=== PATIENT | female | born 1975 | race Caucasian/White ===

== ENCOUNTER 2021-10-05 07:00 | Outpatient (CLI) | payer OTHER, SELFPAY ==
--- NOTE | 2021-10-05 07:15 | MR_ITS ---
[address] [address] Phone:?[phone] Fax:?[phone] Referring Physician Information: Sesar Palumbo M.D. [address] [place] [address] Phone:?[phone] Fax:?[phone] Patient:?Leandra Black D.O.B:?1975 Sex:?Female Phone:?[phone] [facility] MRN:?[id number] Exam Date:?10/05/2021 ? EXAM: MRI of the RIGHT KNEE, without contrast CLINICAL: Bilateral knee pain. Evaluate for lateral meniscal tear. COMPARISONS: None available. TECHNICAL: MR sequences of the right knee: sagittals: PD, PDFS coronals: PD, T2FS axials: PD, PDFS SEDATION: None. CONTRAST: None. FINDINGS: Ligaments: ACL: Intact ACL anteromedial and posterolateral bundles, without sprain or tear. PCL: Intact PCL, without acute or chronic injury. MCL: Intact MCL superficial and deep layers, without injury. LCL: Intact LCL, without injury. Posterolateral corner: Popliteus, biceps femoris, iliotibial band, and the popliteofibular ligament appear intact. Posteromedial corner: Semimembranosus, pes anserine tendons and posterior oblique ligament appear intact. Extensor mechanism: Patellar tendon: Intact, without tendinopathy. Quadriceps tendon: Intact, without tendinopathy. Retinacula: Medial and lateral retinacula are intact. Fat pads: Unremarkable infrapatellar Hoffa's, quadriceps and prefemoral fat pads. Patellofemoral joint: Patella: Mild heterogeneity of the patellar cartilage. No chondral defects identified. Trochlea: No significant chondromalacia. Medial compartment: Medial meniscus: No evidence of discrete meniscal tear or meniscal displacement. Medial cartilage: No significant chondromalacia. Lateral compartment: Lateral meniscus: Horizontal dominant tearing involves the body segment extending into the anterior horn as seen on coronal series 8 images 16-19 and sagittal series 6 images 8-12. Mild degenerative signal changes involving the posterior horn. Complex parameniscal cyst formation noted along the periphery of the body segment measuring approximately 28 mm in AP dimension and 13 mm in cranial caudal dimension as seen on coronal series 8 images 15-20 and axial series 4 images 19-23. Lateral cartilage: No significant chondromalacia. Knee joint: Effusion: Very small right knee effusion. Intra-articular bodies:?No convincing bodies identified. Popliteal cyst: None. Bones: No suspicious bone marrow signal alteration or fracture line. IMPRESSION: 1. Tearing of the lateral meniscus as above, with adjacent parameniscal cyst formation along the periphery of the body segment. 2. No evidence of ligamentous injury or fracture. No chondral defects. JCZ Electronically signed on 10/05/2021 12:59:00 PM by Carlos Landis D.O.
--- NOTE | 2021-10-05 08:15 | MR_ITS ---
[address] [address] Phone:?[phone] Fax:?[phone] Referring Physician Information: Sesar Palumbo M.D. [address] [place] [address] Phone:?[phone] Fax:?[phone] Patient:?Leandra Black D.O.B:?1975 Sex:?Female Phone:?[phone] [facility] MRN:?[id number] Exam Date:?10/05/2021 ? EXAM: MRI of the LEFT KNEE, without contrast CLINICAL: Bilateral knee pain. Evaluate for lateral meniscal tear. COMPARISONS: None available. TECHNICAL: MR sequences of the left knee: sagittals: PD, PDFS coronals: PD, T2FS axials: PD, PDFS SEDATION: None. CONTRAST: None. FINDINGS: Ligaments: ACL: Intact ACL anteromedial and posterolateral bundles, without sprain or tear. PCL: Intact PCL, without acute or chronic injury. MCL: Intact MCL superficial and deep layers, without injury. LCL: Intact LCL, without injury. Posterolateral corner: Popliteus, biceps femoris, iliotibial band, and the popliteofibular ligament appear intact. Posteromedial corner: Semimembranosus, pes anserine tendons and posterior oblique ligament appear intact. Extensor mechanism: Patellar tendon: Intact, without tendinopathy. Quadriceps tendon: Intact, without tendinopathy. Retinacula: Medial and lateral retinacula are intact. Fat pads: Unremarkable infrapatellar Hoffa's, quadriceps and prefemoral fat pads. Patellofemoral joint: Patella: No significant chondromalacia. Trochlea: No significant chondromalacia. Medial compartment: Medial meniscus: No evidence of discrete meniscal tear or meniscal displacement. Medial cartilage: No significant chondromalacia. Lateral compartment: Lateral meniscus: Horizontal dominant tearing involves the body segment extending into the anterior horn, anterior root fibers and into the undersurface of the posterior horn as seen on sagittal series 6 image 19-26 and coronal series 8 images 15-20. Small parameniscal cyst formation along the periphery of the anterior root fibers on sagittal series 6 image 20-21. Lateral cartilage: No significant chondromalacia. Knee joint: Effusion: Small left knee effusion. Intra-articular bodies:?No convincing bodies identified. Popliteal cyst: Very small, with leakage of fluid extending inferiorly along the periphery of the medial gastrocnemius muscle. Bones: No suspicious bone marrow signal alteration or fracture line. IMPRESSION: 1. Tearing of the lateral meniscus as above. 2. Very small popliteal cyst with leakage of fluid extending inferiorly along the periphery of the medial gastrocnemius muscle belly. 3. Small joint effusion. 4. No evidence of ligamentous injury or fracture. No chondral defects identified. JCZ Electronically signed on 10/05/2021 12:54:00 PM by Carlos Landis D.O.
--- OUTSIDE RECORDS SUMMARY | 2021-10-12 00:40 | XMS_ITS | Encounter Summary ---
:1975 Author Organization [facility] Address [address] [place] [address] Care Team Providers Name Role Phone Steven Escobar M.D. Primary Care Provider [phone] Encounter Details Date Type Department Care Team Description 06/03/2021 Orders Only Pharmacy Prior Auth Ady Vega [phone] Social History Tobacco Use Types Packs/Day Years Used Date Smoking Tobacco: Every Day Cigarettes 0.8 16 Smokeless Tobacco: Never Alcohol Use Standard Drinks/Week Comments Yes 5 (1 standard drink = 0.6 oz pure alcoho l) Occasional Alcohol Habits Answer Date Recorded How often do you have a drink containing alcohol? Monthly or less 08/17/2020 How many drinks containing alcohol do you have on a 3 or 4 08/17/2020 typical day when you are drinking? How often do you have six or more drinks on one Less than mo nthly 08/17/2020 occasion? Comment: Occasional 06/14/2017 Social Isolation Answer Date Recorded In a typical week, how many times do you More than three kitty es a week 08/17/2020 talk on the phone with family, friends, or neighbors? How often do you get together with friends Once a week 08/17/2020 or relatives? How often do you attend faith or More than 4 times per year 08/17/2020 congregation services? Do you belong to any clubs or Yes 08/17/2020 organizations such as faith groups, unions, fraternal or athletic groups, or school groups? How often do you attend meetings of the 1 to 4 times per yea r 08/17/2020 clubs or organizations you belong to? Are you now , , , Living with partner 08/17/2020 , never or living with a partner? Physical Activity Answer Date Recorded On average, how many days per week do you engage in moderate to 2 days 08/17/2020 strenuous exercise (like walking fast, running, jogging, dancing, swimming, biking, or other activities that cause a light or heavy sweat)? On average, how many minutes do you engage in exercise at th is 20 min 08/17/2020 level? Stress Answer Date Recorded Do you feel stress - tense, restless, nervous, or Only a lit tle 08/17/2020 anxious, or unable to sleep at night because your mind is troubled all the time - these days? Financial Resource Strain Answer Date Recorded How hard is it for you to pay for the very basics like Not v mulugeta hard 08/17/2020 food, housing, medical care, and heating? Food Insecurity Answer Date Recorded Within the past 12 months, you worried that your food would Never true 08/17/2020 run out before you got money to buy more. Within the past 12 months, the food you bought just didn't N ever true 08/17/2020 last and you didn't have money to get more. Transportation Needs Answer Date Recorded In the past 12 months, has lack of transportation kept you f rom No 08/17/2020 medical appointments or from getting medications? In the past 12 months, has lack of transportation kept you f rom No 08/17/2020 meetings, work, or getting things needed for daily living? Housing Stability Answer Date Recorded In the last 12 months, was there a time when you were not ab le No 08/17/2020 to pay the mortgage or rent on time? In the last 12 months, how many places have you lived? 1 08/17/2020 In the last 12 months, was there a time when you did not hav e a No 08/17/[address] or slept in a halfway (including now)? Education Answer Date Recorded What is the highest level of school Associate degree: nicole mendoza, 01/29/2019 you have completed or the highest technical, or vocational p giancarlo degree you have received? Sex Assigned at Date Recorded Female 06/10/2017 5:21 PM CDT documented as of this encounter Plan of Treatment Not on filedocumented as of this encounter Visit Diagnoses Not on filedocumented in this encounter Care Teams Die Cutter Operator Relationship Specialty Start Date End Date Steven Escobar M.D. PCP - General 08/17/16 [address], [place] [address] documented as of this encounter
--- OUTSIDE RECORDS SUMMARY | 2021-10-12 00:40 | XMS_ITS | Clinical Summary ---
:1975 Author Organization [facility] Address [address] [place] [address] Care Team Providers Name Role Phone Steven Escobar M.D. Primary Care Provider [phone] Source Comments Patient records contain information from all sites at [facility]. For routine questions regarding patient records, call [phone] during business hours, M-F 8:00 AM - 5:00 PM Central Time. Record requests for emergency care only can be directed to [phone] at any time.[facility] Allergies No known active allergies Medications Medication Sig Dispensed Refills Start Date End Date Status ibuprofen Take 200 mg by 0 Activ e (ADVIL,MOTRIN) 200 mg mouth every 6 tablet (six) hours as needed. nicotine (NICODERM CQ) Place 1 patch on 30 patch 0 07/29/2020 Active 21 mg/24 hr the skin daily. patchIndications: Abuse Tobacco Smoking Additional Information Patient not taking. Reported on 01/21/2021 estradioL (VIVELLE-DOT) 0.1 Place 1 patch on the 24 patch 3 0 10/21/2020 Active mg/24 hr patch skin 2 (two) times a week. Additional Information Patient not taking. Reported on 01/21/2021 progesterone (PROMETRIUM) Take 1 capsule (100 mg 60 capsule 3 06/02/2021 Active 100 mg capsule total) by mouth at bedtime. Active Problems Problem Noted Date Pain Knee Bilateral 12/07/2020 Overview: SARINA, CRP, rheumatoid factor are pending. Discussed her needing to stretch her IT band. Also recommended that she attempt to walk backwards during her routine walks. Preventive Gynecological Exam 07/29/2020 Overview: Pap smear 06/2018, will plan to repeat ne xt year. She will schedule a mammogram at her convenience. Colon cancer screening starts at age 50. Routine labs are ordered. She will continue with regular exercise. Perimenopause 07/29/2020 Overview: Her symptoms have significantly improved since starting Prometrium and Vivelle- Dot so she will continue with these. 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 She smokes first thing in the morning and she does not smoke in the car often. Nicotine patches previously prescribed. Rhytid 08/07/2013 Resolved Problems Problem Noted Date Resolved Date Pain Knee Right 03/22/2020 12/07/2020 Need Vaccine Immunization 01/07/2020 12/07/2020 Immunizations Name Administration Dates Next Due Influenza, Unspecified 02/17/2011 Tdap 06/04/2016, 06/07/2007 influenza vaccine quad (FLUZONE/FLUARIX) (6 months 0 and older)(PF) Family History Medical History Relation Name Comments Healthy adult Father Breast cancer Maternal Grandmother Marion cantu Healthy adult Mother Skin cancer Paternal Grandmother Angelia todd AVM Sister Ruptured in 20's ; underwent surgery Relation Name Status Comments Father Maternal Grandmother Marion cantu Mother Paternal Grandmother Angelia todd Sister Social History Tobacco Use Types Packs/Day Years Used Date Smoking Tobacco: Every Day Cigarettes 0.8 16 Smokeless Tobacco: Never Tobacco Cessation: Ready to Quit: Yes; C ounseling Given: Yes Alcohol Use Standard Drinks/Week Comments Yes 5 [...] or relatives? How often do you attend rastafari or More than 4 times per year 08/17/2020 mandaeism services? Do you belong to any clubs or Yes 08/17/2020 organizations such as rastafari groups, unions, fraternal or athletic groups, or [...] place to sleep or slept in a jail (including now)? Education Answer Date Recorded What is the highest level of school Associate degree: nicole mendoza, 01/29/2019 you have completed or the highest technical, or vocational p giancarlo degree you have received? Sex Assigned at Date Recorded Female 06/10/2017 5:21 PM CDT Last Filed Vital Signs Vital Sign Reading Time Taken Comments Blood Pressure 104/66 01/21/2021 2:43 PM PRIVATE BRANCH EXCHANGE OPERATOR Pulse 76 01/21/2021 2:43 PM PRIVATE BRANCH EXCHANGE OPERATOR Temperature 36.1 ??C (97 ??F) 01/21/2021 2:43 PM PRIVATE BRANCH EXCHANGE OPERATOR Respiratory Rate 16 07/02/2018 1:55 PM CDT Oxygen Saturation 99% 08/17/2020 10:00 AM CDT Inhaled Oxygen Concentration - - Weight 66 kg (145 lb 8.1 oz) 01/21/2021 2:43 PM PRIVATE BRANCH EXCHANGE OPERATOR Height 164 cm (5' 4.57) 07/29/2020 1:52 PM CDT Body Mass Index 24.54 07/29/2020 1:52 PM CDT Plan of Treatment Health Maintenance Due Date Last Done Comments CT Colonography 1975 Cologuard 1975 Colonoscopy 1975 Colorectal Cancer Screening 1975 FIT 1975 Hepatitis B Vaccines (1 of 3 - 1975 3-dose series) Hepatitis C Screening 1975 Pneumococcal vaccine (0-64 years) 1980 (1 - PCV) Depression Screening (Annual 03/05/2021 PHQ-2) Mammogram 08/09/2021 08/09/2020, 08/03/2020, 07/18/2019, Additional history exists Influenza Vaccine (#1) 2022 01/25/2021, 01/07/2020, 2017, Additional history exists Cervical Cancer Screening 07/03/2023 07/02/2018, 07/02/2018 , 12/13/2015, Additional history exists Fasting Glucose for Diabetes 07/30/2023 07/29/2020, 020, Screening 06/22/2017, Additional history exists Fasting Lipid Panel 07/29/2025 07/29/2020, 12/13/2015, 12/25/2013 DTaP,Tdap,and Td Vaccines (3 - Td 06/04/2026 06/04/2016, or Tdap) HIV Screening Completed 02/02/2011 COVID-19 Vaccine Completed 01/25/2021, 07/16/2020, 06/25/2020 Medical Devices Implanted Type Area Instructor Nurse Device Shelf Model / Identifier Expiration Serial / Date Lot Breast Implant Breast Implant Breast Intrauterine Intrauterine Pelvis Device Device Description: ESSURE-Contraceptive device MR Conditional to 3T, maximum spatial gr adient magnetic field 720 Gauss/cm or less [email or web address] 03/22/20-FORMERLY [facility] Insurance Payer Benefit Plan / Subscriber ID Effective Phone Address T ype Group Dates [place] [employer] [id number] 2018-Pres [id number] Medicaid HMO HEALTH MD CARE ent [address] [place] [address] [id number] [phone] Karen (Work) GENEVIEVE Pavon [phone] Care Teams Power Washer Relationship Specialty Start Date End Date Steven Escobar M.D. PCP - General 08/17/16 [address] [facility] [place] [address]
--- OUTSIDE RECORDS SUMMARY | 2021-10-12 00:40 | XMS_ITS | Encounter Summary ---
:1975 Author Organization [facility] Address [address] [place] [address] Care Team Providers Name Role Phone Steven Escobar M.D. Primary Care Provider [phone] Encounter Details Date Type Department Care Team Description 06/06/2021 Clinical Communication Department of Adonay Kohli Obstetrics and Romi Cosby Gynecology in [address] [place], [place] [address] [address] [place], [place] [phone] [address] (Work) [phone] Social History Tobacco Use Types Packs/Day Years [...] or relatives? How often do you attend sabianism or More than 4 times per year 08/17/2020 moravian services? Do you belong to any clubs or Yes 08/17/2020 organizations such as sabianism groups, unions, fraternal or athletic groups, or [...] place to sleep or slept in a m[facility]p (including now)? Education Answer Date Recorded What is the highest level of school Associate degree: niravkirstie mendoza, 01/29/2019 you have completed or the highest technical, or vocational dominique mondragon degree you have received? Sex Assigned at Date Recorded Female 06/10/2017 5:21 PM CDT documented as of this encounter Plan of Treatment Not on filedocumented as of this encounter Visit Diagnoses Not on filedocumented in this encounter Care Teams Sales Representative Public Utilities Relationship Specialty Start Date End Date Steven Escobar M.D. PCP - General 08/17/16 [address] [place] [address] documented as of this encounter
--- OUTSIDE RECORDS SUMMARY | 2021-10-12 00:40 | XMS_ITS | Encounter Summary ---
:1975 Author Organization [facility] Address [address] [place] [address] Care Team Providers Name Role Phone Steven Escobar M.D. Primary Care Provider Encounter Details Date Type Department Care Team Description 06/03/2021 Orders Only Pharmacy Prior Auth RO Johnathon Carbajal Bijan [phone] Social History Tobacco Use Types Packs/Day Years [...] or relatives? How often do you attend mormonism or More than 4 times per year 08/17/2020 mosque services? Do you belong to any clubs or Yes 08/17/2020 organizations such as mormonism groups, unions, fraternal or athletic groups, or [...] place to sleep or slept in a ch[facility] (including now)? Education Answer Date Recorded What [...] on filedocumented in this encounter Care Teams Ice Cream Dipper Relationship Specialty Start Date End Date Steven Escobar M.D. PCP - General 08/17/16 [address] [phone] documented as of this encounter
--- OUTSIDE RECORDS SUMMARY | 2021-10-12 00:40 | XMS_ITS | Encounter Summary ---
:1975 Author Organization [facility] Address [address] [place] [address] Care Team Providers Name Role Phone Steven Escobar M.D. Primary Care Provider [phone] Reason for Referral Medication Prior Authorization - Closed Specialty Diagnoses / Procedures Referred By Contact Refer red To Contact Adonay Kohli Jr., M.D. [address] [address] Referral ID Status Reason Start Date Expiration Date Visits Requ ested Visits Authorized [id number] Closed 1 1 Reason for Visit Reason Comments Med Refill Encounter Details Date Type Department Care Team Description 06/02/2021 Refill Department of Obstetrics and Jordy Kohli Jr., Med Refill Gynecology in [place] [address] [address] [place] [address] [phone] Social History Tobacco Use Types Packs/Day Years [...] or relatives? How often do you attend mormon or More than 4 times per year 08/17/2020 jainism services? Do you belong to any clubs or Yes 08/17/2020 organizations such as mormon groups, unions, fraternal or athletic groups, or [...] place to sleep or slept in a care home (including now)? Education Answer Date Recorded What is the highest level of school Associate degree: nicole mendoza, 01/29/2019 you have completed or the highest technical, or vocational p francescaram degree you have received? Sex Assigned at Date Recorded Female 06/10/2017 5:21 PM CDT documented as of this encounter Miscellaneous Notes Telephone Encounter - Francine Herrera - 06/02/2021 11:19 AM CDT Nurse review: Unable to forward request to provider; Discrepancy; Verification Required. med list states patient not taking Primary Provider: Steven Escobar M.D. Requested Prescriptions Pending Prescriptions Disp Refills ??? progesterone (PROMETRIUM) 100 mg capsule 60 capsule 3 Sig: Take 1 capsule (100 mg total) by mouth at bedtime. Telephone Encounter - Alma Garcia - 06/02/2021 11:11 AM CDT Provider: Steven Escobar M.D. Patient called for Refills. Additional info only if applies: Patient is out of medication and is leaving out of stated. Requested Prescriptions Pending Prescriptions Disp Refills ??? progesterone (PROMETRIUM) 100 mg capsule 60 capsule 3 Sig: Take 1 capsule (100 mg total) by mouth at bedtime. Pharmacy: [id number] - [address] AT [facility] [address] [address] documented in this encounter Plan of Treatment Not on filedocumented as of this encounter Visit Diagnoses Not on filedocumented in this encounter Care Teams Flake Drier Relationship Specialty Start Date End Date Steven Escobar M.D. PCP - General 08/17/16 [address] [place] [address] documented as of this encounter
--- OUTSIDE RECORDS SUMMARY | 2021-10-12 00:41 | XMS_ITS | Encounter Summary ---
:1975 Author Organization [facility] Address [address] [place] [address] Care Team Providers Name Role Phone Steven Escobar M.D. Primary Care Provider [phone] Reason for Visit Reason Comments COVID Inquiry Encounter Details Date Type Department Care Team Description 03/17/2021 Clinical Communication Department of [facility] COLLEEN SalazarID [facility], [place] Steven Moreno M.D. [facility], [place] [address] [place], [place] [address] [address] [place], [place] [phone] [address] (Work) [phone] Social History Tobacco Use Types Packs/Day Years [...] or relatives? How often do you attend moravian or More than 4 times per year 08/17/2020 mormon services? Do you belong to any clubs or Yes 08/17/2020 organizations such as moravian groups, unions, fraternal or athletic groups, or [...] place to sleep or slept in a custodial (including now)? Education Answer Date Recorded What is the highest level of school Associate degree: niravkirstie mendoza, 01/29/2019 you have completed or the highest technical, or vocational p giancarlo degree you have received? Sex Assigned at Date Recorded Female 06/10/2017 5:21 PM CDT documented as of this encounter Miscellaneous Notes Telephone Encounter - Anayeli Herr - 03/17/2021 12:50 PM CST What is the purpose of the call?: Requesting Testing Only Request Testing In the past 14 days are any of the following symptoms new to you and not related to an existing health condition?: Fever*,New sore throat Because of symptoms, transfer patient to: : [place] COVID Nurse Line (End Screening) Plan: Endpoint recommendation: Transferred to Nursing/COVID Line/Care Team *Reminder if sending patient for testing in [facility] or [facility], route encounter to the correct testing pool. DRUMMER documented in this encounter Plan of Treatment Not on filedocumented as of this encounter Visit Diagnoses Not on filedocumented in this encounter Care Teams Commissary Helper Relationship Specialty Start Date End Date Steven Escobar M.D. PCP - General 08/17/[address] [place] [address] documented as of this encounter
--- OUTSIDE RECORDS SUMMARY | 2021-10-12 00:41 | XMS_ITS | Encounter Summary ---
:1975 Author Organization [facility] Address [address] [place] [address] Care Team Providers Name Role Phone Steven Escobar M.D. Primary Care Provider Reason for Referral Outpatient (Routine) - Authorized Specialty Diagnoses / Procedures Referred By Contact Refer red To Contact Video Medicine Diagnoses Pain Knee Bilateral Evangelista Rodriguez M.D. [place] [phone] Referral ID Status Reason Start Date Expiration Date Visits V isits Requested Authorized [id number] Authorized 01/21/2021 01/21/2022 1 1 Scheduling Instructions Please schedule 6-8 weeks after first PT appointment. TE SENSING ADVISOR Physical Therapy (Routine) - Authorized Specialty Diagnoses / Procedures Referred By Contact Refer red To Contact Diagnoses Pain Knee Bilateral Evangelista Rodriguez M.D. [facility] Procedures PT Evaluate and treat [address] [place] [phone] Referral ID Status Reason Start Date Expiration Date Visits V isits Requested Authorized [id number] Authorized 01/21/2021 01/21/2022 1 1 TE SENSING ADVISOR Reason for Visit Reason Comments Knee Pain Outpatient (Routine) - Closed Specialty Diagnoses / Referred By Contact Referred To Contact Procedures Physical Medicine and Diagnoses Pain Knee Bilateral Adonay Kohli [facility] Gardenia Cosby M.D. [address] [place] [address] Referral ID Status Reason Start Date Expiration Date Visits Requ ested Visits Authorized [id number] Closed 12/09/2020 12/09/2021 1 1 Encounter Details Date Type Department Care Team Description 01/21/2021 Comprehensive Visit Department of Physical Jennifer, Pain Knee Medicine and Evangelista Carpenter [facility]ilateral Rehabilitation in [place], [place] [address] [facility] [address] [place] [phone] Social History Tobacco Use Types Packs/Day Years [...] or relatives? How often do you attend pentecostal or More than 4 times per year 08/17/2020 zoroastrianism services? Do you belong to any clubs or Yes 08/17/2020 organizations such as pentecostal groups, unions, fraternal or athletic groups, or [...] PM CDT documented as of this encounter Last Filed Vital Signs Vital Sign Reading Time Taken Comments Blood Pressure 104/66 01/21/2021 2:43 PM REMOTE SENSING ADVISOR Pulse 76 01/21/2021 2:43 PM REMOTE SENSING ADVISOR Temperature 36.1 ??C (97 ??F) 01/21/2021 2:43 PM REMOTE SENSING ADVISOR Respiratory Rate - - Oxygen Saturation - - Inhaled Oxygen Concentration - - Weight 66 kg (145 lb 8.1 oz) 01/21/2021 2:43 PM REMOTE SENSING ADVISOR Height - - Body Mass Index 24.54 07/29/2020 1:52 PM CDT documented in this encounter Consult Notes Evangelista Rodriguez M.D. - 01/21/2021 3:00 PM CST SUBJECTIVE REFERRAL SOURCE Shawn Velasquez Jr..* CHIEF COMPLAINT/REASON FOR VISIT bilateral knee pain HISTORY OF PRESENT ILLNESS Ms. Black is a very pleasant 45 y.o. female who is here for evaluation of bilateral knee pain. She reports her pain began over a year ago, without any inciting event. The pain is located at the anterior knee bilaterally, with occasional radiation into the leg bilaterally. She describes the pain as deep. It is constant. She rates the pain as a 10/10 at its worst and a 4/10 at its best. Things that tend to worsen the pain include walking or standing for long period of time, sitting with her kneesflexed for prolonged periods of time, and going up and down stairs. Things that make the pain betterinclude ibuprofen. She has tried physical therapy in the past, but states she was not very compliant with her exercises. She denies any numbness, tingling or weakness in the bilateral lower extremity. She denies any low back pain but does endorse bilateral lateral hip pain, which has started more recently. She denies any fever or chills, recent unintentional weight loss, or pain at night. She denies any swelling, catching, or locking at either knee. CURRENT MEDICATIONS Current Outpatient Medications: ??? ibuprofen (ADVIL,MOTRIN) 200 mg tablet, Take 200 mg by mouth every 6 (six) hours as needed. , Disp: , Rfl: ??? estradioL (VIVELLE-DOT) 0.1 mg/24 hr patch, Place 1 patch on the skin 2 (two) times a week. (Patient not taking: Reported on 01/21/2021 ), Disp: 24 patch, Rfl: 3 ??? nicotine (NICODERM CQ) 21 mg/24 hr patch, Place 1 patch on the skin daily. (Patient not taking: Reported on 01/21/2021 ), Disp: 30 patch, Rfl: 0 ??? progesterone (PROMETRIUM) 100 mg capsule, Take 1 capsule (100 mg total) by mouth at bedtime. (Patient not taking: Reported on 01/21/2021 ), Disp: 60 capsule, Rfl: 3 ALLERGIES/CONTRAINDICATIONS No Known Allergies MEDICAL HISTORY Past Medical History: Diagnosis Date ??? Spontaneous (HCC) x3 ??? Anxiety Generalized Disorder Random ??? Gestational Diabetes Mellitus Personal History Not ??? Headache Unspecified ??? Menorrhagia Resolved with ablation SURGICAL HISTORY Past Surgical History: Procedure Laterality Date ??? AUGMENTATION MAMMAPLASTY Bilateral ??? AUGMENTATION MAMMOPLASTY Bilateral 12/13/2012 Saline implants ??? DILATION AND CURETTAGE OF UTERUS 02/03/2014 For management of menorrhagia ??? ENDOMETRIAL ABLATION W/ NOVASURE 03/10/2014 ??? EPISIOTOMY 09/12/2011 ??? ESSURE TUBAL LIGATION 11/14/2011 With confirmatory HSG on 01/22/2014 ??? MANUALLY ASSISTED SPONTANEOUS DELIVERY x3, most recently 10/24/2011 ??? SURGICAL TREATMENT OF MISCARRIAGE OF ANY TRIMESTER D&C ??? SURGICAL TREATMENT OF MISSED MISCARRIAGE OF FIRST TRIMESTER 2009 D&C SOCIAL HISTORY Social History Socioeconomic History ??? Marital status: Single Spouse name: Not on file ??? Number of children: Not on file ??? Years of education: Not on file ??? Highest education level: Associate degree: occupational, technical, or vocational program Occupational History ??? Not on file Tobacco Use ??? Smoking status: Current Every Day Smoker Packs/day: 0.75 Years: 16.00 Pack years: 12.00 Types: Cigarettes ??? Smokeless tobacco: Never Used Substance and Sexual Activity ??? Alcohol use: Yes Alcohol/week: 5.0 standard drinks Types: 1 Glasses of wine, 4 Cans of beer per week Comment: Occasional ??? Drug use: No Comment: Prior cocaine use ??? Sexual activity: Yes Partners: Male control/protection: Other Comment: Essure Other Topics Concern ??? Not on file Social History Narrative She is exercising at least 4 days a week. Social Determinants of Health Financial Resource Strain: Low Risk ??? Difficulty of Paying Living Expenses: Not very hard Food Insecurity: No Food Insecurity ??? Worried About Running Out of Food in the Last Year: Never true ??? Ran Out of Food in the Last Year: Never true Transportation Needs: No Transportation Needs ??? Lack of Transportation (Medical): No ??? Lack of Transportation (Non-Medical): No Physical Activity: Insufficiently Active ??? Days of Exercise per Week: 2 days ??? Minutes of Exercise per Session: 20 min Stress: No Stress Concern Present ??? Feeling of Stress : Only a little Social Connections: Socially Integrated ??? Frequency of Communication with Friends and Family: More than three times a week ??? Frequency of Social Gatherings with Friends and Family: Once a week ??? Attends Lutheran Services: More than 4 times per year ??? Active Member of Clubs or Organizations: Yes ??? Attends Club or Organization Meetings: 1 to 4 times per year ??? Marital Status: Living with partner Intimate Partner Violence: Not on file Housing Stability: Low Risk ??? Unable to Pay for Housing in the Last Year: No ??? Number of Places Lived in the Last Year: 1 ??? Unstable Housing in the Last Year: No FAMILY HISTORY Family History Problem Relation Age of Onset ??? Healthy adult Mother ??? Healthy adult Father ??? Breast cancer Maternal Grandmother ??? AVM Sister Ruptured in 20's; underwent surgery ??? Skin cancer Paternal Grandmother REVIEW OF SYSTEMS Except for those mentioned in the history of present illness, and below, a complete review of systems is negative. OBJECTIVE VITAL SIGNS Vitals: 01/21/21 1443 BP: 104/66 Pulse: 76 Temp: 36.1 ??C PHYSICAL EXAMINATION General: In no apparent distress, is pleasant, and cooperative Psych: Mood is euthymic, affect is congruent Ear, Nose, Throat: Normocephalic, atraumatic, moist membranes, anicteric sclerae Lung: Nonlabored breathing Heart: No clubbing or cyanosis Skin: No increased erythema, warmth, rashes, or concerning skin lesions Neuro: Awake, alert, and oriented. Strength was 5/5 throughout bilateral lower extremities. Sensation was intact throughout bilateral lower extremities. Reflexes were symmetric in bilateral lower extremities. Slump test were negative. Gait: Gait pattern was normal. No difficulty with heel or toe walking. Foot conformation was normal.Double leg squat was painful at the anterior knee bilaterally. Single leg squat was abnormal bilaterally with a dynamic valgus moment at both knees. Musculoskeletal: Examination of the bilateral knee: There was no effusion, warmth, erythema, or ecchymoses. There was no tenderness to palpation. Knee range of motion was full, symmetric, and pain-free. Patellar grind test was positive for crepitus and mild pain bilaterally. Varus and valgus stress tests were negative. Rafael's test was negative. Hyperflexion test was negative. Bounce test was negative. Abel's test was negative. Patricia compression test was negative. Examination of the bilateral hip: Mild tenderness noted over both greater trochanters and IT band (right worse than left). Weakness noted with side-lying hip abduction bilaterally. Chris's test was negative bilaterally. IMAGING STUDIES: X-Ray of the bilateral knee (two views), dated 03/26/2020, revealed negative radiographs of both knees. I personally reviewed these images and agree with the radiology report and shared the findings with the patient. Rheumatoid factor positive at 67 (12/07/2020) and 75 (12/10/2020) with cyclic citrullinated peptide antibodies negative (12/09/2020), CRP normal (12/07/2020), and antinuclear antibody negative (12/07/2020). ASSESSMENT / PLAN IMPRESSION: 1. Bilateral knee pain, chronic PLAN: The following was discussed with the patient: Ms. Black is a very pleasant 45 y.o. female who presents with a chief complaint of chronic, atraumatic bilateral anterior knee pain. Her history and physical exam seem most consistent with bilateralpatellofemoral pain syndrome. She does have bilateral hip abduction weakness which is likely contributing to poor anterior knee and patella mechanics. Neurological exam is reassuring. Rheumatoid factoris positive, but along with a normal anti-CCP and CRP, and no other joint involvement at this time, inflammatory arthritis is less likely. Will obtain updated bilateral knee x-rays. Patient will get back into physical therapy for both her knees, focusing on core and hip abductor/external rotator strengthening exercises. Recommended ice, alternating Tylenol with ibuprofen to help decrease her total ibuprofen use, and [id number] diclofenac gel to be applied to the areas of her knee pain 4 times a day. Cautioned against same time useof oral NSAIDs with the diclofenac gel. Patient will follow-up with a video visit in 6-8 weeks after initiating physical therapy to evaluateprogress. I will follow-up with patient electronically with her x-ray results. If the above recommendations do not provide benefit, we will consider more advanced imaging and/or steroid injection for diagnostic, but also hopefully therapeutic benefit at this time. The patient was counseled to remain active, but avoid activities that worsen symptoms. The patient was in agreement with this plan. All questions were answered to the best of my ability. Total patient care time of 60 minutes spent today. Sandor Rodriguez M.D. TE SENSING ADVISOR documented in this encounter Plan of Treatment Scheduled Referrals Name Type Priority Associated Diagnoses Order S chedule Video anyplace Outpatient Referral Routine Pain Knee Bilateral Expected: visit 03/18/2021 (Approximate), Expires: 01/22/2024 documented as of this encounter Results DX Knee Bilateral 4+ Views (01/24/2021 9:13 AM REMOTE SENSING ADVISOR) Anatomical Region Laterality Modality Lower Extremity, Knee, Musculoskeletal RST LOS, Bilateral Digital Radiography Musculoskeletal ARZ LOS, Muskuloskeletal FLA LOS Specimen (Source) Anatomical Collection Method Collection Time Re ceived Time Location / / Volume Laterality 01/24/2021 9:55 AM REMOTE SENSING ADVISOR Impressions 01/24/2021 10:00 AM REMOTE SENSING ADVISOR No significant radiographic abnormality is identified in either knee and there has been no significant change since 03/26/2020. Narrative 01/24/2021 10:00 AM REMOTE SENSING ADVISOR EXAM: DX KNEE BILATERAL 4+ VIEWS COMPARISON: 03/26/2020 FINDINGS: Both knees are within normal l imits. No significant change since 03/26/2020. No fractures are seen. There is normal mineralization and alignment. No acute soft tissue abnormalities are i dentified. Joint spaces are preserved. Procedure Note Hardeep Freeman M.D. - 01/24/2021Format ting of this note might be different from the original. EXAM: DX KNEE BILATERAL 4+ VIEWS COMPARISON: 03/26/2020 FINDINGS: Both knees are within normal l imits. No significant change since 03/26/2020. No fractures are seen. There is normal mineralization and alignment. No acute soft tissue abnormalities are i dentified. Joint spaces are preserved. IMPRESSION: No significant radiographic abnormality is identified in either knee and there has been no significant change since 03/26/2020. Evangelista [facility] DAISY WOMACK documented in this encounter Visit Diagnoses Diagnosis Pain Knee Bilateral Pain Knee Bilateral documented in this encounter Care Teams Manager Tax Relationship Specialty Start Date End Date Steven Escobar M.D. PCP - General 08/17/[address] [address] documented as of this encounter
--- OUTSIDE RECORDS SUMMARY | 2021-10-12 00:41 | XMS_ITS | Encounter Summary ---
:1975 Author Organization [facility] Address [address] [place] [address] Care Team Providers Name Role Phone Steven Escobar M.D. Primary Care Provider [phone] Reason for Visit Reason Onset Date Comments Testing For Upper Respiratory Virus Symptoms 03/17/2021 Encounter Details Date Type Department Care Team Description 03/17/2021 External Outreach Department of Family Prema Saez, Contact With And (Suspected) Exposure To COVID-19; Medicine, Mcarthur TAHMINA, C.N.P., Infection Upper Respiratory Clinic, in [facility] [address] [place] [address] [place] [phone] Social History Tobacco Use Types Packs/Day Years [...] or relatives? How often do you attend uatsdin or More than 4 times per year 08/17/2020 gnosticism services? Do you belong to any clubs or Yes 08/17/2020 organizations such as uatsdin groups, unions, fraternal or athletic groups, or [...] place to sleep or slept in a fci (including now)? Education Answer Date Recorded What is the highest level of school Associate degree: nicole mendoza, 01/29/2019 you have completed or the highest technical, or vocational p giancarlo degree you have received? Sex Assigned at Date Recorded Female 06/10/2017 5:21 PM CDT documented as of this encounter Progress Notes Cristian Naidu C.M.A. - 03/17/2021 1:24 PM CST Encounter created for symptomatic infectious disease screening with possible COVID, Influenza, RSV, and/or Group A Strep testing. ND EQUIPMENT REPAIRER documented in this encounter Miscellaneous Notes Result Encounter Note - Lexus Souza R.N. - 03/18/2021 11:03 AM DEMAND EQUIPMENT REPAIRER Your patient has tested positive for SARS-CoV-2, the virus that causes COVID-19. IMPORTANT: Please update the patient's problem list and medication list to ensure an accurate and timely evaluation for COVID-19 treatments, including various medications and Remote Patient Monitoring (RPM). If eligible for COVID-19 treatments or RPM, your patient will be contacted by a designated team of nurses to coordinate the care. The [facility] Team ([facility]) sends general guidance about COVID-19 to all patients by letter or portal, except when a patient is hospitalized or resides in a custodial. The [facility] will also call all adult patients at highest risk for severe complications of COVID-19 andall who require an paraprofessional interpreter. Any patient with a MASS score 1 or greater or a COVID-19 score 1 or greater may be at higher risk ofsevere disease. These patients will follow up directly with primary care. The primary care team willdecide if the patient needs a phone call or a follow up portal message to assess symptom severity, provide individualized guidance on symptom monitoring or symptom management, or to reinforce when to se ek care. [facility] encourages patients to follow up with their PCP with questions, worsening symptoms, or for symptom management. For questions, contact the [facility] Team ([facility]): Pager: [phone] In basket: P RST/[facility] COVID-19 POSITIVE Covid Care e-consult Components of the Monoclonal Antibody Selection Score (MASS) Compromised Immune System/Transplant = 4 points Chronic Kidney Disease on Dialysis = 4 points Age greater than or equal to 55 and chronic pulmonary disease = 3 points Age greater than or equal to 65 = 2 points Age greater than or equal to = 2 points Diabetes = 2 points Age greater than or equal to 55 AND cardiovascular disease = 2 points Age greater than or equal to 55 and hypertension = 1 point NOTE: At the time of testing, patients are instructed to obtain the result by calling the [employer] result line or by checking their online services account. ND EQUIPMENT REPAIRER documented in this encounter Plan of Treatment Not on filedocumented as of this encounter Procedures Procedure Name Priority Date/Time Associated Diagnosis Comme nts INFLUENZA A/B AND Routine 03/17/2021 2:03 PM Infection Upper R esults for this RSV, PCR, VARIES DEMAND EQUIPMENT REPAIRER Respiratory procedure a re in the results section. SARS CORONAVIRUS-2 Routine 03/17/2021 2:03 PM Contact With And Results for this RNA, V DEMAND EQUIPMENT REPAIRER (Suspected) Exposure procedu re are in To COVID-19 the results section. documented in this encounter Results Influenza A/B and RSV, PCR, Varies (03/17/2021 2:03 PM DEMAND EQUIPMENT REPAIRER) [facility] Method Time Signature Influenza A/B Swab, 03/27/2021 DTL and RSV, Nasopharynx 12:29 AM Source DEMAND EQUIPMENT REPAIRER Influenza A, Undetected Undetected 03/27/2021 DTL PCR 12:29 AM DEMAND EQUIPMENT REPAIRER Comment: Influenza A RNA absent. Influenza B, PCR Undetected Undetected 03/27/2021 12:[address] DTL Comment: Influenza B RNA absent. Respiratory Syncytial Virus, Undetected Undetected 12:29 AM DEMAND EQUIPMENT REPAIRER DTL PCR Comment: RSV RNA absent. ----ADDITIONAL INFORMATION---- This test has been modified from the man sariacturer's instructions. Its performance characteristics were determi ember by [facility] in a manner consistent with CLIA requirements. This test has not been cleared or approved by the U.S. Food and Drug Administration . Specimen Anatomical Collection Method Collection Time Receive d Time (Source) Location / / Volume Laterality Varies 03/17/2021 2:03 PM 2 (Nasopharynx) DEMAND EQUIPMENT REPAIRER 10:41 PM DEMAND EQUIPMENT REPAIRER Waldo Nash APRNNElias., R.N. LAB MICROBIOLOGY - GEN ERAL ORDERABLES Performing Organization Address [facility] Phon e Number [facility] - [address] [place], [place] [address] [facility] [place] [address] Laboratories-[facility] [address] [facility] (ABNORMAL) SARS Coronavirus-2 RNA, V Symptomatic (03/17/2021 2:03 PM DEMAND EQUIPMENT REPAIRER) [facility] Method Time Signature SARS-CoV-2 Swab, 03/18/2021 MKTO Specimen Nasopharynx 10:22 AM Source DEMAND EQUIPMENT REPAIRER SARS CoV-2 Detected (A) Undetected 03/18/2021 MKTO RNA, TMA 10:22 AM DEMAND EQUIPMENT REPAIRER Comment: SARS-CoV-2 RNA present. ----ADDITIONAL INFORMATION---- This molecular amplification test was pe rformed using the Aptima SARS-CoV-2 assay ([employer] on the Victor[employer] tem under emergency use authorization (EUA) by the U.S. Food and Drug Administ srinivasan. Fact sheets for this EUA assay can be fo und at the following links: For Healthcare Providers: https://www.fd a.gov/media/305779/download For Patients: https://www.fda.gov/media/ 486759/download Specimen Anatomical Collection Method Collection Time Receive d Time (Source) Location / / Volume Laterality Varies 03/17/2021 2:03 PM 2 5:47 (Nasopharynx) DEMAND EQUIPMENT REPAIRER AM DEMAND EQUIPMENT REPAIRER Kenyetta Nash APRN.N.P., R.N. LAB MICROBIOLOGY - GEN ERAL ORDERABLES Performing Organization Address [facility] Phon e Number [facility] [place] [address] [place] [address] System in [address] documented in this encounter Visit Diagnoses Diagnosis Contact With And (Suspected) Exposure To COVID-19 Infection Upper Respiratory documented in this encounter Additional Health Concerns Infection Onset Date Last Indicated Resolved Time COVID19 Pending 03/17/2021 03/17/2021 03/18/2021 10:23 AM DEMAND EQUIPMENT REPAIRER documented as of this encounter Care Teams Customer Field Representative Relationship Specialty Start Date End Date Steven Escobar M.D. PCP - General 08/17/[address] [phone] documented as of this encounter
--- OUTSIDE RECORDS SUMMARY | 2021-10-12 00:41 | XMS_ITS | Encounter Summary ---
:1975 Author Organization [facility] Address [address] [place] [address] Care Team Providers Name Role Phone Steven Escobar M.D. Primary Care Provider [phone] Encounter Details Date Type Department Care Team Description 05/31/2021 Orders Only Pharmacy Prior Auth Ady Vega [phone] Social History Tobacco Use Types Packs/Day Years [...] or relatives? How often do you attend denominational or More than 4 times per year 08/17/2020 orthodox services? Do you belong to any clubs or Yes 08/17/2020 organizations such as denominational groups, unions, fraternal or athletic groups, or [...] on filedocumented in this encounter Care Teams Vacuum Metalizing Supervisor Relationship Specialty Start Date End Date Steven Escobar M.D. PCP - General 08/17/16 [address], [place] [address] documented as of this encounter
--- OUTSIDE RECORDS SUMMARY | 2021-10-12 00:41 | XMS_ITS | Encounter Summary ---
:1975 Author Organization [facility] Address [address] [place] [address] Care Team Providers Name Role Phone Steven Escobar M.D. Primary Care Provider [phone] Encounter Details Date Type Department Care Team Description 08/11/2020 Orders Only [facility] - Steven Hanna [address] [place] [address] [address] [phone] [place] [address] (Wo rk) Social History Tobacco Use Types Packs/Day Years [...] or relatives? How often do you attend restoration or More than 4 times per year 08/17/2020 shinto services? Do you belong to any clubs or Yes 08/17/2020 organizations such as restoration groups, unions, fraternal or athletic groups, or [...] place to sleep or slept in a group home (including now)? Education Answer Date Recorded What is the highest level of school Associate degree: nicole josegriffin, 01/29/2019 you have completed or the highest technical, or vocational p giancarlo degree you have received? Sex Assigned at Date Recorded Female 06/10/2017 5:21 PM CDT documented as of this encounter Plan of Treatment Not on filedocumented as of this encounter Visit Diagnoses Not on filedocumented in this encounter Care Teams Shipping Point Inspector Relationship Specialty Start Date End Date Steven Escobar M.D. PCP - General 08/17/16 [address] [place] [phone] documented as of this encounter
--- OUTSIDE RECORDS SUMMARY | 2021-10-12 00:41 | XMS_ITS | Encounter Summary ---
:1975 Author Organization [facility] Address [address] [place] [address] Care Team Providers Name Role Phone Steven Escobar M.D. Primary Care Provider [phone] Reason for Visit Reason Comments Abnormal Breast Imaging Left consult and US biopsy Outpatient (Routine) - Closed Specialty Diagnoses / Procedures Referred By Contact Refer red To Contact General Surgery Diagnoses Abnormal Ultrasound Breast [facility] [address] [place] [address] Referral ID Status Reason Start Date Expiration Date Visits V isits Requested Authorized [id number] Closed Specialty 08/10/2020 08/10/2021 1 1 Services Required Encounter Details Date Type Department Care Team Description 08/17/2020 Comprehensive Visit Department of Torito Munoz Ultrasound General Surgery in Negrito Irwin M.D. Breast [address] [phone] [facility] (Work) [phone] Social History Tobacco Use Types Packs/Day Years [...] or relatives? How often do you attend rastafarian or More than 4 times per year 08/17/2020 hoahaoism services? Do you belong to any clubs or Yes 08/17/2020 organizations such as rastafarian groups, unions, fraternal or athletic groups, or [...] place to sleep or slept in a assisted (including now)? Education Answer Date Recorded What is the highest level of school Associate degree: nicole mendoza, 01/29/2019 you have completed or the highest technical, or vocational p giancarlo degree you have received? Sex Assigned at Date Recorded Female 06/10/2017 5:21 PM CDT documented as of this encounter Last Filed Vital Signs Vital Sign Reading Time Taken Comments Blood Pressure - - Pulse 81 08/17/2020 10:00 AM CDT Temperature 36.5 ??C (97.7 ??F) 08/17/2020 10:00 AM CDT Respiratory Rate - - Oxygen Saturation 99% 08/17/2020 10:00 AM CDT Inhaled Oxygen Concentration - - Weight - - Height - - Body Mass Index - - documented in this encounter Procedure Notes Negrito Munoz M.D. - 08/17/2020 10:00 AM CDTProcedure(s): BI US BREAST BIOPSY LEFT Pre-Procedure Diagnose(s): Lump In The Left Breast Upper Outer Quadrant Post-Procedure Diagnose(s): Lump In The Left Breast Upper Outer Quadrant DATE: 08/17/20 PROCEDURE: Ultrasound guided left breast biopsy PRE-PROCECURE DIAGNOSIS: Left breast lesion POST-PROCEDURE DIAGNOSIS: Left breast lesion ANESTHESIA: Local EBL:: 2 mL IV FLUIDS: None SPECIMEN: Left breast lesion CONDITION: Stable COMPLICATIONS: None HISTORY OF PRESENTING ILLNESS: Leandra Black is a 44 y.o. female who has a past medical history of Spontaneous (HCC), Anxiety Generalized Disorder (Random), Gestational Diabetes Mellitus Personal History Not , Headache Unspecified, and Menorrhagia. The patient is referred to the office with a finding of a left breast lesion found on mammogram. TECHNIQUE: The patient was placed in the supine position. A preoperative timeout was performed to properly identify the patient, the procedure to be performed, and the location for the procedure to be performed on. The left breast was prepped and draped in a regular sterile fashion. Local anesthesia was applied.Under ultrasound guidance, the needle was inserted to the lesion, and the vacuum suction was used tosample the lesion in its entirety. After ultrasound confirmed the lesion was removed, a clip was placed and also confirmed by ultrasound. The needle was removed. Hemostasis was maintained. A bandage was applied. DISPOSITION: The patient tolerated the procedure well. There were no technical procedural complications noted. The patient remained hemodynamically stable. All sponges, needles, and instruments were accounted for and disposed of appropriately. I was physically present throughout the procedure. documented in this encounter Consult Notes Negrito Munoz M.D. - 08/17/2020 10:00 AM CDT DATE: 08/17/20 CHIEF COMPLAINT: Left breast lesion REASON FOR EVALUATION: Left breast lesion HISTORY OF PRESENTING ILLNESS: Leandra Black is a 44 y.o. female who has a past medical history of Spontaneous ([facility]), Anxiety Generalized Disorder (Random), Gestational Diabetes Mellitus Personal History Not , Headache Unspecified, and Menorrhagia. The patient presents with a left breast lesion seen on routine mammogram. The patient was noted to have a [id number] lesion at the 2-o'clock position about 5cm from the nipple. No palpable mass. No redness. No bruising. No trauma. No nipple changes. The patient has prior implants in place. Age of first menses is 11. Age at of first child was 17-18. Currently undergoing menopause. Has been on progesterone and estradiol patches. She has never had prior biopsies. No history of breast nor ovarian cancer. No Ashkonazi Pentecostal descent. Maternal grandmother had breast cancer in her 40s-50s. REVIEW OF SYSTEMS: Neuro: No numbness. No tingling. Head: No headache. No deformity. Eyes: No vision changes. No jaundice. Ears: No hearing changes. No drainage. Nose: No drainage. No bleeding. Mouth: No sores. No lesions. Neck: No sore throat. No neck pain. Cardiac: No chest pain. No palpitations. Respiratory: No shortness of breath. No cough. GI: No abdominal pain. No nausea. No vomiting. No diarrhea. No constipation. : No bleeding. No dysuria. Musculoskeletal: No bone pain. No joint pain. Endo: No heat intolerance. No cold intolerance. Vascular: No coldness. No pallor. Heme: No easy bleeding. No easy bruising. ID: No fevers. No chills. Integumentary: No rashes. Left breast lesion PAST MEDICAL HISTORY: Past Medical History: Diagnosis Date ??? Spontaneous (HCC) x3 ??? Anxiety Generalized Disorder Random ??? Gestational Diabetes Mellitus Personal History Not ??? Headache Unspecified ??? Menorrhagia Resolved with ablation PAST SURGICAL HISTORY: Past Surgical History: Procedure Laterality Date ??? AUGMENTATION BREAST 4 1/2 years ago last dec ??? AUGMENTATION MAMMAPLASTY Bilateral ??? AUGMENTATION MAMMOPLASTY [...] MISSED MISCARRIAGE OF FIRST TRIMESTER 2009 D&C ALLERGIES: No Known Allergies MEDICATIONS: Current Outpatient Medications on File Prior to Visit Medication Sig Dispense Refill ??? ibuprofen (ADVIL,MOTRIN) 200 mg tablet Take 200 mg by mouth every 6 (six) hours as needed. ??? nicotine (NICODERM CQ) 21 mg/[address] 1 patch on the skin daily. 30 patch 0 ??? estradioL (VIVELLE-DOT) 0.1 mg/[address] 1 patch on the skin 2 (two) times a week. (Patient not taking: Reported on 08/17/2020 ) 8 patch 2 ??? progesterone (PROMETRIUM) 100 mg capsule Take 1 capsule (100 mg total) by mouth at bedtime. (Patient not taking: Reported on 08/17/2020 ) 60 capsule 3 No current facility-administered medications on file prior to visit. SOCIAL HISTORY: Social History Tobacco Use ??? Smoking status: Current Every Day Smoker Packs/day: 0.75 Years: 16.00 Pack years: 12.00 Types: Cigarettes ??? Smokeless tobacco: Never Used Substance Use Topics ??? Alcohol use: Yes Alcohol/week: 5.0 standard drinks Types: 1 Glasses of wine, 4 Cans of beer per week Comment: Occasional ??? Drug use: No Comment: Prior cocaine use FAMILY HISTORY: Family History Problem Relation Age of Onset ??? Healthy adult Mother ??? Healthy adult Father ??? Breast cancer Maternal Grandmother ??? AVM Sister Ruptured in 20's; underwent surgery ??? Skin cancer Paternal Grandmother PHYSICAL EXAMINATION: Vitals: 08/17/20 1000 Pulse: 81 Temp: 36.5 ??C SpO2: 99% General: Awake. Alert. Oriented to time/place/person/situation. No acute distress. Head: Normocephalic. Atraumatic. Eyes: Extraocular muscles are intact. Pupils equal/round/reactive to light. Ears: No external deformity. No bleeding. No drainage. Nose: No drainage. No bleeding. No deformity. Mouth: No sores. No lesions. Neck: Trachea is midline. No jugular venous distention. Cardiac: Heart sounds are present in a regular rate, regular rhythm. No murmurs. No rubs. No gallops. Respiratory: Lung sounds are clear to bilateral auscultation. There is bilateral equal chest rise. No subcutaneous emphysema. No bony crepitus. Abdomen: Soft. Nondistended. Nontender. Musculoskeletal: No bony deformity. No long bone tenderness. Integumentary: No rash. No lesion. LAB STUDIES: No results found for this or any previous visit (from the past 24 hour(s)). IMAGING: No orders to display ASSESSMENT: Leandra Black is a 44 y.o. female who has a past medical history of Spontaneous (HCC), Anxiety Generalized Disorder (Random), Gestational Diabetes Mellitus Personal History Not , Headache Unspecified, and Menorrhagia. The patient is being seen for left breast lesion PLAN: 1. The patient has been informed of the risks and benefits of left breast biopsy. The patient has been afforded the opportunity to ask any questions regarding the diagnosis, proposed procedure, and expectations postoperatively. All questions were answered and concerns were addressed. The patient provided their informed consent to proceed with the procedure. 2. Regular diet 3. Activity as tolerated 4. OK to shower, OK to bathe 5. Will follow up on results. documented in this encounter Plan of Treatment Not on filedocumented as of this encounter Procedures Procedure Name Priority Date/Time Associated Diagnosis Comme nts SURGICAL PATHOLOGY Routine 08/17/2020 11:09 AM Abnormal Ultras ound Results for this CDT Breast procedure are i n the results section. documented in this encounter Results Surgical Pathology (08/17/2020 11:09 AM CDT) Component Value Ref Test Analysis Performed Pathologis t Range Method Time At Signature 08/18/2020 MKTO 8:45 AM CDT Report Amaya Denyo 08/18/2020 CHANCE electronically DAYANNA Serrano. 8:45 AM CDT signed by Huy Specimen Received A. Breast biopsy 08/18/2020 MKTO left 8:45 AM CDT Clinical History Abnormal breast ultrasound 2020 MKTO 8:45 AM CDT Is total time in formalin 6-72 hours? ??Yes Was specimen placed in formalin within 1 hour? ??Yes Gross Description Submitted as left breast biopsy consists of cores of 08/18/2020 CHANCE fibroadipose tissue aggregating to approximately 2 cm. 8:45 AM CDT ESB, one block. ?? ADZ;pp Interpretation FINAL DIAGNOSIS 08/18/2020 MKDUKE A. Breast biopsy, left: 8:45 AM CDT - ??Apocrine cyst clusters/ Fibrocystic changes with apocrine metaplasia Specimen Anatomical Collection Method Collection Time Receive d Time (Source) Location / / Volume Laterality Varies 08/17/2020 11:09 08/17/2020 2:39 AM CDT PM CDT Narrative This result has an attachment that is no t available. Negrito Munoz M.D. LAB SURG PATH ORDERABLES Performing Organization Address City/State/ZIP Code Phon e Number [facility]- [address] [place] [address] [place] [address] System in [place] [address] [facility] documented in this encounter Visit Diagnoses Diagnosis Abnormal Ultrasound Breast documented in this encounter Care Teams Spare Fixer Relationship Specialty Start Date End Date Steven Escobar M.D. PCP - General 08/17/[address] [address] documented as of this encounter
--- OUTSIDE RECORDS SUMMARY | 2021-10-12 00:41 | XMS_ITS | Encounter Summary ---
:1975 Author Organization [facility] Address [address] [place] [address] Care Team Providers Name Role Phone Steven Escobar M.D. Primary Care Provider [phone] Encounter Details Date Type Department Care Team Description 12/13/2020 Orders Only Department of Adonay Kohli Pain Knee Bilateral Obstetrics and Romi Cosby (Primary Dx) Gynecology in [address] [place], [place] [address] [facility] [address] [place], [place] [phone] [address] (Work) [phone] Social History Tobacco Use Types Packs/Day Years [...] or relatives? How often do you attend spiritism or More than 4 times per year 08/17/2020 episcopal services? Do you belong to any clubs or Yes 08/17/2020 organizations such as spiritism groups, unions, fraternal or athletic groups, or [...] place to sleep or slept in a correction (including now)? Education Answer Date Recorded What is the highest level of school Associate degree: nicole josegriffin, 01/29/2019 you have completed or the highest technical, or vocational dominique mondragon degree you have received? Sex Assigned at Date Recorded Female 06/10/2017 5:21 PM CDT documented as of this encounter Plan of Treatment Not on filedocumented as of this encounter Visit Diagnoses Diagnosis Pain Knee Bilateral - Primary documented in this encounter Care Teams Manufacturing Baker Relationship Specialty Start Date End Date Steven Escobar M.D. PCP - General 08/17/16 [address], [place] [address] documented as of this encounter
--- OUTSIDE RECORDS SUMMARY | 2021-10-12 00:41 | XMS_ITS | Encounter Summary ---
:1975 Author Organization [facility] Address [address] [place] [address] Care Team Providers Name Role Phone Steven Escobar M.D. Primary Care Provider [phone] Reason for Referral Outpatient (Routine) - Closed Specialty Diagnoses / Procedures Referred By Contact Refer red To Contact Diagnoses Abnormal Ultrasound Breast Negrito Munoz M.D. [facility] [place] [facility] Procedures BI Breast Biopsy Left with Ultrasound Guidance OR BX BRST W DEV 1ST LESN US GUID [address] [place] [address] Referral ID Status Reason Start Date Expiration Date Visits Requ ested Visits Authorized [id number] Closed 08/10/2020 08/10/2021 1 1 Reason for Visit Outpatient (Routine) - Closed Specialty Diagnoses / Procedures Referred By Contact Refer red To Contact Diagnoses Abnormal Ultrasound Breast Negrito Munoz M.D. [facility] [place] [facility] Procedures BI Breast Biopsy Left with Ultrasound Guidance OR BX BRST W DEV 1ST LESN US GUID [address] [place] [address] Referral ID Status Reason Start Date Expiration Date Visits Requ ested Visits Authorized [id number] Closed 08/10/2020 08/10/2021 1 1 Encounter Details Date Type Department Care Team Description 08/17/2020 Hospital Encounter Department of Alexander Abnormal Ultrasound Radiology in Corey Kelly [place], [place] [address] [place] [address] [place] [phone] [address] (Work) [phone] Social History Tobacco Use Types Packs/Day Years [...] or relatives? How often do you attend anglican or More than 4 times per year 08/17/2020 latter day services? Do you belong to any clubs or Yes 08/17/2020 organizations such as anglican groups, unions, fraternal or athletic groups, or [...] PM CDT documented as of this encounter Medications at Time of Discharge Medication Sig Dispensed Refills Start Date End Date ibuprofen (ADVIL,MOTRIN) Take 200 mg by 0 200 mg tablet mouth every 6 (six) hours as needed. nicotine (NICODERM CQ) 21 Place 1 patch on 30 patch 0 07/04 mg/24 hr the skin daily. patchIndications: Abuse Tobacco Smoking estradioL (VIVELLE-DOT) Place 1 patch on 8 patch 2 202010/19/2020 0.1 mg/24 hr patch the skin 2 (two) times a week. progesterone (PROMETRIUM) Take 1 capsule (100 60 capsule 3 0 08/03/2020 06/02/2021 100 mg capsule mg total) by mouth at bedtime. documented as of this encounter Plan of Treatment Not on filedocumented as of this encounter Procedures Procedure Name Priority Date/Time Associated Comments Diagnosis BI BREAST BIOPSY RAD - Routine 08/17/2020 10:49 Abnormal Result s for this LEFT WITH (most inpatients AM CDT Ultrasound Breast proced ure are in ULTRASOUND and all the results GUIDANCE outpatients) section. documented in this encounter Results (ABNORMAL) BI Breast Biopsy Left with Ultrasound Guidance (08/17/2020 10:49 AM CDT) Anatomical Region Laterality Modality Breast, Breast Imaging RST LOS, Breast Imaging ARZ LOS, Ruth st Left Ultrasound Imaging FLA LOS Specimen (Source) Anatomical Collection Method Collection Time Re ceived Time Location / / Volume Laterality 09/09/2020 1:43 PM CDT Impressions 09/09/2020 1:46 PM CDT Successful image-guided needle biopsy. When final pathology results are available a revised report will be i ssued which will include radiologic/pathologic concordance and re commendations. ??Please be aware that in discordant cases, surgical consultation may be recommended even with a benign pathology result. RECOMMENDATION: ??Waiting for Pathology ASSESSMENT: ??BI-RADS: 4A: Suspicious. Narrative 09/09/2020 1:46 PM CDT EXAM: ??BI BREAST BIOPSY LEFT WITH ULTRASOUND GUIDANCE INDICATION: ??Left breast lesion LESION/LOCATION: ??Left breast, 2-o'cloc k position, 5cm from the nipple The patient underwent single site biopsy . ?? LESION SIZE (mm): ??4x5x7 MEASUREMENT MODALITY: ??Ultrasound IMAGING PRESENTATION: ??Mass Without Jared cifications MODE OF DETECTION: ??Ultrasound TECHNIQUE: ??Ultrasound guided needle bi opsy. Local anesthesia, 1% lidocaine. BIOPSY DEVICE: ??12g vacuum-assisted nee dle. NUMBER OF PASSES: ??1 SPECIMEN RADIOGRAPH: ??None MARKING CLIP: ??Placed POST-PROCEDURE DIGITAL IMAGING: ??Please see associated mammogram report. CALCIFICATIONS REMOVED: ??N/A COMPLICATIONS: ??None. CONSENT: ??Patient seen, evaluated, and history reviewed. Discussed risks, benefits, alternatives for procedure, an d obtained informed consent. ??Patient understands information and questions an swered. Immediately prior to starting the procedure, in the presence of the as sisting personnel, procedural pause was conducted to verify correct patient iden tity and verification of procedure to be performed, and as applicable, correct si de and site, correct patient position, availability of implants, special equipm ent, or special requirements, and all image and specimen identification data. The roles and responsibilities of care team members, residents, and fellows wer e discussed. The medication list was reviewed and there are no changes to cur rent medications. PATIENT EDUCATION: ??Provided by a care team physician. Ready to learn, no apparent learning barriers were identified. Post- procedure care explained; patient expressed understanding of the content. Negrito MOLINA BI PROCEDURES documented in this encounter Visit Diagnoses Diagnosis Abnormal Ultrasound Breast documented in this encounter Care Teams Dynamite Packing Machine Operator Relationship Specialty Start Date End Date Steven Escobar M.D. PCP - General 08/17/[address] [phone] documented as of this encounter
--- OUTSIDE RECORDS SUMMARY | 2021-10-12 00:41 | XMS_ITS | Encounter Summary ---
:1975 Author Organization [facility] Address [address] [place] [address] Care Team Providers Name Role Phone Steven Escobar M.D. Primary Care Provider [phone] Reason for Visit Reason Comments COVID Nurse Line Encounter Details Date Type Department Care Team Description 03/17/2021 Clinical Communication Division of Aliyah Bucio Nurse Line [facility], R.N. [facility] [phone] [facility], id (Work) [place], [place] [address] [place] [address] Social History Tobacco Use Types Packs/Day Years [...] or relatives? How often do you attend presybeterian or More than 4 times per year 08/17/2020 anabaptist services? Do you belong to any clubs or Yes 08/17/2020 organizations such as presybeterian groups, unions, fraternal or athletic groups, or [...] highest level of school Associate degree: niravkirstie garciagriffin, 01/29/2019 you have completed or the highest technical, or vocational p giancarlo degree you have received? Sex Assigned at Date Recorded Female 06/10/2017 5:21 PM CDT documented as of this encounter Miscellaneous Notes Telephone Encounter - Fortunato Aliyah Mcdonnell R.N. - 03/17/2021 1:06 PM GUARDIAN FAMILY MEMBER COVID-19 Nurse Line Screening ASSESSMENT Initial Screening Pathway Select appropriate pathway: : Adult In the last 48 hours, have you had a fever* OR symptoms that are unrelated to a preexisting illness?: Fever,New cough,New headache,New shortness of breath Date of symptom onset: 03/15/21 COVID Symptomatic Screening Do you have any of the following urgent symptoms?: No urgent symptoms noted (Continue Screening) Have you received a COVID-19 vaccine in the last 72 hours? : No vaccine received (Continue Screening) Have you had close contact* with a person who has a LABORATORY CONFIRMED case of COVID-19 in the past 14 days?: Yes- quarantine required, provide instructions (Continue Screening) (03/12/21) Have you tested positive for COVID-19 in the last 45 days?: No. COVID-19 testing is indicated (Continue Screening for Additional Testing) Additional Screening for Influenza, RSV and Strep Select appropriate region: : [place] Do you have any of the following respiratory syntonical virus (RSV) complications? : No complications noted (Continue Screening) Do you have any of the following high risk influenza criteria?: Neurologic disorder*,1 or more high risk flu complications are noted. 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 (Oseltamivir). Are you interested in pursuing a prescription for Tamiflu?? (Oseltamivir)?: Yes and patient is an established [facility] patient*. When screening complete, run the Influenza Management protocol. (Continue Screening) Are all of the following Strep criteria met? : No, all criteria are not met. Influenza tesing is indicated. (End Screening) Are all of the following Strep criteria met? : No, all criteria are not met. Influenza testing is indicated. (End Screening) Symptom Onset Date of symptom onset: 03/15/21 Testing Recommendation Endpoint Is testing recommended? : Recommended to test Further Triage Needs Any further triage needs? : No further concerns noted. PLAN Endpoint recommendation: Symptomatic testing indicated, advised to be swabbed for COVID-19 and Influenza, sent to [facility] located at [address] [place] [address]. An appointment is required for testing, please call [phone] Sunday-Sunday 7am to 6pm and Sunday & Sunday 9am to 4pm to schedule an appointment. Testing hours are 8am - 4:30pm daily. You can also schedule via your Patient Online Services account., Please avoid using public transportation per CDC recommendation. If you do not have personal transportation please self- quarantine until a personal transportation option is available. Standard Care Points -Get a COVID -19 vaccine as soon as you can if not fully vaccinated. -Wash hands frequently with soap and water, use hand elevated motorman if soap and water aren't available. -Wear a mask over your nose and mouth to help protect yourself and others if not fully vaccinated and having no symptoms -Stay 6 feet between yourself and others who don't live with you. -Avoid crowds and poorly ventilated indoor spaces. -Seek emergent care if any of the following occur Trouble breathing Bluish lips or face Persistent pain or pressure in the chest New confusion or inability to rouse. -Notify your regular care provider of any new or worsening symptoms. Symptomatic Carepoints: Stay home and separate yourself from others and stay in a specific sick room if able. Avoid sharing personal or household items. Rest. Hydrate. Take Acetaminophen/Ibuprofen asneeded to control fever and muscles aches. Use over the counter medications as needed for other symptoms. Gargle with 8 ounces of warm salt water several times a day for throat discomfort (1/4 tsp regular salt to 8 ounces or 1 cup warm water). Do not swallow the salt water. Throat lozenges will help keep the throat lubricated. Hard candy, lollipops, and throat lozenges are equally effective. Use a humidifier. If you have received a negative COVID-19 test result and continue to have new or worsening symptoms after 72 hours please call the COVID Nurse Line to assess if you need repeat testing or reach out to your Primary Care Provider for guidance. If you received a prescription for Oseltamivir (Tamiflu) and your influenza test result comes back negative, stop taking Tamiflu. If you received a prescription for Oseltamivir (Tamiflu) and your influenza test result comes back positive, continue taking Tamiflu as prescribed. People with influenza, particularly children, may be at increased risk of self-injury and confusion after taking Oseltamivir (Tamiflu) and should be closely monitored for signs of unusual behavior. If taking Warfarin, contact anticoagulation clinic to assist with management dueto increased risk for bleeding. Exposure Carepoints: If you are not fully vaccinated, quarantine for14 days from your last known exposure to someone with a laboratory confirmed case of COVID-19 regardless of a negative test result unless otherwise directed. If you are fully vaccinated (last dose was greater than 14 days) quarantine is not needed if you remain without symptoms. If you remain asymptomatic it is recommended to be tested 3-5 days after the exposure as this will produce a more accurate result, unless otherwise directed. Testing is recommended if you become symptomatic at any point. Education: Patient/caregiver able to teach back Patient agreeable to plan of care: Yes The following references were used: [facility] novel coronavirus (COVID- 19) resources Nursing judgement DIAN FAMILY MEMBER documented in this encounter Plan of Treatment Not on filedocumented as of this encounter Visit Diagnoses Not on filedocumented in this encounter Care Teams Bushing Press Operator Relationship Specialty Start Date End Date Steven Escobar M.D. PCP - General 08/17/[address] [address] documented as of this encounter
--- OUTSIDE RECORDS SUMMARY | 2021-10-12 00:41 | XMS_ITS | Encounter Summary ---
:1975 Author Organization [facility] Address [address] [place] [address] Care Team Providers Name Role Phone Steven Escobar M.D. Primary Care Provider [phone] Encounter Details Date Type Department Care Team Description 03/17/2021 Admin Visit Department of Family Medicine, [address] [place] [address] in [place], [place] [address] [place] [address] Social History Tobacco Use Types Packs/Day Years [...] More than 4 times per year 08/17/2020 taoist services? Do you belong to any clubs [...] place to sleep or slept in a retirement (including now)? 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 PCP - General 08/17/[address] [address] documented as of this encounter
--- OUTSIDE RECORDS SUMMARY | 2021-10-12 00:41 | XMS_ITS | Encounter Summary ---
:1975 Author Organization [facility] Address [address] [place] [address] Care Team Providers Name Role Phone Steven Escobar M.D. Primary Care Provider [phone] Encounter Details Date Type Department Care Team Description 03/17/2021 Hospital Encounter Department of Laboratory Juan Daniel Saez, Medicine in [place], TAHMINA, C.N.P. , R.N. [place] [address] [place] [address] [place] [id number] [phone] Social History Tobacco Use Types Packs/Day Years [...] or relatives? How often do you attend voodoo or More than 4 times per year 08/17/2020 sikhism services? Do you belong to any clubs or Yes 08/17/2020 organizations such as voodoo groups, unions, fraternal or athletic groups, or [...] place to sleep or slept in a detention (including now)? Education Answer Date Recorded What is the highest level of school Associate degree: nicole mendoza, 01/29/2019 you have completed or the highest technical, or vocational dominique mondragon degree you have received? Sex Assigned at Date Recorded Female 06/10/2017 5:21 PM CDT documented as of this encounter Medications at Time of Discharge Medication Sig Dispensed Refills Start Date End Date estradioL (VIVELLE-DOT) Place 1 patch on the 24 patch 3 0.1 mg/24 hr patch skin 2 (two) times a week. ibuprofen Take 200 mg by mouth 0 (ADVIL,MOTRIN) 200 mg every 6 (six) hours tablet as needed. nicotine (NICODERM CQ) Place 1 patch on the 30 patch 0 21 mg/24 hr skin daily. patchIndications: Abuse Tobacco Smoking oseltamivir (TAMIFLU) Take 1 capsule (75 mg 10 capsule 0 03/22/2021 75 mg capsule total) by mouth 2 (two) times a day for 5 days. Take the first dose immediately to increase effectiveness. progesterone Take 1 capsule (100 60 capsule 3 08/03/2020 (PROMETRIUM) 100 mg mg total) by mouth at capsule bedtime. 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 PCP - General 08/17/16 [address] [address] documented as of this encounter
--- OUTSIDE RECORDS SUMMARY | 2021-10-12 00:41 | XMS_ITS | Encounter Summary ---
:1975 Author Organization [facility] Address [address] [place] [address] Care Team Providers Name Role Phone Steven Escobar M.D. Primary Care Provider [phone] Reason for Visit Reason Comments Med Refill Encounter Details Date Type Department Care Team Description 10/19/2020 Refill Department of Obstetrics and Jordy Kohli Jr., Med Refill Gynecology in Romi [place] [address] [place] [address] [place] [address] [facility] [phone] Social History Tobacco Use Types Packs/Day Years [...] or relatives? How often do you attend alevism or More than 4 times per year 08/17/2020 mosque services? Do you belong to any clubs or Yes 08/17/2020 organizations such as alevism groups, unions, fraternal or athletic groups, or [...] place to sleep or slept in a fdc (including now)? Education Answer Date Recorded What is the highest level of school Associate degree: nicole mendoza, 01/29/2019 you have completed or the highest technical, or vocational p giancarlo degree you have received? Sex Assigned at Date Recorded Female 06/10/2017 5:21 PM CDT documented as of this encounter Miscellaneous Notes Telephone Encounter - Yesenia Crews - 10/19/2020 9:12 AM CDT Provider: Steven Escobar M.D. Patient called for Refills. Additional info only if applies: Requested Prescriptions Pending Prescriptions Disp Refills ??? estradioL (VIVELLE-DOT) 0.1 mg/24 hr patch 8 patch 2 Sig: Place 1 patch on the skin 2 (two) times a week. Pharmacy: [id number] AT [facility] [address] [address] another patch this , 10/21, and is currently out. documented in this encounter Plan of Treatment Not on filedocumented as of this encounter Visit Diagnoses Not on filedocumented in this encounter Care Teams Label Maker Relationship Specialty Start Date End Date Steven Escobar M.D. PCP - General 08/17/16 [address], [place] [address] documented as of this encounter
--- OUTSIDE RECORDS SUMMARY | 2021-10-12 00:41 | XMS_ITS | Encounter Summary ---
:1975 Author Organization [facility] Address [address] [place] [address] Care Team Providers Name Role Phone Steven Escobar M.D. Primary Care Provider [phone] Reason for Referral Outpatient (Routine) - Closed Specialty Diagnoses / Procedures Referred By Contact Refer red To Contact Diagnoses Abnormal Ultrasound Breast Negrito Munoz M.D. [facility] Procedures BI Breast Diagnostic Left Post Procedure [address] [place] [address] Referral ID Status Reason Start Date Expiration Date Visits Requ ested Visits Authorized [id number] Closed 08/10/2020 08/10/2021 1 1 Reason for Visit Outpatient (Routine) - Closed Specialty Diagnoses / Procedures Referred By Contact Refer red To Contact Diagnoses Abnormal Ultrasound Breast [facility]gr[facility] Munoz M.D. [facility] Procedures BI Breast Diagnostic Left Post Procedure [address] [place] [address] Referral ID Status Reason Start Date Expiration Date Visits Requ ested Visits Authorized [id number] Closed 08/10/2020 08/10/2021 1 1 Encounter Details Date Type Department Care Team Description 08/17/2020 Hospital Encounter Department of Alexander Abnormal Ultrasound Radiology in Corey Kelly Breast [place], [place] [address] [facility] [place] [address] [place], [place] [phone] [address] (Work) [phone] Social History Tobacco Use Types Packs/Day Years [...] or relatives? How often do you attend quaker or More than 4 times per year 08/17/2020 lutheran services? Do you belong to any clubs or Yes 08/17/2020 organizations such as quaker groups, unions, fraternal or athletic groups, or [...] Priority Date/Time Associated Comments Diagnosis BI BREAST RAD - Routine 08/17/2020 11:00 Abnormal Results fo r this DIAGNOSTIC LEFT (most inpatients AM CDT Ultrasound Breast pro cedure are in POST PROCEDURE and all the results outpatients) section. documented in this encounter Results BI Breast Diagnostic Left Post Procedure (08/17/2020 11:00 AM CDT) Anatomical Region Laterality Modality Breast, Breast Imaging RST LOS, Breast Imaging ARZ LOS, Ruth st Left Mammography Imaging FLA LOS Specimen (Source) Anatomical Collection Method Collection Time Re ceived Time Location / / Volume Laterality 08/17/2020 11:03 AM CDT Impressions 08/17/2020 11:30 AM CDT No biopsy marking clip status post ultrasound-guided placement. Postbiopsy changes left upper outer quad rant. RECOMMENDATION: ??Waiting for Pathology No biopsy marking clip is present follow ing ultrasound-guided biopsy of left breast cystic and solid mass. Recommend clip replacement if possible, with mammographic confirmation prior to surgi gnuyen intervention, pending pathology results. ASSESSMENT: ??12: Post Procedure Mammogr ams for Marker Placement Narrative 08/17/2020 11:30 AM CDT EXAM: ??BI BREAST DIAGNOSTIC LEFT POST PROCEDURE INDICATION: ??Post procedure mammogram COMPARISON: ??Prior exam(s) were availab le and reviewed for comparison. DENSITY: ??b. There are scattered areas of fibroglandular density. FINDINGS: ??No biopsy marking clip. Post biopsy changes in the upper outer quadrant of the left breast in the regio n of the lesion of interest at the 2:00 position anterior depth. Procedure Note Markel Godoy M.D. - 08/17/2020Formattin g of this note might be different from the original. EXAM: BI BREAST DIAGNOSTIC LEFT POST PRO CEDURE INDICATION: Post procedure mammogram COMPARISON: Prior exam(s) were available and reviewed for comparison. DENSITY: b. There are scattered areas of fibroglandular density. FINDINGS: No biopsy marking clip. Postbi opsy changes in the upper outer quadrant of the left breast in the regio n of the lesion of interest at the 2:00 position anterior depth. IMPRESSION: No biopsy marking clip status post ultra sound-guided placement. Postbiopsy changes left upper outer quad rant. RECOMMENDATION: Waiting for Pathology No biopsy marking clip is present follow ing ultrasound-guided biopsy of left breast cystic and solid mass. Recommend clip replacement if possible, with mammographic confirmation prior to surgi nguyen intervention, pending pathology results. ASSESSMENT: 12: Post Procedure Mammogram s for Marker Placement Negrito MOLINA BI PROCEDURES documented in this encounter Visit Diagnoses Diagnosis Abnormal Ultrasound Breast documented in this encounter Care Teams Transporter Radiology Relationship Specialty Start Date End Date Steven Escobar M.D. PCP - General 08/17/[address] [address] documented as of this encounter
--- OUTSIDE RECORDS SUMMARY | 2021-10-12 00:41 | XMS_ITS | Encounter Summary ---
:1975 Author Organization [facility] Address [address] [place] [address] Care Team Providers Name Role Phone Steven Escobar M.D. Primary Care Provider [phone] Encounter Details Date Type Department Care Team Description 08/19/2020 Clinical Communication Department of Mariel Munoz General Surgery in [place], [place], [place] [address] [facility] [address] [place] [address] [place], [place] [phone] (Wo rk) [address] [phone] Social History Tobacco Use Types Packs/Day Years [...] or relatives? How often do you attend oriental orthodox or More than 4 times per year 08/17/2020 sabianism services? Do you belong to any clubs or Yes 08/17/2020 organizations such as oriental orthodox groups, unions, fraternal or athletic groups, or [...] this encounter Miscellaneous Notes Telephone Encounter - Charo Gupta L.P.N. - 08/19/2020 2:51 PM CDT Patient was sent portal message from Dr Kohli with results. Nurse sent message as well to patient with results and recommendations from DR Munoz as well. Nurse tried to contact patient by phone but unable to leave a voice message as it stated her voice mail was full. Telephone Encounter - Alma Garcia - 08/19/2020 8:55 AM CDT Reason for Communication: Patient is calling in and stated that she would like to know if her results are in yet. Please advise. Current Can Nursing/Provider leave a detailed message?: no Did the patient refuse triage through Nurse line? (for symptom based concerns): na Action Needed: Please call patient back Name of Medication (if relevant): na documented in this encounter Plan of Treatment Not on filedocumented as of this encounter Visit Diagnoses Not on filedocumented in this encounter Care Teams Wound Care Technician Relationship Specialty Start Date End Date Steven Escobar M.D. PCP - General 08/17/16 [address] [place] [address] documented as of this encounter
--- OUTSIDE RECORDS SUMMARY | 2021-10-12 00:41 | XMS_ITS | Encounter Summary ---
:1975 Author Organization [facility] Address [address] [place] [address] Care Team Providers Name Role Phone Steven Escobar M.D. Primary Care Provider [phone] Reason for Visit Reason Comments Med Refill Encounter Details Date Type Department Care Team Description 11/14/2020 Refill Department of Obstetrics and Jordy Kohli Jr., Med Refill Gynecology in [place] [address] [facility] [address] [place] [address] [place] [address] [phone] Social History Tobacco Use Types Packs/Day Years [...] or relatives? How often do you attend jewish or More than 4 times per year 08/17/2020 uatsdin services? Do you belong to any clubs or Yes 08/17/2020 organizations such as jewish groups, unions, fraternal or athletic groups, or [...] place to sleep or slept in a half-way (including now)? Education Answer Date Recorded What is the highest level of school Associate degree: niravkirstie mendoza, 01/29/2019 you have completed or the highest technical, or vocational p giancarlo degree you have received? Sex Assigned at Date Recorded Female 06/10/2017 5:21 PM CDT documented as of this encounter Miscellaneous Notes Telephone Encounter - Phuc Agosto - 11/15/2020 2:41 PM CDT [facility] [place] [facility] Please transfer. documented in this encounter Plan of Treatment Not on filedocumented as of this encounter Visit Diagnoses Not on filedocumented in this encounter Care Teams Simonizer Relationship Specialty Start Date End Date Steven Escobar M.D. PCP - General 08/17/[address] [place] [address] documented as of this encounter
--- OUTSIDE RECORDS SUMMARY | 2021-10-12 00:41 | XMS_ITS | Encounter Summary ---
:1975 Author Organization [facility] Address [address] [place] [address] Care Team Providers Name Role Phone Steven Escobar M.D. Primary Care Provider [phone] Encounter Details Date Type Department Care Team Description 01/26/2021 Orders Only [facility] Escobar M[facility] [address] [place], [place] [address] (Wo rk) Social History Tobacco Use Types [...] or relatives? How often do you attend druze or More than 4 times per year 08/17/2020 mosque services? Do you belong to any clubs or Yes 08/17/2020 organizations such as druze groups, unions, fraternal or athletic groups, or [...] place to sleep or slept in a alf (including now)? Education Answer Date Recorded What [...] on filedocumented in this encounter Care Teams Customer Sales Specialist Relationship Specialty Start Date End Date Steven Escobar M.D. PCP - General 08/17/[address] [address] documented as of this encounter
--- OUTSIDE RECORDS SUMMARY | 2021-10-12 00:41 | XMS_ITS | Encounter Summary ---
:1975 Author Organization [facility] Address [address] [place] [address] Care Team Providers Name Role Phone Steven Escobar M.D. Primary Care Provider [phone] Encounter Details Date Type Department Care Team Description 12/09/2020 Clinical Communication Department of Adonay Kohli Obstetrics and Romi Cosby Gynecology in [address] [place], [place] [address] [facility] [address] [place], [place] [phone] [address] (Work) [phone] Social History Tobacco Use Types Packs/Day Years [...] More than 4 times per year 08/17/2020 jehovah's witness services? Do you belong to any clubs [...] place to sleep or slept in a senior living (including now)? Education Answer Date Recorded What is the highest level of school Associate degree: nicole mendoza, 01/29/2019 you have completed or the highest technical, or vocational dominique mondragon degree you have received? Sex Assigned at Date Recorded Female 06/10/2017 5:21 PM CDT documented as of this encounter Miscellaneous Notes Telephone Encounter - Bailey Dorantes R.N. - 12/09/2020 1:33 PM CDT Appears that Dr Kohli has sent patient a results message at 10:34 this morning and has been read bypatient. Telephone Encounter - Carmella Grewal R.N. - 12/09/2020 10:35 AM CDT Noted. Portal message sent to Dr. Kohli to advise on 12/08. Will await his acknowledgement. Telephone Encounter - Lucita Concepcion - 12/09/2020 9:18 AM CDT Patient saw her lab results and one of them is very high. She would like to discuss this with the provider or the nurse. Please call her back at [phone]. documented in this encounter Plan of Treatment Not on filedocumented as of this encounter Visit Diagnoses Not on filedocumented in this encounter Care Teams Automatic Coil Machine Operator Relationship Specialty Start Date End Date Steven Escobar M.D. PCP - General 08/17/16 [address] [place] [address] documented as of this encounter
--- OUTSIDE RECORDS SUMMARY | 2021-10-12 00:41 | XMS_ITS | Encounter Summary ---
:1975 Author Organization [facility] Address [address] [place] [address] Care Team Providers Name Role Phone Steven Escobar M.D. Primary Care Provider [phone] Encounter Details Date Type Department Care Team Description 08/09/2020 Orders Only [facility] - Steven Hanna [address] [place] [address] [address] [phone] [place] [address] (Wo rk) Social History Tobacco [...] or relatives? How often do you attend scientologist or More than 4 times per year 08/17/2020 voodoo services? Do you belong to any clubs or Yes 08/17/2020 organizations such as scientologist groups, unions, fraternal or athletic groups, or [...] on filedocumented in this encounter Care Teams Reel Operator Relationship Specialty Start Date End Date Steven Escobar M.D. PCP - General 08/17/16 [address] [place] [address] documented as of this encounter
--- OUTSIDE RECORDS SUMMARY | 2021-10-12 00:41 | XMS_ITS | Encounter Summary ---
:1975 Author Organization [facility] Address [address] [place] [address] Care Team Providers Name Role Phone Steven Escobar M.D. Primary Care Provider [phone] Encounter Details Date Type Department Care Team Description 01/24/2021 Hospital Encounter Department of Evangelista Rodriguez Pain Knee Bilateral Radiology in [place], [place] [address] [facility] [address] [place] [phone] [phone] Social History Tobacco Use Types Packs/Day Years [...] or relatives? How often do you attend zoroastrian or More than 4 times per year 08/17/2020 rastafarian services? Do you belong to any clubs or Yes 08/17/2020 organizations such as zoroastrian groups, unions, fraternal or athletic groups, or [...] Date estradioL (VIVELLE-DOT) Place 1 patch on 24 patch 3 2020 0.1 mg/24 hr patch the skin 2 (two) times a week. ibuprofen (ADVIL,MOTRIN) Take 200 mg by 0 200 mg tablet mouth every 6 (six) hours as needed. nicotine (NICODERM CQ) 21 Place 1 patch on 30 patch 0 07/04 mg/24 hr the skin daily. patchIndications: Abuse Tobacco Smoking progesterone (PROMETRIUM) Take 1 capsule (100 60 capsule 3 0 08/03/2020 06/02/2021 100 mg capsule mg total) by mouth at bedtime. documented as of this encounter Plan of Treatment Not on filedocumented as of this encounter Procedures Procedure Name Priority Date/Time Associated Comments Diagnosis DX KNEE BILATERAL RAD - Routine 01/24/2021 9:13 Pain Knee Result s for this 4+ VIEWS (most inpatients AM NIGHT WAREHOUSE SELECTOR Bilateral procedure a re in and all the results outpatients) section. documented in this encounter Results DX Knee Bilateral 4+ Views (01/24/2021 9:13 AM NIGHT WAREHOUSE SELECTOR) Anatomical Region Laterality Modality Lower Extremity, Knee, Musculoskeletal RST LOS, Bilateral Digital Radiography Musculoskeletal ARZ LOS, Muskuloskeletal FLA LOS Specimen (Source) Anatomical Collection Method Collection Time Re ceived Time Location / / Volume Laterality 01/24/2021 9:55 AM NIGHT WAREHOUSE SELECTOR Impressions 01/24/2021 10:00 AM NIGHT WAREHOUSE SELECTOR No significant radiographic abnormality is identified in either knee and there has been no significant change since 03/26/2020. Narrative 01/24/2021 10:00 AM NIGHT WAREHOUSE SELECTOR EXAM: DX KNEE BILATERAL 4+ VIEWS COMPARISON: [...] been no significant change since 03/26/2020. Evangelista Rodriguez M.D. IMG DIAGNOSTIC IMAGING DAISY WOMACK documented in this encounter Visit Diagnoses Diagnosis Pain Knee Bilateral documented in this encounter Care Teams Bait Maker Relationship Specialty Start Date End Date Steven Escobar M.D. PCP - General 08/17/162[address] [phone] documented as of this encounter
--- OUTSIDE RECORDS SUMMARY | 2021-10-12 00:41 | XMS_ITS | Encounter Summary ---
:1975 Author Organization [facility] Address [address] [place] [address] Care Team Providers Name Role Phone Steven Escobar M.D. Primary Care Provider [phone] Reason for Referral Outpatient (Routine) - Closed Specialty Diagnoses / Procedures Referred By Contact Refer red To Contact General Surgery Diagnoses Abnormal Ultrasound Breast Negrito Munoz [facility] [place] [facility] M.DIris [address] [place] [address] Referral ID Status Reason Start Date Expiration Date Visits V isits Requested Authorized [id number] Closed Specialty 08/10/2020 08/10/2021 1 1 Services Required Outpatient (Routine) - Closed Specialty Diagnoses / Procedures Referred By Contact Refer red To Contact Diagnoses Abnormal Ultrasound Breast Negrito Munoz M.D. [facility] [place] [facility] Procedures BI Breast Biopsy Left with Ultrasound Guidance OH BX BRST [address] LESN US GUID [address] [email or web address] [address] Referral ID Status Reason Start Date Expiration Date Visits Requ ested Visits Authorized [id number] Closed 08/10/2020 08/10/2021 1 1 Outpatient (Routine) - Closed Specialty Diagnoses / Procedures Referred By Contact Refer red To Contact Diagnoses Abnormal Ultrasound Breast Negrito Munoz M.D. [facility] [place] [facility] Procedures BI Breast Diagnostic Left Post Procedure [address] [place] [address] Referral ID Status Reason Start Date Expiration Date Visits Requ ested Visits Authorized [id number] Closed 08/10/2020 08/10/2021 1 1 Encounter Details Date Type Department Care Team Description 08/09/2020 Clinical Communication Department of Melvi Sanz [place]R) [address] [place] (Work) [phone] Social History Tobacco Use Types [...] More than 4 times per year 08/17/2020 confucianism services? Do you belong to any clubs [...] Telephone Encounter - Charo Gupta L.P.N. - 08/10/2020 10:04 AM CDT Patient has been contacted and given details of the appt recommended by Radiology from her imaging done yesterday. Patient has been scheduled for Left breast consult and US biopsy with Dr Munoz on 08/17/20 with anarrival time of 940 am. Patient verbalized understandings to all things stated to her. Patient will call with any questions or concerns. Post clip has been scheduled for right after biopsy same day. documented in this encounter Plan of Treatment Scheduled Referrals Name Type Priority Associated Diagnoses Order S [facility] General Surgery - Outpatient Referral Routine Abnormal Ultraso und Expected: General consult Breast 08/17/2020 (clinic) (Approximate), Expires: 08/11/2023 documented as of this encounter Results BI Breast Diagnostic Left [...] surgi nguyen intervention, pending pathology results. ASSESSMENT: ??12: Post [...] for Marker Placement Negrito MOLINA BI PROCEDURES (ABNORMAL) BI Breast Biopsy Left with Ultrasound [...] MEASUREMENT MODALITY: ??Ultrasound IMAGING PRESENTATION: ??Mass Without Nguyen cifications MODE OF DETECTION: ??Ultrasound TECHNIQUE: ??Ultrasound [...] of care team members, residents, and fellows kj e discussed. The medication list was reviewed and there are no changes to cur rent medications. PATIENT EDUCATION: ??Provided by a care submarine advisory team watch officer. Ready to learn, no apparent learning barriers were identified. Post- procedure care explained; patient expressed understanding of the content. Negrito Munoz M.D. IMG BI PROCEDURES documented in this encounter Visit Diagnoses Diagnosis Abnormal Ultrasound Breast - Primary Abnormal Ultrasound Breast Abnormal Ultrasound Breast documented in this encounter Care Teams Manager Speech Relationship Specialty Start Date End Date Steven Escobar M.D. PCP - General 08/17/[address] [phone] documented as of this encounter
--- OUTSIDE RECORDS SUMMARY | 2021-10-12 00:41 | XMS_ITS | Encounter Summary ---
:1975 Author Organization [facility] Address [address] [place] [address] Care Team Providers Name Role Phone Steven Escobar M.D. Primary Care Provider [phone] Encounter Details Date Type Department Care Team Description 12/10/2020 Hospital Encounter Department of Adonay Kohli Laboratory Medicine Sona Cosby M.D. in [facility] [address] [place] [address] [place], [place] [address] [address] [place], [place] [phone] [address] (Work) [phone] Social History Tobacco Use Types Packs/Day Years [...] or relatives? How often do you attend taoist or More than 4 times per year 08/17/2020 druze services? Do you belong to any clubs or Yes 08/17/2020 organizations such as taoist groups, unions, fraternal or athletic groups, or [...] at bedtime. documented as of this encounter Miscellaneous Notes Result Encounter Note - Adonay Kohli Jr., M.D. - 12/13/2020 9:57 AM CDT Lazara, your rheumatoid factor is still elevated, the CCP test is normal. Did you get appointment with Dr. Rodriguez in [place]? documented in this encounter Plan of Treatment Not on filedocumented as of this encounter Procedures Procedure Name Priority Date/Time Associated Comments Diagnosis CYCLIC CITRULLINATED Routine 12/10/2020 10:51 Pain Knee Bilate ral Results for this PEPTIDE ABS, IGG, S AM CDT procedur e are in the results section. RHEUMATOID FACTOR, S/P Routine 12/10/2020 10:51 Pain Knee Bila teral Results for this AM CDT procedure are i n the results section. documented in this encounter Results (ABNORMAL) Rheumatoid Factor (12/10/2020 10:51 AM CDT) P athologist Signature Rheumatoid 75 (H) <15 IU/mL 12/10/2020 AUST Factor, S 4:05 PM CDT Specimen Anatomical Collection Method Collection Time Receive d Time (Source) Location / / Volume Laterality Blood (Blood, 12/10/2020 10:51 12/10/2020 3:38 Venous) AM CDT PM CDT Adonay Kohli Jr., M.D. LAB BLOOD ADD-ON Performing Organization Address City/[facility]/ZIP Code Phon e Number [facility]- [address] [place] [address] [facility] [place] [address] [facility] [address] Cyclic Citrullinated Peptide Antibodies, IgG (12/10/2020 10:51 AM CDT) Analysis Performed At Patho logist Time Signature Cyclic <15.6 <20.0 12/11/2020 [facility] Citrullinated (Negative) 1:36 PM CDT Peptide Ab, S U Specimen Anatomical Collection Method Collection Time Receive d Time (Source) Location / / Volume Laterality Blood (Blood, 12/10/2020 10:51 12/11/2020 7:17 Venous) AM CDT AM CDT Adonay Kohli Jr., M.D. LAB BLOOD ADD-ON Performing Organization Address City/[facility]/ZIP Code Phon e Number [facility] [address] [place], [place] [address] [place] [address] Laboratory Medicine and Pathology [address] [place] documented in this encounter Visit Diagnoses Diagnosis Pain Knee Bilateral documented in this encounter Care Teams Outdoor Adventure Instructor Relationship Specialty Start Date End Date Steven Escobar M.D. PCP - General 08/17/162199 [address] [place] [address] documented as of this encounter
--- OUTSIDE RECORDS SUMMARY | 2021-10-12 00:41 | XMS_ITS | Encounter Summary ---
:1975 Author Organization [facility] Address [address] [place] [address] Care Team Providers Name Role Phone Steven Escobar M.D. Primary Care Provider [phone] Reason for Referral Outpatient (Routine) - Closed Specialty Diagnoses / Procedures Referred By Contact Refer red To Contact Diagnoses Asymmetry Breast Adonay Kohli Jr., M.D. [facility] [place] [facility] Procedures BI Ultrasound Breast Focused Left [address] [place] [address] Referral ID Status Reason Start Date Expiration Date Visits Requ ested Visits Authorized [id number] Closed 08/05/2020 08/05/2021 1 1 Reason for Visit Outpatient (Routine) - Closed Specialty Diagnoses / Procedures Referred By Contact Refer red To Contact Diagnoses Asymmetry Breast Adonay Kohli Jr., M.D. [facility] Region Procedures BI Ultrasound Breast Focused Left [address] [place] [address] Referral ID Status Reason Start Date Expiration Date Visits Requ ested Visits Authorized [id number] Closed 08/05/2020 08/05/2021 1 1 Encounter Details Date Type Department Care Team Description 08/09/2020 Hospital Encounter Department of Adonay Kohli Breast Radiology in Romi Cosby [place], [place] [address] [place] [phone] Social History Tobacco Use Types Packs/Day Years [...] or relatives? How often do you attend episcopalian or More than 4 times per year 08/17/2020 islam services? Do you belong to any clubs or Yes 08/17/2020 organizations such as episcopalian groups, unions, fraternal or athletic groups, or [...] place to sleep or slept in a penitentiary (including now)? Education Answer Date Recorded What [...] Name Priority Date/Time Associated Comments Diagnosis BI ULTRASOUND RAD - Routine 08/09/2020 3:25 Asymmetry Breast Result s for this BREAST FOCUSED (most inpatients PM CDT procedure are in LEFT and all the results outpatients) section. documented in this encounter Results (ABNORMAL) BI Ultrasound Breast Focused Left (08/09/2020 3:25 PM CDT) Anatomical Region Laterality Modality Breast, Breast Imaging RST LOS, Breast Imaging ARZ LOS, Ruth st Left Ultrasound Imaging FLA LOS Specimen (Source) Anatomical Collection Method Collection Time Re ceived Time Location / / Volume Laterality 08/09/2020 3:26 PM CDT Impressions 08/09/2020 3:38 PM CDT Low suspicion cysts/cystic mass left breast 2:00 position 5 cm from the nipple. RECOMMENDATION: ??Biopsy Ultrasound-guided biopsy recommended lef t breast 2:00 position 5 cm from the nipple. If aspiration is attempted befor e biopsy, immediate biopsy recommended if both elements of the mass do not comp letely aspirate. I discussed my findings and recommendati on with the patient. Specifically, we discussed the concordance of mammographi c/sonographic findings and the low suspicion nature of these/this cysts/cys t with solid component. I briefly outlined the nature of and logistics inv olved with ultrasound-guided biopsy. We also discussed the possibility of attemp theresa aspiration prior to biopsy. We discussed the relevance of imaging zane nce in the setting of breast implant. The patient elects to proceed with biops y. Surgery department will be notified to coordinate biopsy. All questions answ ered. ASSESSMENT: ??BI-RADS: 4A: Suspicious. Narrative 08/09/2020 3:38 PM CDT EXAM: ??BI BREAST DIAGNOSTIC LEFT WITH TOMOSYNTHESIS, BI ULTRASOUND BREAST FOCUSED LEFT INDICATION: ??Focal asymmetry lateral mi d depth breast. COMPARISON: ??Exams dating back to 2016. DENSITY: ??b. There are scattered areas of fibroglandular density. FINDINGS: ?? MAMMOGRAPHY: Focal asymmetry persists as a lobulated isodense mass in the left outer slightly upper breast middle to an terior depth. ULTRASOUND: Targeted ultrasound of the l eft breast shows at the 2:00 position 5 cm from the nipple a circumscribed lobul ated mixed echogenicity structure with anechoic and hypoechoic components. This is appreciated on both radial and antiradial images. There is no internal blood flow within the hypoechoic component. In conglomerate, this measure s 4 x 5 x 7 mm. This mass corresponds in size and location and morphology with ma mmographic finding. This could represent cysts including a debris-filled cyst. Cy st with solid component not strictly excluded. I confirmed these findings mys elf with live ultrasound. Procedure Note Hosea Venegas M.D. - 08/09/2020Formatt ing of this note might be different from the original. EXAM: BI BREAST DIAGNOSTIC LEFT WITH JODIE OSYNTHESIS, BI ULTRASOUND BREAST FOCUSED LEFT INDICATION: Focal asymmetry lateral mid depth breast. COMPARISON: Exams dating back to 2016. DENSITY: b. There are scattered areas of fibroglandular density. FINDINGS: MAMMOGRAPHY: Focal asymmetry persists as a lobulated isodense mass in the left outer slightly upper breast middle to an terior depth. ULTRASOUND: Targeted ultrasound of the l eft breast shows at the 2:00 position 5 cm from the nipple a circumscribed lobul ated mixed echogenicity structure with anechoic and hypoechoic components. This is appreciated on both radial and antiradial images. There is no internal blood flow within the hypoechoic component. In conglomerate, this measure s 4 x 5 x 7 mm. This mass corresponds in size and location and morphology with ma mmographic finding. This could represent cysts including a debris-filled cyst. Cy st with solid component not strictly excluded. I confirmed these findings mys elf with live ultrasound. IMPRESSION: Low suspicion cysts/cystic mass left katharina ast 2:00 position 5 cm from the nipple. RECOMMENDATION: Biopsy Ultrasound-guided biopsy recommended lef t breast 2:00 position 5 cm from the nipple. If aspiration is attempted befor e biopsy, immediate biopsy recommended if both elements of the mass do not comp letely aspirate. I discussed my findings and recommendati on with the patient. Specifically, we discussed the concordance of mammographi c/sonographic findings and the low suspicion nature of these/this cysts/cys t with solid component. I briefly outlined the nature of and logistics inv olved with ultrasound-guided biopsy. We also discussed the possibility of attemp theresa aspiration prior to biopsy. We discussed the relevance of imaging zane weinberg in the setting of breast implant. The patient elects to proceed with biops y. Surgery department will be notified to coordinate biopsy. All questions answ ered. ASSESSMENT: BI-RADS: 4A: Suspicious. Adonay Kohli Jr., M.D. IMG BI PROCEDURES documented in this encounter Visit Diagnoses Diagnosis Asymmetry Breast documented in this encounter Care Teams Stable Helper Relationship Specialty Start Date End Date Steven Escobar M.D. PCP - General 08/17/[address] [phone] documented as of this encounter
--- OUTSIDE RECORDS SUMMARY | 2021-10-12 00:41 | XMS_ITS | Encounter Summary ---
:1975 Author Organization [facility] Address [address] [place] [address] Care Team Providers Name Role Phone Steven Escobar M.D. Primary Care Provider [phone] Reason for Referral Outpatient (Routine) - Authorized Specialty Diagnoses / Procedures Referred By Contact Refer red To Contact Obstetrics and Adonay Kohli [facility] on Gynecology Romi Cosby [address] [place] [address] Referral ID Status Reason Start Date Expiration Date Visits V isits Requested Authorized [id number] Authorized 12/07/2020 12/07/2021 1 1 Reason for Visit Reason Comments Menopause Encounter Details Date Type Department Care Team Description 12/07/2020 Office Visit Department of Adonay Kohli Pain Knee Bilateral (Primary Dx); Obstetrics and Romi Cosby Perimenopause; Gynecology in [address] Abuse Tobacco Smoking [place], [place] 200 [facility] [address] [place], [place] [phone] [address] (Work) [phone] Social History Tobacco Use Types Packs/Day Years [...] or relatives? How often do you attend christianity or More than 4 times per year 08/17/2020 lutheran services? Do you belong to any clubs or Yes 08/17/2020 organizations such as christianity groups, unions, fraternal or athletic groups, or [...] the highest level of school Associate degree: nciole mendoza, 01/29/2019 you have completed or the highest technical, or vocational p giancarlo degree you have received? Sex Assigned at Date Recorded Female 06/10/2017 5:21 PM CDT documented as of this encounter Last Filed Vital Signs Vital Sign Reading Time Taken Comments Blood Pressure 120/72 12/07/2020 10:53 AM CDT Pulse - - Temperature - - Respiratory Rate - - Oxygen Saturation - - Inhaled Oxygen Concentration - - Weight 65.9 kg (145 lb 6.3 oz) 12/07/2020 10:53 AM CDT Height - - Body Mass Index 24.52 07/29/2020 1:52 PM CDT documented in this encounter Progress Notes Adonay Kohli Jr., M.D. - 12/07/2020 11:00 AM CDT SUBJECTIVE CHIEF COMPLAINT/REASON FOR VISIT Follow up menopause symptoms HISTORY OF PRESENT ILLNESS Leandra Black is a 44 y.o. female who presents to the clinic for follow up menopause symptoms. She is currently on Prometrium and Vivelle- Dot. She reports that her hot flashes have resolved and she is sleeping all night now. Se now has excessive fatigue and bilateral knee pain. She will also experience some shortness of breath and she does not know if this is related to anxiety from feeling unwell. She has been watching her diet and walking more regularly. There are no further concerns at this time. CURRENT MEDICATIONS Current Outpatient Medications Medication Sig Dispense Refill ??? estradioL (VIVELLE-DOT) 0.1 mg/[address] 1 patch on the skin 2 (two) times a week. 24 patch 3 ??? ibuprofen (ADVIL,MOTRIN) 200 mg tablet Take 200 mg by mouth every 6 (six) hours as needed. ??? progesterone (PROMETRIUM) 100 mg capsule Take 1 capsule (100 mg total) by mouth at bedtime. 60 capsule 3 ??? nicotine (NICODERM CQ) 21 mg/[address] 1 patch on the skin daily. 30 patch 0 No current facility-administered medications for this visit. 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 Alcohol/week: 5.0 standard drinks ??? Types: 1 Glasses of wine, 4 Cans of beer per week Comment: Occasional FAMILY HISTORY Family History Problem Relation Age of Onset ??? Healthy adult Mother ??? Healthy adult Father ??? Breast cancer Maternal Grandmother ??? AVM Sister Ruptured in 20's; underwent surgery ??? Skin cancer Paternal Grandmother OBJECTIVE VITAL SIGNS BP 120/72 Wt 65.9 kg BMI 24.52 kg/m?? PHYSICAL EXAMINATION General: Patient appears well groomed and well nourished. No acute distress. Oriented times three. Skin: Normal without any evidence of rash or lesions. Head: Normocephalic. ENT: Trachea midline. Lymph Nodes: Neck is supple. No significant adenopathy. Heart: Regular rate and rhythm without murmurs, rubs or gallops. No evidence of any peripheral vascular disease. Lungs: Get a little bit coarse on her lower lobes bilaterally, but clears with coughing. Clear to auscultation with good inspiratory effort. No wheezing. Abdomen: Soft and nontender. No masses, hepatosplenomegaly or hernias noted. No enlarged groin nodespalpable. Extremities: Strength is 5/5 of the upper and lower extremities. No swelling noted of the joints. DIAGNOSTICS SARINA, CRP, and rheumatoid factor are pending. ASSESSMENT / PLAN #1 Pain Knee Bilateral Overview: SARINA, CRP, rheumatoid factor are pending. Discussed her needing to stretch her IT band. Also recommended that she attempt to walk backwards during her routine walks. #2 Perimenopause Overview: Her symptoms have significantly improved since starting Prometrium and Vivelle- Dot so she will continue with these. #3 Abuse Tobacco Smoking Overview: Cessation is strongly encouraged, currently smoking a pack a day. She smokes first thing in the morning and she does not smoke in the car often. Nicotine patches previously prescribed. Other orders - Antinuclear Antibody Screen; Future; Expected date: 12/07/2020 - Rheumatoid Factor; Future; Expected date: 12/07/2020 - CRP (C-Reactive Protein); Future; Expected date: 12/07/2020 - Obstetrics and Gynecology office visit (clinic); Future; Expected date: 01/07/2021 #4 Followup PLAN: She will follow up in 1-2 months for a recheck. Patient will contact the clinic with questionsor concerns prior to this time. This document serves as a record of services personally performed by Adonay Kohli MD. It was created on their behalf by Tiffanie Mejia, a trained medical laboratory manager. The creation of this record is based onthe scribe's personal observations and the provider's statements to them. This document has been [facility] and approved by the attending provider. documented in this encounter Plan of Treatment Scheduled Referrals Name Type Priority Associated Order Schedule Diagnoses Obstetrics and Outpatient Referral Routine Expect ed: Gynecology office 01/07/2021 visit (clinic) (Approximate) , Expires: 12/08/2023 documented as of this encounter Results CRP (C-Reactive Protein) (12/07/2020 11:40 AM CDT) athologist Signature C-Reactive 4.2 <=8.0 mg/L 12/07/2020 [facility] Protein (CRP), 4:21 PM CDT P Comment: Testing performed on serum Specimen Anatomical Collection Method Collection Time Receive d Time (Source) Location / / Volume Laterality Blood (Blood, 12/07/2020 11:40 12/07/2020 3:48 Venous) AM CDT PM CDT Adonay Kohli Jr., M.D. LAB BLOOD ADD-ON Performing Organization Address City/State/ZIP Code Phon e Number [facility]- [address] [place] [address] [place] [address] System in [place] [address] (ABNORMAL) Rheumatoid Factor (12/07/2020 11:40 AM CDT) athologist Signature Rheumatoid 67 (H) <15 IU/mL 12/07/2020 [facility] Factor, S 10:35 PM CDT Specimen Anatomical Collection Method Collection Time Receive d Time (Source) Location / / Volume Laterality Blood (Blood, 12/07/2020 11:40 12/07/2020 Venous) AM CDT 10:35 PM CDT Adonay Kohli Jr., M.D. LAB BLOOD ADD-ON Performing Organization Address City/State/ZIP Code Phon e Number [facility]- [address] [place] [address] [facility] [place] [address] [facility] [address] Antinuclear Antibody Screen (12/07/2020 11:40 AM CDT) [facility] Method Time Signature Antinuclear Ab Negative Negative 12/08/2020 [facility] Screen by IFA, S 4:53 PM CDT Comment: ----ADDITIONAL INFORMATION---- This test is performed using a multiplex flow immunoassay method and screens for antibodies to a l imited number of nuclear antigens. It does not screen for all antibodies associated with myositis, scleroderma or autoimmune liver disease. Antinuclear antibody testing me thods using HEp-2 substrate are recommended for systemic r heumatic disease screening. Specimen Anatomical Collection Method Collection Time Receive d Time (Source) Location / / Volume Laterality Blood (Blood, 12/07/2020 11:40 12/08/2020 Venous) AM CDT 11:07 AM CDT Adonay Kohli Jr., M.D. LAB BLOOD ADD-ON Performing Organization Address City/State/ZIP Code Phon e Number [facility]- [address] [place] [address] [address] [facility] [place] [address] [address] documented in this encounter Visit Diagnoses Diagnosis Pain Knee Bilateral - Primary Perimenopause Abuse Tobacco Smoking documented in this encounter Care Teams Fire Sprinkler Installer Relationship Specialty Start Date End Date Steven Escobar M.D. PCP - General 08/17/16 [address] [place] [phone] documented as of this encounter
--- OUTSIDE RECORDS SUMMARY | 2021-10-12 00:41 | XMS_ITS | Encounter Summary ---
:1975 Author Organization [facility] Address [address] [place] [address] Care Team Providers Name Role Phone Steven Escobar M.D. Primary Care Provider [phone] Encounter Details Date Type Department Care Team Description 10/19/2020 Orders Only Department of Obstetrics Adonay Kohli Jr., and Gynecology in Romi [place], [place] [address] [address] [place] [address] [phone] Social History Tobacco Use Types Packs/Day Years [...] or relatives? How often do you attend anabaptist or More than 4 times per year 08/17/2020 zoroastrian services? Do you belong to any clubs or Yes 08/17/2020 organizations such as anabaptist groups, unions, fraternal or athletic groups, or [...] place to sleep or slept in a intermediate (including now)? Education Answer Date Recorded What [...] on filedocumented in this encounter Care Teams Pin Drafter Operator Relationship Specialty Start Date End Date Steven Escobar M.D. PCP - General 08/17/16 [address] [place] [phone] documented as of this encounter
--- OUTSIDE RECORDS SUMMARY | 2021-10-12 00:41 | XMS_ITS | Encounter Summary ---
:1975 Author Organization [facility] Address [address] [place] [address] Care Team Providers Name Role Phone Steven Escobar M.D. Primary Care Provider [phone] Encounter Details Date Type Department Care Team Description 12/09/2020 Orders Only Department of Physical JenniferEvangelista [facility] Romi in [address] [phone] [phone] (Wo rk) Social History Tobacco Use Types [...] or relatives? How often do you attend islam or More than 4 times per year 08/17/2020 jainism services? Do you belong to any clubs or Yes 08/17/2020 organizations such as islam groups, unions, fraternal or athletic groups, or [...] on filedocumented in this encounter Care Teams Bank Cashier Relationship Specialty Start Date End Date Steven Escobar M.D. PCP - General 08/17/16 [address] [place] [phone] documented as of this encounter
--- OUTSIDE RECORDS SUMMARY | 2021-10-12 00:41 | XMS_ITS | Encounter Summary ---
:1975 Author Organization [facility] Address [address] [place] [address] Care Team Providers Name Role Phone Steven Escobar M.D. Primary Care Provider [phone] Reason for Referral Outpatient (Routine) - Closed Specialty Diagnoses / Referred By Contact Referred To Contact Procedures Physical Medicine and Diagnoses Pain Knee Bilateral Adonay Kohli [facility] Gardenia Cosby M.D. [address] [place] [address] Referral ID Status Reason Start Date Expiration Date Visits Requ ested Visits Authorized [id number] Closed 12/09/2020 12/09/2021 [address] Rodriguez please Encounter Details Date Type Department Care Team Description 12/09/2020 Orders Only Department of Adonay Kohli Pain Knee Bilateral Obstetrics and Romi Cosby (Primary Dx) Gynecology in [address] [place], [place] 200 [facility] [address] [place], [place] [phone] (Work) [phone] Social History Tobacco Use Types Packs/Day Years [...] More than 4 times per year 08/17/2020 anglican services? Do you belong to any clubs [...] as of this encounter Plan of Treatment Scheduled Referrals Name Type Priority Associated Order Schedule Diagnoses Physical Medicine and Outpatient Referral Routine Pain Knee Expected: Rehabilitation - Bilateral 12/09/2020 General consult (Approximate ), (clinic) Expires: 12/10/2023 documented as of this encounter Results (ABNORMAL) Rheumatoid Factor (12/10/2020 [...] Organization Address City/State/ZIP Code Phon e Number [facility]- [address] [place] [address] [facility] [place] [address] [facility] [address] Cyclic Citrullinated Peptide Antibodies, IgG (12/10/2020 10:51 AM CDT) Analysis Performed At Patho logist Time Signature Cyclic <15.6 <20.0 12/11/2020 [facility] Citrullinated (Negative) 1:36 PM CDT Peptide Ab, S U Specimen Anatomical Collection Method Collection Time Receive d Time (Source) Location / / Volume Laterality Blood (Blood, 12/10/2020 10:51 12/11/2020 7:17 Venous) AM CDT AM CDT Adonay Kohli Jr., M.D. LAB BLOOD ADD-ON Performing Organization Address City/State/ZIP Code Phon e Number [facility] [address] [place], [place] [address] [facility] [place] [address] Laboratory Medicine and Pathology [address] [place] documented in this encounter Visit Diagnoses Diagnosis Pain Knee Bilateral - Primary documented in this encounter Care Teams Assistant Education Director Relationship Specialty Start Date End Date Steven Escobar M.D. PCP - General 08/17/16 [address], [place] [address] documented as of this encounter
--- OUTSIDE RECORDS SUMMARY | 2021-10-12 00:41 | XMS_ITS | Encounter Summary ---
:1975 Author Organization [facility] Address [address] [place] [address] Care Team Providers Name Role Phone Steven Escobar M.D. Primary Care Provider [phone] Encounter Details Date Type Department Care Team Description 12/07/2020 Hospital Encounter Department of Adonay Kohli Bilateral; Laboratory Medicine Sona Cosby M.D. Perimenopause in [facility] [address] [place], [place] 300 [facility] [address] [place], [place] [phone] (Work) [phone] Social History Tobacco Use Types Packs/Day Years [...] More than 4 times per year 08/17/2020 restorationist services? Do you belong to any clubs [...] Note - Adonay Kohli Jr., M.D. - 12/09/2020 10:34 AM CDT Lazara, remember I said not to get too excited right away. This is abnormal and we will need to follow up. I have reached out to a colleague for next steps. documented in this encounter Plan of Treatment Not on filedocumented as of this encounter Procedures Procedure Name Priority Date/Time Associated Comments Diagnosis ANTINUCLEAR AB Routine 12/07/2020 11:40 Pain Knee Bilat eral Results for this SCREEN, S AM CDT Perimenopause procedure are in the results section. RHEUMATOID FACTOR, Routine 12/07/2020 11:40 Pain Knee Bi lateral Results for this S/P AM CDT Perimenopause procedure are in the results section. C-REACTIVE PROTEIN Routine 12/07/2020 11:40 Pain Knee Bi lateral Results for this (CRP), S/P AM CDT Perimenopause procedure are in the results section. documented in this encounter Results CRP (C-Reactive Protein) (12/07/2020 11:40 AM CDT) P athologist Signature C-Reactive 4.2 <=8.0 mg/L 12/07/2020 [facility] Protein (CRP), 4:21 PM CDT P Comment: Testing performed on serum Specimen Anatomical Collection Method Collection Time Receive d Time (Source) Location / / Volume Laterality Blood (Blood, 12/07/2020 11:40 12/07/2020 3:48 Venous) AM CDT PM CDT Adonay Kohli Jr., M.D. LAB BLOOD ADD-ON Performing Organization Address City/[facility]/ZIP Code Phon e Number [facility]- [address] [place] [address] [place] [address] System in [place] [address] (ABNORMAL) Rheumatoid Factor (12/07/2020 11:40 AM CDT) athologist Signature Rheumatoid 67 (H) <15 IU/mL 12/07/2020 [facility] Factor, S 10:35 PM CDT Specimen Anatomical Collection Method Collection Time Receive d Time (Source) Location / / Volume Laterality Blood (Blood, 12/07/2020 11:40 12/07/2020 Venous) AM CDT 10:35 PM CDT Adonay Kohli Jr., M.D. LAB BLOOD ADD-ON Performing Organization Address City/[facility]/ZIP Code Phon e Number [facility]- [address] [place] [address] [facility] [place] [address] [facility] [place] [address] Antinuclear Antibody Screen (12/07/2020 11:40 AM CDT) [facility] gist Method Time Signature Antinuclear Ab Negative Negative [...] Organization Address City/State/ZIP Code Phon e Number [facility]- [address] [place] [phone] [facility] [place] [address] System [address] documented in this encounter Visit Diagnoses Diagnosis Pain Knee Bilateral Perimenopause documented in this encounter Care Teams Board Layer Relationship Specialty Start Date End Date Steven Escobar M.D. PCP - General 08/17/16 [address] [place] [phone] documented as of this encounter
--- OUTSIDE RECORDS SUMMARY | 2021-10-12 00:42 | XMS_ITS | Encounter Summary ---
:1975 Author Organization [facility] Address [address] [place] [address] Care Team Providers Name Role Phone Steven Escobar M.D. Primary Care Provider [phone] Encounter Details Date Type Department Care Team Description 07/13/2020 Clinical Communication Department of Adonay Kohli Obstetrics and Romi Cosby Gynecology in [address] [place], [place] [address] [address] [place], [place] [phone] (Work) [phone] Social History Tobacco Use Types Packs/Day Years [...] this encounter Miscellaneous Notes Telephone Encounter - Olimpia Best - 07/13/2020 1:17 PM CDT What is the purpose of the call?: Standard Appointment Process Standard Appointment Process Have you tested positive for COVID-19 in the last 20 days OR do you have a pending COVID-19 test because you had symptoms?: No, neither apply What region is the appointment being requested?: Less than 14 days [place] In the past 14 days are any of the following symptoms new to you and not related to an existing health condition?: No symptoms noted In the past 14 days have you had close contact* with a person who has a LABORATORY CONFIRMED case ofCOVID-19?: No exposure noted, follow appt process (End Screening) Testing Recommendation Endpoint Is testing recommended? : Not recommended to test Plan: Endpoint recommendation: Followed regional OTG *Reminder if sending patient for testing in [facility] or [facility], route encounter to the correct testing pool. documented in this encounter Plan of Treatment Not on filedocumented as of this encounter Visit Diagnoses Not on filedocumented in this encounter Care Teams Refinery Operator Reforming Unit Relationship Specialty Start Date End Date Steven Escobar M.D. PCP - General 08/17/[address] [place] [address] [phone] documented as of this encounter
--- OUTSIDE RECORDS SUMMARY | 2021-10-12 00:42 | XMS_ITS | Encounter Summary ---
:1975 Author Organization [facility] Address [address] [place] [address] Care Team Providers Name Role Phone Steven Escobar M.D. Primary Care Provider [phone] Encounter Details Date Type Department Care Team Description 07/24/2018 Documentation Department of Neurology in [place], [place] Josue, B.Ch. [address] [facility] [address] [place] [address] [place], [place] [phone] (Wo rk) Social History Tobacco Use Types Packs/Day Years Used Date Smoking Tobacco: Every Day Cigarettes 1 24 Smokeless Tobacco: Never Alcohol Use Standard Drinks/Week Comments Yes 0 (1 standard drink = 0.6 oz pure [...] or relatives? How often do you attend hinduism or More than 4 times per year 08/17/2020 caodaism services? Do you belong to any clubs or Yes 08/17/2020 organizations such as hinduism groups, unions, fraternal or athletic groups, or [...] or slept in a custodial (including now)? Sex Assigned at Date Recorded Female 06/10/2017 5:21 PM CDT documented as of this encounter Progress Notes Dru Warner M.B., B.Ch. - 07/24/2018 9:24 AM CDT I spoke to 1 of our cerebrovascular colleagues. We were able to confirm that the aneurysm was a trueaneurysm at 1.5 mm by a radiologist taking a look at it. Anterior communicating artery aneurysms require a little more observation and thus I would recommend an MRA in 6 months time. After that, we will obtain an MRA of the head every year for 3-5 years and then if stable potentially spread out after that. If there is any growth in the aneurysm, then she will need the cerebrovascular subspecialty consultation. Her MRI of the head was normal. We recommend patient's avoid power lifting and we discussed that a little bit on the phone today about adjusting her exercise program to avoid these heavy lifti ng of squat to stand and focus more on a aerobic exercise. Otherwise there are no major precautions.She understands she needs to discontinue cigarette smoking and we reiterated that today. I sent across an appointment for 6 months time. 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 PCP - General 08/17/[address] [phone] documented as of this encounter
--- OUTSIDE RECORDS SUMMARY | 2021-10-12 00:42 | XMS_ITS | Encounter Summary ---
:1975 Author Organization [facility] Address [address] [place] [address] Care Team Providers Name Role Phone Steven Escobar M.D. Primary Care Provider [phone] Encounter Details Date Type Department Care Team Description 03/26/2020 Hospital Encounter Department of Warner, Dru Pain K nee Right; Radiology, Josue Gastelum, B.C h. Pain Knee Left Building, in [address] [place] [address] [place] [phone] [place], [place] [phone] (Work) [phone] Social History Tobacco Use Types Packs/Day Years [...] or relatives? How often do you attend worship or More than 4 times per year 08/17/2020 mormon services? Do you belong to any clubs or Yes 08/17/2020 organizations such as worship groups, unions, fraternal or athletic groups, or [...] Date ibuprofen (ADVIL,MOTRIN) Take 200 mg by mouth 0 200 mg tablet every 6 (six) hours as needed. documented as of this encounter Plan of Treatment Not on filedocumented as of this encounter Procedures Procedure Name Priority Date/Time Associated Comments Diagnosis DX KNEE BILATERAL RAD - Routine 03/26/2020 1:20 Pain Knee Righ t Results for this STANDING 2 VIEWS (most inpatients PM CLINICAL INFORMATICS SPEC Pain Knee Left proce dure are in and all the results outpatients) section. documented in this encounter Results DX Knee Bilateral Standing 2 Views (03/26/2020 1:20 PM CLINICAL INFORMATICS SPEC) Anatomical Region Laterality Modality Lower Extremity, Knee, Musculoskeletal RST LOS, Bilateral Computed Radiography Musculoskeletal ARZ LOS, Muskuloskeletal FLA LOS Specimen (Source) Anatomical Collection Method Collection Time Re ceived Time Location / / Volume Laterality 03/26/2020 1:43 PM CLINICAL INFORMATICS SPEC Impressions 03/26/2020 1:44 PM CLINICAL INFORMATICS SPEC Negative radiographs of both knees. Narrative 03/26/2020 1:44 PM CLINICAL INFORMATICS SPEC EXAM: ??DX KNEE BILATERAL STANDING 2 VIEWS Procedure Note Bebeto Lawrence M.D. - 03/26/2020Format ting of this note might be different from the original. EXAM: DX KNEE BILATERAL STANDING 2 VIEWS IMPRESSION: Negative radiographs of both knees. Dru Salas, B.Ch. IMG DIAGNOSTIC IMAGING PRO CEDURES documented in this encounter Visit Diagnoses Diagnosis Pain Knee Right Pain Knee Left documented in this encounter Care Teams Instrument Engineer Relationship Specialty Start Date End Date Steven Escobar M.D. PCP - General 08/17/16 [address] [place] [address] documented as of this encounter
--- OUTSIDE RECORDS SUMMARY | 2021-10-12 00:42 | XMS_ITS | Encounter Summary ---
:1975 Author Organization [facility] Address [address] [place] [address] Care Team Providers Name Role Phone Steven Escobar M.D. Primary Care Provider [phone] Encounter Details Date Type Department Care Team Description 05/05/2020 Orders Only [facility] PCP [facility] MNT Luz, Scr eening Examination Steven Moreno M.D. Diabetes Mellitus [address] [place] [address] Social History Tobacco Use Types Packs/Day [...] or relatives? How often do you attend baptist or More than 4 times per year 08/17/2020 anglican services? Do you belong to any clubs or Yes 08/17/2020 organizations such as baptist groups, unions, fraternal or athletic groups, or [...] place to sleep or slept in a long term (including now)? Education Answer Date Recorded What is the highest level of school Associate degree: niravkirstie mendoza, 01/29/2019 you have completed or the highest technical, or vocational dominique mondragon degree you have received? Sex Assigned at Date Recorded Female 06/10/2017 5:21 PM CDT documented as of this encounter Plan of Treatment Scheduled Orders Name Type Priority Associated Diagnoses Order S chedule Glucose, Fasting Lab Routine Screening Examination Ex pected: 05/19/2020, Diabetes Mellitus Expires: 0 05/06/2023 documented as of this encounter Visit Diagnoses Diagnosis Screening Examination Diabetes Mellitus documented in this encounter Care Teams Supercalender Operator Relationship Specialty Start Date End Date Steven Escobar M.D. PCP - General 08/17/[address] [address] documented as of this encounter
--- OUTSIDE RECORDS SUMMARY | 2021-10-12 00:42 | XMS_ITS | Encounter Summary ---
:1975 Author Organization [facility] Address [address] [place] [address] Care Team Providers Name Role Phone tSeven Escobar M.D. Primary Care Provider [phone] Encounter Details Date Type Department Care Team Description 01/07/2020 Clinical Support Department of Leandra Wong [facility] Family Medicine, M, L.P.N. Immunization ([facility], in [address]) [place], [place] [address] [address] [place] [phone] Social History Tobacco Use Types Packs/Day Years [...] or relatives? How often do you attend latter-day or More than 4 times per year 08/17/2020 rastafari services? Do you belong to any clubs or Yes 08/17/2020 organizations such as latter-day groups, unions, fraternal or athletic groups, or [...] as of this encounter Visit Diagnoses Diagnosis Need Vaccine Immunization - Primary documented in this encounter Additional Health Concerns Infection Onset Date Last Indicated Resolved Time COVID19 Pending 01/06/2020 01/06/2020 01/08/2020 12:18 AM POLLUTION CONTROL ENGINEER documented as of this encounter Care Teams Rn Physician Office Relationship Specialty Start Date End Date Steven Escobar M.D. PCP - General 08/17/16 [address] [place] [phone] documented as of this encounter
--- OUTSIDE RECORDS SUMMARY | 2021-10-12 00:42 | XMS_ITS | Encounter Summary ---
:1975 Author Organization [facility] Address [address] [place] [address] Care Team Providers Name Role Phone Steven Escobar M.D. Primary Care Provider [phone] Reason for Visit Reason Comments PT Progress Note Encounter Details Date Type Department Care Team Description 05/14/2020 Documentation Department of Sergio Petersen PT Progr ess Note Rehabilitation Services in [place] [place] [place], [place] [address] [place] [address] [place], [place] [phone] Social History Tobacco Use Types Packs/Day Years [...] More than 4 times per year 08/17/2020 catholic services? Do you belong to any clubs [...] documented as of this encounter Progress Notes Sergio Petersen P.T. - 05/14/2020 11:59 PM CST PHYSICAL THERAPY DISCHARGE NOTE Medical Diagnosis: Patellofemoral pain Date of Onset: 2018 Start of care date: March 31, 2020 Number of visits from start of care: 2. Date of final visit: April 16, 2019 DISCHARGE STATUS STATUS OF GOALS: Current status unknown as pt has not been seen in physical therapy since their lastvisit. Goals partially met. Please reference the last clinical note for the most recent pain report,functional status, and goal status. REASON FOR DISCHARGE: Pt did not return for therapy. At her last attended visit she was reporting improvement in her pain compliance with her exercise program which anticipate she is continue with independently. DISCHARGE PLAN/RECOMMENDATIONS: It is recommended that Ms. Black continue with therapeutic recommendations provided in the course of her care. If additionalskilled care is indicated in the future, a new physical therapy order and evaluation would be required. Sergio Petersen P.T. Department of Rehabilitation Services in [place], [place] [address] [place] [address] Dept: [phone] documented in this encounter Plan of Treatment Not on filedocumented as of this encounter Visit Diagnoses Not on filedocumented in this encounter Care Teams Organ Grinder Relationship Specialty Start Date End Date Steven Escobar M.D. PCP - General 08/17/[address] [place] [address] documented as of this encounter
--- OUTSIDE RECORDS SUMMARY | 2021-10-12 00:42 | XMS_ITS | Encounter Summary ---
:1975 Author Organization [facility] Address [address] [place] [address] Care Team Providers Name Role Phone Steven Escobar M.D. Primary Care Provider [phone] Reason for Referral Outpatient (Routine) - Closed Specialty Diagnoses / Procedures Referred By Contact Refer red To Contact Diagnoses Asymmetry Breast Adonay Kohli Jr., [facility] [place] [facility] Procedures BI Breast Diagnostic Left with Tomosynthesis M.D. [address] [place] [address] Referral ID Status Reason Start Date Expiration Date Visits Requ ested Visits Authorized [id number] Closed 08/05/2020 08/05/2021 1 1 Reason for Visit Outpatient (Routine) - Closed Specialty Diagnoses / Procedures Referred By Contact Refer red To Contact Diagnoses Asymmetry Breast Adonay Kohli Jr. [facility] [place] Region Procedures BI Breast Diagnostic Left with Tomosynthesis M.D. [address] [place] [phone] Referral ID Status Reason Start Date Expiration Date Visits Requ ested Visits Authorized [id number] Closed 08/05/2020 08/05/2021 1 1 Encounter Details Date Type Department Care Team Description 08/09/2020 Hospital Encounter Department of Adonay Kohli Breast Radiology in Romi Cosby [place], [place] [address] [place] [address] Social History Tobacco Use Types Packs/Day [...] More than 4 times per year 08/17/2020 christian services? Do you belong to any clubs [...] Priority Date/Time Associated Comments Diagnosis BI BREAST DIAGNOSTIC RAD - Routine 08/09/2020 2:38 Asymmetry Breast Results for LEFT WITH (most inpatients PM CDT this proced ure TOMOSYNTHESIS and all are in the outpatients) results section. documented in this encounter Results (ABNORMAL) BI Breast Diagnostic Left with Tomosynthesis (08/09/2020 2:38 PM CDT) Anatomical Region Laterality Modality Breast, Breast Imaging RST LOS, Breast Imaging ARZ LOS, [place] st Left Mammography Imaging FLA LOS Specimen [...] Breast documented in this encounter Care Teams Director Family Relationship Specialty Start Date End Date Steven Escobar M.D. PCP - General 08/17/[address] [phone] documented as of this encounter
--- OUTSIDE RECORDS SUMMARY | 2021-10-12 00:42 | XMS_ITS | Encounter Summary ---
:1975 Author Organization [facility] Address [address] [place] [address] Care Team Providers Name Role Phone Steven Escobar M.D. Primary Care Provider [phone] Reason for Visit Reason Onset Date Comments Outpatient COVID-19 Testing 01/06/2020 Encounter Details Date Type Department Care Team Description 01/06/2020 External Outreach Department of Family Deborah Lopez I nfshmuel [facility] Medicine, [place] C, TAX AUDITOR, Respiratory (Primary Clinic, in [place], C.N.P., D.N.P . Dx) [place] [address] [place] [address] [place], [place] [phone] Social History Tobacco Use Types Packs/Day Years [...] documented as of this encounter Progress Notes Ling Charles R.N. - 01/06/2020 11:35 AM CST Encounter created for the drive-through COVID-19 testing. RION ESSBASE DEVELOPER documented in this encounter Plan of Treatment Not on filedocumented as of this encounter Procedures Procedure Name Priority Date/Time Associated Diagnosis Comme nts SARS CORONAVIRUS-2 Routine 01/06/2020 12:35 PM Infection Upper Results for this RNA, V HYPERION ESSBASE DEVELOPER Respiratory procedure are i n the results section. documented in this encounter Results SARS Coronavirus-2 RNA, V Symptomatic (01/06/2020 12:35 PM HYPERION ESSBASE DEVELOPER) [facility] gist Method Time Signature SARS-CoV-2 Swab, 01/08/2020 MKTO Specimen Nasopharynx 12:18 AM Source HYPERION ESSBASE DEVELOPER SARS CoV-2 Undetected Undetected 01/08/2020 MKTO RNA, TMA 12:18 AM HYPERION ESSBASE DEVELOPER Comment: SARS-CoV-2 RNA absent. This result does not rule out COVID-19 in the patient, as the sensitivity of the test depends o n the timing of the specimen collection and the quality of the specim en. Result should be correlated with patient's history and clinical presentat ion. ----ADDITIONAL INFORMATION---- This test is performed using the Aptima SARS-CoV-2 assay ([employer] which has received Emergency Use Authori zation (EUA) by the U.S. Food and Drug Administration. Fact sheets for this Emergency Use Autho rization (EUA) assay can be found at the following links: For Healthcare Providers: https://www.fd a.gov/media/757129/download For Patients: https://www.fda.gov/media/ 012882/download Specimen Anatomical Collection Method Collection Time Receive d Time (Source) Location / / Volume Laterality Varies 01/06/2020 12:35 01/06/2020 7:46 (Nasopharynx) PM HYPERION ESSBASE DEVELOPER PM HYPERION ESSBASE DEVELOPER Deborah Kumari John MARTEL C.N.P., D.N.P. LAB MICROBIOLOGY - GENERAL ORDERABLES Performing Organization Address City/State/ZIP Code Phon e Number [facility]- [address] [place] [address] [place] [address] System in [place] [address] [place] [address] documented in this encounter Visit Diagnoses Diagnosis Infection Upper Respiratory - Primary documented in this encounter Additional Health Concerns Infection Onset Date Last Indicated Resolved Time COVID19 Pending 01/06/2020 01/06/2020 01/08/2020 12:18 AM HYPERION ESSBASE DEVELOPER documented as of this encounter Care Teams Pipe Fitter Street Service Relationship Specialty Start Date End Date Steven Escobar M.D. PCP - General 08/17/[address] [place] [phone] documented as of this encounter
--- OUTSIDE RECORDS SUMMARY | 2021-10-12 00:42 | XMS_ITS | Encounter Summary ---
:1975 Author Organization [facility] Address [address] [place] [address] Care Team Providers Name Role Phone Steven Escobar M.D. Primary Care Provider [phone] Encounter Details Date Type Department Care Team Description 06/24/2019 E-Visit Express [facility] Online Alicia Garcia, RE: B ladder infections Services in [facility] a TAHMINA, C.N.P., (females only, ages 12 [address] [facility] D.N.P. through 75 years) [place] [phone] Social History Tobacco Use Types Packs/Day Years [...] or relatives? How often do you attend judaism or More than 4 times per year 08/17/2020 cheondoism services? Do you belong to any clubs or Yes 08/17/2020 organizations such as judaism groups, unions, fraternal or athletic groups, or [...] as of this encounter Visit Diagnoses Diagnosis Infection Urinary Tract - Primary documented in this encounter Care Teams Records Management Associate Relationship Specialty Start Date End Date Steven Escobar M.D. PCP - General 08/17/[address] [phone] documented as of this encounter
--- OUTSIDE RECORDS SUMMARY | 2021-10-12 00:42 | XMS_ITS | Encounter Summary ---
:1975 Author Organization [facility] Address [address] [place] [address] Care Team Providers Name Role Phone Steven Escobar M.D. Primary Care Provider [phone] Reason for Referral Outpatient (Routine) - Closed Specialty Diagnoses / Procedures Referred By Contact Refer red To Contact Diagnoses Preventive Gynecological Exam Adonay Kohli Jr., [facility] Region Procedures BI Breast Screening Bilateral with Tomosynthesis M.D. [address] [place] [address] Referral ID Status Reason Start Date Expiration Date Visits Requ ested Visits Authorized [id number] Closed 07/29/2020 07/29/2021 1 1 Reason for Visit Outpatient (Routine) - Closed Specialty Diagnoses / Procedures Referred By Contact Refer red To Contact Diagnoses Preventive Gynecological Exam Adonay Kohli Jr., [facility] Region Procedures BI Breast Screening Bilateral with Tomosynthesis M.D. [address] [place] [address] Referral ID Status Reason Start Date Expiration Date Visits Requ ested Visits Authorized [id number] Closed 07/29/2020 07/29/2021 1 1 Encounter Details Date Type Department Care Team Description 08/03/2020 Hospital Encounter Department of Adonay Kohli Radiology in G Jr., M.D. Gynecological Exam [place], [place] [address] [place] [phone] Social History Tobacco Use Types Packs/Day [...] or relatives? How often do you attend zoroastrianism or More than 4 times per year 08/17/2020 islam services? Do you belong to any clubs or Yes 08/17/2020 organizations such as zoroastrianism groups, unions, fraternal or athletic groups, or [...] pay for the very basics like Not delon dalal hard 08/17/2020 food, housing, medical care, and [...] Priority Date/Time Associated Comments Diagnosis BI BREAST SCREENING RAD - Routine 08/03/2020 3:01 Preventive Resu lts for BILATERAL WITH (most inpatients PM CDT Gynecological Exam thi s procedure TOMOSYNTHESIS and all are in the outpatients) results section. documented in this encounter Results (ABNORMAL) BI Breast Screening Bilateral with Tomosynthesis (08/03/2020 3:01 PM CDT) Anatomical Region Laterality Modality Breast, Breast Imaging RST LOS, Breast Imaging ARZ LOS, [place] st Bilateral Mammography Imaging FLA LOS Specimen (Source) Anatomical Collection Method Collection Time Re ceived Time Location / / Volume Laterality 08/05/2020 9:58 AM CDT Impressions 08/05/2020 10:05 AM CDT Incomplete. ??Need additional imaging evaluation. RECOMMENDATION: ??Additional Imaging Left breast diagnostic mammogram and pot ential ultrasound. ASSESSMENT: ??BI-RADS: 0 - Incomplete: N eeds Additional Imaging Evaluation. Narrative 08/05/2020 10:05 AM CDT EXAM: ??BI BREAST SCREENING BILATERAL WITH TOMOSYNTHESIS Current study was evaluated with a Abigail Stewartu Engine Ecology Aided Detection (CAD) system. INDICATION: ??Screening mammogram. COMPARISON: ??Prior exam(s) were availab le and reviewed for comparison. DENSITY: ??b. There are scattered areas of fibroglandular density. FINDINGS: ??Bilateral breast implants. L eft breast has focal asymmetric density located laterally in the mid depth. Righ t breast has a cyst at 3:00 that was seen on ultrasound 12/17/15. Right breas t is otherwise negative. Procedure Note Davey Winn M.D. - 08/05/2020 EXAM: BI BREAST SCREENING BILATERAL WITH TOMOSYNTHESIS Current study was evaluated with a Abigail Stewartu Engine Ecology Aided Detection (CAD) system. INDICATION: Screening mammogram. COMPARISON: Prior exam(s) were available and reviewed for comparison. DENSITY: b. There are scattered areas of fibroglandular density. FINDINGS: Bilateral breast implants. Lef t breast has focal asymmetric density located laterally in the mid depth. Righ t breast has a cyst at 3:00 that was seen on ultrasound 12/17/15. Right breas t is otherwise negative. IMPRESSION: Incomplete. Need additional imaging eval uation. RECOMMENDATION: Additional Imaging Left breast diagnostic mammogram and pot ential ultrasound. ASSESSMENT: BI-RADS: 0 - Incomplete: Nee ds Additional Imaging Evaluation. Adonay Kohli Jr., M.D. IMG BI PROCEDURES documented in this encounter Visit Diagnoses Diagnosis Preventive Gynecological Exam documented in this encounter Care Teams Special Services Supervisor Relationship Specialty Start Date End Date Steven Escobar M.D. PCP - General 08/17/16 [address] [place] [phone] documented as of this encounter
--- OUTSIDE RECORDS SUMMARY | 2021-10-12 00:42 | XMS_ITS | Encounter Summary ---
:1975 Author Organization [facility] Address [address] [place] [address] Care Team Providers Name Role Phone Steven Escobar M.D. Primary Care Provider Reason for Visit Physical Therapy (Routine) - Canceled Specialty Diagnoses / Procedures Referred By Contact Refer red To Contact Diagnoses Patellofemoral Disorders Right Knee Patellofemoral Disorders Left Knee Yohana Murcia M.D. [facility] Procedures PT Ongoing treatment [address] [place] [address] Referral ID Status Reason Start Date Expiration Date Visits V isits Requested Authorized [id number] Canceled 03/31/2020 03/04/2021 99 99 Encounter Details Date Type Department Care Team Description 04/16/2020 Clinical Support Department of Yohana Murcia M.D. [address] [place] [address] Patellofemoral Disorders Right Knee; Rehabilitation Sergio Petersen P.T. [address] [place] [address] Patellofemoral Disorders Left Knee Services in [place], [place] [address] [place] [address] Social History Tobacco Use Types Packs/Day Years [...] or relatives? How often do you attend yazidism or More than 4 times per year 08/17/2020 amish services? Do you belong to any clubs or Yes 08/17/2020 organizations such as yazidism groups, unions, fraternal or athletic groups, or [...] as of this encounter Progress Notes Sergio Petersen, P.T. - 04/16/2020 2:30 PM CST Physical Therapy Outpatient Treatment Note SUBJECTIVE Patient's Name: Leandra Saeedannette Black Referring Provider: Yohana Murcia M.D. Visit Diagnosis: 1. Patellofemoral Disorders Right Knee 2. Patellofemoral Disorders Left Knee Reason for Referral: Bilateral patellofemoral disorder Payor: [facility] / Plan: [facility] / Product Type: Medicaid HMO / No data recorded Epic Visit Count: 2 Patient comments: She reports improvement intermittent right knee pain. States that patellar taping has gone well. She tried to find leuko tape on the Internet but could only find Kinesio tape so she obtain that. She was able to find pre taping tape. I did provider the package information for leuko tape so that she could find that on [employer]. She feels her exercises are going well Contact monitoring: PPE used during therapy: Therapist was wearing the following PPE throughout entire session: surgicalmask and eye protection Patient was wearing a mask during therapy session: yes OBJECTIVE TREATMENT Treatment today consisted of: Therapeutic Exercise: 1. Recheck gluteus medius clamshell in abduction she did require some cuing to get the appropriate alignment. After that she felt like she is getting much better workout from the exercise. I also told her how she can progress side by adding a small dumbbell into her hand and hold on the side of the leg for added resistance. 2. Supine hamstring stretch assessed and performing well 3. Supine iliotibial band stretch, clarified positioning she was able demonstrate correctly 4. Supine bridge with resistance band 2/5 was progressed today level 5/5. Cuing to ensure appropriate contraction gluteals. 5. Progressed home program to include quadruped alternating leg extensions. Verbal and manual cues for appropriate spine alignment and pelvis alignment 6. Progress Sidestepping with resistance band 2/5 was added to home program - demonstration and feedback provided to avoid valgus at the knees. 7. Progressed: Wall squat with resistance loop at the knees 2/5 band. Cuing to avoid valgus at the knees Home Exercise Program/Education: 1. Gluteus medius clamshell in abduction 2. Supine hamstring stretch 3. Supine iliotibial band stretch in hook lying positioning 4. Supine bridge with resistance band 2/5 5. Quadruped alternating leg extension 6. Sidestepping with resistance band 2/5 7. Wall squat band 2/5 Pt reports good compliance with her HEP. Assessment Clinical Impression: Progressing Functional Goals and Timeframes: PT Goal #1: She will be independent in a home exercise program progressive lower extremity strengthening and conditioning PT Goal #1 Date: 05/28/20 PT Goal #2: She will report reduced pain and difficulty with stair climbing. Improving her patient specific functional Scale from 05/10 to 7/10 or better PT Goal #2 Date: 05/28/20 Plan Plan for next session: Reassess newly added exercises. Consider trial of lateral step-ups or forwardstep-ups Time Spent with Patient Therapeutic Exercise (min): 24 min Time Calculation Total Timed Units (min): 24 min Total Treatment Time (min): 24 min Sergio Petersen P.T. Department of Rehabilitation Services in [place], [place] [address] [place] [address] Dept: [phone] DRIVER CARPENTER documented in this encounter Plan of Treatment Not on filedocumented as of this encounter Visit Diagnoses Diagnosis Patellofemoral Disorders Right Knee Patellofemoral Disorders Left Knee documented in this encounter Care Teams Package Liner Relationship Specialty Start Date End Date Steven Escobar M.D. PCP - General 08/17/162199 [place] [phone] documented as of this encounter
--- OUTSIDE RECORDS SUMMARY | 2021-10-12 00:42 | XMS_ITS | Encounter Summary ---
:1975 Author Organization [facility] Address [address] [place] [address] Care Team Providers Name Role Phone Steven Escobar M.D. Primary Care Provider [phone] Reason for Referral MRI/CAT/PET Scan (Routine) - Closed Specialty Diagnoses / Procedures Referred By Contact Refer red To Contact Radiology Diagnoses Aneurysm Cerebral Unruptured (HCC) Migraine Headache Dru Warner M.B., [facility] Procedures MR Brain Angiogram without IV Contrast MR Brain Angiogram without and with IV Contrast HI MRA HEAD WO [facility] [address] [place] [address] Referral ID Status Reason Start Date Expiration Date Visits Requ ested Visits Authorized [id number] Closed 01/29/2019 03/23/2020 1 1 Outpatient (Routine) - Closed Specialty Diagnoses / Procedures Referred By Contact Refer red To Contact Neurology Diagnoses Aneurysm Cerebral Unruptured (HCC) Migraine Headache Dru Warner M.B., [facility] [address] [place] [address] Referral ID Status Reason Start Date Expiration Date Visits Requ ested Visits Authorized [id number] Closed 01/29/2019 01/29/2020 1 1 Reason for Visit Outpatient (Routine) - Closed Specialty Diagnoses / Procedures Referred By Contact Refer red To Contact Neurology Dru Warner M. B., [facility] [address] [place] [address] Referral ID Status Reason Start Date Expiration Date Visits Requ ested Visits Authorized [id number] Closed 07/24/2018 07/24/2019 1 1 Encounter Details Date Type Department Care Team Description 01/29/2019 Office Visit Department of Dru Warner Migraine Fransisca heath (Primary Dx); Neurology in [place] [facility], B.[facility] Aneurysm Cerebral Unruptured (HCC) [place], [place] [address] [facility] [address] [place] [phone] Social History Tobacco Use Types Packs/Day Years [...] or relatives? How often do you attend restorationism or More than 4 times per year 08/17/2020 episcopal services? Do you belong to any clubs or Yes 08/17/2020 organizations such as restorationism groups, unions, fraternal or athletic groups, or [...] Sign Reading Time Taken Comments Blood Pressure 97/66 01/29/2019 2:33 PM PCT Pulse 69 01/29/2019 2:33 PM PCT Temperature - - Respiratory Rate - - Oxygen Saturation - - Inhaled Oxygen Concentration - - Weight 62 kg (136 lb 11 oz) 01/29/2019 2:33 PM PCT Height 166 cm (5' 5.35) 01/29/2019 2:33 PM PCT Body Mass Index 22.5 01/29/2019 2:33 PM PCT documented in this encounter Progress Notes Dru Warner M.B., [facility] - 01/29/2019 3:00 PM CST Images from the original note were not included. REFERRAL SOURCE Dru Warner M.B., B.[facility]. CHIEF COMPLAINT / REASON FOR VISIT Follow-up for cerebral aneurysm HISTORY OF PRESENT ILLNESS Leandra Black is a 43 y.o. right-handed female who presents for evaluation of theabove complaint. She has a history of migraine headaches on and off dating back to her teenage years. Please see my note dated 07/15/2018 for the complete details. I had initially seen her at that time. She was found to have a small 1-2 mm aneurysm. We recommended observation of that with a 6 month MRI and return visit. She is here for that visit today. Since she was last here, she has had some worsening of headaches. She describes headaches occurring daily. These do have migrainous component to them including photophobia, phonophobia and occasionallyosmophobia. She does have some occasional episodes of blurred vision although that is a little bit less than when she was last here. She takes ibuprofen or Aleve every day. It is only partially effective. She has never been on Triptan type medications. She does not take Tylenol as that did not work inthe past. She has had some hot flashes in recent times and has a history of a uterine ablation. She does not currently meant straight. She has stopped doing the weightlifting that she was doing previously. We had recommended that she not do that. She did temporarily gave up cigarette smoking but is return to doing that. She is working hard to try and continue that and she understands that that is important for the help of her blood vessels. The following portions of the patient's history were reviewed and updated as appropriate: allergies,current medications, family history, medical history, social history, surgical history and problem list. REVIEW OF SYSTEMS A ten system review of constitutional, cardiovascular, respiratory, musculoskeletal, endocrine, skin, SHEENT, genitourinary, psychiatric and neurologic systems was obtained and is unremarkable except as noted above. PAST MEDICAL HISTORY Past Medical History: Diagnosis Date ??? Spontaneous (HCC) x3 ??? Gestational Diabetes Mellitus Personal History Not ??? Headache ??? Menorrhagia Resolved with ablation Past Surgical History: Procedure Laterality Date ??? AUGMENTATION MAMMOPLASTY Bilateral 12/13/2012 Saline implants [...] MISSED MISCARRIAGE OF FIRST TRIMESTER 2009 D&C No Known Allergies MEDICATIONS Current Outpatient Medications: ??? biotin 1 mg tablet, Take 1,000 mcg by mouth as needed. , Disp: , Rfl: ??? ibuprofen (ADVIL,MOTRIN) 200 mg tablet, Take 200 mg by mouth every 6 (six) hours., Disp: , Rfl: ??? naproxen sodium (ALEVE ORAL), Take by mouth as needed., Disp: , Rfl: ??? PNV51/iron fum/FA/om-3/dha/epa ( MULTI-DHA ORAL), Take by mouth as needed. , Disp: , Rfl: ??? amitriptyline (ELAVIL) 10 mg tablet, 1 tab nightly for 1 week, then increase weekly by 1 tab daily as needed to max 5 tab per med sched. If no better, switch to 25 mg tab., Disp: 105 tablet, Rfl: 0 ??? amitriptyline (ELAVIL) 25 mg tablet, Take 1 tab every evening. If symptoms not improved with 10 mg tab, gradually increase per med sched to max dose of 4 tab nightly as needed., Disp: 120 tablet, Rfl: 11 FAMILY HISTORY Family History Problem Relation Age of Onset ??? Healthy adult Mother ??? Healthy adult Father ??? Breast cancer Maternal Grandmother ??? AVM Sister Ruptured in 20's; underwent surgery SOCIAL HISTORY As per the HPI PHYSICAL EXAM I performed a focused neurologic examination today. Her visual acuity was normal in both eyes with 20/20. Funduscopy was normal. Extraocular movements were full. NEUROIMAGING Her MRI shows a stable aneurysm at 1 x 2 mm at the left A1/A2 junction. 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 We will continue yearly monitoring for 3-5 years and then ifit is stable we can spread out the intervals at that time. We discussed about exercise. Sexual intercourse is okay. We did recommend that she not do heavy lifting. She can lift light weights and do aerobic exercise but should avoid Valsalva with heavy weights. #3 Chronic migraine Her migraine headache has worsened a little bit. She is now having daily headache and taking ibuprofen and naproxen every day. We discussed that could be a component of analgesic overuse/rebound type headache in association with frequent medication use. We recommended that she use just naproxen (Aleve) on 2 days a week. She can take 2 doses on that day. She does have some insomnia and has a slight tendency towards anxiety. We discussed that a preventive medication with amitriptyline (Elavil) would be a reasonable medication to try. She would start at 10 mg at nighttime and increase slowly over the course of 7 weeks to a goal dose of 100 mg at nighttime. Side effects would include some dry mouth and some sedation in the morning potentially. If she notices that, she could cut down to a lower dose. We would need to give a 8-12 weeks to see if it is truly working. Cutting down on the naproxen to 2 days a week will also help the amitriptyline be more effective. She has occasionally used Botox for cosmetic purposes but has not noticed that it has helped her headaches. She may be interested in pursuing Botox down the line if this medication and other medications do not work. We could also consider verapamil down the line which can help with migrainous aura. I told her to contact me and let me know how the medication goes. #4 Cigarette smoking She is working with her primary care physician to try and come off of cigarette smoking. She has gotten nicotine patch and is working on this. She did have a period off of cigarettes but return to smoking. She understands it is important for her blood vessels to try and discontinue this. #5 Menopausal symptoms She will follow back with her primary care physician about that. Sometimes after menopause, the migraines may go away. She will follow back with her primary care physician although I would not be too keen on estrogen containing hormone replacement therapy in the setting of her migraine with aura whichcan increase risk for stroke. RECOMMENDATIONS: -Return visit in 1 year with MRA at that time. Orders Placed This Encounter Procedures ??? MR Brain Angiogram without and with IV Contrast ??? Neurology office visit (clinic) Orders Placed This Encounter Medications ??? amitriptyline (ELAVIL) 10 mg tablet Si tab nightly for 1 week, then increase weekly by 1 tab daily as needed to max 5 tab per med sched. If no better, switch to 25 mg tab. Dispense: 105 tablet Refill: 0 ??? amitriptyline (ELAVIL) 25 mg tablet Sig: Take 1 tab every evening. If symptoms not improved with 10 mg tab, gradually increase per med sched to max dose of 4 tab nightly as needed. Dispense: 120 tablet Refill: 11 Profile Rx; dispense upon patient request after titration PATIENT EDUCATION Ready to learn, no apparent learning barriers were identified; learning preferences include listening. Explained diagnosis and treatment plan; patient expressed understanding of the content. Total time: 30 mins; I personally spent over half of total minutes face to face with the patient in counseling and discussion and/or coordination of care as described above. Amitriptyline (Elavil???) Titration Schedule Tablet size(s): 10 mg 25 mg This schedule should only be used with 10 mg and 25 mg tablets. Double-check your medication label from the pharmacy to confirm the dispensed dose. Call your healthcare provider with questions. Instructions: ??? Follow the instructions in the table below for increasing the dose of the medication until you achieve a good response. Do not increase the dose faster than prescribed. ??? If your symptoms improve at a lower dose, continue taking that dose; increase to the next dose only if necessary. ??? Possible side effects include sedation, dry mouth, increased sensitivity of your skin to sunlight, fast heart beat, increased appetite, constipation and urinary retention. ??? If side effects occur that you cannot tolerate, go back down to the last dose that you tolerated. Call your healthcare provider if you are having limiting side effects. ??? Amitriptyline comes in many other dosage sizes. Once a stable dose has been found, your healthcare provider may provide a prescription for a larger dosage size. Tablet Size Time of Dose Total Daily Dose Evening Week 1 10 mg 1 10 mg Week 2 10 mg 2 20 mg Week 3 10 mg 3 30 mg Week 4 10 mg 4 40 mg Week 5 10 mg 5 50 mg Week 6 25 mg* 3 75 mg Week 7 25 mg 4 100 mg Ongoing 25 mg 4 100 mg * Note change in dosage size documented in this encounter Plan of Treatment Scheduled Referrals Name Type Priority Associated Diagnoses Order S [facility] Neurology office Outpatient Referral Routine Aneurysm Cerebral Expected: visit (clinic) Unruptured (HCC) 01/30/2020 Migraine Headache (Approxima te), Expires: 01/29/2022 documented as of this encounter Results MR Brain Angiogram without IV Contrast (03/22/2020 11:17 AM PCT) Anatomical Region Laterality Modality Head, Brain, Neuroradiology RST LOS, Neuroradiology ARZ N/A Magnetic Resonance [facility], Neuroradiology [facility] Specimen (Source) Anatomical Collection Method Collection Time Re ceived Time Location / / Volume Laterality 03/22/2020 11:30 AM PCT Impressions 03/22/2020 11:40 AM PCT Stable probable tiny aneurysms at the left A1-A2 junction and left periophthalmic ICA. Narrative 03/22/2020 11:40 AM PCT EXAM: MR BRAIN ANGIOGRAM WITHOUT IV CONTRAST COMPARISON: MRA head 01/29/2019 and 2018. FINDINGS: Stable 2 mm probable aneurysm at the junction of the A1 and A2 segments of the left anterior cerebral a rtery (). Focal 2-3 mm vascular prominence of the left periophthalmic in ternal carotid artery could represent an additional aneurysm (). No additiona l aneurysms seen. Procedure Note Bessie Ramirez M.D. - 03/22/2020Forma tting of this note might be different from the original. EXAM: MR BRAIN ANGIOGRAM WITHOUT IV CONT RAST COMPARISON: MRA head 01/29/2019 and 2018. FINDINGS: Stable 2 mm probable aneurysm at the junction of the A1 and A2 segments of the left anterior cerebral a rtery (). Focal 2-3 mm vascular prominence of the left periophthalmic in ternal carotid artery could represent an additional aneurysm (). No additiona l aneurysms seen. IMPRESSION: Stable probable tiny aneurysms at the le ft A1-A2 junction and left periophthalmic ICA. Dru Salas, B.Ch. IMG MRI PROCEDURES documented in this encounter Visit Diagnoses Diagnosis Migraine Headache - Primary Aneurysm Cerebral Unruptured (HCC) Aneurysm Cerebral Unruptured (HCC) Migraine Headache documented in this encounter Care Teams Ruby On Rails Software Developer Relationship Specialty Start Date End Date Steven Escobar M.D. PCP - General 08/17/[address] [address] documented as of this encounter
--- OUTSIDE RECORDS SUMMARY | 2021-10-12 00:42 | XMS_ITS | Encounter Summary ---
:1975 Author Organization [facility] Address [address] [place] [address] Care Team Providers Name Role Phone Steven Escobar M.D. Primary Care Provider [phone] Encounter Details Date Type Department Care Team Description 08/03/2020 Orders Only Department of Obstetrics Adonay Kohli Jr., and Gynecology in [place], [place] [address] [address] [place] [address] [phone] Social History Tobacco Use Types Packs/Day Years [...] on filedocumented in this encounter Care Teams Oriental Rug Stretcher Relationship Specialty Start Date End Date Steven Escobar M.D. PCP - General 08/17/16 [address] [place] [phone] documented as of this encounter
--- OUTSIDE RECORDS SUMMARY | 2021-10-12 00:42 | XMS_ITS | Encounter Summary ---
:1975 Author Organization [facility] Address [address] [place] [address] Care Team Providers Name Role Phone Steven Escobar M.D. Primary Care Provider [phone] Encounter Details Date Type Department Care Team Description 01/22/2019 Orders Only [facility] PCP [facility] MNT Luz, Scr eening Mammogram Steven Moreno M.D. Breast Cancer [address] [place] [phone] Social History Tobacco Use Types Packs/Day Years [...] or relatives? How often do you attend hindu or More than 4 times per year 08/17/2020 jewish services? Do you belong to any clubs or Yes 08/17/2020 organizations such as hindu groups, unions, fraternal or athletic groups, or [...] to sleep or slept in a senior care (including now)? Sex Assigned at Date Recorded Female 06/10/2017 5:21 PM CDT documented as of this encounter Plan of Treatment Not on filedocumented as of this encounter Results BI Breast Screening Bilateral with Tomosynthesis (07/18/2019 1:11 PM CDT) Anatomical Region Laterality Modality Breast, Breast Imaging RST LOS, Breast Imaging ARZ LOS, Ruth st Bilateral Mammography Imaging FLA LOS Specimen (Source) Anatomical Collection Method Collection Time Re ceived Time Location / / Volume Laterality 07/21/2019 11:21 AM CDT Impressions 07/21/2019 11:24 AM CDT Benign. RECOMMENDATION: ??Annual Screening Mammo gram ASSESSMENT: ??BI-RADS: 2: Benign. Narrative 07/21/2019 11:24 AM CDT EXAM: ??BI BREAST SCREENING BILATERAL WITH TOMOSYNTHESIS Current study was evaluated with a [employer] ter Aided Detection (CAD) system. INDICATION: ??Screening mammogram. COMPARISON: ??Prior exam(s) were availab le and reviewed for comparison. DENSITY: ??b. There are scattered areas of fibroglandular density. FINDINGS: ??No mammographic findings of malignancy. Bilateral breast implants. Procedure Note Davey Winn M.D. - 07/21/2019 EXAM: BI BREAST SCREENING BILATERAL WITH TOMOSYNTHESIS Current study was evaluated with a [employer] Aided Detection (CAD) system. INDICATION: Screening mammogram. COMPARISON: Prior exam(s) were available and reviewed for comparison. DENSITY: b. There are scattered areas of fibroglandular density. FINDINGS: No mammographic findings of ma lignancy. Bilateral breast implants. IMPRESSION: Benign. RECOMMENDATION: Annual Screening Mammogr am ASSESSMENT: BI-RADS: 2: Benign. Steven Escobar M.D. IMG BI PROCEDURES documented in this encounter Visit Diagnoses Diagnosis Screening Mammogram Breast Cancer Screening Mammogram Breast Cancer documented in this encounter Care Teams Ingot Passer Relationship Specialty Start Date End Date Steven Escobar M.D. PCP - General 08/17/16 [address] [place] [address] documented as of this encounter"
--- OUTSIDE RECORDS SUMMARY | 2021-10-12 00:42 | XMS_ITS | Encounter Summary ---
:1975 Author Organization [facility] Address [address] [place] [address] Care Team Providers Name Role Phone Steven Escobar M.D. Primary Care Provider [phone] Reason for Referral Outpatient (Routine) - Closed Specialty Diagnoses / Procedures Referred By Contact Refer red To Contact Neurology Diagnoses Aneurysm Cerebral Unruptured (HCC) Dru Warner M.B., [facility] B.Ch. [address] [place], [place] [address] Referral ID Status Reason Start Date Expiration Date Visits Requ ested Visits Authorized [id number] Closed 03/22/2020 03/22/2021 1 1 AGE CLERK MRI/CAT/PET Scan (Routine) - Closed Specialty Diagnoses / Procedures Referred By Contact Refer red To Contact Radiology Diagnoses Aneurysm Cerebral Unruptured (HCC) Dru Warner M.B., [facility] Procedures MR Brain Angiogram without and with IV Contrast B.Ch. [address] [place], [place] [address] Referral ID Status Reason Start Date Expiration Date Visits Requ ested Visits Authorized [id number] Closed 03/22/2020 03/22/2021 1 1 AGE CLERK Outpatient (Routine) - Closed Specialty Diagnoses / Referred By Contact Referred To Contact Procedures Physical Medicine and Diagnoses Pain Knee Right Pain Knee Left Dru Warner [facility] Josue, B.Ch. [address] [place] [address] Referral ID Status Reason Start Date Expiration Date Visits Requ ested Visits Authorized [id number] Closed 03/22/2020 03/22/2021 1 1 AGE CLERK Reason for Visit Outpatient (Routine) - Closed Specialty Diagnoses / Procedures Referred By Contact Refer red To Contact Neurology Diagnoses Aneurysm Cerebral Unruptured (HCC) Migraine Headache Dru Warner M.B., [facility] B.. [address] [place] [address] Referral ID Status Reason Start Date Expiration Date Visits Requ ested Visits Authorized [id number] Closed 01/29/2019 01/29/2020 1 1 Encounter Details Date Type Department Care Team Description 03/22/2020 Office Visit Department of Dru Warner Pain Knee Ri ght (Primary Dx); Neurology in [place] Diaz, B.Ch. Aneurysm Cerebral Unruptured (HCC); [place], [place] [address] [facility] Migraine Headache; [address] [place], [place] [phone] Social History Tobacco Use Types Packs/Day Years [...] or relatives? How often do you attend lutheran or More than 4 times per year 08/17/2020 latter-day services? Do you belong to any clubs or Yes 08/17/2020 organizations such as lutheran groups, unions, fraternal or athletic groups, or [...] Taken Comments Blood Pressure - - Pulse - - Temperature - - Respiratory Rate - - Oxygen Saturation - - Inhaled Oxygen Concentration - - Weight 66.4 kg (146 lb 6.2 oz) 03/22/2020 3:30 PM MILEAGE CLERK Height 166.5 cm (5' 5.55) 03/22/2020 3:30 PM MILEAGE CLERK Body Mass Index 23.95 03/22/2020 3:30 PM MILEAGE CLERK documented in this encounter Progress Notes Dru Warner M.B., B.Ch. - 03/22/2020 3:30 PM CST SUBJECTIVE REFERRAL SOURCE Dru Warner M.B., B.Ch. CHIEF COMPLAINT / REASON FOR VISIT Follow-up for cerebral aneurysm HISTORY OF PRESENT ILLNESS Leandra Black is a 44 y.o. right-handed female who presents for evaluation of theabove complaint. She has a history of migraine headaches on and off dating back to her teenage years. She also has had some migrainous auras in her right eye. Her sister had a ruptured AV malformation of the brain. Please see my note dated 07/15/2018 for the complete details. I had initially seen her at that time. Shewas found to have a small 1-2 mm aneurysm. We recommended observation of that with a 6 month MRA that was stable. She had also developed some worsened migraines when we last visited with her in July of 2018. She returns today. She tried amitriptyline but developed side effects in that she did not like how it made her feel. Her migraines however, have settled down on their own. She gets them about once a week in uses ibuprofen which seems to work well. They are generally more mild and not severe. She has developed increased symptoms of sweating at nighttime and some difficulty with sleep where she will fall asleep for 1 hour and then wake up multiple times for the remainder of the night. She has tried melatonin and Tylenol p.m. and is planning to try CBD oil now. She feels as some of her symptoms may relate to the menopause. She does continue to smoke cigarettes. She has also had some bilateral knee pain and has a history of some knee pain and right knee in the past. She previously would exercise more frequently but that is been less in recent times in the setting of the COVID pandemic. Incidentally, she has not developed COVID. The following portions of the patient's history [...] Headache Unspecified ??? Menorrhagia Resolved with ablation Past Surgical [...] Known Allergies MEDICATIONS Current Outpatient Medications: ??? ibuprofen (ADVIL,MOTRIN) 200 mg tablet, Take 200 mg by mouth every 6 (six) hours as needed. , Disp: , Rfl: OBJECTIVE Performed a focused neurologic examination today. Her visual acuity is 20/20 in both eyes and her gait examination was normal. She had some mild tenderness around the knees without swelling. NEUROIMAGING An updated MRA of the head dated 03/22/2020 (today) showed no change in the probable tiny aneurysms at the left A1-A2 junction and left periophthalmic ICA. 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 She should continue to avoid heavy lifting. #3 Cigarette smoking She will continue to work with her primary care physician in this regard and I reiterated the importance of discontinuing cigarette smoking for the health of her arteries. #4 Night sweats #5 Insomnia This may be the case. It is of interest that her migraines have improved somewhat. #6 Migraine headaches with aura Her headaches are under better control and she can continue her current abortive treatment of ibuprofen and hold off on any preventative treatments for now. #5 Bilateral knee pain We will obtain x-rays and a PMR evaluation. Orders Placed This Encounter Procedures ??? DX Knee Bilateral Standing 2 Views ??? MR Brain Angiogram without and with IV Contrast ??? Physical Medicine and Rehabilitation - General consult (clinic) ??? Neurology office visit (clinic) PATIENT EDUCATION Ready to learn, no apparent learning barriers were identified; learning preferences include listening. Explained diagnosis and treatment plan; patient expressed understanding of the content. Total time: 15 mins; I personally spent over half of total minutes face to face with the patient in counseling and discussion and/or coordination of care as described above. AGE CLERK documented in this encounter Plan of Treatment Scheduled Orders Name Type Priority Associated Diagnoses Order S chedule MR Brain Angiogram Imaging RAD - Routine (most Aneurysm Cerebr al Expected: without and with IV inpatients and all Unruptured (HCC ) 03/22/2021 Contrast outpatients) (Approximate), Expires: 03/22/2023 Scheduled Referrals Name Type Priority Associated Order Schedule Diagnoses Physical Medicine and Outpatient Referral Routine Pain K nee Right Expected: Rehabilitation - Pain Knee Left General consult (Approximate ), (clinic) Expires: 03/22/2023 Neurology office visit Outpatient Referral Routine Aneurysm Ce rebral Expected: (clinic) Unruptured (HCC) 03/22/2021 (Approximate), Expires: 03/22/2023 documented as of this encounter Results DX Knee Bilateral Standing 2 Views (03/26/2020 1:20 PM MILEAGE CLERK) Anatomical Region Laterality Modality Lower Extremity, Knee, Musculoskeletal RST LOS, Bilateral Computed Radiography Musculoskeletal ARZ LOS, Muskuloskeletal FLA LOS Specimen (Source) Anatomical Collection Method Collection Time Re ceived Time Location / / Volume Laterality 03/26/2020 1:43 PM MILEAGE CLERK Impressions 03/26/2020 1:44 PM MILEAGE CLERK Negative radiographs of both knees. Narrative 03/26/2020 1:44 PM MILEAGE CLERK EXAM: ??DX KNEE BILATERAL STANDING 2 VIEWS Procedure Note Bebeto Lawrence M.D. - 03/26/2020Format ting of this note might be different from the original. EXAM: DX KNEE BILATERAL STANDING 2 VIEWS IMPRESSION: Negative radiographs of both knees. Dru Salas, B.Ch. IMG DIAGNOSTIC IMAGING PRO CEDURES documented in this encounter Visit Diagnoses Diagnosis Pain Knee Right - Primary Aneurysm Cerebral Unruptured (HCC) Migraine Headache Pain Knee Left Pain Knee Right Pain Knee Left documented in this encounter Care Teams Evaporator Supervisor Relationship Specialty Start Date End Date Steven Escobar M.D. PCP - General 08/17/[address] [address] documented as of this encounter
--- OUTSIDE RECORDS SUMMARY | 2021-10-12 00:42 | XMS_ITS | Encounter Summary ---
:1975 Author Organization [facility] Address [address] [place] [address] Care Team Providers Name Role Phone Steven Escobar M.D. Primary Care Provider [phone] Reason for Referral MRI/CAT/PET Scan (Routine) - Closed Specialty Diagnoses / Procedures Referred By Contact Refer red To Contact Radiology Diagnoses Estevez Aneurysm Nonruptured (HCC) Dru Warner M.B., [facility] Procedures MR Brain Angiogram without IV Contrast MR Brain Angiogram without and with IV Contrast CA MRA HEAD WO/W CNTRST HC MRA HEAD WO/W CNTRST CA MRA HEAD WO/W CNTRST B.Ch. [address] [place] [address] Referral ID Status Reason Start Date Expiration Date Visits Requ ested Visits Authorized [id number] Closed 07/24/2018 07/24/2019 1 1 ESS DEVELOPER Reason for Visit MRI/CAT/PET Scan (Routine) - Closed Specialty Diagnoses / Procedures Referred By Contact Refer red To Contact Radiology Diagnoses Estevez Aneurysm Nonruptured (HCC) Dru Warner M.B., [facility] Procedures MR Brain Angiogram without IV Contrast MR Brain Angiogram without and with IV Contrast CA MRA HEAD WO/W CNTRST HC MRA HEAD WO/W CNTRST CA MRA HEAD WO/W CNTRST B.Ch. [address] [place] [address] Referral ID Status Reason Start Date Expiration Date Visits Requ ested Visits Authorized [id number] Closed 07/24/2018 07/24/2019 1 1 Encounter Details Date Type Department Care Team Description 01/29/2019 Hospital Encounter Department of Dru Warner Aneurysm Radiology, Josue Gastelum, Kye fox. Nonruptured (HCC) [facility] in [place], [facility] [address] [place], [place] [address] [facility] [address] [place], [place] [phone] (Work) [phone] Social History Tobacco Use Types Packs/Day Years [...] More than 4 times per year 08/17/2020 samaritan services? Do you belong to any clubs [...] place to sleep or slept in a usp (including now)? Education Answer Date Recorded What [...] tablet every 6 (six) hours as needed. amitriptyline (ELAVIL) 1 tab nightly for 1 105 tablet 0 01/0403/22/2020 10 mg tablet week, then increase weekly by 1 tab daily as needed to max 5 tab per med sched. If no better, switch to 25 mg tab. amitriptyline (ELAVIL) Take 1 tab every 120 tablet 019 03/22/2020 25 mg tablet evening. If symptoms not improved with 10 mg tab, gradually increase per med sched to max dose of 4 tab nightly as needed. biotin 1 mg tablet Take 1,000 mcg by 0 03/22/2020 mouth as needed. naproxen sodium (ALEVE Take by mouth as 0 06/24/2019 ORAL) needed. PNV51/iron Take by mouth as 0 03/22/19 fum/FA/om-3/dha/epa needed. ( MULTI-DHA ORAL) documented as of this encounter Plan of Treatment Not on filedocumented as of this encounter Procedures Procedure Name Priority Date/Time Associated Comments Diagnosis MR BRAIN RAD - Routine 01/29/2019 8:30 Estevez Aneurysm Results f or this ANGIOGRAM WITHOUT (most inpatients AM PROCESS DEVELOPER Nonruptured (HCC) p rocedure are in IV CONTRAST and all the results outpatients) section. documented in this encounter Results MR Brain Angiogram without IV Contrast (01/29/2019 8:30 AM PROCESS DEVELOPER) Anatomical Region Laterality Modality Head, Brain, Neuroradiology RST LOS, Neuroradiology ARZ N/A Magnetic Resonance LOS, Neuroradiology FLA LOS Specimen (Source) Anatomical Collection Method Collection Time Re ceived Time Location / / Volume Laterality 01/29/2019 10:04 AM PROCESS DEVELOPER Impressions 01/29/2019 10:18 AM PROCESS DEVELOPER Stable probable 2 x 1 mm left anterior cerebral artery aneurysm. Narrative 01/29/2019 10:18 AM PROCESS DEVELOPER EXAM: MR BRAIN ANGIOGRAM WITHOUT IV CONTRAST COMPARISON: MRA head 07/09/2018 FINDINGS: No change in 2 x 1 mm probable aneurysm from the left A1-A2 junction, at the anterior communicating artery. No new aneurysm. No arterial stenosis or occlusion. Procedure Note Ottoniel Mathews M.D., M.S. - 2018 EXAM: MR BRAIN ANGIOGRAM WITHOUT IV CONT RAST COMPARISON: MRA head 07/09/2018 FINDINGS: No change in 2 x 1 mm probable aneurysm from the left A1-A2 junction, at the anterior communicating artery. No new aneurysm. No arterial stenosis or occlusion. IMPRESSION: Stable probable 2 x 1 mm left anterior c erebral artery aneurysm. Dru Salas B.Ch. IMG MRI PROCEDURES documented in this encounter Visit Diagnoses Diagnosis Estevez Aneurysm Nonruptured (HCC) documented in this encounter Care Teams Development Technologist Relationship Specialty Start Date End Date Steven Escobar M.D. PCP - General 08/17/[address] [address] documented as of this encounter
--- OUTSIDE RECORDS SUMMARY | 2021-10-12 00:42 | XMS_ITS | Encounter Summary ---
:1975 Author Organization [facility] Address [address] [place] [address] Care Team Providers Name Role Phone Steven Escobar M.D. Primary Care Provider [phone] Reason for Referral MRI/CAT/PET Scan (Routine) - Closed Specialty Diagnoses / Procedures Referred By Contact Refer red To Contact Radiology Diagnoses Estevez Aneurysm Nonruptured (HCC) Dru Warner M.B., [facility] Procedures MR Brain Angiogram without IV Contrast MR Brain Angiogram without and with IV Contrast DE MRA HEAD WO/W CNTRST HC MRA HEAD WO/W CNTRST DE MRA HEAD WO/W CNTRST B.Ch. [address] [place], [place] [address] Referral ID Status Reason Start Date Expiration Date Visits Requ ested Visits Authorized [id number] Closed 07/24/2018 07/24/2019 1 1 Outpatient (Routine) - Closed Specialty Diagnoses / Procedures Referred By Contact Refer red To Contact Neurology Dru Warner M. B., B.Ch. [facility] [address] [place], [place] [address] Referral ID Status Reason Start Date Expiration Date Visits Requ ested Visits Authorized [id number] Closed 07/24/2018 07/24/2019 1 1 Encounter Details Date Type Department Care Team Description 07/24/2018 Orders Only Department of Neurology Dru Warner Be rry Aneurysm in [facility] Monica Tong., B.Ch. Nonruptured (HCC) [address] (Primary Dx) [place] [address] [phone] Social History Tobacco Use Types Packs/Day Years [...] More than 4 times per year 08/17/2020 pentecostal services? Do you belong to any clubs [...] minutes do you engage in exercise at is 20 min 08/17/2020 level? Stress Answer [...] or slept in a [facility]p (including now)? Sex Assigned at Date Recorded Female 06/10/2017 5:21 PM CDT documented as of this encounter Plan of Treatment Scheduled Referrals Name Type Priority Associated Diagnoses Order [facility] Neurology office Outpatient Referral Routine Expe cted: visit (clinic) 01/24/2019 (Approximate), Expires: 07/24/2021 documented as of this encounter Results MR Brain Angiogram without IV Contrast (01/29/2019 8:30 AM KENO ATTENDANT) Anatomical Region Laterality Modality Head, Brain, Neuroradiology RST LOS, Neuroradiology SUHAIL N/A Magnetic Resonance LOS, Neuroradiology FLA [facility] Specimen (Source) Anatomical Collection Method Collection Time Re ceived Time Location / / Volume Laterality 01/29/2019 10:04 AM KENO ATTENDANT Impressions 01/29/2019 10:18 AM KENO ATTENDANT Stable probable 2 x 1 mm left anterior cerebral artery aneurysm. Narrative 01/29/2019 10:18 AM KENO ATTENDANT EXAM: MR BRAIN ANGIOGRAM WITHOUT IV CONTRAST [...] Visit Diagnoses Diagnosis Estevez Aneurysm Nonruptured (HCC) - Prima ry Estevez Aneurysm Nonruptured (HCC) documented in this encounter Care Teams Documentation Clerk Relationship Specialty Start Date End Date Steven Escobar M.D. PCP - General 08/17/16 [address] [place] [address] documented as of this encounter
--- OUTSIDE RECORDS SUMMARY | 2021-10-12 00:42 | XMS_ITS | Encounter Summary ---
:1975 Author Organization [facility] Address [address] [place] [address] Care Team Providers Name Role Phone Steven Escobar M.D. Primary Care Provider [phone] Encounter Details Date Type Department Care Team Description 01/06/2020 Admin Visit Department of Family Medicine, [address] [place] [address] in [place], [place] [address] [place] [address] Social History Tobacco Use Types Packs/Day Years [...] More than 4 times per year 08/17/2020 roman catholic services? Do you belong to any [...] place to sleep or slept in a snf (including now)? Education Answer Date Recorded What [...] COVID19 Pending 01/06/2020 01/06/2020 01/08/2020 12:18 AM TRADE MANAGER documented as of this encounter Care Teams Instructor Apparel Manufacture Relationship Specialty Start Date End Date Steven Escobar M.D. PCP - General 08/17/162199 [address], [place] [address] documented as of this encounter
--- OUTSIDE RECORDS SUMMARY | 2021-10-12 00:42 | XMS_ITS | Encounter Summary ---
:1975 Author Organization [facility] Address [address] [place] [address] Care Team Providers Name Role Phone Steven Escobar M.D. Primary Care Provider [phone] Reason for Visit Reason Comments Abdominal Pain Encounter Details Date Type Department Care Team Description 06/25/2019 - Emergency [facility] Abdominal Pain (Primary Dx); 06/26/[address] [place] [address] Social History Tobacco Use Types Packs/Day Years [...] or relatives? How often do you attend caodaism or More than 4 times per year 08/17/2020 taoism services? Do you belong to any clubs or Yes 08/17/2020 organizations such as caodaism groups, unions, fraternal or athletic groups, or [...] mouth every 6 (six) hours as needed. nitrofurantoin Take 1 capsule (100 10 capsule 0 06/24/2019 0 06/29/2019 monohydrate (MACROBID) mg total) by mouth 100 mg capsule 2 (two) times a day for 5 days. amitriptyline (ELAVIL) 10 1 tab nightly for 1 105 tablet 0 1 03/31/2018 03/22/2020 mg tablet week, then increase weekly by 1 tab daily as needed to max 5 tab per med sched. If no better, switch to 25 mg tab. amitriptyline (ELAVIL) 25 Take 1 tab every 120 tablet 11 01/0403/22/2020 mg tablet evening. If symptoms not improved with 10 mg tab, gradually increase per med sched to max dose of 4 tab nightly as needed. biotin 1 mg tablet Take 1,000 mcg by 0 03/22/2020 mouth as needed. phenazopyridine Take 1 tablet (200 6 tablet 0 06/24/2019 0 03/22/2020 (PYRIDIUM) 200 mg tablet mg total) by mouth 3 (three) times a day as needed for painful urination for up to 6 doses. PNV51/iron Take by mouth as 0 03/22/19 21 fum/FA/om-3/dha/epa needed. ( MULTI-DHA ORAL) documented as of this encounter Plan of Treatment Not on filedocumented as of this encounter Procedures Procedure Name Priority Date/Time Associated Comments Diagnosis CT ABDOMEN PELVIS RAD - Semiurgent 06/25/2019 7:35 Pain Flank Res ults for this WITHOUT IV (Fast; most ED AM CDT procedure are in CONTRAST patients; some the results inpatients) section. documented in this encounter Results CT Abdomen Pelvis without IV Contrast (06/25/2019 7:35 AM CDT) Anatomical Region Laterality Modality Abdomen, Pelvis, Abdominal RST LOS, Abdominal ARZ LOS, N/A Computed Tomography Abdominal FLA LOS Specimen (Source) Anatomical Collection Method Collection Time Re ceived Time Location / / Volume Laterality 06/25/2019 9:37 AM CDT Impressions 06/25/2019 9:41 AM CDT 3 mm obstructing stone at the left UVJ. Narrative 06/25/2019 9:41 AM CDT EXAM: CT ABDOMEN PELVIS WITHOUT IV CONTRAST COMPARISON: None FINDINGS: At the left ureterovesicular j unction, there is 3 mm obstructing stone with maximal Hounsfield units of 387. Th ere is mild left hydroureteronephrosis. There is moderate left perinephric stran ding from the obstructive uropathy. No other renal stones. Bilateral ESSURE devices. The left ESSUR E device is probably malpositioned with tip extending into the periuterine fat ( series 2 image 434). Periampullary duodenal diverticulum. Nor mal appendix. Mild aortoiliac calcifications. Labial and umbilical pie rcings. Otherwise negative. vRad: ??Findings concordant with prelimi mono vRad report. Procedure Note Davey Winn M.D. - 06/25/2019 EXAM: CT ABDOMEN PELVIS WITHOUT IV CONTR AST COMPARISON: None FINDINGS: At the left ureterovesicular j unction, there is 3 mm obstructing stone with maximal Hounsfield units of 387. Th ere is mild left hydroureteronephrosis. There is moderate left perinephric stran ding from the obstructive uropathy. No other renal stones. Bilateral ESSURE devices. The left ESSUR E device is probably malpositioned with tip extending into the periuterine fat ( series 2 image 434). Periampullary duodenal diverticulum. Nor mal appendix. Mild aortoiliac calcifications. Labial and umbilical pie rcings. Otherwise negative. vRad: Findings concordant with prelimina ry vRad report. IMPRESSION: 3 mm obstructing stone at the left UVJ. Isaiah MOLINA CT PROCEDURES documented in this encounter Visit Diagnoses Diagnosis Abdominal Pain - Primary Pain Flank documented in this encounter Care Teams Nuclear Control Room Operator Relationship Specialty Start Date End Date Steven Escobar M.D. PCP - General 08/17/16 [address] [place] [phone] documented as of this encounter
--- OUTSIDE RECORDS SUMMARY | 2021-10-12 00:42 | XMS_ITS | Encounter Summary ---
:1975 Author Organization [facility] Address [address] [place] [address] Care Team Providers Name Role Phone Steven Escobar M.D. Primary Care Provider [phone] Reason for Referral Outpatient (Routine) - Closed Specialty Diagnoses / Procedures Referred By Contact Refer red To Contact Diagnoses Preventive Gynecological Exam Adonay Kohli Jr., [facility] Procedures BI Breast Screening Bilateral with Tomosynthesis [facility] [address] [place] [address] Referral ID Status Reason Start Date Expiration Date Visits Requ ested Visits Authorized [id number] Closed 07/29/2020 07/29/2021 1 1 Reason for Visit Reason Comments Gynecologic Exam Appointment Request (Routine) - Closed Specialty Diagnoses / Procedures Referred By Contact Refer red To Contact Obstetrics and Gynecology Referral ID Status Reason Start Date Expiration Date Visits Requ ested Visits Authorized [id number] Closed 07/13/2020 07/13/2021 1 1 Encounter Details Date Type Department Care Team Description 07/29/2020 Office Visit Department of Adonay Kohli Preventive Gynecological Exam (Primary Dx); Obstetrics and Romi Cosby Abuse Tobacco Smoking; Gynecology in [address] [place], [place] [address] [address] [place], [place] [phone] [address] (Work) [phone] Social History Tobacco Use Types Packs/Day Years [...] More than 4 times per year 08/17/2020 yazidism services? Do you belong to any clubs [...] Sign Reading Time Taken Comments Blood Pressure 100/74 07/29/2020 1:52 PM CDT Pulse 80 07/29/2020 1:52 PM CDT Temperature - - Respiratory Rate - - Oxygen Saturation 99% 07/29/2020 1:52 PM CDT Inhaled Oxygen Concentration - - Weight 68.5 kg (150 lb 14.5 oz) 07/29/2020 1:52 PM CDT Height 164 cm (5' 4.57) 07/29/2020 1:52 PM CDT Body Mass Index 25.45 07/29/2020 1:52 PM CDT documented in this encounter H&P Notes Adonay Kohli Jr., M.D. - 07/29/2020 2:15 PM CDT SUBJECTIVE CHIEF COMPLAINT/REASON FOR VISIT Annual examination. HISTORY OF PRESENT ILLNESS Leandra Black is a 44 y.o. status post endometrial ablation female who presents today for her annual examination. She has not had a period since a couple months after her ablation. Shehas hot flashes and sleep disturbance. She has also noticed some weight gain. She did have some shortness of breath recently. She continues to smoke. She drinks occasionally, and minimally. She has quit in the past due to concerns with amount she was drinking. She occasionally has difficulty going up and down stairs. Bowel and bladder are normal. Itmann is normal. She has been doing [employer], which is a HIIT class. Her right knee tends to bother her and she has gone to physical therapy for it. She has notcontinued to do these exercises consistently. There are no further concerns at this time. CURRENT MEDICATIONS Current Outpatient Medications Medication Sig Dispense Refill ??? ibuprofen (ADVIL,MOTRIN) [...] MISSED MISCARRIAGE OF FIRST TRIMESTER 2009 D&C PREVENTATIVE SERVICES: Tobacco use: Positive, cessation is encouraged. Mammogram: She will schedule this. Pap smear: 07/02/2018, will repeat next year. Colon screening: starts at age 50. Lipid panel: updated today. Thyroid: updated today. Vitamin D: normal 2015. Depression: Negative. Asthma: Negative. Immunization History Administered Date(s) Administered ??? Influenza, Unspecified 02/17/2011 ??? SARS-COV-2 (COVID-19) - PFIZER 06/25/2020, 07/16/2020 ??? Tdap 06/07/2007, 06/04/2016 ??? influenza vaccine quad (FLUZONE/FLUARIX) (6 months and older)(PF) 01/07/2020 SOCIAL HISTORY Social History Socioeconomic History ??? [...] Social Determinants of Health Financial Resource Strain: ??? Difficulty of Paying Living Expenses: Food Insecurity: ??? Worried About Running Out of Food in the Last Year: ??? Ran Out of Food in the Last Year: Transportation Needs: ??? Lack of Transportation (Medical): ??? Lack of Transportation (Non-Medical): Physical Activity: Unknown ??? Days of Exercise per Week: 1 day ??? Minutes of Exercise per Session: Not on file Stress: No Stress Concern Present ??? Feeling of Stress : Only a little Social Connections: Unknown ??? Frequency of Communication with Friends and Family: Not on file ??? Frequency of Social Gatherings with Friends and Family: Patient refused ??? Attends Episcopal Services: Not on file ??? Active Member of Clubs or Organizations: No ??? Attends Club or Organization Meetings: Patient refused ??? Marital Status: Not on file Intimate Partner Violence: ??? Fear of Current or Ex-Partner: ??? Emotionally Abused: ??? Physically Abused: ??? Sexually Abused: Social History Substance and Sexual Activity Drug [...] cancer Paternal Grandmother OBJECTIVE VITAL SIGNS BP 100/74 Pulse 80 Ht 164 cm Wt 68.5 kg SpO2 99% BMI 25.45 kg/m?? PHYSICAL EXAMINATION General: Patient appears well groomed and well nourished. No acute distress. Oriented times three. Skin: Normal without any evidence of rash or lesions. Head: Normocephalic. ENT: Trachea midline. Lymph Nodes: Neck is supple. No significant adenopathy. Thyroid: Not enlarged. Regular in contour. Breasts: No masses. No lymphadenopathy. No nipple discharge. Please note that medical customer service representativeTiffanie, was present as tool/die maker for breast exam. Heart: Regular rate and rhythm without murmurs, rubs or gallops. No evidence of any peripheral vascular disease. Lungs: Clear to auscultation with good inspiratory effort. Abdomen: Soft and nontender. No masses, hepatosplenomegaly or hernias noted. No enlarged groin nodespalpable. Pelvis: Vagina and cervix appear normal without lesions, discharge or rashes. Mild cystocele with minimal prolapse. Uterus is anteverted, small, mobile and nontender. Adnexa are without masses or tenderness. Please note that medical customer service representativeTiffanie, was present as tool/die maker for pelvic exam. Rectum: Deferred. Genitalia: External genitalia: Bartholin's, urethral, and [place]'s glands within normal limits. DIAGNOSTICS Lipid panel, CMP, TSH, LH, FSH, estradiol, and CBC are ordered today. ASSESSMENT / PLAN #1 Preventive Gynecological Exam Overview: Pap smear 06/2018, will plan to repeat next year. She will schedule a mammogram at her convenience. Colon cancer screening starts at age 50. Routine labs are ordered. She will continue with regular exercise. Orders: - Comprehensive Metabolic Panel - CBC with Differential, Blood - Lipid Panel - BI Breast Screening Bilateral with Tomosynthesis; Future; Expected date: 07/29/2020 #2 Abuse Tobacco Smoking Overview: Cessation is strongly encouraged, currently smoking a pack a day. She smokes first thing in the morning and she does not smoke in the car often. Nicotine patches are prescribed today. Orders: - nicotine (NICODERM CQ) 21 mg/24 hr patch; Place 1 patch on the skin daily., Starting Carmen 07/29/2020, Normal - Obstetrics and Gynecology office visit (clinic); Future; Expected date: 09/23/2020 #3 Perimenopause Overview: She has not had a period since shortly after her ablation. She is experiencing sleep disturbance andhot flashes. FSH, LH, and estradiol is checked today. Other orders - S-TSH (Thyroid-Stimulating Hormone - Sensitive) - Follicle-Stimulating Hormone (FSH), Serum - LH (Luteinizing Hormone) - Estradiol - (for men, children, and post-menopausal women) #4 Follow up PLAN: Patient will return in one year for annual exam. She will contact the clinic with any SENSOR SPECIALIST related concerns. This document serves as a record of services personally performed by Adonay Kohli MD. It was created on their behalf by Tiffanie Mejia, a trained medical customer service representative. The creation of this record is based onthe scribe's personal observations and the provider's statements to them. This document has been [facility] ked and approved by the attending provider. documented in this encounter Miscellaneous Notes Result Encounter Note - Adonay Kohli Jr., M.D., M.S.H.C.D. - 08/03/2020 5:55 PM CDT Prescription sent for HRT with 0.1 Vivelle Dot dot and Prometrium 100mg. documented in this encounter Plan of Treatment Not on filedocumented as of this encounter Procedures Procedure Name Priority Date/Time Associated Diagnosis Comme nts LIPID PANEL, S Routine 07/29/2020 3:31 Preventive Results fo r this PM CDT Gynecological Exam procedure are in the results section. ESTRADIOL, S Routine 07/29/2020 3:31 Preventive Results for this PM CDT Gynecological Ex am procedure are in Perimenopause the results section. CBC WITH Routine 07/29/2020 3:31 Preventive Results for this DIFFERENTIAL, B PM CDT Gynecological Exam proced ure are in the results section. THYROID-STIMULATING Routine 07/29/2020 3:31 Preventive Resul ts for this HORMONE-SENSITIVE PM CDT Gynecological Exam procedure are in (S-TSH) Perimenopause the results section. LUTEINIZING HORMONE Routine 07/29/2020 3:31 Preventive Resul ts for this (LH), S PM CDT Gynecological Ex am procedure are in Perimenopause the results section. FOLLICLE-STIM HORMONE Routine 07/29/2020 3:31 Preventive Res ults for this (FSH), S PM CDT Gynecological Ex am procedure are in Perimenopause the results section. COMPREHENSIVE Routine 07/29/2020 3:31 Preventive Results for this METABOLIC PANEL, S/P PM CDT Gynecological Exam p rocedure are in the results section. documented in this encounter Results (ABNORMAL) BI Breast Screening Bilateral with Tomosynthesis (08/03/2020 3:01 PM CDT) Anatomical Region Laterality Modality Breast, Breast Imaging RST LOS, Breast Imaging ARZ LOS, Ruth st Bilateral Mammography Imaging [facility] Specimen (Source) Anatomical Collection Method Collection [...] Current study was evaluated with a Compu ter Aided Detection (CAD) system. INDICATION: ??Screening [...] TOMOSYNTHESIS Current study was evaluated with a Ordr.inu ter Aided Detection (CAD) system. INDICATION: Screening mammogram. [...] Adonay Kohli Jr., M.D. IMG BI PROCEDURES Estradiol - (for men, children, and post-menopausal women) (07/29/2020 3:31 PM CDT) P athologist Signature Estradiol, Mass <10 pg/mL 07/31/2020 [facility] Spectrometry, S 11:43 AM CDT Comment: ----REFERENCE VALUE---- Premenopausal: 15-350 (E2 levels vary wi slime through the menstrual cycle.) Postmenopausal: <10 ----ADDITIONAL INFORMATION---- This test was developed and its performa nce characteristics determined by [facility] in a manner consistent with CLIA requirements. This test has not been cleared or approved by the [place] d and Drug Administration. Specimen Anatomical Collection Method Collection Time Receive d Time (Source) Location / / Volume Laterality Blood (Blood, 07/29/2020 3:31 PM 07/31/19 8:17 Venous) CDT AM CDT Adonay Kohli Jr., M.D. LAB BLOOD NON ADD-ON Performing Organization Address [facility] Code Phon e Number [facility] [address] [place], [place] [address] [facility] [place] [address] Laboratory Medicine and Pathology [address] [place] LH (Luteinizing Hormone) (07/29/2020 3:31 PM CDT) P athologist Signature Luteinizing 84.3 IU/L 07/30/2020 [facility] Hormone (LH) 8:23 AM CDT Comment: ----REFERENCE VALUE---- Premenopausal: 1.9-14.6 IU/L (Follicular) 12.2-118.0 IU/L (Midcycle) 0.7-12.9 IU/L (Luteal) Postmenopausal: 5.3-65.4 IU/L Specimen Anatomical Collection Method Collection Time Receive d Time (Source) Location / / Volume Laterality Blood (Blood, 07/29/2020 3:31 PM 07/31/19 21 7:14 Venous) CDT AM CDT Adonay Kohli Jr., M.D. LAB BLOOD ADD-ON Performing Organization Address City/[facility] Code Phon e Number [facility] - [address] [place], [place] [address] [place] [address] Laboratories-[address] Follicle-Stimulating Hormone (FSH), Serum (07/29/2020 3:31 PM CDT) P athologist Signature Follicle-Stim 154.0 IU/L 07/30/2020 [facility] Hormone (FSH), 8:23 AM CDT S Comment: ----REFERENCE VALUE---- Premenopausal: 2.9-14.6 IU/L (Follicular) 4.7-23.2 IU/L (Midcycle) 1.4-8.9 IU/L (Luteal) Postmenopausal: 16.0-157.0 IU/L Specimen Anatomical Collection Method Collection Time Receive d Time (Source) Location / / Volume Laterality Blood (Blood, 07/29/2020 3:31 PM 07/31/19 21 7:14 Venous) CDT AM CDT Adonay G Kohli Jr., M.D. LAB BLOOD ADD-ON Performing Organization Address City/State/ZIP Code Phon e Number [facility] - [address] [place], [place] [address] [facility] [place] [address] Laboratories-[facility] [address] (ABNORMAL) Lipid Panel (07/29/2020 3:31 PM CDT) athologist Signature Cholesterol, 181 mg/dL 07/29/2020 [facility] Total 6:12 PM CDT Comment: ----REFERENCE VALUE---- Desirable: < 200 Borderline high: 200 - 239 High: > or = 240 Triglycerides 179 (H) mg/dL 07/29/2020 6:12 PM CDT OWA T Comment: ----REFERENCE VALUE---- Normal: <150 Borderline high: 150-199 High: 200-499 Very high: > or =500 Cholesterol, HDL 51 >=50 mg/dL 07/29/2020 6:12 PM CDT [facility] Calculated LDL 94 mg/dL 07/29/2020 6:12 PM CDT OW AT Comment: ----REFERENCE VALUE---- Desirable: <100 Above Desirable: 100-129 Borderline high: 130-159 High: 160-189 Very high: > or =190 Cholesterol, Non-HDL, Calculated 130 mg/dL 021 6:12 PM CDT OWAT Comment: ----REFERENCE VALUE---- Desirable: <130 Above Desirable: 130-159 Borderline high: 160-189 High: 190-219 Very high: > or =220 Specimen Anatomical Collection Method Collection Time Receive d Time (Source) Location / / Volume Laterality Blood (Blood, 07/29/2020 3:31 PM 07/30/19 5:45 Venous) CDT PM CDT Adonay Kohli Jr., M.D. LAB BLOOD ADD-ON Performing Organization Address City/State/[facility] Code Phon e Number [facility]- [address] [place] [address] [place] [address] System in [place] [address] S-TSH (Thyroid-Stimulating Hormone - Sensitive) (07/29/2020 3:31 PM CDT) athologist Signature TSH, Sensitive 1.8 0.3 - 4.2 07/29/2020 [facility] mIU/L 6:19 PM CDT Specimen Anatomical Collection Method Collection Time Receive d Time (Source) Location / / Volume Laterality Blood (Blood, 07/29/2020 3:31 PM 07/30/19 21 5:45 Venous) CDT PM CDT Adonay Kohli Jr., M.D. LAB BLOOD ADD-ON Performing Organization Address City/State/ZIP Code Phon e Number [facility]- [address] [place] [address] [place] [address] System in [place] [address] [facility] CBC with Differential, Blood (07/29/2020 3:31 PM CDT) athologist Signature Hemoglobin 13.5 11.6 - 07/29/2020 FB60 15.0 g/dL 3:43 PM CDT Hematocrit 40.3 35.5 - 07/29/2020 FB60 44.9 % 3:43 PM CDT Erythrocytes 4.38 3.92 - 07/29/2020 FB60 5.13 3:43 PM CDT x10(12)/L MCV 92.0 78.2 - 07/29/2020 FB60 97.9 fL 3:43 PM CDT RBC Distrib Width 13.9 12.2 - 07/29/2020 FB60 16.1 % 3:43 PM CDT Platelet Count 269 157 - 371 07/29/2020 FB60 x10(9)/L 3:43 PM CDT Leukocytes 8.8 3.4 - 9.6 07/29/2020 FB60 x10(9)/L 3:43 PM CDT Neutrophils 5.14 1.56 - 07/29/2020 FB60 6.45 3:43 PM CDT x10(9)/L Lymphocytes 2.75 0.95 - 07/29/2020 FB60 3.07 3:43 PM CDT x10(9)/L Monocytes 0.69 0.26 - 07/29/2020 FB60 0.81 3:43 PM CDT x10(9)/L Eosinophils 0.16 0.03 - 07/29/2020 FB60 0.48 3:43 PM CDT x10(9)/L Basophils 0.04 0.01 - 07/29/2020 FB60 0.08 3:43 PM CDT x10(9)/L Specimen Anatomical Collection Method Collection Time Receive d Time (Source) Location / / Volume Laterality Blood (Blood, 07/29/2020 3:31 PM 07/30/19 3:43 Venous) CDT PM CDT Adonay Kohli Jr., M.D. LAB BLOOD ADD-ON Performing Organization Address City/State/ZIP Code Phon e Number [facility]- [address] [place] [address] [facility] [address] [place] [address] System in [place] [address] (ABNORMAL) Comprehensive Metabolic Panel (07/29/2020 3:31 PM CDT) P athologist Signature Potassium, P 4.5 3.6 - 5.2 07/29/2020 [facility] mmol/L 6:12 PM CDT Sodium, P 143 135 - 145 07/29/2020 [facility] mmol/L 6:12 PM CDT Chloride, P 105 98 - 107 07/29/2020 [facility] mmol/L 6:12 PM CDT Bicarbonate, P 30 (H) 22 - 29 07/29/2020 [facility] mmol/L 6:12 PM CDT Anion Gap, P 8 7 - 15 07/29/2020 [facility] 6:12 PM CDT BUN (Blood Urea 17 6 - 21 07/29/2020 [facility] Nitrogen), P mg/dL 6:12 PM CDT Creatinine, P 0.88 0.59 - 07/29/2020 [facility] 1.04 mg/dL 6:12 PM CDT eGFR-Black/Afri >90 >=60 07/29/2020 [facility] can [place] mL/min/BSA 6:12 PM CDT Comment: ----ADDITIONAL INFORMATION---- Estimated GFR calculated using the 2009 CKD_EPI creatinine equation. eGFR Non-Black/ 80 >=60 mL/min/BSA 6:12 PM CDT [facility] Comment: ----ADDITIONAL INFORMATION---- Estimated GFR calculated using the 2009 CKD_EPI creatinine equation. Calcium, Total, P 9.7 8.6 - 10.0 mg/dL 07/29/2020 6:12 PM CDT [facility] Glucose, P 91 70 - 140 mg/dL 07/29/2020 6:12 PM CDT O LIZ Protein, Total, P 7.1 6.3 - 7.9 g/dL 07/29/2020 6:12 P M CDT [facility] Albumin, P 4.4 3.5 - 5.0 g/dL 07/29/2020 6:12 PM CDT O LIZ Aspartate Aminotransferase 33 8 - 43 U/L 07/29/2020 6 :12 PM CDT [facility] (AST), P Alkaline Phosphatase, P 96 35 - 104 U/L 07/29/2020 6: 12 PM CDT [facility] Alanine Aminotransferase (ALT), 27 7 - 45 U/L 021 6:12 PM CDT OWAT P Bilirubin, Total, P <0.2 <=1.2 mg/dL 07/29/2020 6:22 PM CDT [facility] Specimen Anatomical Collection Method Collection Time Receive d Time (Source) Location / / Volume Laterality Blood (Blood, 07/29/2020 3:31 PM 07/30/19 21 5:45 Venous) CDT PM CDT Adonay Kohli Jr., M.D. LAB BLOOD ADD-ON Performing Organization Address City/State/ZIP Code Phon e Number [facility]- [address] [place] [address] [place] [address] System in [place] [address] [place] [address] documented in this encounter Visit Diagnoses Diagnosis Preventive Gynecological Exam - Primary Abuse Tobacco Smoking Perimenopause Preventive Gynecological Exam documented in this encounter Care Teams Hat Lining Paster Relationship Specialty Start Date End Date Steven Escobar M.D. PCP - General 08/17/162199 [address] [address] documented as of this encounter
--- OUTSIDE RECORDS SUMMARY | 2021-10-12 00:42 | XMS_ITS | Encounter Summary ---
:1975 Author Organization [facility] Address [address] [place] [address] Care Team Providers Name Role Phone Steven Escobar M.D. Primary Care Provider [phone] Reason for Visit Physical Therapy (Routine) - Closed Specialty Diagnoses / Procedures Referred By Contact Refer red To Contact Diagnoses Patellofemoral Disorders Right Knee Patellofemoral Disorders Left Knee Yohana Murcia M.D. [facility] Procedures PT Evaluate and treat [address] [place] [address] Referral ID Status Reason Start Date Expiration Date Visits Requ ested Visits Authorized [id number] Closed 03/26/2020 03/26/2021 1 1 Encounter Details Date Type Department Care Team Description 03/31/2020 Comprehensive Visit Department of Michael Murcia M.D. [address] [place] [id number] Patellofemoral Disorders Right Knee; Rehabilitation Sergio Petersen P.TIris [address] [place] [address] Patellofemoral Disorders Left Knee Services in [place], [place] [address] [place] [address] Social History Tobacco Use Types Packs/Day Years [...] More than 4 times per year 08/17/2020 scientology services? Do you belong to any clubs [...] PM CDT documented as of this encounter Consult Notes Sergio Petersen, P.T. - 03/31/2020 4:30 PM CST Physical Therapy Outpatient Evaluation/Treatment SUBJECTIVE Patient's Name: Leandra Black Referring Provider: Yohana Murcia M.D. Visit Diagnosis: 1. Patellofemoral Disorders Right Knee 2. Patellofemoral Disorders Left Knee Reason for Referral: Bilateral patellofemoral disorder Payor: [facility] / Plan: [facility] / Product Type: Medicaid HMO / [facility] Visit Count: 1 PERTINENT MEDICAL / SURGICAL HISTORY: Patient Active Problem List Diagnosis ??? Rhytid ??? Aneurysm Of Other Specified Arteries (HCC) ??? Migraine Headache ??? Abuse Tobacco Smoking ??? Aneurysm Cerebral Unruptured (HCC) ??? Need Vaccine Immunization ??? Pain Knee Right ??? Pain Knee Left Past Surgical History: Procedure Laterality Date ??? [...] MISSED MISCARRIAGE OF FIRST TRIMESTER 2009 D&C Leandra Black is a delightful 44 y.o. female who presents to outpatient physical therapy for evaluation. Her symptoms consist of: 1. Bilateral knee pain Overall she reports her status remains the same. History of Present Illness:She reports onset of right knee symptoms intermittently over the last 2 years. Left knee started about 6 months ago but more constant and the worse of the 2 legs. She does not remember any onsetting event or significant increase in activity. In fact she had become less active than she had been in the past. She was doing regular high-intensity interval training exercises including doing high repetitions of squats and never had problems during that time frame. She states that she has pain throughout the day. She states that when she 1st lies down at night sheis especially uncomfortable when she 1st stretches out her legs in bed. Aggravating Factors: Stairs, being on her feet, squatting. Relieving Factors: Ibuprofen use to help but does not really any longer per her report Previous Treatments: Anti-inflammatories Prior Function/Occupational Profile: In the past she was very active in exercise has become much more sedentary recently Patient goals:Reduced pain, be able to exercise more Contact monitoring: PPE used during therapy: Therapist was wearing the following PPE throughout entire session: surgicalmask and eye protection Patient was wearing a mask during therapy session: yes OBJECTIVE REVIEW OF SYSTEMS History obtained from chart review and the patient PHYSICAL EXAM Pain: Pain Assessment Pain Assessment: 0-10 Numeric Pain Intensity Scale Pain Score: (Ranges 2-9/10) Pain Location: Knee Pain Orientation: Left, Right, Anterior Observation/Inspection: Squinting patella Range of Motion: 0-135 degrees of active motion bilaterally. She is tight in bilateral hamstrings. Tight in left iliotibial band and piriformis Special Tests: Positive patellar grind most notably on the left mildly on the right. Negative tenderness to palpation along the medial patellar border today. Negative MCL and LCL laxity testing. Negative Rafael's. Gait: Medial dive of the knee on stairs Strength: 4+/5 bilateral quadriceps and hamstring, gluteus medius, gluteus brady, and iliopsoas. Ortho Exam Outcome Measures: Patient Specific Functional Scale: (Where 0 = Unable. 10 = Able to perform at normal level) Patient Activity: Stairs = 5/10 Walking = 6/10 Squatting = 4/10 TREATMENT Treatment today consisted of: Neuromuscular Re-education: 1. Application and instruction in patellofemoral taping with medial glide bilateral knees. Taping supplies were provided for additional trials at home Therapeutic Exercise: Provided written and graphic take home instruction. Patient was instructed andtrained utilizing demonstration, tactile cues, and verbal cues to facilitate correct performance. 1. Gluteus medius clamshell in abduction 2. Supine hamstring stretch 3. Supine iliotibial band stretch in hook lying positioning 4. Supine bridge with resistance band 2/5 Gait Training: instruction and training in appropriate gait on stairs keeping knee aligned over footrather than allowing to dive inward Home Exercise Program/Education: 1. Gluteus medius clamshell in abduction 2. Supine hamstring stretch 3. Supine iliotibial band stretch in hook lying positioning 4. Supine bridge with resistance band 2/5 Assessment Clinical Impression: Ms. Black presents to physical therapy with signs and symptoms consistent with patellofemoral syndrome Impairments: Pain, report episodes of slight buckle Functional deficits: Gait instability, difficulty with stairs, difficulty with squatting, difficultywalking, difficulty getting comfortable in bed at night Rehab Potential: Ms. Black has Excellent potential to achieve established physical therapy goals within the time frame outlined below, provided she actively participates in her physical therapy treatment plan and home program. Comorbid Conditions: None Clinical Presentation: Stable Examination elements: 3 Clinical Decision Making: Low complexity clinical decision making Functional Goals and Timeframes: PT Outpatient Goals PT Goal #1: She will be independent in a home exercise program progressive lower extremity strengthening and conditioning PT Goal #1 Date: 05/28/20 PT Goal #2: She will report reduced pain and difficulty with stair climbing. Improving her patient specific functional Scale from 05/10 to 7/10 or better PT Goal #2 Date: 05/28/20 Plan Ms. Black was educated regarding evaluative findings, diagnosis, prognosis, potential risks and benefits of rehabilitation interventions. A collaborative effort was used to establish goals and plan of care. She was informed of her right to make decisions regarding her care, including refusal of examination or treatment or selection of services from another provider if desired. The treatment plan may be progressed or modified based upon her response to treatment. Physical Therapy Attestation Statement: Patient agrees with the plan of care and goals. Treatment Plan: Start of Plan of Care: 03/31/2020 Number of Visits:8 visits PT Duration: 60 days PT Frequency: PT Frequency: 1 time per week Treatment interventions may include: Treatment/Interventions: Therapeutic exercise, Manual therapy, Neuromuscular re- education, Gait training Plan for next session: Graded progression exercises Time Spent with Patient PT Evaluation (min): 18 min Gait Training (min): 4 min Neuromuscular Re-Education (min): 10 min Therapeutic Exercise (min): 16 min Time Calculation Total Timed Units (min): 30 min Total Treatment Time (min): 48 min Sergio Petersen P.T. Department of Rehabilitation Services in [place], [place] [address] [facility] [address] Dept: [phone] documented in this encounter Plan of Treatment Not on filedocumented as of this encounter Visit Diagnoses Diagnosis Patellofemoral Disorders Right Knee Patellofemoral Disorders Left Knee documented in this encounter Care Teams Technical Program Manager Relationship Specialty Start Date End Date Steven Escobar M.D. PCP - General 08/17/[address] [address] documented as of this encounter
--- OUTSIDE RECORDS SUMMARY | 2021-10-12 00:42 | XMS_ITS | Encounter Summary ---
:1975 Author Organization [facility] Address [address] [place] [address] Care Team Providers Name Role Phone Steven Escobar M.D. Primary Care Provider [phone] Encounter Details Date Type Department Care Team Description 06/22/2020 Orders Only [facility] PCP [facility] Sa lyndsay Rai M.D. [address] [place], [place] [phone] (Wo rk) Social History Tobacco Use Types [...] or relatives? How often do you attend adventism or More than 4 times per year 08/17/2020 yarsanism services? Do you belong to any clubs or Yes 08/17/2020 organizations such as adventism groups, unions, fraternal or athletic groups, or [...] place to sleep or slept in a fpc (including now)? Education Answer Date Recorded What [...] on filedocumented in this encounter Care Teams Pelt Salter Relationship Specialty Start Date End Date Steven Escobar M.D. PCP - General 08/17/[address] [address] documented as of this encounter
--- OUTSIDE RECORDS SUMMARY | 2021-10-12 00:42 | XMS_ITS | Encounter Summary ---
:1975 Author Organization [facility] Address [address] [place] [address] Care Team Providers Name Role Phone Steven Escobar M.D. Primary Care Provider [phone] Reason for Referral Outpatient (Routine) - Closed Specialty Diagnoses / Referred By Contact Referred To Contact Procedures Physical Medicine and Yohana Murcia M.D . [facility] [address] [place] [address] Referral ID Status Reason Start Date Expiration Date Visits Requ ested Visits Authorized [id number] Closed 03/26/2020 03/26/2021 1 1 Scheduling Instructions Virtual visit [place] hysical Therapy (Routine) - Closed Specialty Diagnoses / Procedures Referred By Contact Refer red To Contact Diagnoses Patellofemoral Disorders Right Knee Patellofemoral Disorders Left Knee Yohana Murcia M.D. [facility] Procedures PT Evaluate and treat [address] [place] [address] Referral ID Status Reason Start Date Expiration Date Visits Requ ested Visits Authorized [id number] Closed 03/26/2020 03/26/2021 1 1 ITALITY SPECIALIST Reason for Visit Outpatient (Routine) - Closed Specialty Diagnoses / Referred By Contact Referred To Contact Procedures Physical Medicine and Diagnoses Pain Knee Right Pain Knee Left Dru Warner, [facility] M.B., B.Ch. [address] [place] [address] Referral ID Status Reason Start Date Expiration Date Visits Requ mary Visits Authorized [id number] Closed 03/22/2020 03/22/2021 1 1 Encounter Details Date Type Department Care Team Description 03/26/2020 Comprehensive Visit Department of Physical Divina, Patellofemoral Disorders Left Knee (Primary Dx); Medicine and Romi Muller Patellofemoral Disorders Right Knee; Rehabilitation in [address] [facility] [address] [facility] [phone] Social History Tobacco Use Types Packs/Day Years [...] place to sleep or slept in a residential (including now)? Education Answer Date Recorded What is the highest level of school Associate degree: nicole mendoza, 01/29/2019 you have completed or the highest technical, or vocational p giancarlo degree you have received? Sex Assigned at Date Recorded Female 06/10/2017 5:21 PM CDT documented as of this encounter Consult Yohana Heath M.D. - 03/26/2020 4:00 PM CST SUBJECTIVE REQUESTING PROVIDER Dru Warner M.B., B.Ch. REASON FOR CONSULT No chief complaint on file. bilateral knee pain HISTORY OF PRESENT ILLNESS Ms. Leandra Black a 44 y.o. 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 Has felt the left knee almost give way on occasion but has not had any locking. Occasionally can feel stiffness in posterior knee or sharp intermittent pain across the knee. No injuries prior to onset, pain has been ongoing for over a year. When was more active, was less symptomatic at the knees for pain. Pain is increased with going down stairs especially, squatting activities, and decreased with avoiding these, rest, ibuprofen, tylenol. It reaches a maximum of 9/10 and a minimum of 3/10. Pain is achy & throbbing. No Paresthesias in the LE. No focal weakness in the LE. Treatments: PT: no Injections: no Topical Creams: compound cream ibuprofen Activities: walking no incline, no strengthening exercises REVIEW OF SYSTEMS I have briefly reviewed the Review of Systems as noted on the Health history form. I am only responding to those symptoms which are directly relevant to the specific indication for my consultation. I recommend that the patient follow up with their primary or referring provider to pursue any other symptoms which may be of concern. Answers for HPI/ROS submitted by the patient on 03/22/2020 Fatigue: Yes Weight gain of more than 10 pounds: Yes Night sweats: Yes No eye issues: Yes No ENT issues: Yes No heart issues: Yes No respiratory issues: Yes No GI issues: Yes Muscle pain/stiffness: Yes Pain or stiffness in the joints: Yes No skin issues: Yes No neurologic issues: Yes Change in sexual drive (decreased libido): Yes Stop breathing, choking, or gasping while asleep: Yes No blood/lymph issues: Yes No urinary/reproductive issues: Yes OBJECTIVE There were no vitals taken for this visit. PHYSICAL EXAM Gait: speed WNL, no loss of balance, no drop foot, no Trendelenburg Knee: ROM WNL, effusion -, fluid wave sign -, ballotement -, valgus - varus - stress test, palpationjoint space medial - lateral -, Apley -, Abel -, Anterior drawer -, Rafael -, Posterior drawer -. Infrapatellar fat pad discrete swelling L > R. + Patellar grind test. Suboptimal patellar tracking L > R with crepitus and offtracking, tenderness to palpation at undersurface of patella. Left VMO quad mild atrophy and decreased activation, left tight ITB. Hip: ROM WNL, FADIR -, JAVIER -, hip thrust -. Gluteus medius sidelying poor control pelvis/core withsome mild weakness of gluteus medius more noticeable with single leg squatting demonstrating moderate dynamic weakness/control. Palpation greater trochanter -. Neuro LE: Strength testing of the lower extremities within normal limits and symmetrical and pain free except as described above, sensation to the lower extremities normal to light touch, DTR 2+/4 normal at the patellar, medial hamstring and Achilles tendons. No clonus of the ankle, cutaneous plantar reflex in flexion (no Babinski). General: Pleasant, straightforward, appropriate body habitus Mental Status: pleasant, direct, appropriate mood and affect Respiratory: breathing is unlabored without audible wheeze Vascular: no cyanosis, no venous stasis changes at the LE Lymph: no lymphedema at the LE Skin: No overlying significant skin change, ecchymosis, or erythema at the LE DIAGNOSTICS XR Knees bilateral 03/26/2020: I have personally reviewed the images available to me in Epic: the is mild to moderate OA in particular of the medial compartments ASSESSMENT / PLAN #1 Patellofemoral Disorders Left Knee #2 Patellofemoral Disorders Right Knee #3 Deconditioned Recommendations - Physical therapy to teach strengthening and stretching program, taping patella for focal activities. - Voltaren gel may be tried on the front of the knee, regularly twice a day, for 1-2 weeks during flare up (do not put larger than approximately surface of palm of hand, follow instructions on medication as anti-inflammatory is absorbed into skin), do not rub/massage with the cream as this may irritate the skin. - Follow-up with me as needed after approximately 6-8 weeks Physical therapy: Please teach progressive home exercise program focusing on deep core musculature in particular transversus abdominus, multifidus and gluteus brady, as well as gluteus medius. Focus on quads VMO activation, stretching ITB and posterior chain. Please progress exercises gradually from supine/sidelying/4 point kneeling then to sit/standing and weight bearing activities. Please teach patient taping for the patella for focal activities. Thank you. EDUCATION We discussed the diagnosis and treatment plan in detail, including but not limited to reviewing of radiological images, importance of regular exercise & home strengthening/strecthing program, interventional treatment options. The patient expressed understanding of the content and agrees with the above mentioned treatment plan. No apparent learning barriers were identified; learning preferences include listening. Duration of the visit was 35 minutes with > 50% time dedicated to patient education and counseling. All questions and concerns were answered and addressed. The patient and her friend present at the visit today were satisfied with today's consultation. Signed by: Yohana Murcia M.D. P.T. Pearl Stringer Broker Associate, Department of Physical Medicine & Rehabilitation [facility] ITALITY SPECIALIST documented in this encounter Plan of Treatment Scheduled Referrals Name Type Priority Associated Order Schedule Diagnoses Physical Medicine and Outpatient Referral Routine Expected: Rehabilitation office 2020 visit (clinic) (Approximate) , Expires: 03/26/2023 documented as of this encounter Visit Diagnoses Diagnosis Patellofemoral Disorders Left Knee - Chichi marilin Patellofemoral Disorders Right Knee Deconditioned documented in this encounter Care Teams Hat Ironer Relationship Specialty Start Date End Date Steven Escobar M.D. PCP - General 08/17/[address] [address] documented as of this encounter
--- OUTSIDE RECORDS SUMMARY | 2021-10-12 00:42 | XMS_ITS | Encounter Summary ---
:1975 Author Organization [facility] Address [address] [place] [address] Care Team Providers Name Role Phone Steven Escobar M.D. Primary Care Provider [phone] Encounter Details Date Type Department Care Team Description 07/18/2019 Hospital Encounter Department of Luz Screen ing Mammogram Radiology in Steven Moreno M.D. Breast Cancer [place], [place] [address] [place] [phone] Social History Tobacco Use Types Packs/Day Years [...] or relatives? How often do you attend yarsanism or More than 4 times per year 08/17/2020 yarsanism services? Do you belong to any clubs or Yes 08/17/2020 organizations such as yarsanism groups, unions, fraternal or athletic groups, or [...] mouth every 6 (six) hours as needed. amitriptyline (ELAVIL) 10 1 tab nightly for [...] Diagnosis BI BREAST SCREENING RAD - Routine 07/18/2019 1:11 Screening Resu lts for BILATERAL WITH (most inpatients PM CDT Mammogram Breast this procedure TOMOSYNTHESIS and all Cancer are in the outpatients) results section. documented in this encounter Results BI Breast Screening Bilateral [...] Compu ter Aided Detection (CAD) system. INDICATION: Screening [...] Visit Diagnoses Diagnosis Screening Mammogram Breast Cancer documented in this encounter Care Teams Associate Creative Director Relationship Specialty Start Date End Date Steven Escobar M.D. PCP - General 08/17/[address] [address] documented as of this encounter
--- OUTSIDE RECORDS SUMMARY | 2021-10-12 00:42 | XMS_ITS | Encounter Summary ---
:1975 Author Organization [facility] Address [address] [place] [address] Care Team Providers Name Role Phone Steven Escobar M.D. Primary Care Provider [phone] Reason for Referral MRI/CAT/PET Scan (Routine) - Closed Specialty Diagnoses / Procedures Referred By Contact Refer red To Contact Radiology Diagnoses Aneurysm Cerebral Unruptured (HCC) Migraine Headache Dru Warner M.B., [facility] Procedures MR Brain Angiogram without IV Contrast MR Brain Angiogram without and with IV Contrast ME MRA HEAD WO CNTRST B.Ch. [address] [place] [address] Referral ID Status Reason Start Date Expiration Date Visits Requ ested Visits Authorized [id number] Closed 01/29/2019 03/23/2020 1 1 HER EDGER Reason for Visit MRI/CAT/PET Scan (Routine) - Closed Specialty Diagnoses / Procedures Referred By Contact Refer red To Contact Radiology Diagnoses Aneurysm Cerebral Unruptured (HCC) Migraine Headache Dru Warner M.B., [facility] Procedures MR Brain Angiogram without IV Contrast MR Brain Angiogram without and with IV Contrast ME MRA HEAD WO CNTRST B.Ch. [address] [place], [place] [address] Referral ID Status Reason Start Date Expiration Date Visits Requ ested Visits Authorized [id number] Closed 01/29/2019 03/23/2020 1 1 Encounter Details Date Type Department Care Team Description 03/22/2020 Hospital Encounter Department of Warner, Dru Aneury sm Cerebral Unruptured (HCC); Radiology, Josue Gastelum, B.C h. Migraine Headache [place], in [place], [address] [place], [place] [address] [facility] [address] [place], [place] [phone] (Work) [phone] Social History Tobacco Use Types Packs/Day Years [...] More than 4 times per year 08/17/2020 sabianist services? Do you belong to any clubs [...] highest level of school Associate degree: nicole mendzoa, 01/29/2019 you have completed or the highest [...] Comments Diagnosis MR BRAIN RAD - Routine 03/22/2020 11:17 Aneurysm Cerebral Resul ts for this ANGIOGRAM WITHOUT (most inpatients AM FEATHER EDGER Unruptured (H CC) procedure are in IV CONTRAST and all Migraine Headache the result s outpatients) section. documented in this encounter Results MR Brain Angiogram without IV Contrast (03/22/2020 11:17 AM FEATHER EDGER) Anatomical Region Laterality Modality Head, Brain, Neuroradiology RST LOS, Neuroradiology ARZ N/A Magnetic Resonance LOS, Neuroradiology FLA LOS Specimen (Source) Anatomical Collection Method Collection Time Re ceived Time Location / / Volume Laterality 03/22/2020 11:30 AM FEATHER EDGER Impressions 03/22/2020 11:40 AM FEATHER EDGER Stable probable tiny aneurysms at the left A1-A2 junction and left periophthalmic ICA. Narrative 03/22/2020 11:40 AM FEATHER EDGER EXAM: MR BRAIN ANGIOGRAM WITHOUT IV CONTRAST COMPARISON: MRA head 01/29/2019 and 2018. FINDINGS: Stable 2 mm probable aneurysm at the junction of the A1 and A2 segments of the left anterior cerebral a rtery (4/58). Focal 2-3 mm vascular prominence of the left periophthalmic in ternal carotid artery could represent an additional aneurysm (4/76). No additiona l aneurysms seen. Procedure Note Bessie Ramirez M.D. - 03/22/2020Forma tting of this note might be different from the original. EXAM: MR BRAIN ANGIOGRAM WITHOUT IV CONT RAST COMPARISON: MRA head 01/29/2019 and 2018. FINDINGS: Stable 2 mm probable aneurysm at the junction of the A1 and A2 segments of the left anterior cerebral a rtery (4/58). Focal 2-3 mm vascular prominence of the left periophthalmic in ternal carotid artery could represent an additional aneurysm (4/76). No additiona l aneurysms seen. IMPRESSION: Stable probable tiny aneurysms at the le ft A1-A2 junction and left periophthalmic ICA. Dru Salas BAdelaide IMG MRI PROCEDURES documented in this encounter Visit Diagnoses Diagnosis Aneurysm Cerebral Unruptured (HCC) Migraine Headache documented in this encounter Care Teams Tipple Boss Relationship Specialty Start Date End Date Steven Escobar M.D. PCP - General 08/17/16 [address] [place] [address] documented as of this encounter
--- OUTSIDE RECORDS SUMMARY | 2021-10-12 00:42 | XMS_ITS | Encounter Summary ---
:1975 Author Organization [facility] Address [address] [place] [address] Care Team Providers Name Role Phone Steven Escobar M.D. Primary Care Provider [phone] Encounter Details Date Type Department Care Team Description 01/07/2020 Orders Only Department of Family Bunkers, Delmer Jauregui M.D. Medicine, [facility], [address] in [place], [place] [address] [address] [place] [address] [phone] Social History Tobacco Use Types Packs/Day Years [...] or relatives? How often do you attend jehovah's witness or More than 4 times per year 08/17/2020 anabaptist services? Do you belong to any clubs or Yes 08/17/2020 organizations such as jehovah's witness groups, unions, fraternal or athletic groups, or [...] COVID19 Pending 01/06/2020 01/06/2020 01/08/2020 12:18 AM MECHANICAL ENGINEER documented as of this encounter Care Teams Securities Vault Supervisor Relationship Specialty Start Date End Date Steven Escobar M.D. PCP - General 08/17/[address] [place] [phone] documented as of this encounter
--- OUTSIDE RECORDS SUMMARY | 2021-10-12 00:42 | XMS_ITS | Encounter Summary ---
:1975 Author Organization [facility] Address [address] [place] [address] Care Team Providers Name Role Phone Steven Escobar M.D. Primary Care Provider [phone] Encounter Details Date Type Department Care Team Description 06/24/2019 E-Visit [facility] Alicia Garcia, RE: B ladder infections Services in [facility] a TAHMINA, C.N.P., (females only, ages 12 [address] [facility] D.N.P. through 75 years) [place] [address] Social History Tobacco Use Types Packs/Day [...] or relatives? How often do you attend scientology or More than 4 times per year 08/17/2020 worship services? Do you belong to any clubs or Yes 08/17/2020 organizations such as scientology groups, unions, fraternal or athletic groups, or [...] as of this encounter Visit Diagnoses Diagnosis Dysuria - Primary documented in this encounter Care Teams Packing Machine Can Feeder Relationship Specialty Start Date End Date Steven Escobar M.D. PCP - General 08/17/[address] [address] documented as of this encounter
--- OUTSIDE RECORDS SUMMARY | 2021-10-12 00:42 | XMS_ITS | Encounter Summary ---
:1975 Author Organization [facility] Address [address] [place] [address] Care Team Providers Name Role Phone Steven Escobar M.D. Primary Care Provider [phone] Reason for Visit Reason Onset Date Comments Headache 01/06/2019 Encounter Details Date Type Department Care Team Description 01/06/2019 Clinical Communication Department of Adonay Kohli Headache Obstetrics and Romi Cosby Gynecology in [address] [place], [place] [address] [address] [place], [place] [phone] (Work) [phone] Social History Tobacco Use Types Packs/Day Years [...] More than 4 times per year 08/17/2020 orthodoxy services? Do you belong to any clubs [...] place to sleep or slept in a nursing home (including now)? Sex Assigned at Date Recorded Female 06/10/2017 5:21 PM CDT documented as of this encounter Miscellaneous Notes Telephone Encounter - Carmella Grewal R.N. - 01/10/2019 3:17 PM CST Noted. LE BOOTH ATTENDANT Telephone Encounter - Adonay Kohli Jr., M.D. - 01/10/2019 1:53 PM BOTTLE BOOTH ATTENDANT Called patient. Doing better today. Will stop tylenol and ibuprofen. Use Aleve if needed up to 2 tabs tid. Ice to neck. If acutely worse go to ED. Will let us know how she is doing on . LE BOOTH ATTENDANT Telephone Encounter - Carmella Grewal R.N. - 01/08/2019 9:41 AM CST Patient portal message has been sent. LE BOOTH ATTENDANT Telephone Encounter - Adonay Kohli Jr., M.D. - 01/07/2019 1:39 PM BOTTLE BOOTH ATTENDANT 2 aleve 3 times a day, and 1000 mg of tylenol. That it is constant concerns me. Can we see her or Sunday? LE BOOTH ATTENDANT Telephone Encounter - Carmella Grewal R.N. - 01/07/2019 10:01 AM CST CHIEF COMPLAINT / REASON FOR CALL Headache Slot Machine Repairer: no HISTORY OF PRESENT ILLNESS Last seen 07/02/18 and c/o visual changes with head rushing sensation. She has a family history of ruptured aneurysm. 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 Recommendations from [place] were to repeat MRI of head in 6 months. This is scheduled in [place] on 01/29/19. ASSESSMENT / PLAN She calls today wanting your opinion on what she should take OTC to help with her daily headaches. She stated this is in her neck and times and in the front at times. Denies any other symptoms associated with this. She is has been taking Aleve and Ibuprofen with no relief. She has tried OTC Tylenol inthe past, also with no relief. She is wanting your recommendations for OTC safe medications in her case. Please advise, thank you! Disposition/Recommendation: awaiting provider recommendations Education: not applicable Caller agreeable to plan of care: yes The following references were used: none LE BOOTH ATTENDANT Telephone Encounter - Tanja Pathak - 01/06/2019 11:57 AM CST Reason for Communication: Patient calling in and is wanting a message sent to Dr. Kohli in regards to her headaches and is wondering what she could do for them. Patient would like a call back from or his nurse. Please advise. Current Can Nursing/Provider leave a detailed message: Did the patient refuse triage through Nurse line? (for symptom based concerns): Action Needed: Call back Name of Medication (if relevant): LE BOOTH ATTENDANT documented in this encounter Plan of Treatment Not on filedocumented as of this encounter Visit Diagnoses Not on filedocumented in this encounter Care Teams Alligator Hunter Relationship Specialty Start Date End Date Steven Escobar M.D. PCP - General 08/17/16 [address] [place] [phone] documented as of this encounter
--- OUTSIDE RECORDS SUMMARY | 2021-10-12 00:43 | XMS_ITS | Encounter Summary ---
:1975 Author Organization [facility] Address [address] [place] [address] Care Team Providers Name Role Phone Steven Escobar M.D. Primary Care Provider [phone] Reason for Visit Reason Onset Date Comments MRI results 07/11/2018 Encounter Details Date Type Department Care Team Description 07/11/2018 Clinical Communication Department of Adonay Kohli MRI results Obstetrics and Romi Cosby Gynecology in [address] [address] [address] [place], [place] [phone] (Work) [phone] Social History Tobacco Use Types Packs/Day Years Used Date Smoking Tobacco: Every Day Smokeless Tobacco: Never Alcohol Use Standard Drinks/Week [...] More than 4 times per year 08/17/2020 holiness services? Do you belong to any clubs [...] or slept in a fdc (including now)? Sex Assigned at Date Recorded Female 06/10/2017 5:21 PM CDT documented as of this encounter Miscellaneous Notes Telephone Encounter - Adonay Kohli Jr., M.D. - 07/15/2018 4:00 PM CDT Thanks, I called her, she is taken care of. Telephone Encounter - Chandan Huber C.M.A. - 07/11/2018 5:15 PM CDT Received phone call from patient wanting Dr. Escobar to review patient's MRI results. Spoke with Dr. Escobar and he has nothing else to add to what Dr. Tristan informed patient. [facility] Neurology referral was placed. Called and informed patient. Patient given number for [facility] Referral. Telephone Encounter - Lilly Tristan M.D. - 07/11/2018 1:46 PM CDT I discussed the finding of the small cerebral aneurysm with the patient. Discussed that it is small in size, so likely low risk for rupture at this time. I do recommend referral to Neurosurgery and an order for this was placed. I also recommended that she avoid smoking (she has patches to help her quit), heavy alcohol consumption, stimulant medication, illicit drugs, and excessive straining and Valsalva maneuvers until she is seen by neurosurgery and they can give her further recommendations regarding restrictions. Telephone Encounter - Carmella Grewal R.N. - 07/11/2018 7:[address] Kohli ordered this for visual changes with head rushing sensation and family history of ruptured aneurysm. Can you please advise on results or should we have her see family med? She is not established with anyone except Dr. Kohli. Telephone Encounter - Francine Lopez - 07/11/2018 7:27 AM CDT Reason for Communication: patient called - she had an MRI done in [place] on 07/09/18. It was orderedby Dr Kohli. She has seen the results on her portal and is wanting a call back SADIE to discuss the results that she is seeing. She states that her sister had an aneurism a couple years ago and almost so she is really scared. Current Can Nursing/Provider leave a detailed message: YES Did the patient refuse triage through Nurse line? (for symptom based concerns): Action Needed: wants call back sadie Name of Medication (if relevant): documented in this encounter Plan of Treatment Not on filedocumented as of this encounter Visit Diagnoses Diagnosis Aneurysm Of Other Specified Arteries (HC C) - Primary documented in this encounter Care Teams Go Go Dancer Relationship Specialty Start Date End Date Steven Escobar M.D. PCP - General 08/17/[address] [phone] documented as of this encounter
--- OUTSIDE RECORDS SUMMARY | 2021-10-12 00:43 | XMS_ITS | Encounter Summary ---
:1975 Author Organization [facility] Address [address] [place] [address] Care Team Providers Name Role Phone Steven Escobar M.D. Primary Care Provider [phone] Encounter Details Date Type Department Care Team Description 01/01/2017 Hospital Encounter HX [facility] Sathya Escobar M.D. [address] [place], [place] [phone] (Wo rk) Social History Tobacco Use Types Packs/Day Years Used Date Smoking Tobacco: Every Day Alcohol Habits Answer Date Recorded How often do you have a drink containing alcohol? Monthly or less 08/17/2020 How many drinks containing alcohol do you have on a 3 or 4 08/17/2020 typical day when you are drinking? How often do you have six or more drinks on one Less than mo nthly 08/17/2020 occasion? Comment: Not asked Social Isolation Answer Date Recorded In a typical week, how many times do you More than three kitty es a week 08/17/2020 talk on the phone with family, friends, or neighbors? How often do you get together with friends Once a week 08/17/2020 or relatives? How often do you attend congregational or More than 4 times per year 08/17/2020 religion services? Do you belong to any clubs or Yes 08/17/2020 organizations such as congregational groups, unions, fraternal or athletic groups, or [...] or slept in a fci (including now)? Sex Assigned at Date Recorded Female 06/10/2017 5:21 PM CDT documented as of this encounter Last Filed Vital Signs Vital Sign Reading Time Taken Comments Blood Pressure - - Pulse - - Temperature - - Respiratory Rate - - Oxygen Saturation - - Inhaled Oxygen Concentration - - Weight - - Height 164 cm (5' 4.57) 01/01/2017 12:50 PM CDT Body Mass Index - - documented in this encounter Miscellaneous Notes Telephone Encounter - Yareli Spencer - 01/02/2017 11:55 AM CDT RE: No subject From: YARELI SPENCER ( Nurse Line) To: MARK BLACK Sent: 01/02/2017 11:55:57 CDT Subject: RE: No subject Your message has been received. Thank you for trusting your health care to the [facility] in [place]. From: MARK BLACK To: [facility] ( Nurse Line) Sent: 01/01/2017 06:44 p.m. CDT Subject: RE: No subject Thank you for your message. It has been successfully sent to the appropriate care team. Awesome thank you so much! Have a great week From: STEVEN ESCOBAR MD To: MARK BLACK Sent: 01/01/2017 18:30:10 CDT Mark, You will be getting a letter as well, but I wanted to let you know that your mammogram was normal. Have a great week. Steven Source: [facility] Document Id: [id number] Miscellaneous - Steven Escobar M.D. - 01/01/2017 6:30 PM CDT From: STEVEN ESCOBAR MD To: MARK BLACK Sent: 01/01/2017 18:30:10 CDT Mark, You will be getting a letter as well, but I wanted to let you know that your mammogram was normal. Have a great week. Steven Source: [facility] Document Id: [id number] documented in this encounter Plan of Treatment Not on filedocumented as of this encounter Procedures Procedure Name Priority Date/Time Associated Diagnosis Comme nts BI BREAST SCREENING Routine 01/01/2017 1:05 PM Re sults for this BILATERAL CDT procedure are i n the results section. documented in this encounter Results BI Breast Screening Bilateral (01/01/2017 1:05 PM CDT) Anatomical Region Laterality Modality Breast Bilateral Mammography Specimen (Source) Anatomical Collection Method Collection Time Re ceived Time Location / / Volume Laterality 01/01/2017 1:05 PM CDT Addenda Addendum by Provider, Romi Wagner 01/01/2017 1:05 PM CDT RAD^^^OW MA Mammo Screening Imp w ??CADD 01/01/2017 13:05:46 MA Mammo Screening Imp w ??CADD Impressions 01/01/2017 2:02 PM CDT No mammographic findings for malignancy in either breast. Recommendations: ??I recommend a follow- up mammogram in 1 year, self breast exams at least once per month and clinical breast exam at least once per year. ??Of note, benign finding s should not deter biopsy in the setting of a palpable abnormality. ? ?The false negative rate of mammography is approximately 10%. CODE: 2-BENIGN Appropriate letter sent. Full field digital mammography is used a nd Computer Aided Detection is performed on the digital mammogram image s. Narrative 01/01/2017 2:02 PM CDT EXAM: MA Mammo Screening Bilat Implant w / CADD INDICATION: screening COMPARISON: 12/17/2015 FINDINGS: Heterogeneously dense breast p arenchyma bilaterally. Breast density diminishes mammographic sensitiv ity for detection latency. Postop changes bilateral breast implants . Procedure Note Steven Tabares M.D. / Provider, Josey frey M.D. - 01/04/2017 EXAM: MA Mammo Screening Bilat Implant w / CADD INDICATION: screening COMPARISON: 12/17/2015 FINDINGS: Heterogeneously dense breast p arenchyma bilaterally. Breast density diminishes mammographic sensitiv ity for detection latency. Postop changes bilateral breast implants . IMPRESSION: No mammographic findings for malignancy in either breast. Recommendations: I recommend a follow-up mammogram in 1 year, self breast exams at least once per month and clinical breast exam at least once per year. Of note, benign findings should not deter biopsy in the setting of a palpable abnormality. T he false negative rate of mammography is approximately 10%. CODE: 2-BENIGN Appropriate letter sent. Full field digital mammography is used a nd Computer Aided Detection is performed on the digital mammogram image s. Tiny Farmer(R), RKari(R)(M) IMG BI PROCEDURES documented in this encounter Visit Diagnoses Not on filedocumented in this encounter Care Teams Instrumentation Supervisor Relationship Specialty Start Date End Date Steven Escobar M.D. PCP - General 08/17/[address] [address] documented as of this encounter
--- OUTSIDE RECORDS SUMMARY | 2021-10-12 00:43 | XMS_ITS | Encounter Summary ---
:1975 Author Organization [facility] Address [address] [place] [address] Care Team Providers Name Role Phone Steven Escobar M.D. Primary Care Provider Reason for Referral MRI/CAT/PET Scan (Routine) - Closed Specialty Diagnoses / Procedures Referred By Contact Refer red To Contact Radiology Diagnoses Aneurysm Of Other Specified Arteries (HCC) Migraine Headache Abuse Tobacco Smoking Dru Warner M.B., [facility] Procedures MR Brain without and with IV Contrast OR MRI BRAIN WO/W CNTRST HC MRI BRAIN WO/W CNTRST B.Ch. [address] [place] [address] Referral ID Status Reason Start Date Expiration Date Visits Requ ested Visits Authorized [id number] Closed 07/15/2018 07/15/2019 1 1 Reason for Visit MRI/CAT/PET Scan (Routine) - Closed Specialty Diagnoses / Procedures Referred By Contact Refer red To Contact Radiology Diagnoses Aneurysm Of Other Specified Arteries (HCC) Migraine Headache Abuse Tobacco Smoking Dru Warner M.B., [facility] Procedures MR Brain without and with IV Contrast OR MRI BRAIN WO/W CNTRST HC MRI BRAIN WO/W CNTRST B.Ch. [address] [place], [place] [address] Referral ID Status Reason Start Date Expiration Date Visits Requ ested Visits Authorized [id number] Closed 07/15/2018 07/15/2019 1 1 Encounter Details Date Type Department Care Team Description 07/18/2018 Hospital Encounter Department of Dru Warner Aneury sm Of Other Specified Arteries (HCC); Radiology, Josue Gastelum, B.C h. Migraine Headache; [place], in [place], [address] [facility] Abuse Tobacco Smoking [place], [place] [address] [facility] [address] [place], [place] [phone] (Work) [phone] Social History Tobacco Use Types Packs/Day Years [...] More than 4 times per year 08/17/2020 congregational services? Do you belong to any clubs [...] or slept in a residential (including now)? Sex Assigned at Date Recorded Female 06/10/2017 5:21 PM CDT documented as of this encounter Last Filed Vital Signs Vital Sign Reading Time Taken Comments Blood Pressure - - Pulse - - Temperature - - Respiratory Rate - - Oxygen Saturation - - Inhaled Oxygen Concentration - - Weight - - Height 165.1 cm (5' 5) 07/18/2018 8:37 AM CDT Body Mass Index - - documented in this encounter Medications at Time of Discharge Medication Sig Dispensed Refills Start Date End Date nicotine (NICODERM CQ) 14 Place 1 patch on the 30 patch 0 07/16/2018 08/15/2018 mg/24 hr patch skin daily. nicotine (NICODERM CQ) 21 Place 1 patch on the 30 patch 0 07/02/2018 08/01/2018 mg/24 hr patch skin daily. nicotine (NICODERM CQ) 7 Place 1 patch on the 30 patch 0 0 07/30/2018 08/29/2018 mg/24 hr patch skin daily. biotin 1 mg tablet Take 1,000 mcg by 0 03/22/2020 mouth as needed. PNV51/iron Take by mouth as 0 03/22/19 21 fum/FA/om-3/dha/epa needed. ( MULTI-DHA ORAL) documented as of this encounter Plan of Treatment Not on filedocumented as of this encounter Procedures Procedure Name Priority Date/Time Associated Comments Diagnosis MR BRAIN WITHOUT RAD - Routine 07/18/2018 9:48 Aneurysm Of Other Re sults for this AND WITH IV (most inpatients AM CDT Specified procedure a re in CONTRAST and all Arteries (HCC) the results outpatients) Migraine Headach e section. Abuse Tobacco Smoking documented in this encounter Results MR Brain without and with IV Contrast (07/18/2018 9:48 AM CDT) Anatomical Region Laterality Modality Head, Brain, Neuroradiology RST LOS, Neuroradiology ARZ N/A Magnetic Resonance LOS, Neuroradiology FLA [facility] Specimen (Source) Anatomical Collection Method Collection Time Re ceived Time Location / / Volume Laterality 07/18/2018 9:51 AM CDT Impressions 07/18/2018 10:30 AM CDT IMPRESSION: No specific cause for patient's symptoms is identified. Narrative 07/18/2018 10:30 AM CDT EXAM: MR BRAIN WITHOUT AND WITH IV CONTRAST COMPARISON: Head MRA 07/09/2018. FINDINGS: No mass or abnormal enhancemen t within the IACs and the cerebellopontine angles. Normal appearan ce of the inner ear structures without suspicious enhancement. No intracranial mass, mass effect, evide nce of acute intracranial hemorrhage or extra-axial fluid collection. Normal miller tricles, cisterns and sulci. Previously reported tiny anterior commun icating artery aneurysm is not well assessed in this study. Moderate right e thmoid sinus mucosal thickening. Procedure Note Jacob Lloyd M.D. - 07/18/2018Formatti ng of this note might be different from the original. EXAM: MR BRAIN WITHOUT AND WITH IV CONTR AST COMPARISON: Head MRA 07/09/2018. FINDINGS: No mass or abnormal enhancemen t within the IACs and the cerebellopontine angles. Normal appearan ce of the inner ear structures without suspicious enhancement. No intracranial mass, mass effect, evide nce of acute intracranial hemorrhage or extra-axial fluid collection. Normal miller tricles, cisterns and sulci. Previously reported tiny anterior commun icating artery aneurysm is not well assessed in this study. Moderate right e thmoid sinus mucosal thickening. IMPRESSION: No specific cause for patien t's symptoms is identified. Dru Salas, B. IMG MRI PROCEDURES documented in this encounter Visit Diagnoses Diagnosis Aneurysm Of Other Specified Arteries (HC C) Migraine Headache Abuse Tobacco Smoking documented in this encounter Administered Medications Inactive Administered Medications - up to 3 most recent administrations Medication Order MAR Action Action Date Dose Rate Site gadobutrol injection Given 07/18/2018 9:21 AM 6 mL Right Antecubital 0.5-15 mL (GADAVIST) CDT 0.5-15 mL, intravenous, Once in imaging, contrast, Starting on Carmen 07/18/18 at 0836, For 1 dose, Imaging Protocol Orders, Dose per Radiant Medication Guidelines documented in this encounter Care Teams Document Control Coordinator Relationship Specialty Start Date End Date Steven Escobar M.D. PCP - General 08/17/16 [address] [place] [phone] documented as of this encounter
--- OUTSIDE RECORDS SUMMARY | 2021-10-12 00:43 | XMS_ITS | Encounter Summary ---
:1975 Author Organization [facility] Address [address] [place] [address] Care Team Providers Name Role Phone Unavailable Primary Care Provider Unavailable Encounter Details Date Type Department Care Team Description 12/24/2015 Hospital Encounter [facility]X [facility] Provider, Hi danyell Social History Tobacco Use Types Packs/Day Years Used Date Smoking Tobacco: Never Assessed Alcohol Habits Answer Date Recorded How often [...] or relatives? How often do you attend muslim or More than 4 times per year 08/17/2020 bahai services? Do you belong to any clubs or Yes 08/17/2020 organizations such as muslim groups, unions, fraternal or athletic groups, or [...] slept in a long term (including now)? Sex Assigned at Date Recorded Female 06/10/2017 5:21 PM CDT documented as of this encounter Last Filed Vital Signs Vital Sign Reading Time Taken Comments Blood Pressure 102/67 12/24/2015 1:54 PM CDT Pulse 92 12/24/2015 1:54 PM CDT Temperature - - Respiratory Rate 16 12/24/2015 1:54 PM CDT Oxygen Saturation - - Inhaled Oxygen Concentration - - Weight 59.1 kg (130 lb 4.7 oz) 12/24/2015 1:54 PM CDT Height 164 cm (5' 4.57) 12/24/2015 1:54 PM CDT Body Mass Index 21.97 12/24/2015 1:54 PM CDT documented in this encounter Progress Notes Erinn Lizarraga M.S.N., R.N. - 12/24/2015 3:15 PM CDT DARELL-LE Chief Complaint: Sore throat History of Present Illness: Patient is a 39 year old female who presents to the clinic with a sore throat for the past 2 days. She also reports a slight cough and anterior cervical lymphadenopathy and tenderness. She has not taken anything for the pain. She denies fevers, chills, nausea and vomiting. Systems Review: Negative except as stated in HPI. Allergies: NKA Medications: Per EMR. VITAL SIGNS Temperature Oral: 36.9 Peripheral Pulse Rate: 92 Respiratory Rate: 16 BLOOD PRESSURE Systolic Blood Pressure: 102 Diastolic Blood Pressure: 67 MEASUREMENTS Height: 164 Actual Weight: 59.1 Body Mass Index: 21.97 Physical Exam: Head: Normocephalic. Eyes: No discharge or crusting. Conjunctivae clear. Sclera is white, no lesions or redness. Ears: Bilateral canals clear. Tympanic membrane: pearly lagos, landmarks intact, no perforation bilaterally. Nose: Nares patent. Mucosa pink. Mouth/Throat: Mucosa and gingivae pink. Pharynx erythematous. Tonsils 1+ without exudate. Neck: Neck supple with full ROM. Mild lymphadenopathy and tenderness. Lungs/Thorax: Chest expansion symmetric. Breath sounds clear in all lobes. No cough during exam. CV/Heart: S1-S2 with regular rate and rhythm. Impression/Report/Plan 1. Viral URI 2. She may take Ibuprofen as needed for pain, continue fluids and rest. Electronically Signed By: ERINN LIZARRAGA CNP RN On: 12/24/2015 03:22 PM Source: [facility] POWERCHART Document Id: [id number] documented in this encounter Miscellaneous Notes Miscellaneous - Melania Burch - 12/01/2016 3:14 PM CDT Health Maintenance Reminder From: MELANIA BURCH To: LEANDRA BLACK Sent: 12/01/2016 15:14:52 CDT Subject: Health Maintenance Reminder We have developed a six-month overview of preventive and recommended services that apply to your unique health care needs. Some may be past due or may be coming due in the next three months. If youhave already scheduled any or all of these services, thank you. We recognize that this may or may not include all of your individualized health care needs; however, we are happy to help you with any and all primary care concerns you may have. Coming Due (in the next three months) Mammogram for Breast Cancer Screening (on or soon after Dec 17, 2016) It may be possible to bundle some of the above services together to make your visit with us more convenient. Please call [phone] to schedule services that are past due or that may shortly become due (thank you if you have already done so). We will follow up in three to six months should you have more services to schedule at that time. If you have already received any of the listed past due or upcoming services outside of [facility], please call [phone] to add them to your medical record. You may want to consider contacting your health insurance company to make sure these services are covered and find out if there will be any [id number]-[id number] expense. If you have any questions about the services listed above, or if you are no longer receiving care from [facility], please contact us at [phone]. Thank you for partnering to provide you with the best care possible. Thank you for choosing the Steven Escobar M.D. care team for your health care needs! You are receiving this notice based on [facility]'s recommended standard for preventive care and ongoing condition-specific services you may need. If you have completed or do not believe you need these services, please contact your provider or care team to discuss this further. Source: [facility] POWERCHART Document Id: [id number] Miscellaneous - Erinn Lizarraga M.S.N., R.N. - 12/24/2015 2:59 PM CDT Ambulatory Patient Summary [facility] [facility] [address] [facility] [place] [id number] Visit Information Name: LEANDRA BLACK [facility] Number: [id number] Current Date: 12/24/2015 14:59:35 Physicians Attending Provider: Primary Care Provider: STEVEN ESCOBAR MD LEANDRA BLACK has been given the following list of follow-up instructions, medication list, and patient education materials: Follow-up Instructions Your Medications Here is a list of your medications. It is important to take your medications as directed. Use a pillbox or chart to help remind you to take your medications. Please let your doctor or nurse know if you have problems taking your medications. Medication/Strength How to Take Indications/Special Instructions/Comments/Notes for Patient Medication Changes/Routing *emollients, topical (RepHresh vaginal gel) 1 sascha, Topical, every 3 days * You have let us know that you are not taking this medication as listed. Please talk with your primary care provider or the health care provider who prescribed the medication as soon as possible. Stop Taking the Following Medications: Medication list as of 12-24-15 14:59 Attention: If you have any medications at home that are not on this list, DO NOT take them until youcontact your provider for clarification. Give a copy of your medication list to your primary care provider. Update your medication list any time medications or doses are changed and carry your medication list at all times in case of emergency. 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 Consider Using Patient Online Services Patient Online Services is a secure online and Mobile application that lets you: ?? View lab and test results ?? View portions of your medical record including clinical notes, immunizations and discharge summaries ?? Request an appointment or medication refill ?? Review your appointment schedule ?? Send secure messages to your care team Its easy to create an account if you dont have one. Go to [email or web address] and click on Create Your Account. Then, follow the directions to complete the online form. Youll be asked for your [facility] number which you can find at the top of this document. Your Goals/Additional instructions: Source: [facility] POWERCHART Document Id: [id number] Miscellaneous - Erinn Lizarraga M.S.N., R.N. - 12/24/2015 2:59 PM CDT Ambulatory Discharge Medication List [address] [id number] Visit Information Name: NAMITA BLACKFABIANA DURANN [facility] Number: [id number] Current Date: 12/24/2015 14:59:35 Attending Provider: Primary Care Provider: STEVEN ESCOBAR MD LEANDRA BLACK has been given the following list of medications: Your Medications It is important to take your medications as directed. Use a pill box or chart to help remind you to take your medications. Please let your doctor or nurse know if you have problems taking your medications. Medication/Strength How to Take Indications/Special Instructions/Comments/Notes for Patient Medication Changes/Routing *emollients, topical (RepHresh vaginal gel) 1 sascha, Topical, every 3 days * You have let us know that you are not taking this medication as listed. Please talk with your primary care provider or the health care provider who prescribed the medication as soon as possible. Stop Taking the Following Medications: Medication list as of 12-24-15 14:59 Attention: If you have any medications at home that are not on this list, DO NOT take them until youcontact your provider for clarification. Give a copy of your medication list to your primary care provider. Update your medication list any time medications or doses are changed and carry your medication list at all times in case of emergency. Electronically Signed By: ERINN LIZARRAGA CNP RN Signed On:24-DEC-2015 14:59:33 Additional Information: Source: [facility] POWERCHART Document Id: [id number] Miscellaneous - Jorge A Kelly L.P.N. - 12/24/2015 1:54 PM CDT Adult Biotech Production Specialist Intake/History Adult Biotech Production Specialist Intake/History Entered On: 12/24/2015 13:57 CDT Performed On: 12/24/2015 13:54 CDT by JORGE A KELLY JAVA PROGRAMMER ANALYST Intake Chief Complaint : Sore throat, swollen glands 3 days Temperature Oral : 36.9 DegC(Converted to: 98.4 DegF) Peripheral Pulse Rate : 92 /min Respiratory Rate : 16 /min Heart Rhythm : Regular Systolic Blood Pressure : 102 mmHg Diastolic Blood Pressure : 67 mmHg NIBP Mean : 79 mmHg BP Location : Right upper extremity Blood Pressure Cuff Size : Regular Height : 164 cm(Converted to: 5 ft 5 inch(es), 65 inch(es)) Actual Weight : 59.1 kg(Converted to: 130 lb 5 oz) Weight Source : Standing scale Dosing Weight Clinic : 59.1 kg Clinic BSA : 1.64 Body Mass Index : 21.97 kg/m2 JORGE A KELLY LPN - 12/24/2015 13:54 CDT General Info Information Given By : Patient Preferred Communication Mode : Verbal Languages : Kiswahili Is Patient Female and 13-50 no hysterectomy : Yes Status : Patient denies Are you ? : No JORGE A KELLY LPN - 12/24/2015 13:54 CDT Subjective Pain Symptoms : Yes JORGE A KELLY LPN - 12/24/2015 13:54 CDT Pain Scale Pain Scale Verbal 0-10 : Open JORGE A KELLY LPN - 12/24/2015 13:54 CDT Pain Pain Assessment Grid Pain 1 Location : Throat JORGE A KELLY LPN - 12/24/2015 13:54 CDT Dependent Habits Exposure to Tobacco Smoke : Patient smokes Smoking Status : Former smoker Tobacco 2A : Yes Tobacco Use/Currently Using : No Tobacco Use/Last 30 Days : Yes Tobacco Use/Last 12 months : Yes Type : Cigarettes: Less than 20 per day Tobacco Use/Advised to Quit : Yes JORGE A KELLY LPN - 12/24/2015 13:54 CDT Source: [facility] [employer]ip[employer]CHART Document Id: [id number] documented in this encounter Plan of Treatment Not on filedocumented as of this encounter Procedures Procedure Name Priority Date/Time Associated Diagnosis Comme nts RAPID STREP A Routine 12/24/2015 2:34 PM Results for this SCREEN CDT procedure are i n the results section. RAPID STREP A Routine 12/24/2015 2:34 PM Results for this SCREEN CDT procedure are i n the results section. documented in this encounter Results Rapid Strep A Screen (12/24/2015 2:34 PM CDT) [employer] Method Time Signature HXRapid Strep POWERCHART Confirmation HXPre Negative for POWERCHART Group A Strep by culture. HXFinal Negative for POWERCHART Group A Strep by culture. Specimen Anatomical Collection Method Collection Time Receive d Time (Source) Location / / Volume Laterality Throat 12/24/2015 2:34 PM 6 2:34 CDT PM CDT Waldo Cross APRNN.Emily., M.S.N. LAB MICROBIOL OGY - GENERAL ORDERABLES Performing Organization Address City/State/ZIP Code Phon e Number POWERCHART Rapid Strep A Screen (12/24/2015 2:34 PM CDT) [employer] Method Time Signature HXStrep A POWERCHART Screen Rapid HXFinal Negative for POWERCHART Strep Group A by rapid screen. HXFinal Culture POWERCHART confirmation to follow. Specimen (Source) Anatomical Collection Method Collection Time Re ceived Time Location / / Volume Laterality Throat 12/24/2015 2:34 PM CDT Kenyetta Cross APRN.N.P., M.S.N. LAB MICROBIOL OGY - GENERAL ORDERABLES Performing Organization Address City/State/ZIP Code Phon e Number POWERCHART documented in this encounter Visit Diagnoses Not on filedocumented in this encounter
--- OUTSIDE RECORDS SUMMARY | 2021-10-12 00:43 | XMS_ITS | Encounter Summary ---
:1975 Author Organization [facility] Address [address] [place] [address] Care Team Providers Name Role Phone Steven Escobar M.D. Primary Care Provider [phone] Encounter Details Date Type Department Care Team Description 11/19/2017 Orders Only Department of Family Saira Escobar Mammogram Medicine, [place] M.[place]. Average Risk Patient [facility], [place] [address] (Primary Dx) [place], [place] [address] [address] [place], [place] [phone] (Work) [phone] Social History Tobacco Use Types Packs/Day Years Used Date Smoking Tobacco: Every Day Alcohol Use Standard Drinks/Week Comments Yes 0 [...] More than 4 times per year 08/17/2020 pentecostalism services? Do you belong to any clubs [...] or slept in a penitentiary (including now)? Sex Assigned at Date Recorded Female 06/10/2017 5:21 PM CDT documented as of this encounter Plan of Treatment Not on filedocumented as of this encounter Results BI Breast Screening Bilateral (01/07/2018 9:13 AM TYING MACHINE OPERATOR) Anatomical Region Laterality Modality Breast, Breast Imaging RST LOS, Breast Imaging ARZ LOS, Ruth st Bilateral Mammography Imaging FLA LOS Specimen (Source) Anatomical Collection Method Collection Time Re ceived Time Location / / Volume Laterality 01/07/2018 12:08 PM TYING MACHINE OPERATOR Impressions 01/07/2018 12:11 PM TYING MACHINE OPERATOR IMPRESSION: ??Negative. RECOMMENDATION: ??Annual Screening Mammo gram ASSESSMENT: ??BI-RADS: 1: Negative. Narrative 01/07/2018 12:11 PM TYING MACHINE OPERATOR EXAM: ??BI BREAST SCREENING BILATERAL Current study was evaluated with a Compu ter Aided Detection (CAD) system. INDICATION: ??Screening mammogram. COMPARISON: ??Prior exam(s) were availab le and reviewed for comparison. DENSITY: ??b. There are scattered areas of fibroglandular density. FINDINGS: ??No mammographic findings of malignancy. Bilateral subpectoral saline implants. Procedure Note Tameka Sellers M.D. - 01/07/2018Forma tting of this note might be different from the original. EXAM: BI BREAST SCREENING BILATERAL Current study was evaluated with a Compu ter Aided Detection (CAD) system. INDICATION: Screening mammogram. COMPARISON: Prior exam(s) were available and reviewed for comparison. DENSITY: b. There are scattered areas of fibroglandular density. FINDINGS: No mammographic findings of ma lignancy. Bilateral subpectoral saline implants. IMPRESSION: Negative. RECOMMENDATION: Annual Screening Mammogr am ASSESSMENT: BI-RADS: 1: Negative. Steven Escobar M.D. IMG BI PROCEDURES documented in this encounter Visit Diagnoses Diagnosis Screening Mammogram Average Risk Patient - Primary Screening Mammogram Average Risk Patient documented in this encounter Care Teams Collar Worker Relationship Specialty Start Date End Date Steven Escobar M.D. PCP - General 08/17/16 [address] [place] [phone] documented as of this encounter
--- OUTSIDE RECORDS SUMMARY | 2021-10-12 00:43 | XMS_ITS | Encounter Summary ---
:1975 Author Organization [facility] Address [address] [place] [address] Care Team Providers Name Role Phone Setven Escobar M.D. Primary Care Provider [phone] Reason for Referral MRI/CAT/PET Scan (Routine) - Closed Specialty Diagnoses / Procedures Referred By Contact Refer red To Contact Radiology Diagnoses Headache Unspecified Adonay Kohli Jr., M.D. [facility] [place] [facility] Procedures MR Brain Angiogram without IV Contrast MR Brain Angiogram without and with IV Contrast OH MRA HEAD WO/W [facility] HC MRA HEAD WO/W [facility] OH MRA HEAD WO/W [facility] OH MRA HEAD WO [facility] HC MRA HEAD WO [facility] [place] MRA HEAD WO [facility] [address] [place] [phone] Referral ID Status Reason Start Date Expiration Date Visits Requ ested Visits Authorized [id number] Closed 07/02/2018 07/02/2019 1 1 Reason for Visit Reason Comments Other low back pain, does not feel right Outpatient (Routine) - Closed Specialty Diagnoses / Procedures Referred By Contact Refer red To Contact Obstetrics and Adonay Kohli SE [place] Corrina on Godfrey Cosby M.D. [address] [place] [phone] Referral ID Status Reason Start Date Expiration Date Visits Requ ested Visits Authorized [id number] Closed 06/11/2018 06/11/2019 1 1 Encounter Details Date Type Department Care Team Description 07/02/2018 Office Visit Department of Adonay Kohli Preventive Gynecological Exam (Primary Dx); Obstetrics and Romi Cosby Headache Gynecology in [address] [place], [place] GENEVIEVE Fowler [address] [address] [place]E [place] [phone] (Work) [phone] Social History Tobacco Use Types Packs/Day Years [...] or relatives? How often do you attend gnosticist or More than 4 times per year 08/17/2020 christianity services? Do you belong to any clubs or Yes 08/17/2020 organizations such as gnosticist groups, unions, fraternal or athletic groups, or [...] Sign Reading Time Taken Comments Blood Pressure 90/60 07/02/2018 1:55 PM CDT Pulse 68 07/02/2018 1:55 PM CDT Temperature - - Respiratory Rate 16 07/02/2018 1:55 PM CDT Oxygen Saturation - - Inhaled Oxygen Concentration - - Weight 57.9 kg (127 lb 8.6 oz) 07/02/2018 1:55 PM CDT Height - - Body Mass Index 21.22 06/14/2017 2:57 PM CDT documented in this encounter H&P Notes Adonay Kohli Jr., M.D. - 07/02/2018 2:00 PM CDT SUBJECTIVE CHIEF COMPLAINT/REASON FOR VISIT Annual examination. HISTORY OF PRESENT ILLNESS Leandra Black is a 42 y.o. female who is status post Essure tubal occlusion and endometrial ablation who presents today for her annual examination. She underwent Essure tubal occlusionon 01/22/2014 and had subsequent HSG on 01/23/2014, which showed total occlusion, but a little distal. She does not bleed at all. She occasionally has pain with intercourse and this is not related to bowel movements. She does not have a bowel movement daily. She has pelvic pain and low back pain. Sometimes the pain is significant enough to make her stop and she generally does not have pain afterwards. She would like to have her Essure removed. Leandra has felt weird. She stopped drinking through in-patient rehab because her drinking was becoming difficult for her. She has been exercising 4 times a week and she is happy with her weight. She is currently smoking about a pack a day and would like a prescription for the nicotine patch. She is also wondering if she may have some jn-menopause symptoms. She had significant hot flashes at night for 2-3 months and then they have stopped. She has also been getting a rushing feeling in her head. She has this most days and it has come over the past couple of months. There are no further concerns at this time. CURRENT MEDICATIONS Current Outpatient Prescriptions Medication Sig Dispense Refill ??? biotin 1 mg tablet Take 1,000 mcg by mouth 3 (three) times a day. ??? PNV51/iron fum/FA/om-3/dha/epa ( MULTI-DHA ORAL) Take by mouth. No current facility-administered medications for this visit. ALLERGIES/CONTRAINDICATIONS No Known Allergies REVIEW OF SYSTEMS Positive for intermittent pain with intercourse All other systems reviewed and negative except per HPI. MEDICAL HISTORY Past Medical History: Diagnosis Date ??? Spontaneous (HCC) x3 ??? Gestational Diabetes Mellitus Personal History Not ??? Menorrhagia Resolved with ablation SURGICAL HISTORY Past Surgical History: Procedure Laterality Date ??? AUGMENTATION MAMMOPLASTY Bilateral 12/13/2012 Saline implants ??? DILATION AND CURETTAGE OF UTERUS 02/03/2014 For management of menorrhagia ??? ENDOMETRIAL ABLATION W/ PASCUALASURE 03/10/2014 ??? EPISIOTOMY 09/12/2011 ??? ESSURE TUBAL LIGATION 11/14/2011 With confirmatory HSG on 01/22/2014 ??? MANUALLY ASSISTED SPONTANEOUS DELIVERY x3, most recently 10/24/2011 ??? SURGICAL TREATMENT OF MISCARRIAGE OF ANY TRIMESTER D&C ??? SURGICAL TREATMENT OF MISSED MISCARRIAGE OF FIRST TRIMESTER 2009 D&C PREVENTATIVE SERVICES: Tobacco use: Positive, prescription for nicotine patches is provided today. Mammogram: 01/07/2018. Pap smear: 12/13/2015. Lipid panel: normal 12/13/2015. Thyroid: normal 06/22/2017. Vitamin D: normal 12/13/2015. Depression: Negative. Asthma: Negative. Immunization History Administered Date(s) Administered ??? Influenza, Unspecified 02/17/2011 ??? Tdap 06/07/2007, 06/04/2016 SOCIAL HISTORY Social History Social History ??? Marital status: Single Spouse name: N/A ??? Number of children: N/A ??? Years of education: N/A Social History Main Topics ??? Smoking status: Current Every Day Smoker ??? Smokeless tobacco: Never Used ??? Alcohol use Yes Comment: Occasional ??? Drug use: Unknown ??? Sexual activity: Not Asked Comment: Essure Other Topics Concern ??? None Social History Narrative She is exercising at least 4 days a week. History Drug use: Unknown History Alcohol Use ??? Yes Comment: Occasional FAMILY HISTORY Family History Problem Relation Age of Onset ??? Healthy adult Mother ??? Healthy adult Father ??? Breast cancer Maternal Grandmother ??? Brain Aneurysm Sister ruptured OBJECTIVE VITAL SIGNS BP 90/60 Pulse 68 Resp 16 Wt 57.9 kg BMI 21.22 kg/m?? PHYSICAL EXAMINATION General: Patient appears well groomed and well nourished. No acute distress. Oriented times three. Skin: Normal without any evidence of rash or lesions. Head: Normocephalic. ENT: Trachea midline. Lymph Nodes: Neck is supple. No significant adenopathy. Thyroid: Not enlarged. Regular in contour. Breasts: No masses. No lymphadenopathy. No nipple discharge. Please note that Elayne Ramírez LPN waspresent as seed packer for breast exam. Heart: Regular rate and rhythm without murmurs, rubs or gallops. No evidence of any peripheral vascular disease. Lungs: Clear to auscultation with good inspiratory effort. Abdomen: Soft and nontender. No masses, hepatosplenomegaly or hernias noted. No enlarged groin nodespalpable. Pelvis: Vagina and cervix appear normal without lesions, discharge or rashes. Pap smear is done. Uterus is anteverted, small, mobile and nontender. Mild cystocele, but uterus only descends a tiny bit. Adnexa are without masses or tenderness. Little Nabothian cyst at about 4 o' clock. Please note that Elayne Ramírez LPN was present as seed packer for pelvic exam. Rectum: Deferred. Genitalia: External genitalia: Bartholin's, urethral, and [place]'s glands within normal limits. DIAGNOSTICS Pap smear with HPV cotesting is obtained today with results pending. ASSESSMENT / PLAN #1 Healthcare maintenance PLAN: Mammogram is up to date. Pap smear with HPV cotesting is obtained today with results pending. Colon cancer screening starts at age 50. Fasting labs are reviewed and are up to date. Immunizations are reviewed and are up to date. She will continue with regular interval training. #2 Contraception PLAN: Status post Essure tubal ligation. HSG showed blocked tubes, although devices were a little distal in tubes, but acceptable and tubes occluded. #3 Intermittent dyspareunia and low back pain PLAN: She will keep track of her pain and if she has significant pain, she will contact me and will try to see with ultrasound. She will quit smoking. Recommended that she try to get her bowel movements more regular with Ones. She will contact me if she would still like to have her Essure removed. #4 Tobacco abuse PLAN: Smoking cessation is strongly encouraged. Prescription for nicotine patches is sent today. #5 Visual changes with head rushing sensation, family history of ruptured aneurysm PLAN: She will schedule a full eye exam with ophthalmology. MRA brain is ordered and she will schedule this if it continues to be an issue after she quits smoking. #6 Follow up PLAN: Patient will return in one year for annual exam. She will contact the clinic with any CABLE MAKER related concerns. This document serves as a record of services personally performed by Adonay Kohli MD. It was created on their behalf by Tiffanie Mejia, a trained director medical economics. The creation of this record is based onthe scribe's personal observations and the provider's statements to them. This document has been [facility] and approved by the attending provider. documented in this encounter Plan of Treatment Not on filedocumented as of this encounter Procedures Procedure Name Priority Date/Time Associated Diagnosis Comme nts THINPREP W/HPV Routine 07/02/2018 2:43 PM Preventive Results for this CO-TEST SCREEN CDT Gynecological Exam procedu re are in the results section. HPV WITH Routine 07/02/2018 2:43 PM Results f or this GENOTYPING, PCR, CDT procedure a re in THINPREP the results section. 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 Narrative 07/09/2018 1:05 PM CDT EXAM: MR BRAIN ANGIOGRAM WITHOUT IV CONTRAST COMPARISON:None FINDINGS: Anterior Cerebral Arteries: No aneurysm or significant stenosis. Anterior communicating artery: 1.5 mm an eurysm projecting posteriorly and superiorly from the anterior communicati ng artery (series 4 image #65, series 401 image #90). Middle Cerebral Arteries: No aneurysm or significant stenosis. Intracranial Carotid Arteries: No aneury sm, dissection or significant stenosis. Intracranial Vertebral Arteries: No aneu rysm, dissection or significant stenosis. Basilar Artery: No aneurysm, dissection or significant stenosis. Posterior Cerebral Arteries: No aneurysm or significant stenosis. Right posterior communicating artery: Pr obable diminutive right posterior communicating artery present. Left posterior communicating artery: Pro bable diminutive left posterior communicating artery present. Procedure Note Fantasma Miranda M.D. - 07/09/2018Formattin g of this note might be different from the original. EXAM: MR BRAIN ANGIOGRAM WITHOUT IV CONT RAST COMPARISON:None FINDINGS: Anterior Cerebral Arteries: No aneurysm or significant stenosis. Anterior communicating artery: 1.5 mm an eurysm projecting posteriorly and superiorly from the anterior communicati ng artery (series 4 image #65, series 401 image #90). Middle Cerebral Arteries: No aneurysm or significant stenosis. Intracranial Carotid Arteries: No aneury sm, dissection or significant stenosis. Intracranial Vertebral Arteries: No aneu rysm, dissection or significant stenosis. Basilar Artery: No aneurysm, dissection or significant stenosis. Posterior Cerebral Arteries: No aneurysm or significant stenosis. Right posterior communicating artery: Pr obable diminutive right posterior communicating artery present. Left posterior communicating artery: Pro bable diminutive left posterior communicating artery present. 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 Adonay Kohli Jr., M.D. IMG MRI PROCEDURES HPV with Genotyping, PCR, ThinPrep (07/02/2018 2:43 PM CDT) athologist Signature HPV with Negative Negative 07/03/2018 [facility] Genotyping, 4:50 PM CDT HEALTH ThinPrep, PCR [facility] Comment: Negative for high risk HPV by nucleic ac id amplification. ??The following high risk HPV types were not detected: 16, 18, 31, 33, 35, 39, 45, 51, 52, 56, 58, 59, 66, and 68 Specimen Anatomical Collection Method Collection Time Receive d Time (Source) Location / / Volume Laterality Varies 07/02/2018 2:43 PM 9 9:07 CDT AM CDT Adonay Kohli Jr., M.D. LAB MICROBIOLOGY - GENERAL O RDERABLES Performing Organization Address City/State/ZIP Code Phon e Number [facility] [address] [place] [address] LAB ThinPrep w/HPV Co-Test Screen (07/02/2018 2:43 PM CDT) Component Value Ref Test Analysis Performed Pathologis t Range Method Time At Signature 07/08/2018 [facility] 3:24 PM HEALTH CDT [facility] CYTOLOGY Report Catarino Valenzuela, CT(ASCP) 07/08/2018 [facility] electronically I verify that I have examined all relevant slides/ma terials 3:24 PM HEALTH signed by for the specimen(s) and rendered or confirmed the diagnosi s. CDT [facility] CYTOLOGY Gross Description Received specimen 07/08/2018 [facility] in a ThinPrep 3:24 PM HEALTH vial. CDT [facility] Pap Test Source Cervical/Endocervi 07/08/2018 [facility] nguyen 3:24 PM HEALTH CDT [facility] [place] [facility] Clinical History none 07/08/2018 [facility] 3:24 PM HEALTH CDT [facility] [place] [facility] Menstrual LMP 07/08/2018 [facility] Status(LMP, PM, 3:24 PM HEALTH ) CDT [facility] [place] [facility] Hormone None/Not known 07/08/2018 [facility] Therapy/Contracep 3:24 PM HEALTH tives CDT [facility] [place] [facility] Interpretation Cervical/Endocervical ??(ThinPrep): 07/08/2018 [facility] Satisfactory for Evaluation 3:24 PM HE ALTH Negative for Intraepithelial Lesion or Malignancy CDT SYSTEM- High Risk HPV Testing results are NEGATIVE. [place] HPV by Window Assembler-Mediated Amplification ??(TMA) for CYTOLOGY E6/E7 viral messenger RNA (mRNA) is an in-vitro diagnostic test for the detection of 14 high-risk Human Papilloma (HPV) types (16, 18, 31, 33, 35, 39, 45, 51, 52, 56, 58, 59, 66, and 68) in cervical specimens. Additional testing performed at [facility], [address] [place] [address]. Specimen Anatomical Collection Method Collection Time Receive d Time (Source) Location / / Volume Laterality Varies 07/02/2018 2:43 PM 9 9:07 (Cervix/Endocerv CDT AM CDT ix) Narrative This result has an attachment that is no t available. Adonay Kohli Jr., M.D. LAB PAP PATHDX ORDERABLES Performing Organization Address City/State/[place] [address] CYTOLOGY documented in this encounter Visit Diagnoses Diagnosis Preventive Gynecological Exam - Primary Headache Unspecified Headache Unspecified documented in this encounter Care Teams Collet Driller Relationship Specialty Start Date End Date Steven Escobar M.D. PCP - General 08/17/16 [address] [place] [phone] (work) documented as of this encounter
--- OUTSIDE RECORDS SUMMARY | 2021-10-12 00:43 | XMS_ITS | Encounter Summary ---
:1975 Author Organization [facility] Address [address] [place] [address] Care Team Providers Name Role Phone Unavailable Primary Care Provider Unavailable Encounter Details Date Type Department Care Team Description 12/17/2015 Hospital Encounter HX [facility] Gregg Reddy Jr., M.D. [address] [place], [place] [phone] (Wo rk) Social History [...] or slept in a intermediate (including now)? Sex Assigned at Date Recorded Female 06/10/2017 5:21 PM CDT documented as of this encounter Last Filed Vital Signs Vital Sign Reading Time Taken Comments Blood Pressure - - Pulse - - Temperature - - Respiratory Rate - - Oxygen Saturation - - Inhaled Oxygen Concentration - - Weight - - Height 164 cm (5' 4.57) 12/17/2015 1:04 PM CDT Body Mass Index - - documented in this encounter Miscellaneous Notes Telephone Encounter - Nicole Boudreaux L.P.N. - 05/17/2016 8:03 AM CDT RE: No subject From: LEANDRA BLACK To: [facility] (TREATER HELPER) ( Obstetrics/Gynecology Nurse) Sent: 05/17/2016 07:55 a.m. CDT Subject: RE: No subject Thank you for your message. It has been successfully sent to the appropriate care team. Hi Dr. GABRIEL I was wondering if you could call me today if possible I have a question for you about my health at this moment.. thank you so much! Leandra [phone] From: GREGG GABRIEL MD To: LEANDRA BLACK Sent: 2015 13:33:20 CDT follow up mammogram and ultrasound were good. recheck in one year. Source: [facility] POWERCHART Document Id: [id number] Telephone Encounter - Nicole Boudreaux L.P.N. - 05/17/2016 8:03 AM CDT RE: No subject Document Contains Addenda Addendum by GREGG GABRIEL MD on May 22, 2016 10:22:12 CDT From: GREGG GABRIEL MD To: Obstetrics/Gynecology Nurse; LEANDRA BLACK Sent: 05/22/2016 10:22:12 CDT Subject: RE: No subject Lazara, I am in the office today. When can I call you? Addendum by GREGG GABRIEL MD on May 17, 2016 19:53:09 CDT From: GREGG GABRIEL MD To: Obstetrics/Gynecology Nurse; LEANDRA BLACK Sent: 05/17/2016 19:53:09 CDT Subject: RE: No subject Lazara, I am out of town with limited internet access. If this is not an urgent matter I will call you Sunday if that is ok. If urgent are you comfortable sending it through the portal? From: NICOLE BOUDREAUX LPN ( Obstetrics/Gynecology Nurse) To: GREGG GABRIEL MD; LEANDRA BLACK Sent: 05/17/2016 08:03:28 CDT Subject: RE: No subject Austin Mobley, I will forward your message to Dr. Gabriel but he is gone until next for administrative meetings and things. I am unsure when he will be able to get back to you. From: LEANDRA BLACK To: [facility] (TREATER HELPER) ( Obstetrics/Gynecology Nurse) Sent: 05/17/2016 07:55 a.m. CDT Subject: RE: No subject Thank you for your message. It has been successfully sent to the appropriate care team. Austin GABRIEL I was wondering if you could call me today if possible I have a question for you aboutmy health at this moment.. thank you so much! Leandra [phone] From: GREGG GABRIEL MD To: LEANDRA BLACK Sent: 2015 13:33:20 CDT follow up mammogram and ultrasound were good. recheck in one year. Source: [facility] POWERCHART Document Id: [id number] Miscellaneous - Gregg Gabriel Jr., M.D. - 2015 1:33 PM CDT From: GREGG GABRIEL MD To: MATTEO LEANDRA DURANN Sent: 2015 13:33:20 CDT follow up mammogram and ultrasound were good. recheck in one year. Source: [facility] POWERCHART Document Id: [id number] documented in this encounter Plan of Treatment Not on filedocumented as of this encounter Procedures Procedure Name Priority Date/Time Associated Comments Diagnosis BI BREAST SCREENING Routine 12/17/2015 1:24 PM Re sults for this RIGHT WITH CDT procedure are i n TOMOSYNTHESIS the results section. documented in this encounter Results BI Breast Screening Right with Tomosynthesis (12/17/2015 1:24 PM CDT) Anatomical Region Laterality Modality Breast Right Mammography Specimen (Source) Anatomical Collection Method Collection Time Re ceived Time Location / / Volume Laterality 12/17/2015 1:24 PM CDT Addenda Addendum by ProviderKristy M.D. o n 12/17/2015 1:24 PM CDT RAD^^^OW MA Digital Unilat Right Mammo Imp w/Joseph 12/17/2015 13:24:19 Narrative 12/21/2015 9:08 AM CDT Comparison: Prior mammography of 12/13/2015 Findings: Patient return for diagnostic imaging of the right breast which included tomography and directed u ltrasound. Breast tomography confirms a marginated retroareolar nodule. This was interrogated with ultrasound and found t o represent a cyst. Impression: Benign findings. Right breas t cyst Addendum impression: This is an ACR code 2 exam. Procedure Note Milan Palacios D.O. / ProviderЕлена M.D. - 07/08/2016 Comparison: Prior mammography of 016 Findings: Patient return for diagnostic imaging of the right breast which included tomography and directed u ltrasound. Breast tomography confirms a marginated retroareolar nodule. This was interrogated with ultrasound and found t o represent a cyst. Impression: Benign findings. Right breas t cyst Addendum impression: This is an ACR code 2 exam. Ann Farmer(RDarian Stauffer (R)(Shawn) TRACY PROCEDU RES documented in this encounter Visit Diagnoses Not on filedocumented in this encounter
--- OUTSIDE RECORDS SUMMARY | 2021-10-12 00:43 | XMS_ITS | Encounter Summary ---
:1975 Author Organization [facility] Address [address] [place] [address] Care Team Providers Name Role Phone Steven Escobar M.D. Primary Care Provider [phone] Reason for Visit Reason Comments Sore Throat Fever Encounter Details Date Type Department Care Team Description 04/04/2018 Office Visit Urgent Care in [place] Pharyngit is Acute [place] M.D. (Primary Dx) [address] [place] [phone] Social History Tobacco Use Types Packs/Day Years [...] More than 4 times per year 08/17/2020 yarsani services? Do you belong to any clubs [...] or slept in a half-way (including now)? Sex Assigned at Date Recorded Female 06/10/2017 5:21 PM CDT documented as of this encounter Last Filed Vital Signs Vital Sign Reading Time Taken Comments Blood Pressure 100/59 04/04/2018 10:45 AM SHELL MACHINE OPERATOR Pulse 103 04/04/2018 10:45 AM SHELL MACHINE OPERATOR Temperature 38 ??C (100.4 ??F) 04/04/2018 10:45 AM SHELL MACHINE OPERATOR Respiratory Rate 16 04/04/2018 10:45 AM SHELL MACHINE OPERATOR Oxygen Saturation - - Inhaled Oxygen Concentration - - Weight 61.1 kg (134 lb 11.2 oz) 04/04/2018 10:45 AM SHELL MACHINE OPERATOR Height - - Body Mass Index 22.42 06/14/2017 2:57 PM CDT documented in this encounter Progress Notes [place] M.D. - 04/04/2018 10:30 AM CST CHIEF COMPLAINT/REASON FOR VISIT Leandra Black is a 42 y.o. female that presents with sore throat for 2 days. No other specific concerns or problems. Current Outpatient Prescriptions: ??? biotin 1 mg tablet, Take 1,000 mcg by mouth 3 (three) times a day., Disp: , Rfl: ??? PNV51/iron fum/FA/om-3/dha/epa ( MULTI-DHA ORAL), Take by mouth., Disp: , Rfl: ??? amoxicillin (AMOXIL) 875 mg tablet, Take 1 tablet (875 mg total) by mouth every 12 (twelve) hours for 10 days., Disp: 20 tablet, Rfl: 0 No Known Allergies Vitals: 04/04/18 1045 BP: 100/59 Pulse: 103 Resp: 16 Temp: 38 ??C PHYSICAL EXAMINATION GENERAL APPEARANCE: No acute distress HEENT: Oropharynx with moderate erythema and minimal swelling. No exudate. Ears fine. Neck positive for small anterior cervical nodes bilaterally. CHEST: Lungs clear. DIAGNOSTICS: Strep positive IMPRESSION/PLAN Strep pharyngitis. Amoxicillin. Diflucan as needed. Conservative measures are reviewed. Follow-up ifnot improving as expected or otherwise as needed. L MACHINE OPERATOR documented in this encounter Plan of Treatment Not on filedocumented as of this encounter Procedures Procedure Name Priority Date/Time Associated Diagnosis Comme nts RAPID STREP A STAT 04/04/2018 10:54 AM Pharyngitis Acute Re sults for this SCREEN SHELL MACHINE OPERATOR procedure are i n the results section. documented in this encounter Results (ABNORMAL) Rapid Strep A Screen (04/04/2018 10:54 AM SHELL MACHINE OPERATOR) [facility] Method Time Signature Rapid Strep A Positive (A) Negative 04/04/2018 [facility] Screen 11:08 AM SHELL MACHINE OPERATOR [facility] Specimen Anatomical Collection Method Collection Time Receive d Time (Source) Location / / Volume Laterality Varies (Throat) 04/04/2018 10:54 04/04/19 19 AM SHELL MACHINE OPERATOR 10:57 AM SHELL MACHINE OPERATOR Will [place]oa M.D. LAB MICROBIOLOGY - GENERAL O RDERABLES Performing Organization Address City/State/ZIP Code Phon e Number [facility] [address] [place] [address] LAB documented in this encounter Visit Diagnoses Diagnosis Pharyngitis Acute - Primary documented in this encounter Care Teams Sox Analyst Relationship Specialty Start Date End Date Steven Escobar M.D. PCP - General 08/17/16 [address] [place] [phone] documented as of this encounter
--- OUTSIDE RECORDS SUMMARY | 2021-10-12 00:43 | XMS_ITS | Encounter Summary ---
:1975 Author Organization [facility] Address [address] [place] [address] Care Team Providers Name Role Phone Unavailable Primary Care Provider Unavailable Encounter Details Date Type Department Care Team Description 12/24/2015 Hospital Encounter [facility] Provider, [place] child Social History Tobacco Use Types Packs/Day Years [...] or relatives? How often do you attend sikh or More than 4 times per year 08/17/2020 oriental orthodox services? Do you belong to any clubs or Yes 08/17/2020 organizations such as sikh groups, unions, fraternal or athletic groups, or [...] or slept in a snf (including now)? Sex Assigned at Date Recorded Female 06/10/2017 5:21 PM CDT documented as of this encounter Last Filed Vital Signs Vital Sign Reading Time Taken Comments Blood Pressure - - Pulse - - Temperature - - Respiratory Rate - - Oxygen Saturation - - Inhaled Oxygen Concentration - - Weight - - Height 164 cm (5' 4.57) 12/24/2015 12:51 PM CDT Body Mass Index - - documented in this encounter Plan of Treatment Not on filedocumented as of this encounter Visit Diagnoses Not on filedocumented in this encounter
--- OUTSIDE RECORDS SUMMARY | 2021-10-12 00:43 | XMS_ITS | Encounter Summary ---
:1975 Author Organization [facility] Address [address] [place] [address] Care Team Providers Name Role Phone Unavailable Primary Care Provider Unavailable Encounter Details Date Type Department Care Team Description 12/17/2015 Hospital Encounter HX [facility] Joryd Kohli Jr., M.D. [address] [place] [phone] (Wo rk) Social History Tobacco Use Types [...] or relatives? How often do you attend nondenominational or More than 4 times per year 08/17/2020 muslim services? Do you belong to any clubs or Yes 08/17/2020 organizations such as nondenominational groups, unions, fraternal or athletic groups, or [...] - Height 164 cm (5' 4.57) 12/17/2015 1:35 PM CDT Body Mass Index - - documented in this encounter Plan of Treatment Not on filedocumented as of this encounter Procedures Procedure Name Priority Date/Time Associated Comments Diagnosis BI ULTRASOUND BREAST Routine 12/17/2015 1:50 PM R esults for this FOCUSED RIGHT CDT procedure are in the results section. documented in this encounter Results BI Ultrasound Breast Focused Right (12/17/2015 1:50 PM CDT) Anatomical Region Laterality Modality Breast Right Ultrasound Specimen (Source) Anatomical Collection Method Collection Time Re ceived Time Location / / Volume Laterality 12/17/2015 1:50 PM CDT Addenda Addendum by Provider, Romi Wagner 12/17/2015 1:50 PM CDT RAD^^^OW US Breast Right Limited 12/17/2015 13:50:15 Narrative 12/17/2015 2:24 PM CDT Comparison: Diagnostic mammography earli er today Findings impression: Corresponding to th e mammographic density in the retroareolar region of the right breast is a cyst measuring 5 x 4 x 4 mm. Please refer to mammography dictation of today's date for BI-RADS code information BIRADS Procedure Note Milan Palacios D.O. / ProviderЕлена M.D. - 07/08/2016 Comparison: Diagnostic mammography earli er today Findings impression: Corresponding to th e mammographic density in the retroareolar region of the right breast is a cyst measuring 5 x 4 x 4 mm. Please refer to mammography dictation of today's date for BI-RADS code information BIRADS Duncan Walter Jr., R.D.M.S. IMG BI PROCEDURES documented in this encounter Visit Diagnoses Not on filedocumented in this encounter
--- OUTSIDE RECORDS SUMMARY | 2021-10-12 00:43 | XMS_ITS | Encounter Summary ---
:1975 Author Organization [facility] Address [address] [place] [address] Care Team Providers Name Role Phone Steven Escobar M.D. Primary Care Provider [phone] Reason for Visit Reason Comments Follow-up Appointment Request (Routine) - Closed Specialty Diagnoses / Procedures Referred By Contact Refer red To Contact Obstetrics and Gynecology Referral ID Status Reason Start Date Expiration Date Visits Requ ested Visits Authorized [id number] Closed 05/24/2017 11/20/2017 1 1 Encounter Details Date Type Department Care Team Description 06/14/2017 Office Visit Department of Adonay Kohli Preventive Obstetrics and Romi Cosby Gynecological Exam Gynecology in [address] (Primary Dx) [address] [address] [place], [place] [phone] [address] (Work) [phone] Social History Tobacco Use Types Packs/Day Years [...] or slept in a detention (including now)? Sex Assigned at Date Recorded Female 06/10/2017 5:21 PM CDT documented as of this encounter Last Filed Vital Signs Vital Sign Reading Time Taken Comments Blood Pressure 98/64 06/14/2017 2:57 PM CDT Pulse 80 06/14/2017 2:57 PM CDT Temperature - - Respiratory Rate - - Oxygen Saturation - - Inhaled Oxygen Concentration - - Weight 62.3 kg (137 lb 5.6 oz) 06/14/2017 2:57 PM CDT Height 165.1 cm (5' 5) 06/14/2017 2:57 PM CDT Body Mass Index 22.86 06/14/2017 2:57 PM CDT documented in this encounter H&P Notes Adonay Kohli Jr., M.D. - 06/14/2017 3:00 PM CDT SUBJECTIVE CHIEF COMPLAINT/REASON FOR VISIT Annual examination. HISTORY OF PRESENT ILLNESS Leandra Black is a 41 y.o. female status post Essure tubal occlusion 01/2014 and endometrial ablation in 03/2014 who presents today for her annual examination. She gets signs of a period with occasional spotting with wiping, but otherwise is amenorrheic. The patient is on Macrobid for bladder infection per online consultation. Her symptoms have improved today. She is nervous about Essure after reading about all the controversy online. Bladder and bowel function have been fine. Leandra quit smoking cold turkey last year for 5 months, and gained 15 pounds during that time. Shehas resumed smoking at this point. The patient is having some excessive fatigue. She is going on thetreadmill at least 4 times a week. Leandra mentions some back pain, and describes it as feeling like her lungs hurt. She is planning on pursuing breast reduction as she now feels that her implants aretoo big and contributing to her back pain. The patient denies any other lung symptoms such as cough,fever, chills, or uninentional weight loss. From a preventative care standpoint, mammogram will be due this coming December. I reviewed lipids and TSH from 2016 which were normal. There are no further concerns at this time. MEDICATIONS Current Outpatient Prescriptions Medication Sig Dispense Refill ??? biotin 1 mg tablet Take 1,000 mcg by mouth 3 (three) times a day. ??? nitrofurantoin monohydrate (for_MACROBID) 100 mg capsule Take 1 capsule (100 mg total) by mouth 2 (two) times a day for 5 days. 10 capsule 0 ??? PNV51/iron fum/FA/om-3/dha/epa ( MULTI-DHA ORAL) Take by mouth. No current facility-administered medications for this visit. ALLERGIES No Known Allergies SYSTEMS REVIEW Positive for back pain, weight gain, and fatigue. All other systems reviewed and negative except perHPI. PAST MEDICAL / SURGICAL HISTORY Past Medical History: Diagnosis Date ??? Spontaneous (HCC) x3 ??? Gestational Diabetes Mellitus Personal History Not ??? Menorrhagia Resolved with ablation Past Surgical [...] MISSED MISCARRIAGE OF FIRST TRIMESTER 2009 D&C PREVENTIVE SERVICES: Tobacco use: Positive. Mammogram: 01/01/2017. Pap smear: 12/13/2015 with negative HPV screen. Lipids: 12/13/2015. Depression: Negative. Asthma: Negative. IMMUNIZATIONS Immunization History Administered Date(s) Administered ??? Influenza, Unspecified 02/17/2011 ??? Tdap 06/07/2007, 06/04/2016 SOCIAL HISTORY Social History Social History ??? Marital status: Single Spouse name: N/A ??? Number of children: N/A ??? Years of education: N/A Social History Main Topics ??? Smoking status: Current Every Day Smoker ??? Smokeless tobacco: Not on file ??? Alcohol use Yes Comment: Occasional ??? Drug use: Unknown ??? Sexual activity: Not on file Comment: Essure Other Topics Concern ??? Not on file Social History Narrative She is exercising at least 4 days a week. History Drug use: Unknown History Alcohol Use ??? Yes Comment: Occasional FAMILY HISTORY Family History Problem Relation Age of Onset ??? Healthy adult Mother ??? Healthy adult Father OBJECTIVE VITAL SIGNS BP 98/64 (BP Location: Left arm, Patient Position: Sitting, Cuff Size: Regular) Pulse 80 Ht 165.1 cm Wt 62.3 kg BMI 22.86 kg/m?? PHYSICAL EXAMINATION General: Patient appears well groomed and well nourished. No acute distress. Oriented times three. Skin: Normal without any evidence of rash or lesions. Head: Normocephalic. ENT: Trachea midline. Lymph Nodes: Neck is supple. No significant adenopathy. Thyroid: Not enlarged. Regular in contour. Breasts: No masses. No lymphadenopathy. No nipple discharge. Please note that bilingual medical assistant, Prachi Thompson, was present as project controls scheduler for breast exam. Heart: Regular rate and rhythm without murmurs, rubs or gallops. No evidence of any peripheral vascular disease. Lungs: Clear to auscultation with good inspiratory effort. Abdomen: Soft and nontender. No masses, hepatosplenomegaly or hernias noted. No enlarged groin nodespalpable. Pelvis: Vagina and cervix appear normal without lesions, discharge or rashes. Uterus is small, mobile and nontender. Adnexa are without masses or tenderness. Please note that bilingual medical assistant, Prachi Thompson, was present as project controls scheduler for pelvic exam. Rectum: Deferred. Genitalia: External genitalia: Bartholin's, urethral, and [place]'s glands within normal limits. DIAGNOSTIC Fasting glucose, CBC, and TSH were ordered which patient will return to complete. ASSESSMENT / PLAN IMPRESSION/REPORT/PLAN 41 y.o. female amenorrheic status post endometrial ablation, and status post Essure tubal occlusion. Significant for smoking tobacco abuse, back pain, excessive fatigue, and weight gain. Normal TRESTLE MECHANIC examination. PLAN: 1. Health care maintenance: Pap smear is up to date. Mammogram will be due December 2017. Fasting glucose, CBC, and TSH were ordered which patient will return to complete. Immunizations were reviewed and are up to date. 2. Contraception: Status post Essure tubal ligation. 3. Smoking tobacco abuse: Counseling was given for smoking cessation. Patient was able to quit cold turkey last time. She will notify us if she would like assistance with this. 4. Musculoskeletal back pain: This is likely multifactorial and also related to poor posture. Recommendations were given for good posture and back stretching/strengthening exercises. Using a foam roller may also help. Advised on smoking cessation and getting in better shape before considering further c osmetic interventions. 5. Excessive fatigue: TSH was ordered to rule out thyroid dysfunction. I discussed that regular exercise may help with this. 6. Weight gain: Counseling was given for healthy diet and regular exercise. I recommended incorporating interval and strength training, and trying a diet low in processed carbs. 7. Follow up: Patient will return in one year for annual exam. She will contact the clinic with any [employer] related concerns. This document serves as a record of services personally performed by Adonay Kohli MD. It was created on their behalf by Prachi Thompson, a trained bilingual medical assistant. The creation of this record is based on the scribe's personal observations and the provider's statements to them. This document has been check ed and approved by the attending provider. documented in this encounter Plan of Treatment Not on filedocumented as of this encounter Results S-TSH (Thyroid-Stimulating Hormone - Sensitive) (06/22/2017 9:23 AM CDT) P athologist Signature TSH, Sensitive 1.5 0.3 - 4.2 06/22/2017 [facility] mIU/L 10:51 AM CDT [facility] Comment: Biotin has been identified by the odalis banegas as a potential interfering substance. ??Higher concentr ations of biotin may be found in multivitamins, hair/nail supple ments, and workout supplements. ??If the result does not ma tch clinical observations, repeat testing after patient refrains fr om the use of supplements for at least 12 hours. Specimen Anatomical Collection Method Collection Time Receive d Time (Source) Location / / Volume Laterality Blood (Blood, 06/22/2017 9:23 AM 06/23/19 18 9:26 Venous) CDT AM CDT Adonay Kohli Jr., M.D. LAB BLOOD ADD-ON Performing Organization Address City/[facility]/ZIP Code Phon e Number [facility] [address] [place] [id number] LAB Glucose, Fasting (06/22/2017 9:23 AM CDT) athologist Signature Glucose, 83 70 - 99 06/22/2017 [facility] Fasting, S mg/dL 10:51 AM T [facility] Specimen Anatomical Collection Method Collection Time Receive d Time (Source) Location / / Volume Laterality Blood (Blood, 06/22/2017 9:23 AM 06/23/19 18 9:26 Venous) CDT AM CDT Adonay Kohli Jr., M.D. LAB BLOOD NON ADD-ON Performing Organization Address City/[facility]/ZIP Code Phon e Number [facility] [address] [place] [id number] LAB CBC without Differential (06/22/2017 9:23 AM CDT) athologist Signature Hemoglobin 13.5 11.6 - 06/22/2017 [facility] 15.0 g/dL 9:39 AM T [facility] LAB Hematocrit 41.1 35.5 - 06/22/2017 [facility] 44.9 % 9:39 AM [facility] Erythrocytes 4.41 3.92 - 06/22/2017 [facility] 5.13 9:39 AM T [facility] x10(12)/L [facility] MCV 93.2 78.2 - 06/22/2017 [facility] 97.9 fL 9:39 AM [facility] [employer] LAB RBC Distrib Width 12.6 12.2 - 06/22/2017 [facility] 16.1 % 9:39 AM [facility] LAB Platelet Count 214 157 - 371 06/22/2017 [facility] x10(9)/L 9:39 AM [facility] LAB Leukocytes 8.1 3.4 - 9.6 06/22/2017 [facility] x10(9)/L 9:39 AM [facility]T [facility] LAB Specimen Anatomical Collection Method Collection Time Receive d Time (Source) Location / / Volume Laterality Blood (Blood, 06/22/2017 9:23 AM 06/23/19 18 9:26 Venous) CDT AM CDT Adonay Kohli Jr., M.D. LAB BLOOD ADD-ON Performing Organization Address City/State/ZIP Code Phon e Number [facility] [address] [place] [address] LAB documented in this encounter Visit Diagnoses Diagnosis Preventive Gynecological Exam - Primary documented in this encounter Care Teams Residential Mortgage Underwriter Relationship Specialty Start Date End Date Steven Escobar M.D. PCP - General 08/17/162[address] [place] [phone] documented as of this encounter
--- OUTSIDE RECORDS SUMMARY | 2021-10-12 00:43 | XMS_ITS | Encounter Summary ---
:1975 Author Organization [facility] Address [address] [place] [address] Care Team Providers Name Role Phone Unavailable Primary Care Provider Unavailable Encounter Details Date Type Department Care Team Description 05/17/2016 Hospital Encounter HX [facility] Surinder Elliott APRN, C.N.P., M. S.N. [address] [place] [phone] (Wo rk) Social History Tobacco Use Types [...] or relatives? How often do you attend restorationist or More than 4 times per year 08/17/2020 holiness services? Do you belong to any clubs or Yes 08/17/2020 organizations such as restorationist groups, unions, fraternal or athletic groups, or [...] place to sleep or slept in a long-term (including now)? Sex Assigned at Date Recorded Female 06/10/2017 5:21 PM CDT documented as of this encounter Last Filed Vital Signs Vital Sign Reading Time Taken Comments Blood Pressure - - Pulse - - Temperature - - Respiratory Rate - - Oxygen Saturation - - Inhaled Oxygen Concentration - - Weight - - Height 164 cm (5' 4.57) 05/17/2016 8:17 AM CDT Body Mass Index - - documented in this encounter Progress Notes Gee Robles APRN, C.N.P., M.S.N. - 05/17/2016 8:27 AM CDT Dear Leandra I am sorry you are not feeling well. Antibiotics are the typical treatment for a urinary tract infection (UTI). I have sent a prescription for the antibiotic Macrobid that you need to take twice a day for 5 days and the pain medication Pyridium that can be taken for 2 days. Pyridium can make all your body secretions orange and can stain contacts of you wear them. Usually, symptoms clear up within 48 hours of treatment. Take the entire course of antibiotics prescribed to ensure that the infection is completely gone. UTIs can be painful, but you can take steps to ease your discomfort until antibiotics clear the infection. Follow these tips: 1) Drink plenty of water to dilute your urine and help flush out bacteria; 2) Avoid drinks containing citrus juices and/or caffeine until your infection has cleared; 3) Apply aheating pad to your abdomen to minimize discomfort. Take these steps to reduce your risk of UTIs: 1) Drink plenty of liquids, especially water to diluteyour urine and help flush out bacteria; 2) Wipe from front to back after using the toilet; 3) Empty your bladder soon after intercourse; 4) Avoid potentially irritating feminine products such as deodorant sprays, douches and powders. If your symptoms are not better in 2 days, completely gone in 5 days, or return in 30 days, you should be seen in person for urine testing. I hope you feel better soon. Sincerely, Gee Robles APRN, BOTTLING SUPERVISOR From: Leandra Black To: [facility] Sent: 05/17/2016 8:12 AM CDT Subject: e-Visit for urinary tract infection Thank you for your message. It has been sent to the appropriate care team. May 17, 2016 7:58 AM Chief Complaint Leandra Black is a 40 year old female. The Lenora e-Visit for urinary tract infection screening questionnaire was administered. The following are the patient's responses. History of Present Illness #1. Lenora e-Visit for urinary tract infection: Duration: Patient reported: Urinary tract symptoms 5 to 6 days. Last menstrual period 4 to 6 weeks ago. Patient denied: Vaginal discharge within the last month. Timing: Patient reported: Strong urge to urinate. Severity: Patient reported: Urinary tract pain moderate (5-6/10). Wanting prescription for urinary tract pain. Quality: Patient reported: Cloudy urine. Painful urination. Frequent urination. Unable to completelyempty bladder. Patient denied: Blood in the urine. Pain in side. Surgery in pelvic or genital area within the past 3 months. Past, Family, and Social History Past Medical History Allergy and Immunology Patient denied: Immune system suppressed. Nephrology Patient denied: Urogenital disease with structural abnormality. Chronic kidney disease with impairedrenal function. Kidney infection within the last 3 months. Urology Patient denied: Urinary procedure within the last 2 weeks. Kidney stones. Surgical History Gynecology History of: Surgical contraception. Accidents and Injuries Patient denied: Abdominal trauma. History Patient denied: or thinks . Social History Patient reported: Living in a house. Sexual History History of: Unprotected sexual intercourse in the last 3 months. Current sexual activity. Patient reported: Using a form of control. Medication History Patient denied: Currently on digoxin, warfarin, phenytoin, or oral anti-fungal medication (azoles). Ongoing Medications Patient denied: Antibiotic treatment for urinary infection prevention. Past Medications Patient denied: Sulfonamide within the last 3 months. Patient reported: Never took anticoagulants (asubstance that helps with clotting of blood). Adverse Drug Reactions Patient denied: Medication side effect from antibiotics of yeast infection. Allergy History Medication Allergies Patient denied: Allergic reaction to sulfa. Nitrofurantoin allergy. Prior Treatments History of: Hospitalization. Antibiotic treatment for previous urinary tract infection. Treatment for urinary tract infection 1 to 3 years ago. Patient denied: Hospitalized within the last 2 weeks. Review of Systems Constitutional Patient denied: Fever in the last week. Breast Patient denied: Currently a child. Gastrointestinal Patient reported: Stomach pain comes and goes and is moderate. Mild sharp stomach pain. Patient denied: Abdominal pain other than suprapubic pain. Nausea or vomiting. Genitourinary Sexual Function Patient denied: Painful intercourse. Questions and Responses Are you having pain or burning when you urinate? Yes When you urinate, do you feel a sense of urgency (feeling like you have to go right away)? Yes Are you having pain or burning when you urinate? Yes When you urinate, do you feel a sense of urgency (feeling like you have to go right away)? Yes Have you noticed an increase in the number of times you urinate? Yes How long have you had urinary symptoms? 5 to 6 days The following questions are about your urinary tract symptoms. OK Is your urine cloudy or discolored? Yes Is there a foul odor to your urine? Don't know Do you have blood in your urine? No After urinating, do you sometimes feel you do not completely empty your bladder? Yes How would you rate your urinary tract pain on a scale of 1 to 10 (10 being severe pain)? 5 to 6 (Moderate pain) Do you feel prescription pain medication for your bladder discomfort (i.e. Pyridium) would be helpful? Yes Do you have abdominal pain? Sometimes Do you have flank pain, a pain in the side of your back below the ribs? No Have you had any abdominal pain located anywhere other than over your bladder (just above the pubic bone in your pelvis)? No To what degree would you describe your average stomach or abdominal pain as sharp? Mild What is the pattern of your stomach or abdominal pain that comes and goes? Comes and goes and is moderate Does sitting up or bringing your knees to the chest relieve the abdominal pain? Sometimes Did you have any accidents or trauma to the abdomen with 24 hours of the symptoms beginning? No As part of your current illness, have you had a problem with nausea or vomiting? No Have you had a fever in the past week? No Are you , or is there a possibility that you could be ? No Are you currently ? No When was the first day of your last menstrual cycle? Between 4 and 6 weeks ago In the past month, have you had an unusual discharge or drainage from your vagina? No Are you currently sexually active or do you have sex? Yes Have you had unprotected intercourse (sex) in the past three months? Yes Are you currently using any form of control? Yes What type of control method do you use? Surgery (tubal ligation, hysterectomy, vasectomy) Do you feel pain during vaginal sex? No The next section of this interview asks about past medical conditions that may be related to your symptoms. OK Have you ever been treated with an antibiotic for a urinary tract infection? Yes How recently were you last treated for a urinary tract infection? Between 1 year and 3 years ago Do you take antibiotics regularly to prevent recurrent urinary tract infections? No Have you had a kidney infection in the last 3 months? No Have you been told that you have any significant reduction in the function of your kidneys? No Have you ever had a problem with kidney stones? No Have you had a urinary procedure or catheterization with the last 2 weeks? No Within the past 3 months have you had any surgery of the kidneys, bladder, or female organs? No Have you been told that you have any abnormalities of your bladder, kidneys, or ureters? Examples might be having only a single kidney, or an abnormality of the tubes that carry urine to your bladder, or polyps in your bladder. No Have you ever been hospitalized? Yes Have you been hospitalized within the past two weeks? No Some conditions that affect your immunity are diabetes, cancer, kidney or liver disease, HIV, spleenremoval, a transplant, rheumatological disorders (like rheumatoid arthritis or lupus), and certain treatments like taking steroids (cortisone or prednisone) or chemotherapy. Do you have any conditions or take any treatments that affect your immunity? No Where do you live? House [employer] work. Now we will ask you questions about symptoms that could be important concerns with certain treatment options. OK Have you taken a sulfa antibiotics, sulfonamide, sulfamethoxazole and trimethoprim (Bactrim or Septra) in the last 3 months? No Are you allergic to sulfa or sulfonamide drugs? No Do you have an allergy to nitrofurantoin (Macrobid)? No Have you had recurring vaginal yeast infections related to taking antibiotics? No Examples of blood thinners are aspirin, dipyridamole (Persantin), warfarin (Coumadin), clopidogrel (Plavix), ticlopidine (Ticlid), rivaroxaban (Xarelto), apixaban (Eliquis), dabigatran (Pradaxa), and ticagrelor (Brilinta). Describe your use of blood thinning medications for anticoagulation. Never used Are you currently taking digoxin (Lanoxin), warfarin (Coumadin), phenytoin (Dilantin), or oral anti-fungal medications (azoles including clotrimazole, fluconazole, itraconazole)? No Pharmacy Information: Patient Phone Number: [phone] Patient Location: [place] Pharmacy Name: [id number] [facility] Location and City: [facility] Zip Code: [address] Electronically Signed By: GEE ROBLES APRN, CNP MSN On: 06/14/2016 08:51 PM Source: [facility] Document Id: [id number] documented in this encounter Plan of Treatment Not on filedocumented as of this encounter Visit Diagnoses Not on filedocumented in this encounter
--- OUTSIDE RECORDS SUMMARY | 2021-10-12 00:43 | XMS_ITS | Encounter Summary ---
:1975 Author Organization [facility] Address [address] [place] [address] Care Team Providers Name Role Phone Steven Escobar M.D. Primary Care Provider [phone] Encounter Details Date Type Department Care Team Description 02/04/2018 Orders Only Department of Obstetrics Adonay Kohli Jr., and Gynecology in [place], [place] [address] [address] [place] [address] [phone] Social History Tobacco Use Types Packs/Day Years [...] on filedocumented in this encounter Care Teams Lead Man Over All Dies In Pattern Shop Relationship Specialty Start Date End Date Steven Escobar M.D. PCP - General 08/17/16 [address], [place] [address] documented as of this encounter
--- OUTSIDE RECORDS SUMMARY | 2021-10-12 00:43 | XMS_ITS | Encounter Summary ---
:1975 Author Organization [facility] Address [address] [place] [address] Care Team Providers Name Role Phone Unavailable Primary Care Provider Unavailable Encounter Details Date Type Department Care Team Description 12/24/2015 Hospital Encounter HX NO MAPPING Erinn Fountain APRN, C.N.P., M.S.N. [address] [place], [place] [phone] (Wo rk) Social History [...] or slept in a retirement (including now)? Sex Assigned at Date Recorded Female 06/10/2017 5:21 PM CDT documented as of this encounter Miscellaneous Notes Miscellaneous - Conversion, Historical Provider Ser - 12/24/2015 11:59 PM CDT Coding Summary-Paper Based CODING DATE: 01/03/2016 FINAL [facility] STATUS: * Discharged to Home or Self Care PAYOR: Medicaid ADMIT DX: REASON FOR VISIT DX: FINAL DX: PRINCIPAL: J02.9 Acute pharyngitis, unspecified SECONDARY: PROCEDURES DOCTOR NAME DATE NOTE: The code number assigned matches the documented diagnosis and / or procedure in the patient's chart. However, the narrative phrase printed from the coding software may appear abbreviated, or result in slightly different terminology. Coded By: LUIS ANTONIO MORELAND Date Saved: 01/03/2016 02:00 pm [facility] Document Id: [id number] documented in this encounter Plan of Treatment Not on filedocumented as of this encounter Visit Diagnoses Not on filedocumented in this encounter
--- OUTSIDE RECORDS SUMMARY | 2021-10-12 00:43 | XMS_ITS | Encounter Summary ---
:1975 Author Organization [facility] Address [address] [place] [address] Care Team Providers Name Role Phone Steven Escobar M.D. Primary Care Provider [phone] Reason for Visit Reason Comments Communication Encounter Details Date Type Department Care Team Description 05/24/2017 Clinical Communication Department of Adonay Kohli Internal Medicine in [place], [place] [address] [place] [phone] Social History Tobacco Use Types Packs/Day Years [...] or relatives? How often do you attend jew or More than 4 times per year 08/17/2020 sabianist services? Do you belong to any clubs or Yes 08/17/2020 organizations such as jew groups, unions, fraternal or athletic groups, or [...] or slept in a chcf (including now)? Sex Assigned at Date Recorded Female 06/10/2017 5:21 PM CDT documented as of this encounter Miscellaneous Notes Telephone Encounter - Bailey Dorantes R.N. - 05/24/2017 1:28 PM CDT Leandra says that she is wanting to schedule an appointment with Dr. Kohli. She had an Essure about 5 years ago and ablation a couple of years ago. She has noticed an increase on back discomfort/pelvic cramping similar to menstrual cramps and spotting on and off. Transferred to PSR to schedule appointment with Dr. Kohli. Advised to call if symptoms worsen prior to appointment. Telephone Encounter - Johnathan Jang - 05/24/2017 12:34 PM CDT Leandra had Essure. She said she has been having spotting, pain, fatigue and feeling ill. She is wanting to know if this is related to her Essure, or if she should be seen. Please call her back, emma. documented in this encounter Plan of Treatment Not on filedocumented as of this encounter Visit Diagnoses Not on filedocumented in this encounter Care Teams National Sales Manager Relationship Specialty Start Date End Date Steven Escobar M.D. PCP - General 08/17/[address] [address] documented as of this encounter
--- OUTSIDE RECORDS SUMMARY | 2021-10-12 00:43 | XMS_ITS | Encounter Summary ---
:1975 Author Organization [facility] Address [address] [place] [address] Care Team Providers Name Role Phone Steven Escobar M.D. Primary Care Provider [phone] Encounter Details Date Type Department Care Team Description 01/07/2018 Hospital Encounter Department of Luz Screen ing Mammogram Radiology in Steven Moreno M.D. Average Risk Patient [place], [place] [address] [place] [phone] Social History Tobacco Use Types Packs/Day Years [...] or relatives? How often do you attend orthodoxy or More than 4 times per year 08/17/2020 alevism services? Do you belong to any clubs or Yes 08/17/2020 organizations such as orthodoxy groups, unions, fraternal or athletic groups, or [...] slept in a care home (including now)? Sex Assigned at Date Recorded Female 06/10/2017 5:21 PM CDT documented as of this encounter Medications at Time of Discharge Medication Sig Dispensed Refills Start Date End Date biotin 1 mg tablet Take 1,000 mcg by 0 03/22/2020 mouth as needed. PNV51/iron Take by mouth as 0 03/22/19 21 fum/FA/om-3/dha/epa needed. ( MULTI-DHA ORAL) documented as of this encounter Plan of Treatment Not on filedocumented as of this encounter Procedures Procedure Name Priority Date/Time Associated Comments Diagnosis BI BREAST RAD - Routine 01/07/2018 9:13 Screening Results for this SCREENING (most inpatients AM SCARFER Mammogram Average proced ure are in BILATERAL and all Risk Patient the results outpatients) section. documented in this encounter Results BI Breast Screening Bilateral (01/07/2018 9:13 AM SCARFER) Anatomical Region Laterality Modality Breast, Breast Imaging RST LOS, Breast Imaging ARZ LOS, [address] Bilateral Mammography Imaging FLA LOS Specimen (Source) Anatomical Collection Method Collection Time Re ceived Time Location / / Volume Laterality 01/07/2018 12:08 PM SCARFER Impressions 01/07/2018 12:11 PM SCARFER IMPRESSION: ??Negative. RECOMMENDATION: ??Annual Screening Mammo gram ASSESSMENT: ??BI-RADS: 1: Negative. Narrative 01/07/2018 12:11 PM SCARFER EXAM: ??BI BREAST SCREENING BILATERAL Current study [...] BILATERAL Current study was evaluated with a Integral Ad Scienceu ter Aided Detection (CAD) system. INDICATION: Screening [...] Diagnoses Diagnosis Screening Mammogram Average Risk Patient documented in this encounter Care Teams Journeyman Power Plant Operator Relationship Specialty Start Date End Date Steven Escobar M.D. PCP - General 08/17/[address] [address] documented as of this encounter
--- OUTSIDE RECORDS SUMMARY | 2021-10-12 00:43 | XMS_ITS | Encounter Summary ---
:1975 Author Organization [facility] Address [address] [place] [address] Care Team Providers Name Role Phone Steven Escobar M.D. Primary Care Provider [phone] Reason for Referral Outpatient (Routine) - Closed Specialty Diagnoses / Procedures Referred By Contact Refer red To Contact Obstetrics and Adonay Kohli [facility] on Gynecology [place] [address], [place] [address] Referral ID Status Reason Start Date Expiration Date Visits Requ ested Visits Authorized [id number] Closed 06/11/2018 06/11/2019 1 1 Encounter Details Date Type Department Care Team Description 06/11/2018 Clinical Communication Department of Adonay Kohli Obstetrics lisseth Cosby M.D. Gynecology in [address] [place], [place] [address] [facility] [address] [place], [place] [phone] (Work) [phone] Social History Tobacco Use Types Packs/Day Years [...] or relatives? How often do you attend synagogue or More than 4 times per year 08/17/2020 yarsanism services? Do you belong to any clubs or Yes 08/17/2020 organizations such as synagogue groups, unions, fraternal or athletic groups, or [...] or slept in a halfway (including now)? Sex Assigned at Date Recorded Female 06/10/2017 5:21 PM CDT documented as of this encounter Miscellaneous Notes Telephone Encounter - Lilly Tristan M.D. - 06/11/2018 1:47 PM CDT Noted. Telephone Encounter - Carmella Clemente R.N. - 06/11/2018 1:37 PM CDT Patient notified and agrees with plan. She stated her Chiropractor is in [facility]. She will contact us with any concerns prior to her appt. Telephone Encounter - Lilly Tristan M.D. - 06/11/2018 1:26 PM CDT The x ray shows normal appearance of the Essure coils. Essure coils almost never appear completely symmetric on x-ray, and their location on the x-ray is appropriate. This is not a concern. Follow up on the is appropriate. Please let the patient know. Please find out who her chiropractor is. Addendum Note - Carmella Clemente R.N. - 06/11/2018 10:29 AM CDT Addended by: CARMELLA CLEMENTE on: 06/11/2018 10:29 AM Modules accepted: Orders Telephone Encounter - Carmella Clemente R.N. - 06/11/2018 10:22 AM CDT Spoke with patient. She stated that she has been having lower back pain that is random and intermittent. She also has been having numb legs so she presented to the chiropractor for evaluation. They performed a xray and she stated that her ESSURE coils look out of place. She stated that [address] lower than the other one. Her Chiropractor stated to follow up with BUTTON INSPECTOR. ESSURE was placed 01/[address] Kohli. She also stated that she has been having pain after intercourse. She was advised to make anappt for evaluation. She was sent to scheduling. She stated that she will also be sending the x-ray picture via on-line portal. Can you please review the images under media in chart and let me know if she should be seen prior to 07/[address] Kohli? Thank you! Telephone Encounter - Lucita Concepcion - 06/11/2018 8:43 AM CDT Patient has had the Essure procedure and and states that she was at the Chiropractor yesterday and they did xrays of her back. She states that you can see the Essure things and they are in some weird spots. She would like to discuss this with the provider or nurse. She does have another chiropractor ap pointment today at 9:20 so she is requesting a call back before 9:20 or after 10:00 today. You can call her back at [phone]. documented in this encounter Plan of Treatment Scheduled Referrals Name Type Priority Associated Order Schedule Diagnoses Obstetrics and Outpatient Referral Routine Expect ed: Gynecology office 06/11/2018 visit (clinic) (Approximate) , Expires: 06/11/2021 documented as of this encounter Visit Diagnoses Not on filedocumented in this encounter Care Teams Men'S Golf Coach Relationship Specialty Start Date End Date Steven Escobar M.D. PCP - General 08/17/[address] [address] documented as of this encounter
--- OUTSIDE RECORDS SUMMARY | 2021-10-12 00:43 | XMS_ITS | Encounter Summary ---
:1975 Author Organization [facility] Address [address] [place] [address] Care Team Providers Name Role Phone Steven Escobar M.D. Primary Care Provider [phone] Reason for Visit Reason Onset Date Comments RX order- from appt today 07/02/2018 Encounter Details Date Type Department Care Team Description 07/02/2018 Clinical Communication Department of Adonay Kohli RX order- from appt Obstetrics Neptali Cosby M.D. today Gynecology in [address], [place] [address] [place] [phone] Social History Tobacco Use [...] More than 4 times per year 08/17/2020 mandaen services? Do you belong to any clubs [...] Encounter - Adonay Kohli Jr., M.D. - 07/02/2018 4:17 PM CDT Done. Telephone Encounter - Ethan Hanson - 07/02/2018 4:03 PM CDT Reason for Communication: Pt calling to see if Dr Kohli had placed the order for a nicotine patch- or something like that- for her? She checked the [facility] in [place], but they did not have the order. Wondering if the order could be sent to [facility] in [place] instead. Current Can Nursing/Provider leave a detailed message: yes Did the patient refuse triage through Nurse line? (for symptom based concerns): na Action Needed: [facility] [place] Name of Medication (if relevant): nicotine patch documented in this encounter Plan of Treatment Not on filedocumented as of this encounter Visit Diagnoses Not on filedocumented in this encounter Care Teams Installer Technician Relationship Specialty Start Date End Date Steven Escobar M.D. PCP - General 08/17/[address] [phone] documented as of this encounter
--- OUTSIDE RECORDS SUMMARY | 2021-10-12 00:43 | XMS_ITS | Encounter Summary ---
:1975 Author Organization [facility] Address [address] [place] [address] Care Team Providers Name Role Phone Steven Escobar M.D. Primary Care Provider [phone] Reason for Referral MRI/CAT/PET Scan (Routine) - Closed Specialty Diagnoses / Procedures Referred By Contact Refer red To Contact Radiology Diagnoses Headache Unspecified Adonay Kohli Jr., M.D. [facility] [place] [facility] Procedures MR Brain Angiogram without IV Contrast MR Brain Angiogram without and with IV Contrast ID MRA HEAD WO/W CNTRST HC MRA HEAD WO/W CNTRST ID MRA HEAD WO/W CNTRST ID MRA HEAD WO CNTRST HC MRA HEAD WO CNTRST ID MRA HEAD WO CNTRST [address] [place] [address] Referral ID Status Reason Start Date Expiration Date Visits Requ ested Visits Authorized [id number] Closed 07/02/2018 07/02/2019 1 1 Reason for Visit MRI/CAT/PET Scan (Routine) - Closed Specialty Diagnoses / Procedures Referred By Contact Refer red To Contact Radiology Diagnoses Headache Unspecified Adonay Kohli Jr., M.D. [facility] [place] [facility] Procedures MR Brain Angiogram without IV Contrast MR Brain Angiogram without and with IV Contrast ID MRA HEAD WO/W CNTRST HC MRA HEAD WO/W CNTRST ID MRA HEAD WO/W CNTRST ID MRA HEAD WO CNTRST HC MRA HEAD WO CNTRST ID MRA HEAD WO CNTRST [address] [place] [phone] Referral ID Status Reason Start Date Expiration Date Visits Requ ested Visits Authorized [id number] Closed 07/02/2018 07/02/2019 1 1 Encounter Details Date Type Department Care Team Description 07/09/2018 Hospital Encounter Department of Radiology Rufino Kohli Headache in [place], Aury mccartney Jr., M.D. [address] [place] [address] [place], [place] [phone] (Wo rk) Social History Tobacco Use [...] or slept in a alf (including now)? Sex Assigned at Date Recorded [...] Comments Diagnosis MR BRAIN RAD - Routine 07/09/2018 11:41 Headache Results fo r this ANGIOGRAM WITHOUT (most inpatients AM CDT proced ure are in IV CONTRAST and all the [...] Adonay Kohli Jr., M.D. IMG MRI PROCEDURES documented in this encounter Visit Diagnoses Diagnosis Headache Unspecified documented in this encounter Care Teams Cattle Sorter Relationship Specialty Start Date End Date Steven Escobar M.D. PCP - General 08/17/[address] [phone] documented as of this encounter
--- OUTSIDE RECORDS SUMMARY | 2021-10-12 00:43 | XMS_ITS | Encounter Summary ---
:1975 Author Organization [facility] Address [address] [place] [address] Care Team Providers Name Role Phone Steven Escobar M.D. Primary Care Provider [phone] Reason for Referral Outpatient (Routine) - Closed Specialty Diagnoses / Procedures Referred By Contact Refer red To Contact Neurology Diagnoses Aneurysm Of Other Specified Arteries (HCC) Lilly Tristan M.D. [place] [facility] [address] [place] [phone] Referral ID Status Reason Start Date Expiration Date Visits V isits Requested Authorized [id number] Closed Specialty 07/11/2018 07/11/2019 1 1 Services Required Encounter Details Date Type Department Care Team Description 07/11/2018 Clinical Communication Department of Kun, Obstetrics and Romi Carr Gynecology in [address] [place] [phone] [place], [place] [phone] (Work) [phone] Social History Tobacco Use Types Packs/Day Years [...] or relatives? How often do you attend yazdanism or More than 4 times per year 08/17/2020 methodist services? Do you belong to any clubs or Yes 08/17/2020 organizations such as yazdanism groups, unions, fraternal or athletic groups, or [...] Encounter - Lilly Tristan M.D. - 07/11/2018 5:07 PM CDT I was contacted that neurosurgery will not see the patient but that neurology referral is necessary.Neurology order was placed. documented in this encounter Plan of Treatment Scheduled Referrals Name Type Priority Associated Diagnoses Order Mateus matson Neurology - General Outpatient Referral Routine Aneurysm Of Ot her Expected: consult (clinic) Specified Arteries 07/11 ([facility]) (Approximate), Expires: 07/11/2021 documented as of this encounter Visit Diagnoses Diagnosis Aneurysm Of Other Specified Arteries (HC C) - Primary documented in this encounter Care Teams Superintendent Terminal Relationship Specialty Start Date End Date Steven Escobar M.D. PCP - General 08/17/[address] [place] [phone] documented as of this encounter
--- OUTSIDE RECORDS SUMMARY | 2021-10-12 00:43 | XMS_ITS | Encounter Summary ---
:1975 Author Organization [facility] Address [address] [place] [address] Care Team Providers Name Role Phone Steven Escobar M.D. Primary Care Provider [phone] Reason for Referral Outpatient (Routine) - Closed Specialty Diagnoses / Procedures Referred By Contact Refer red To Contact Neurology Diagnoses Aneurysm Of Other Specified Arteries (HCC) Migraine Headache Abuse Tobacco Smoking Dru Warner M.B., [facility] Procedures Neurology - Cerebrovascular eConsult B.Ch. [address] [place] [phone] Referral ID Status Reason Start Date Expiration Date Visits Requ ested Visits Authorized [id number] Closed 07/15/2018 07/15/2019 1 1 MRI/CAT/PET Scan (Routine) - Closed Specialty Diagnoses / Procedures Referred By Contact Refer red To Contact Radiology Diagnoses Aneurysm Of Other Specified Arteries (HCC) Migraine Headache Abuse Tobacco Smoking Dru Warner M.B., [facility] Procedures MR Brain without and with IV Contrast [place] MRI BRAIN WO/W CNTRST HC MRI BRAIN WO/W CNTRST B.Ch. [address] [place] [phone] Referral ID Status Reason Start Date Expiration Date Visits Requ ested Visits Authorized [id number] Closed 07/15/2018 07/15/2019 1 1 Reason for Visit Outpatient (Routine) - Closed Specialty Diagnoses / Procedures Referred By Contact Refer red To Contact Neurology Diagnoses Aneurysm Of Other Specified Arteries (HCC) Lilly Tristan M.D. [facility] [address] [place] [phone] Referral ID Status Reason Start Date Expiration Date Visits V isits Requested Authorized [id number] Closed Specialty 07/11/2018 07/11/2019 1 1 Services Required Encounter Details Date Type Department Care Team Description 07/15/2018 Comprehensive Visit Department of Lilly Tristan M.D. [address] [place] [phone] Migraine Headache (Primary Dx); Neurology in [facility] Josue Cortes, B.Ch. [address] [place] [address] Aneurysm Of Other Specified Arteries (HC C); [place], [place] Abuse Tobacco Smoking [address] [place] [phone] Social History Tobacco Use Types Packs/Day Years Used Date Smoking Tobacco: Every Day Cigarettes 1 24 Smokeless Tobacco: Never Tobacco Cessation: Ready to Quit: Yes; C ounseling Given: Yes Alcohol Use Standard Drinks/Week Comments Yes 0 [...] More than 4 times per year 08/17/2020 buddhist services? Do you belong to any clubs [...] documented as of this encounter Consult Notes Dru Warner M.B., B.Ch. - 07/15/2018 11:00 AM CDT REFERRAL SOURCE Lilly Tristan M.D. CHIEF COMPLAINT / REASON FOR VISIT Brain aneurysm HISTORY OF PRESENT ILLNESS Leandra Black is a 42 y.o. right-handed female who presents for evaluation of theabove complaint. She gives a clear history. She has had headaches on and off all her life dating back to her teenage years. These would not be unilateral and could be in the occipital region or in the frontal region. When they are more severe, she would have some dislike of the light and phonophobia. They do not tend to be pulsating and her more of a dull ache. She does not get any aura with the headaches. Exertion however would make them worse and she would try and avoid that when she would have them. She has neverhad to attend the emergency department with these. She denies any nausea vomiting with them. It is of note that her sister and mother have migraine headaches. These tend to happen a few times a week. They would last a few hours at a time and tend to resolve with ibuprofen, Aleve or Excedrin migraine. There does not seem to be any relationship with menstruation. She does not notice any food triggers but does mention that if she misses a meal that may trigger headache. She drinks 1 cup of coffee or happened could coffee per day and drinks 1 other caffeinated beverage per day. In recent months, she noticed that she would have some occasional episodes of blurred vision in her right eye that could last anywhere from a few minutes to a few hours. It would never last longer thana day. It would seem like there was the part of her vision missing. There would be no color or flashing lights within this area. It was not always followed by headache and seem to be not time locked with any headaches. She has also noticed a pulsatile sensation in her head. She does tend to work out in the gym and will occasionally feel at that time or at other times. She does notice in 1 year or theother but more throughout her head. This is also been going on over the last few months. 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 She comes today for further evaluation of this. It is of note she is a smoker. She does not use any illicit substances right now (but has used in the past cocaine). She has never had an exertion induced headache with exercise or sexual intercourse. The following portions of the patient's history [...] D&C No Known Allergies MEDICATIONS Current Outpatient Prescriptions: ??? biotin 1 mg tablet, Take 1,000 mcg by mouth 3 (three) times a day., Disp: , Rfl: ??? [START ON 07/16/2018] nicotine (NICODERM CQ) 14 mg/[address], [address] 1 patch on the skin daily.,Disp: 30 patch, Rfl: 0 ??? nicotine (NICODERM CQ) 21 mg/24 hr patch, Place 1 patch on the skin daily., Disp: 30 patch, Rfl:0 ??? [START ON 07/30/2018] nicotine (NICODERM CQ) 7 mg/24 hr patch, Place 1 patch on the skin daily., Disp: 30 patch, Rfl: 0 ??? PNV51/iron fum/FA/om-3/dha/epa ( MULTI-DHA ORAL), Take by mouth., Disp: , Rfl: FAMILY HISTORY Family History Problem Relation Age of Onset ??? Healthy adult Mother ??? Healthy adult Father ??? Breast cancer Maternal Grandmother ??? AVM Sister Ruptured in 20's; underwent surgery SOCIAL HISTORY Social History Social History ??? Marital status: Single Spouse name: N/A ??? Number of children: N/A ??? Years of education: N/A Social History Main Topics ??? Smoking status: Current Every Day Smoker Packs/day: 1.00 Years: 24.00 ??? Smokeless tobacco: Never Used ??? Alcohol use Yes Comment: Occasional ??? Drug use: No Comment: Prior cocaine use ??? Sexual activity: Not on file Comment: Essure Other Topics Concern ??? Not on file Social History Narrative She is exercising at least 4 days a week. PHYSICAL EXAM There were no vitals taken for this visit. For details of the neurologic examination, please see the neurologic examination form. Her neurologic examination is normal. There was no cranial, orbital or occipital bruits. LABORATORY INVESTIGATIONS A CBC on 06/22/2017 was normal. NEUROIMAGING We reviewed her MRA of the head which shows a 1.5 mm aneurysm in the anterior communicating artery. 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 Her neurologic examination is normal. She has had headaches that I suspect are migrainous. She has also had some episodic blurred vision in her right eye that also I suspect is a migrainous aura. She understands that these symptoms are likely unrelated to the aneurysm. She also understands that she should try and quit smoking and we discussed the somewhat today. She has had some pulsatile tinnitus and her sister had a cerebral AVM. She has not had an MRI of her head and therefore I will arrange for that in addition to an E consultation with our cerebrovascular colleagues to assess any restrictions that she needs to take (I do not think there are any major ones) and how best to see really follow the aneurysm. I greatly appreciate their assistance. I will follow up with the patient over thephone once the results are back. PATIENT EDUCATION Ready to learn, no apparent learning barriers were identified; learning preferences include listening. Explained diagnosis and treatment plan; patient expressed understanding of the content. Total time: 45 mins; I personally spent over half of total minutes face to face with the patient in counseling and discussion and/or coordination of care as described above. documented in this encounter Plan of Treatment Not on filedocumented as of this encounter Results MR Brain without and with IV Contrast (07/18/2018 9:48 AM CDT) Anatomical Region Laterality Modality Head, Brain, Neuroradiology RST LOS, Neuroradiology ARZ N/A Magnetic Resonance LOS, Neuroradiology FLA [facility] Specimen (Source) Anatomical Collection Method Collection [...] patien t's symptoms is identified. Dru Salas, B.Ch. IMG MRI PROCEDURES documented in this encounter Visit Diagnoses Diagnosis Migraine Headache - Primary Aneurysm Of Other Specified Arteries (HC C) Abuse Tobacco Smoking Aneurysm Of Other Specified Arteries (HC C) Migraine Headache Abuse Tobacco Smoking documented in this encounter Care Teams City Auditor Relationship Specialty Start Date End Date Steven Escobar M.D. PCP - General 08/17/16 [address] [place] [phone] documented as of this encounter
--- OUTSIDE RECORDS SUMMARY | 2021-10-12 00:43 | XMS_ITS | Encounter Summary ---
:1975 Author Organization [facility] Address [address] [place] [address] Care Team Providers Name Role Phone Steven Escobar M.D. Primary Care Provider [phone] Encounter Details Date Type Department Care Team Description 06/13/2017 E-Visit [facility] Yuliana Tony, RE: E-Visit Sub[facility] C.N.P. Urinary tract infections [address] [facility] (females only, age 12 [place] [address] [place], [place] through 75) [phone] Social History Tobacco Use Types Packs/Day Years [...] or relatives? How often do you attend temple or More than 4 times per year 08/17/2020 worship services? Do you belong to any clubs or Yes 08/17/2020 organizations such as temple groups, unions, fraternal or athletic groups, or [...] Primary documented in this encounter Care Teams Grants Director Relationship Specialty Start Date End Date Steven Escobar M.D. PCP - General 08/17/160 [place] [phone] documented as of this encounter
--- OUTSIDE RECORDS SUMMARY | 2021-10-12 00:43 | XMS_ITS | Encounter Summary ---
:1975 Author Organization [facility] Address [address] [place] [address] Care Team Providers Name Role Phone Steven Escobar M.D. Primary Care Provider [phone] Reason for Visit Reason Comments Communication Encounter Details Date Type Department Care Team Description 06/14/2017 Clinical Communication Department of Adonay Kohli mmunication Ophthalmology in Sona Cosby M.D. [place], [place] [address] [place] [phone] Social History Tobacco Use Types Packs/Day Years [...] encounter Miscellaneous Notes Telephone Encounter - Nicole Khalil L.P.N. - 06/14/2017 8:45 AM CDT Spoke with patient. States she has been having pelvic pain over the last few months that started well before being treated for UTI. Advised it is completely up to her if she wants to come in today. Notified he would likely want to do an exam to evaluate her pelvic pain symptoms so as long as she is comfortable with that we can see her. Patient has elected to keep her appt. today in clinic. Telephone Encounter - Jacqueline Solo - 06/14/2017 8:31 AM CDT Pt called regarding her appt she has today with Dr. Kohli. Pt was diagnosed with a UTI yesterday and started medication for it. Pt was wondering if today's appt should be postponed or if she is still ok to come in. Please call pt to advise [phone] documented in this encounter Plan of Treatment Not on filedocumented as of this encounter Visit Diagnoses Not on filedocumented in this encounter Care Teams Ornamental Machine Operator Relationship Specialty Start Date End Date Steven Escobar M.D. PCP - General 08/17/16 [address] [place] [phone] documented as of this encounter
--- OUTSIDE RECORDS SUMMARY | 2021-10-12 00:43 | XMS_ITS | Encounter Summary ---
:1975 Author Organization [facility] Address [address] [place] [address] Care Team Providers Name Role Phone Steven Escobar M.D. Primary Care Provider [phone] Reason for Visit Reason Comments Communication Encounter Details Date Type Department Care Team Description 06/19/2017 Clinical Communication Department of Adonay Kohli Obstetrics and Romi Cosby Gynecology in [address] [place], [place] 200 [facility] [address] [place], [place] [phone] (Work) [phone] Social History Tobacco Use Types Packs/Day Years [...] or slept in a correction (including now)? Sex Assigned at Date Recorded Female 06/10/2017 5:21 PM CDT documented as of this encounter Miscellaneous Notes Telephone Encounter - Adonay Kohli Jr., M.D. - 06/19/2017 11:52 AM CDT Called her, going to try journalling, exercise, cutting back on caffeine and nicotine. Appointment for 2-3 weeks if needed is scheduled. Telephone Encounter - Nicole Khalil L.P.N. - 06/19/2017 10:56 AM CDT Please advise. Telephone Encounter - Lucita Concepcion - 06/19/2017 10:50 AM CDT I called the patient to schedule her fasting labs per Dr. Kohli. She is scheduled for Sunday in [place]. She also wanted me to leave a message for Dr. Kohli regarding some anxiety issues she has been having. She would like to talk to him about this if possible. She would like Dr. Kohli to call [facility] [place] [phone]. documented in this encounter Plan of Treatment Not on filedocumented as of this encounter Visit Diagnoses Not on filedocumented in this encounter Care Teams Microfilm Processor Relationship Specialty Start Date End Date Steven Escobar M.D. PCP - General 08/17/16 [address] [place] [phone] documented as of this encounter
--- OUTSIDE RECORDS SUMMARY | 2021-10-12 00:43 | XMS_ITS | Encounter Summary ---
:1975 Author Organization [facility] Address [address] [place] [address] Care Team Providers Name Role Phone Steven Escobar M.D. Primary Care Provider [phone] Encounter Details Date Type Department Care Team Description 07/02/2018 Orders Only Department of Obstetrics Adonay Kohli Jr., and Gynecology in [place], [place] [address] [place] [address] [place] [address] [phone] Social History Tobacco Use Types Packs/Day Years [...] or relatives? How often do you attend yazidi or More than 4 times per year 08/17/2020 sikh services? Do you belong to any clubs or Yes 08/17/2020 organizations such as yazidi groups, unions, fraternal or athletic groups, or [...] on filedocumented in this encounter Care Teams Process Artist Relationship Specialty Start Date End Date Steven Escobar M.D. PCP - General 08/17/16 [address], [place] [address] documented as of this encounter
--- OUTSIDE RECORDS SUMMARY | 2021-10-12 00:43 | XMS_ITS | Encounter Summary ---
:1975 Author Organization [facility] Address [address] [place] [address] Care Team Providers Name Role Phone Unavailable Primary Care Provider Unavailable Encounter Details Date Type Department Care Team Description 06/04/2016 Hospital Encounter HX [facility] Tono Lopez, TAHMINA, C.N.P., D.N.P. [address] [place] [phone] (Wo rk) Social History Tobacco Use Types [...] slept in a group home (including now)? Sex Assigned at Date Recorded Female 06/10/2017 5:21 PM CDT documented as of this encounter Last Filed Vital Signs Vital Sign Reading Time Taken Comments Blood Pressure 118/73 06/04/2016 4:21 PM CDT Pulse 85 06/04/2016 4:21 PM CDT Temperature - - Respiratory Rate 18 06/04/2016 4:21 PM CDT Oxygen Saturation - - Inhaled Oxygen Concentration - - Weight - - Height 164 cm (5' 4.57) 06/04/2016 4:21 PM CDT Body Mass Index - - documented in this encounter Discharge Summaries Yordan Bhagat L.P.N. - 06/04/2016 4:59 PM CDT ED Discharge Instructions [facility] [address] [place] [address] Name: LEANDRA BLACK Date of : 1975 12:00 AM Visit Date: 06/04/2016 4:08 PM [facility] Number: [id number] Address: [address] [place] [phone] Primary Care Provider: LIS WARD MD IMPORTANT: [facility] in [place] would like to thank you for allowing us to assist youwith your healthcare needs. The following includes patient education materials and information regarding your injury/illness. Diagnosis: Abrasion Cornea Initial L Follow-Up Instructions: With: Address: When: Follow up with primary care provider Within As Needed Your Upcoming Appointments: Date Time Location Provider No Appointments found Patient Education Materials: Corneal Abrasion The cornea is the clear part in the front of the eye. This sensitive area is very painful when injured. There may be tearing and your vision may be blurry until healing occurs. You may be sensitive to light. This part of the body heals quickly. You can expect the pain to go away within 24-48 hours. If the abrasion is large or deep, your doctor may apply an eye patch, although this is not always done. An antibiotic ointment or eye drops may also be used to prevent infection. Numbing drops may be used to relieve the pain temporarily so that your eyes can be examined. However, these drops cannot be prescribed for home use because that would slow down the healing process. Also, if you cant feel your eye, there is a chance of accidentally injuring your eye further without knowing it. Home Care: A cold pack (ice in a plastic bag, wrapped in a towel) may be applied over the eye (or eyepatch) for20 minutes at a time, to reduce pain. You may use acetaminophen (Tylenol) or ibuprofen (Motrin, Advil) to control pain, unless another pain medicine was prescribed. [NOTE: If you have chronic liver or kidney disease or ever had a stomach ulcer or GI bleeding, talk with your doctor before using these medicines.] Rest your eyes and do not read until symptoms are gone. If you use contact lenses, do not wear them until all symptoms are gone. If your vision is affected by the corneal abrasion or if an eyepatch was applied, DO NOT DRIVE a motor vehicle or operate machinery until all symptoms are gone. Otherwise, you would have trouble judging distances with only one eye. If your eyes are sensitive to light, try wearing sunglasses, or stay indoors, until symptoms go away. Follow Up as advised by our staff. Serious abrasions may be referred to an cad specialist (sample finisher). ?? If no patch was used but the pain continues for more than 48 hours, you should have another exam.Return to this facility or contact the referral doctor to arrange this. ?? If your eye was patched and if you were asked to remove the patch yourself, see your doctor or return to this facility if your pain is still present after the patch is removed. If you were given a return appointment for patch removal and re-exam, do not miss this. It could be harmful if the patch remains in place longer than advised. Get Prompt Medical Attention if any of the following occur: ?? Increasing eye pain or pain that does not improve after 24 hours ?? Discharge from the eye ?? Increasing redness of the eye or swelling of the eyelids ?? Your vision gets worse ?? [phone] [facility], [address] [place] [address], [place] [address]. All rights reserved. This information is not intended as a substitute for professional medical care. Always follow your healthcare professional's instructions. Consider Using Patient Online Services Patient Online [...] if you dont have one. Go to [email or web address] and click on Create Your Account. Then, follow the directions to complete the online form. Youll be asked for your [facility] number which you can find at the top of this document. ED Tests and Procedures: Order Status Discharge Prescriptions & Home Medications: Medication/Strength Dose Route Frequency Indications/Special Instructions/Comments/Notes erythromycin ophthalmic (erythromycin 0.5% ophthalmic ointment) 0.5 inch(es) Eye(Left) four times a day for 5 Days emollients, topical (RepHresh vaginal gel) 1 sascha Topical every 3 days Comment: Attention: If you have any medications at home that are not on this list, DO NOT take them until youcontact your provider for clarification. Give a copy of your medication list to your primary care provider. Update your medication list any time medications or doses are changed and carry your medication list at all times in case of emergency. IMPORTANT: We examined and treated you today on an emergency basis only. This was not a substitute for, or an effort to provide, complete medical care. In most cases, you must let your doctor check youagain. Tell your doctor about any new or lasting problems. We cannot recognize and treat all injuries or illnesses in one Emergency Department visit. If you had special tests, such as EKG's or X- rays, we will review them again within 24 hours. We will call you if there are any new suggestions. Please follow the instructions above carefully. If you are a patient that is being discharged from the Emergency Department after receiving narcotics or other medications that may impair your judgment you may be a risk to yourself or others if you operate a motor vehicle. We recommend that you arrange a ride home with a responsible libertarian. MATTEO Whitney JENNIFER LYNN , or responsible libertarian have received this information and my questions have been answered. I have discussed any challenges I see with this plan with the nurse or physician. Patient Signature or Responsible Libertarian/Relationship Date Time Provider Signature Date Time IMPORTANT: We examined and treated you today on an emergency basis only. This was not a substitute for, or an effort to provide, complete medical care. In most cases, you must let your doctor check youagain. Tell your doctor about any new or lasting problems. We cannot recognize and treat all injuries or illnesses in one Emergency Department visit. If you had special tests, such as EKG's or X- rays, we will review them again within 24 hours. We will call you if there are any new suggestions. Please follow the instructions above carefully. If you are a patient that is being discharged from the Emergency Department after receiving narcotics or other medications that may impair your judgment you may be a risk to yourself or others if you operate a motor vehicle. We recommend that you arrange a ride home with a responsible libertarian. I, LEANDRA BLACK , or responsible libertarian have received this information and my questions have been answered. I have discussed any challenges I see with this plan with the nurse or physician. Patient Signature or Responsible Libertarian/Relationship Date Time Provider Signature Date Time This document has images extracted. Please consider using [employer] for all your patient education needs. Source: [facility] POWERCHART Document Id: [id number] Yordan Bhagat L.P.N. - 06/04/2016 4:59 PM CDT ED Depart Summary [facility] Emergency Department / Urgent Care Clinical Discharge Summary PERSON INFORMATION Name LEANDRA BLACK Age 40 Years 1975 12:00 AM Sex Female Language Arabic PCP LIS WARD MD Marital Status Single Visit Id Visit Reason Eye problem; L EYE PAIN Specialty [facility] Med Service Urgent Care Referred by Maribeth BECKER ED/UC Discharge 06/04/2016 4:59 PM Tracking Id [id number] Checkout 06/04/2016 4:59 PM Checkin 06/04/2016 4:08 PM Acuity 4 -Less Urgent Dispo Type * Discharged to Home or Self Care Arrival 06/04/2016 4:08 PM Reg Status Complete LOS 000 00:51 Address: [address] [place] [phone] Comment: PROVIDER INFORMATION Provider Role Provider Contact Time YORDAN BHAGAT LPN ED Nurse 06/04/16 16:15 DIANA LOPEZ APRN, ENROLLMENT MANAGER ED Provider 06/04/16 16:15 DIAGNOSIS Abrasion Cornea Initial L Comment: PATIENT EDUCATION INFORMATION Instructions: CORNEAL ABRASION Follow up: With: Address: When: Follow up with primary care provider Within As Needed Source: [facility] POWERCHART Document Id: [id number] documented in this encounter Progress Notes Yordan Bhagat, L.P.N. - 06/04/2016 4:21 PM CDT Urgent Care Intake Urgent Care Intake Entered On: 06/04/2016 16:25 CDT Performed On: 06/04/2016 16:21 CDT by YORDAN BHAGAT LPN Intake Chief Complaint : Left eye burning and feels like something in upper eyelid Temperature Core : 36.9 DegC(Converted to: 98.4 DegF) Peripheral Pulse Rate : 85 /min Respiratory Rate : 18 /min Systolic Blood Pressure : 118 mmHg Diastolic Blood Pressure : 73 mmHg NIBP Mean : 88 mmHg Height : 164 cm(Converted to: 5 ft 5 inch(es), 65 inch(es)) YORDAN BHAGAT LPN - 06/04/2016 16:21 CDT General Info Languages : Arabic Is Patient Female and 13-50 no hysterectomy : Yes Status : Patient denies Are you ? : No YORDAN BHAGAT LPN - 06/04/2016 16:21 CDT Subjective Pain Symptoms : Yes YORDAN BHAGAT [facility] - 06/04/2016 16:21 CDT Pain Scale Pain Scale Verbal 0-10 : Open YORDAN BHAGAT CORE DRILL OPERATOR HELPER - 06/04/2016 16:21 CDT Pain Pain Assessment Grid Pain 1 Location : Eye Laterality : Left Intensity : 5 YORDAN BHAGAT [facility] - 06/04/2016 16:21 CDT Dependent Habits Exposure to Tobacco Smoke : Patient smokes Smoking Status : Current every day smoker Tobacco 2A : Yes Tobacco Use/Currently Using : Yes Tobacco Use/Last 30 Days : Yes Tobacco Use/Last 12 months : Yes Type : Cigarettes: Less than 20 per day Tobacco Use/Advised to Quit : Yes OLAYINKA YORDAN Escobar [facility] - 06/04/2016 16:21 CDT Nutrition Nutrition Risk Factors by History Adult : None EV BHAGATJuventino Escobar [facility] - 06/04/2016 16:21 CDT Functional Current Daily Living Assistance : None YORDAN BHAGAT CORE DRILL OPERATOR HELPER 06/04/2016 16:21 CDT Psychosocial Domestic Abuse Concerns : None Behavioral Health Screen/Safety Assmt : No Sabianism Preference : Noah BHAGAT YORDAN M CORE DRILL OPERATOR HELPER - 06/04/2016 16:21 CDT Advance Directive Advanced Directives : No Advance Directive Additional Information : No YORDAN BHAGAT CORE DRILL OPERATOR HELPER - 06/04/2016 16:21 CDT Educ Needs Learning Style Preference Adult Grid Patient : Verbal explanation, Printed materials Family : Verbal explanation ANDRE BHAGATSTANFORD Escobar CORE DRILL OPERATOR HELPER - 06/04/2016 16:21 CDT [facility] Document Id: [id number] CDT!49 Diana Lopez APRN, C.NIrisPIris - 06/04/2016 4:08 PM CDT [id number] CHIEF COMPLAINT/REASON FOR VISIT Left eye pain. HISTORY OF PRESENT ILLNESS Patient is a pleasant 40-year-old female who presents to Urgent Care today with pain in the left eye. She reports that she woke up with it yesterday. She did not really think much of it as it seemed toget a little but better throughout the day. However, today it seems worse. She feels like there is something in her eye. She does not recall anything that she could have gotten in there except for maybe some makeup. She denies any vision changes although sometimes it blurs especially with watery drainage. She has not had any fever. No purulent like drainage. She denies any respiratory symptoms at all. MEDICATIONS Reviewed and reconciled in the EMR under the medications tab of today's date. ALLERGIES No known drug allergies. VITAL SIGNS Temp 36.9, heart rate 85, respiratory rate 18, blood pressure 118/73. PHYSICAL EXAMINATION GENERAL: Patient is alert, oriented. She appears to be in no acute distress. EENT: Eyes: The left is slightly injected. Fluorescein exam does reveal an abrasion present at aboutthe 10 o'clock position and just outside of the pupil. Foreign body does appear to be present. I wasable to remove that with a wetted cotton swab it was just a black vamsi. Reexamination would confirmthat the foreign body appears to be gone. I do not appreciate any other foreign body or lesions, theupper lid is assessed and inverted and no foreign body is seen. Funduscopic exam was within normal limits. EOMs are intact without discomfort. Ears: TMs are pearly don and intact without effusion. Nose: No drainage. Throat: No post pharyngeal erythema or swelling. IMPRESSION/REPORT/PLAN 1. Foreign body, left cornea, removed. 2. Left corneal abrasion. PLAN: We did discuss cool compresses can be helpful. Tylenol and ibuprofen can be used to help with the discomfort. I prescribed some erythromycin ointment. She will use that 4 times daily in that lefteye to help soothe and prevent against infection. Her tetanus was updated at today's visit as well. She will continue following her symptoms and followup should she fail to see improvement, sooner if symptoms worsen. She verbalizes understanding of our plan and agrees. Diana Lopez R.N., C.N.P./janes Electronically Signed By: DIANA LOPEZ APRN, CNP On: 06/05/2016 08:28 AM Source: [facility] AMISHASDOLBEYNSIVA Document Id: [id number] documented in this encounter ED Notes oYrdan Bhagat L.P.N. - 06/04/2016 4:58 PM CDT ED Disposition Summary ED Disposition Summary Entered On: 06/04/2016 16:59 CDT Performed On: 06/04/2016 16:58 CDT by YORDAN BHAGAT LPN ED Disposition Summary Present in Room During Exam/Procedure : Alone Mode of Discharge : Ambulatory Discharge From ED With : Home Med List Printed Discharge Instructions Given to Patient : Yes 30 Minutes Critical Care : No YORDAN BHAGAT LPN - 06/04/2016 16:58 CDT Source: [employer] Document Id: [id number] CDT!7 Yordan Bhagat L.P.N. - 06/04/2016 4:27 PM CDT ED Treatments and Procedures ED Treatments and Procedures Entered On: 06/04/2016 16:27 CDT Performed On: 06/04/2016 16:27 CDT by YORDAN BHAGAT LPN Vision Testing Corrective Lenses : None Eye, Right w/o Correction : 20/30 Eye, Left w/o Correction : 20/40 YRODAN BHAGAT LPN - 06/04/2016 16:27 CDT Source: [employer] Document Id: [id number] CDT!5 Lisa James RAraceli - 06/04/2016 4:11 PM CDT ED Triage Assessment Document Has Been Updated ED Triage Assessment Entered On: 06/04/2016 16:12 CDT Performed On: 06/04/2016 16:11 CDT by LISA JAMES RN Reason For Visit (As Of: 06/04/2016 16:12:50 CDT) Problems(Active) Gestational Diabetes (ICD-9-CM :648.80 ) Name of Problem: Gestational Diabetes ; Onset Date: 06/09/2011 ; Recorder: GREGG GABRIEL MD; Confirmation: Confirmed ; Classification: Medical ; Code: 648.80; Contributor System: PowerChart ; Last Updated: 08/03/2013 9:29 CDT ; Life Cycle Date: 06/09/2011 ;Life Cycle Status: Active ; Responsible Provider: GREGG GABRIEL MD; Vocabulary: ICD-9-CM Menorrhagia (ICD-9-CM :626.2 ) Name of Problem: Menorrhagia ; Recorder: GREGG GABRIEL MD; Confirmation: Confirmed ; Classification: Medical ; Code: 626.2 ; Contributor System: PowerChart ; Last Updated: 01/26/2014 9:56 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 ; Life Cycle Status: Active ; Responsible Provider: GREGG GABRIEL MD; Vocabulary: ICD-9-CM Mother with Single Liveborn (ICD-9-CM :V27.0 ) Name of Problem: Mother with Single Liveborn ; Recorder: HAIDER BAKER RN; Confirmation: Confirmed ; Classification: Nursing ; Code: V27.0 ; Contributor System: PowerChart ; Last Updated: 06/10/2010 7:59 CDT ; Life Cycle Date: 06/10/2010 ; Life Cycle Status: Active ; Responsible Provider: GREGG GABRIEL MD; Vocabulary: ICD-9-CM ; Comments: 06/10/2010 7:59 - HAIDER BAKER RN x 4 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 ; 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; Recorder: LUZ MARIA LOMELI MD; Confirmation: Confirmed ; Classification: Medical ; Code: 701.8 ; Last Updated: 08/07/2013 5:10 CDT ; Life Cycle Status: Active ; Responsible Provider: LUZ MARIA LOMELI MD; Vocabulary: ICD-9-CM Diagnoses(Active) Eye problem Date: 06/04/2016 ; Diagnosis Type: Reason For Visit ; Confirmation: Complaint of ; Clinical Dx: Eye problem ; Classification: Medical ; Clinical Service: Emergency medicine ; Code: PNED ; Probability: 0 ; Diagnosis Code: [id number] Triage Chief Complaint Description : feels like something is in her upper left eyelid for 2 days. Information Given By : Patient Present in Room During Exam/Procedure : Alone Mode of Arrival ED : Private vehicle Track : Medical Languages : Arabic Patient Informed of Triage Location : Urgent Care Treatments Prior to Arrival : None Is Patient Female and 13-50 no hysterectomy : Yes LISA JAMES RN - 06/04/2016 16:11 CDT Pain Assessment Pain Symptoms : No LISA JAMES RN - 06/04/2016 16:11 CDT SEBAS SEBAS Level 1 : No SEBAS Level 2 : No SEBAS Level 3 : One LISA JAMES RN - 06/04/2016 16:11 CDT DCP GENERIC CODE Tracking Acuity : 4 -Less Urgent Tracking Group : [facility] ED/ LISA JAMES RN - 06/04/2016 16:11 CDT Source: [employer] Document Id: [id number] CDT!20 documented in this encounter Plan of Treatment Not on filedocumented as of this encounter Visit Diagnoses Not on filedocumented in this encounter
--- OUTSIDE RECORDS SUMMARY | 2021-10-12 00:43 | XMS_ITS | Encounter Summary ---
:1975 Author Organization [facility] Address [address] [place] [address] Care Team Providers Name Role Phone Steven Escobar M.D. Primary Care Provider [phone] Reason for Visit Reason Comments Communication Encounter Details Date Type Department Care Team Description 06/22/2017 Clinical Communication Department of Adonay Kohli Obstetrics and Romi Cosby Gynecology in [address] [place], [place] [address] [facility] [address] [place], [place] [phone] (Work) [phone] Social History Tobacco Use Types Packs/Day Years [...] on filedocumented in this encounter Care Teams Certified Orthotist Practice Manager Relationship Specialty Start Date End Date Steven Escobar M.D. PCP - General 08/17/[address] [phone] documented as of this encounter
--- OUTSIDE RECORDS SUMMARY | 2021-10-12 00:43 | XMS_ITS | Encounter Summary ---
:1975 Author Organization [facility] Address [address] [place] [address] Care Team Providers Name Role Phone Steven Escobar M.D. Primary Care Provider [phone] Encounter Details Date Type Department Care Team Description 07/11/2018 Clinical Communication Department of [facility] in Steven Moreno M.D. [place], [place] [address] [place] [phone] Social History Tobacco Use Types Packs/Day Years [...] or relatives? How often do you attend gnosticism or More than 4 times per year 08/17/2020 spiritism services? Do you belong to any clubs or Yes 08/17/2020 organizations such as gnosticism groups, unions, fraternal or athletic groups, or [...] on filedocumented in this encounter Care Teams Mixing Tank Operator Relationship Specialty Start Date End Date Steven Escobar M.D. PCP - General 08/17/[address] [phone] documented as of this encounter
--- OUTSIDE RECORDS SUMMARY | 2021-10-12 00:43 | XMS_ITS | Encounter Summary ---
:1975 Author Organization [facility] Address [address] [place] [address] Care Team Providers Name Role Phone Steven Escobar M.D. Primary Care Provider [phone] Reason for Visit Outpatient (Routine) - Closed Specialty Diagnoses / Procedures Referred By Contact Refer red To Contact Neurology Diagnoses Aneurysm Of Other Specified Arteries (HCC) Migraine Headache Abuse Tobacco Smoking Dru Warner M.B., [facility] Procedures Neurology - Cerebrovascular eConsult B.Ch. [address] [place] [phone] Referral ID Status Reason Start Date Expiration Date Visits Requ ested Visits Authorized [id number] Closed 07/15/2018 07/15/2019 1 1 Encounter Details Date Type Department Care Team Description 07/16/2018 Internal E-Consult Department of Nataly Warner M.B., B[facility] [address] [place] [address] [phone] Aneurysm Of Other Specified Arteries (HC C); Neurology in Jimmy Perez M.D. [address] [place] [address] [phone] Migraine Headache; [place], [place] Abuse Tobacco Smoking [address] [place], [place] [phone] Social History Tobacco Use Types Packs/Day Years [...] documented as of this encounter Consult Notes Jimmy Perez M.D. - 07/16/2018 3:30 PM CDT CEREBROVASCULAR ELECTRONIC CONSULT Dru Warner M.B., B.Ch. Has requested a cerebrovascular electronic consult because of a recentdiagnosis of anterior communicating artery aneurysm. I have not met with the patient, interviewed the patient, or examined the patient. The MRA was apparently ordered because the patient has a family member with a history of AVM. I havereviewed the images, and I am not convinced that this represents an aneurysm. I would recommend informally asking 1 of our neuroradiology colleagues to review the study before making any further assessm ent or recommendations. documented in this encounter Plan of Treatment Not on filedocumented as of this encounter Visit Diagnoses Diagnosis Aneurysm Of Other Specified Arteries (HC C) Migraine Headache Abuse Tobacco Smoking documented in this encounter Care Teams Corporate Tax Manager Relationship Specialty Start Date End Date Steven Escobar M.D. PCP - General 08/17/16 [address], [place] [address] documented as of this encounter
--- OUTSIDE RECORDS SUMMARY | 2021-10-12 00:43 | XMS_ITS | Encounter Summary ---
:1975 Author Organization [facility] Address [address] [place] [address] Care Team Providers Name Role Phone Steven Escobar M.D. Primary Care Provider [phone] Encounter Details Date Type Department Care Team Description 06/22/2017 Hospital Encounter Department of Adonay Kohli Laboratory Medicine Sona Cosby M.D. Gynecological Exam in [place] [id number] [address] [address] [place], [place] [phone] [address] (Work) [phone] Social History Tobacco Use Types Packs/Day Years [...] or relatives? How often do you attend pentecostalism or More than 4 times per year 08/17/2020 pentecostalism services? Do you belong to any clubs or Yes 08/17/2020 organizations such as pentecostalism groups, unions, fraternal or athletic groups, or [...] or slept in a jail (including now)? Sex Assigned at Date Recorded [...] Name Priority Date/Time Associated Diagnosis Comme nts CBC WITHOUT Routine 06/22/2017 9:23 AM Preventive Results f or this DIFFERENTIAL, B CDT Gynecological Exam proced ure are in the results section. THYROID-STIMULATIN Routine 06/22/2017 9:23 AM Preventive Res ults for this G CDT Gynecological Exam procedure are in HORMONE-SENSITIVE the result s (S-TSH) section. GLUCOSE, FASTING, Routine 06/22/2017 9:23 AM Preventive Resu lts for this S/P CDT Gynecological Exam procedure are in the results section. documented in this encounter Results S-TSH (Thyroid-Stimulating Hormone - Sensitive) (06/22/2017 9:23 AM CDT) P athologist Signature TSH, Sensitive 1.5 0.3 - 4.2 06/22/2017 [facility] mIU/L 10:51 AM CDT [facility] Comment: Biotin has been identified by the odalis banegas as a potential interfering substance. ??Higher concentr ations of biotin may be found in multivitamins, hair/nail supple ments, and workout supplements. ??If the result does not [facility] clinical observations, repeat testing after patient refrains fr om the use of supplements for at least 12 hours. Specimen Anatomical Collection Method Collection Time Receive d Time (Source) Location / / Volume Laterality Blood (Blood, 06/22/2017 9:23 AM 06/23/19 9:26 Venous) CDT AM CDT Adonay Kohli Jr., M.D. LAB BLOOD ADD-ON Performing Organization Address City/State/ZIP Code Phon e Number [facility] [address] [place] [address] LAB Glucose, Fasting (06/22/2017 9:23 AM CDT) athologist Signature Glucose, 83 70 - 99 06/22/2017 [facility] Fasting, S mg/dL 10:51 AM [facility] Specimen Anatomical Collection Method Collection Time Receive d Time (Source) Location / / Volume Laterality Blood (Blood, 06/22/2017 9:23 AM 06/23/19 18 9:26 Venous) CDT AM CDT Adonay Kohli Jr., M.D. LAB BLOOD NON ADD-ON Performing Organization Address City/State/ZIP Code Phon e Number [facility] [employer] [address] [place] [address] LAB CBC without Differential (06/22/2017 9:23 AM CDT) athologist Signature Hemoglobin 13.5 11.6 - 06/22/2017 [facility] 15.0 g/dL 9:39 AM [facility] [facility] Hematocrit 41.1 35.5 - 06/22/2017 [facility] 44.9 % 9:39 AM [facility] Erythrocytes 4.41 3.92 - 06/22/2017 [facility] 5.13 9:39 AM [facility] x10(12)/L [facility] MCV 93.2 78.2 - 06/22/2017 [facility] 97.9 fL 9:39 AM [facility] [employer] LAB RBC Distrib Width 12.6 12.2 - 06/22/2017 [facility] 16.1 % 9:39 AM [facility] Platelet Count 214 157 - 371 06/22/2017 [facility] x10(9)/L 9:39 AM [facility] Leukocytes 8.1 3.4 - 9.6 06/22/2017 [facility] x10(9)/L 9:39 AM [facility] Specimen Anatomical Collection Method Collection Time Receive d Time (Source) Location / / Volume Laterality Blood (Blood, 06/22/2017 9:23 AM 06/23/19 18 9:26 Venous) CDT AM CDT Adonay Kohli Jr., M.D. LAB BLOOD ADD-ON Performing Organization Address City/State/ZIP Code Phon e Number [facility] [address] [place] [address] LAB documented in this encounter Visit Diagnoses Diagnosis Preventive Gynecological Exam documented in this encounter Care Teams Offline Cutter Relationship Specialty Start Date End Date Steven Escobar M.D. PCP - General 08/17/[address] [place] [address] documented as of this encounter
--- OUTSIDE RECORDS SUMMARY | 2021-10-12 00:44 | XMS_ITS | Encounter Summary ---
:1975 Author Organization [facility] Address [address] [place] [address] Care Team Providers Name Role Phone Unavailable Primary Care Provider Unavailable Encounter Details Date Type Department Care Team Description 03/10/2014 Hospital Encounter HX NO MAPPING Pooja Kohli Jr., M.D. [address] [place], [place] [phone] (Wo rk) Social History [...] or relatives? How often do you attend hoahaoism or More than 4 times per year 08/17/2020 druze services? Do you belong to any clubs or Yes 08/17/2020 organizations such as hoahaoism groups, unions, fraternal or athletic groups, or [...] place to sleep or slept in a [facility] (including now)? Sex Assigned at Date Recorded Female 06/10/2017 5:21 PM CDT documented as of this encounter Plan of Treatment Not on filedocumented as of this encounter Visit Diagnoses Not on filedocumented in this encounter
--- OUTSIDE RECORDS SUMMARY | 2021-10-12 00:44 | XMS_ITS | Encounter Summary ---
:1975 Author Organization [facility] Address [address] [place] [address] Care Team Providers Name Role Phone Unavailable Primary Care Provider Unavailable Encounter Details Date Type Department Care Team Description 07/17/2011 Hospital Encounter HX [facility] Adonay Alfaro Jr., M.D. [address] [place], [place] [phone] (Wo rk) Social History [...] or relatives? How often do you attend amish or More than 4 times per year 08/17/2020 mosque services? Do you belong to any clubs or Yes 08/17/2020 organizations such as amish groups, unions, fraternal or athletic groups, or [...] Sign Reading Time Taken Comments Blood Pressure 96/54 07/17/2011 10:35 AM CDT Pulse - - Temperature - - Respiratory Rate - - Oxygen Saturation - - Inhaled Oxygen Concentration - - Weight 71.6 kg (157 lb 13.6 oz) 07/17/2011 10:35 AM CDT Height - - Body Mass Index - - documented in this encounter Miscellaneous Notes Miscellaneous - Adonay Gabriel Jr., M.D. - 07/17/2011 10:46 AM CDT Ambulatory Depart Summary [address] [address] Visit Information Name: NAMITA BLACKFER SARAH Visit Date: 07/17/2011 10:46:42 Attending Provider: ADONAY GABRIEL MD Primary Care Provider: ADONAY GABRIEL MD MARK BLACK has been given the following list of medications: Your Medications It is important to take your medications as directed. Use a pill box or chart to help remind you to take your medications. Please let your doctor or nurse know if you have problems taking your medications. Medication/Strength Dose Route Frequency Indications/Special Instructions/Comments polyethylene glycol 3350 (MiraLax oral powder for reconstitution) 17 gm Oral once a day 17gm(about one heaping tablespoon) dissolved in 4-8oz of water, juice, soda, coffee, or tea multivitamin, ( Multivitamins) Attention: If you have any medications at home that are not on this list, DO NOT take them until youcontact your provider for clarification. Additional Information: Source: [facility] POWERCHART Document Id: [id number] Miscellaneous - Adonay Gabriel Jr., M.D. - 07/17/2011 10:46 AM CDT Ambulatory Patient Summary [address] [address] Visit Information Name: MARK BLACK Current Date: 07/17/2011 10:46:43 Physicians Attending Provider: ADONAY GABRIEL MD Primary Care Provider: ADONAY GABRIEL MD Your Medications Here is a list of your medications. It is important to take your medications as directed. Use a pillbox or chart to help remind you to take your medications. Please let your doctor or nurse know if you have problems taking your medications. Medication/Strength Dose Route Frequency Indications/Special Instructions/Comments polyethylene glycol 3350 (MiraLax oral powder for reconstitution) 17 gm Oral once a day 17gm(about one heaping tablespoon) dissolved in 4-8oz of water, juice, soda, coffee, or tea multivitamin, ( Multivitamins) Attention: If you have any medications at home that are not on this list, DO NOT take them until youcontact your provider for clarification. Your Allergies & Intolerances Substance Reaction Symptoms Category Comments No Known Allergies Drug Your Problem List Problem Status Onset Comments Mother with Single Liveborn Active 06/10/10 x 4 Gestational Diabetes Active 06/09/2011 Your Upcoming Appointments Date Time Location Reason Provider No Appointments found Your Goals/Additional instructions: Source: [facility] POWERCHART Document Id: [id number] Miscellaneous - Alma Salgado, R.N. - 07/17/2011 10:35 AM CDT Adult Housing Project Manager Intake/History Adult Housing Project Manager Intake/History Entered On: 07/17/2011 10:35 CDT Performed On: 07/17/2011 10:35 CDT by ALMA DAWSON Intake Chief Complaint : OB visit 31 2/7 weeks Systolic Blood Pressure : 96mmHg Diastolic Blood Pressure : 54mmHg NIBP Mean : 68mmHg BP Location : Right upper extremity Blood Pressure Cuff Size : Regular Actual Weight : 71.6kg(Converted to: 157lb 14oz) Dosing Weight Clinic : 71.60kg ALMA DAWSON - 07/17/2011 10:35 CDT Subjective Pain Symptoms : No ALMA DAWSON - 07/17/2011 10:35 CDT Dependent Habits Tobacco Use/Currently Using : No Exposure to Tobacco Smoke : Patient smokes Smoking Status : Former smoker ALMA DAWSON - 07/17/2011 10:35 CDT Tobacco Use Grid Type : Cigarettes Last Use : 01-21-11 ALMA DAWSON - 07/17/2011 10:35 CDT Allergy Allergies (Active) NKA Estimated Onset Date: Unspecified ; Created By: ALMA DAWSON; Reaction Status: Active ; Category: Drug ; Substance: NKA ; Type: Allergy ; Updated By: ALMA DAWSON; Reviewed Date: 03/17/2011 10:04 DISTILLERY MANAGER Source: [facility] [employer] Document Id: [id number] CDT!20 documented in this encounter Plan of Treatment Not on filedocumented as of this encounter Visit Diagnoses Not on filedocumented in this encounter
--- OUTSIDE RECORDS SUMMARY | 2021-10-12 00:44 | XMS_ITS | Encounter Summary ---
:1975 Author Organization [facility] Address [address] [place] [address] Care Team Providers Name Role Phone Unavailable Primary Care Provider Unavailable Encounter Details Date Type Department Care Team Description 01/26/2014 Hospital Encounter HX [facility] Adonay Alfaro Jr., M.D. [address] [place], [place] [phone] (Wo rk) Social History [...] slept in a senior living (including now)? Sex Assigned at Date Recorded Female 06/10/2017 5:21 PM CDT documented as of this encounter Last Filed Vital Signs Vital Sign Reading Time Taken Comments Blood Pressure 96/56 01/26/2014 9:33 AM BUNCHER MACHINE Pulse 63 01/26/2014 9:33 AM BUNCHER MACHINE Temperature - - Respiratory Rate - - Oxygen Saturation - - Inhaled Oxygen Concentration - - Weight 59.4 kg (130 lb 15.3 oz) 01/26/2014 9:33 AM BUNCHER MACHINE Height 166 cm (5' 5.35) 01/26/2014 9:33 AM BUNCHER MACHINE Body Mass Index 21.56 01/26/2014 9:33 AM BUNCHER MACHINE documented in this encounter H&P Notes Adonay Gabriel Jr., M.D. - 01/26/2014 9:28 AM CST [id number] CHIEF COMPLAINT/REASON FOR VISIT Follow up for menometrorrhagia and dysmenorrhea. Pre-op H&P. HISTORY OF PRESENT ILLNESS Mark is a 38 year old 8, para 5 female with LMP of 12/18/2013 who presents to the clinicfor follow up for menometrorrhagia and dysmenorrhea. She states that her period has started today and her periods continue to come every 3-4 weeks with 5 days of bleeding. She must change pads or tampons every 2-3 hours on heaviest days. Periods are also accompanied by increased cramping. 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 She is currently working on smoking cessation, and will start on Chantix. Mark states that she has been feeling ill for the last few weeks, with muscle aches and fatigue. She has had poor appetite lately as well, and she is unable to to lerate anything more than small quantities of food. Her white blood cell count has been elevated since her visit to the clinic on 12/25/2013. Follow up blood count on 01/22/2014 confirms this. MEDICATIONS vitamin 1 tab PO daily. Chantix starter pack 0.5mg-1 mg, 1 tab PO as directed. Patient will start this today. Anaprox-DS 550 mg PO t.i.d. PRN pain. Botox. Celecoxib 400 mg by mouth twice daily. Patient will take two tabs in the evening before procedure and 1 tab the morning of procedure. Prescribed today. Chaska 5/325 by mouth every 6 hours as needed for pain. Prescribed today. ALLERGIES None. SYSTEMS REVIEW Please see HPI, otherwise negative. PAST MEDICAL/SURGICAL HISTORY PAST MEDICAL HISTORY: Vaginal delivery x5, with most recent on 10/24/2011. SAB x3, two with follow up D&Cs. History of gestational diabetes. PAST SURGICAL HISTORY: D&C x2. Essure on 11/14/2011 with confirmatory HSG on 01/22/2014. Breast augmentation with saline implants, 12/13/2012. PREVENTIVE SERVICES: Tobacco use: positive. Patient smokes 0.5 packs daily. Pap smear: 12/25/2013. Tetanus: 06/07/2007 Lipids: 06/22/2010. Depression: negative. Asthma: negative. SOCIAL HISTORY Smokes 0.5 packs daily. Has previously been able to quit, and desires to work on cessation currently. Drinks occasionally. and sexually active without difficulties. FAMILY HISTORY Mother and father are generally healthy. VITAL SIGNS WEIGHT: 59.4 kg. PULSE: 63/min. BLOOD PRESSURE: 96/56. PHYSICAL EXAMINATION GENERAL: Patient appears well groomed and well nourished. No acute distress. Oriented times three. HEAD: Normocephalic. ENT: Trachea midline. HEART: Regular rate and rhythm without murmurs, rubs or gallops. No evidence of any peripheral vascular disease. LUNGS: Clear to auscultation with good inspiratory effort. ABDOMEN: Soft and nontender. No masses, hepatosplenomegaly or hernias noted. No enlarged groin nodespalpable. Pelvic exam and Pap smear were done on 12/25/2013. Please refer to exam note from this date for further details. DIAGNOSTIC Labs from 12/25/2013 and 01/22/2014 indicate elevated white count of 17. CBC with morphological evaluation, CMP, Anti-nuclear antibody, mononucleosis screen, and sedimentation rate are ordered today, and results are pending. IMPRESSION/REPORT/PLAN [age] year old 8, para 5 female with menometrorrhagia and dysmenorrhea. PLAN: 1. Menometrorrhagia and dysmenorrhea: Patient has increasingly frequent, heavy menstrual periods with severe cramping. Labs from 12/25/2013 indicate that patient is not menopausal. She has previously used Anaprox, but this has not sufficiently managed symptoms. Management options, including OCPs, IUD and surgical management with endometrial ablation or hysterectomy are discussed. She is currently interested in NovaSure endometrial ablation, and risks of this procedure are discussed. If bleeding continues to be poorly managed following ablation, may consider hysterectomy. Pre-op exam is done today, and sleep apnea screen is negative. Surgical consent is signed. Patient is healthy and cleared to proceed with surgery. A prescription for Celebrex was given for patient to take prior to procedure, and a prescription for 6 tabs of Chaska was given for pain management following procedure. Please note that two prescriptions for Chaska were given today, one for 30 tabs, which was discarded, and one for 6 ta bs, which was given to patient today. [facility] She knows to be NPO for 8 hours prior to procedure. 2. Elevated WBCs: Labs on 01/22/2014 indicate elevated white count of 17. Patient will have follow up CBC with morphological evaluation, CMP, Anti-nuclear antibody, mononucleosis screen, and sedimentation rate today. I will contact her with results. 3. Smoking cessation: Patient is counseled on the importance of smoking cessation today. Patient agrees to try Chantix, and a prescription for starter pack is given today. If she experiences uncomfortable side effects, she will discontinue medication and contact the clinic. 4. Follow up: Patient will present to [facility] on 02/03/2014 for NovaSure endometrial ablation. She can bereached at . This document serves as a record of services personally performed by Adonay Gabriel MD. It was created on their behalf by Nicole Ryder, a trained medical resident. The creation of this record is based on the scribe's personal observations and the provider's statements to them. This document has been ch ecked and approved by the attending provider. Adonay Gabriel M.D./kathleen Electronically Signed By: ADONAY GABRIEL MD On: 01/26/2014 06:29 PM Source: [facility] MHSDOLBEYNONRADSYS Document Id: [id number] HER MACHINE documented in this encounter Miscellaneous Notes Miscellaneous - Adonay Gabriel Jr., M.D. - 01/28/2014 11:48 AM CST From: ADONAY GABRIEL MD To: MARK BLACK Sent: 01/28/2014 11:48:11 BUNCHER MACHINE labs are all normal, CBC is back to normal and the smear test to look for wierd blood things is normal also. All good. Source: [facility] POWERCHART Document Id: [id number] Miscellaneous - Adonay Gabriel Jr., M.D. - 01/26/2014 10:10 AM CST Ambulatory Patient Summary [address] [id number] Visit Information Name: MARK BLACK [facility] Number: [phone] Current Date: 01/26/2014 10:10:30 Physicians Attending Provider: ADONAY GABRIEL MD Primary [...] Take Indications/Special Instructions/Comments/Notes for Patient Medication Changes/Routing celecoxib (CeleBREX 200 mg oral capsule) 2 cap, Oral, two times a day take 2 pm before surgery, then1 am of surgery. 1 pm of surgery. New Routed to [facility] [address] [place], [place] [phone] HYDROcodone-acetaminophen (Chaska 5 mg-325 mg oral tablet) 1-2 tab(s), Oral, every 4 hours as needed for Pain No more than 4,000mg acetaminophen/24hrs This is a CHANGE Routed to Print multivitamin, ( Multivitamins oral tablet) 1 Tablet(s), Oral, once a day naproxen (Anaprox-DS 550 mg oral tablet) 1 Tablet(s), Oral, three times a day as needed for pain *varenicline (Chantix Starter Pack 0.5 mg-1 mg oral tablet) See special instructions, Oral, as directed x 28 day(s) 0.5mg daily on Days 1-3, 0.5mg 2xDay on Days 4-7, then 1mg 2xDay (Bill Code 305.1) * You have let us know that you are not taking this medication as listed. Please talk with your primary care provider or the health care provider who prescribed the medication as soon as possible. Stop Taking the Following Medications: Medication list as of 01-26-14 10:10 Attention: If you have any medications at home that are not on this list, DO NOT take them until youcontact your provider for clarification. Give a copy of your medication list to your primary care provider. Update your medication list any time medications or doses are changed and carry your medication list at all times in case of emergency. 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 Your Goals/Additional instructions: Source: [facility] POWERCHART Document Id: [id number] HER MACHINE Miscellaneous - Adonay Gabriel Jr., M.D. - 01/26/2014 10:10 AM CST Ambulatory Discharge Medication List [address] [id number] Visit Information Name: MARK BLACK [facility] Number: [id number] Visit Date: 01/26/2014 10:10:29 Attending Provider: ADONAY GABRIEL MD Primary Care [...] Take Indications/Special Instructions/Comments/Notes for Patient Medication Changes/Routing celecoxib (CeleBREX 200 mg oral capsule) 2 cap, Oral, two times a day take 2 pm before surgery, then1 am of surgery. 1 pm of surgery. New Routed to [facility] [address] [place], [place] [phone] HYDROcodone-acetaminophen (Chaska 5 mg-325 mg oral tablet) 1-2 tab(s), Oral, every 4 hours as needed for Pain No more than 4,000mg acetaminophen/24hrs This is a CHANGE Routed to [facility] multivitamin, ( Multivitamins oral tablet) 1 Tablet(s), Oral, once a day naproxen (Anaprox-DS 550 mg oral tablet) 1 Tablet(s), Oral, three times a day as needed for pain *varenicline (Chantix Starter Pack 0.5 mg-1 mg oral tablet) See special instructions, Oral, as directed x 28 day(s) 0.5mg daily on Days 1-3, 0.5mg 2xDay on Days 4-7, then 1mg 2xDay (Bill Code 305.1) * You have let us know that you are not taking this medication as listed. Please talk with your primary care provider or the health care provider who prescribed the medication as soon as possible. Stop Taking the Following Medications: Medication list as of 01-26-14 10:10 Attention: If you have any medications at home that are not on this list, DO NOT take them until youcontact your provider for clarification. Give a copy of your medication list to your primary care provider. Update your medication list any time medications or doses are changed and carry your medication list at all times in case of emergency. Electronically Signed By: ADONAY GABRIEL MD Signed On:26-JAN-2014 10:02:12 Additional Information: Source: [facility] CtripCHART Document Id: [id number] HER MACHINE Miscellaneous - Alma Salgado, RIrisN. - 01/26/2014 9:33 AM CST Adult Line Dancer Intake/History Adult Line Dancer Intake/History Entered On: 01/26/2014 9:33 BUNCHER MACHINE Performed On: 01/26/2014 9:33 BUNCHER MACHINE by ALMA DAWSON Intake Chief Complaint : discuss surgery Peripheral Pulse Rate : 63 /min Systolic Blood Pressure : 96 mmHg Diastolic Blood Pressure : 56 mmHg NIBP Mean : 69 mmHg BP Location : Left upper extremity Height : 166 cm(Converted to: 5 ft 5 inch(es), 65 inch(es)) Actual Weight : 59.4 kg(Converted to: 130 lb 15 oz) Dosing Weight Clinic : 59.4 kg Clinic BSA : 1.65 Body Mass Index : 21.56 kg/m2 ALMA DAWSON - 01/26/2014 9:33 BUNCHER MACHINE General Info Languages : Belarusian Is Patient Female and 13-50 no hysterectomy : Yes Status : Patient denies Are you ? : No ALMA DAWSON - 01/26/2014 9:33 BUNCHER MACHINE Subjective Pain Symptoms : No ALMA DAWSON - 01/26/2014 9:33 BUNCHER MACHINE Dependent Habits Tobacco Use/Currently Using : Yes Exposure to Tobacco Smoke : Patient smokes Smoking Status : Current every day smoker ALMA DAWSON - 01/26/2014 9:33 BUNCHER MACHINE Tobacco Use Grid Type : Cigarettes Cigarette Use Packs/Day : 0.5 ALMA DAWSON - 01/26/2014 9:33 BUNCHER MACHINE ID Screen Travel Within Last 21 Days : No ALMA DAWSON - 01/26/2014 9:33 BUNCHER MACHINE [facility] Document Id: [id number] BUNCHER MACHINE!30 HER MACHINE documented in this encounter Plan of Treatment Not on filedocumented as of this encounter Procedures Procedure Name Priority Date/Time Associated Comments Diagnosis SPSMA RESULT Routine 01/26/2014 10:44 Results for this AM BUNCHER MACHINE procedure are i n the results section. POCT MONONUCLEOSIS Routine 01/26/2014 10:44 Resul ts for this SCREEN AM BUNCHER MACHINE procedure are i n the results section. SEDIMENTATION RATE, B Routine 01/26/2014 10:40 Re sults for this AM BUNCHER MACHINE procedure are i n the results section. CBC WITHOUT Routine 01/26/2014 10:40 Results for this DIFFERENTIAL, B AM BUNCHER MACHINE procedure ar e in the results section. ANTINUCLEAR ABS (SARINA), Routine 01/26/2014 10:40 R esults for this S AM BUNCHER MACHINE procedure are i n the results section. COMPREHENSIVE Routine 01/26/2014 10:40 Results fo r this METABOLIC PANEL, S/P AM BUNCHER MACHINE procedu re are in the results section. documented in this encounter Results Morphology Evaluation (Special Smear) (01/26/2014 10:44 AM BUNCHER MACHINE) [facility] gist Method Time Signature Neutrophilic Segs 67 42 - 75 POWERCHART and Bands HXLYMPHOCYTES 28 16 - 52 POWERCHART Monocytes 2 1 - 11 POWERCHART Absolute Basophil 1 0 - 4 POWERCHART HXMorph Eval SeeComment POWERCHART Intp-Waldo Comment: Normal peripheral blood smear. HXMorph Eval Rev By-[facility] POWER CHART Comment: Test Performed by: [facility] [place] [address] Travel Rn: Shawn Rodríguez Specimen (Source) Anatomical Collection Method Collection Time Re ceived Time Location / / Volume Laterality Blood 01/26/2014 10:44 AM BUNCHER MACHINE Adonay Gabriel Jr., M.D. LAB BLOOD ADD-ON Performing Organization Address City/[facility] Code Phon e Number POWERCHART Mononucleosis Screen, POCT (01/26/2014 10:44 AM BUNCHER MACHINE) [facility] [employer] Method Time Signature Infectious POWERCHART [place] Test, S HXFinal Negative POWERCHART HXFinal Reference: POWERCHART Negative Specimen (Source) Anatomical Collection Method Collection Time Re ceived Time Location / / Volume Laterality Blood 01/26/2014 10:44 AM BUNCHER MACHINE Adonay Gabriel Jr., M.D. LAB POCT ORDERABLES-MANUAL Performing Organization Address City/[facility] Code Phon e Number POWERCHART CBC without Differential (01/26/2014 10:40 AM BUNCHER MACHINE) P athologist Signature Leukocytes 6.5 3.4 - 10.5 POWERCHART X109L Erythrocytes 4.19 3.90 - 5.03 POWERCHART [id number] Hemoglobin 12.6 12.0 - 15.5 POWERCHART GDL Hematocrit 38.6 34.9 - 44.5 POWERCHART MCV 92.1 82.0 - 98.0 POWERCHART FL Platelet Count 206 150 - 450 POWERCHART X109L HX RDW 12.8 11.9 - 15.5 POWERCHART Specimen (Source) Anatomical Collection Method Collection Time Re ceived Time Location / / Volume Laterality Blood 01/26/2014 10:40 AM BUNCHER MACHINE Adonay Gabriel Jr., M.D. LAB BLOOD ADD-ON Performing Organization Address City/State/ZIP Code Phon e Number POWERCHART Sedimentation Rate (01/26/2014 10:40 AM BUNCHER MACHINE) Analysis Performed At Patho logist Time Signature Sedimentation 10 0 - 29 POWERCHART Rate, B MMHR Specimen (Source) Anatomical Collection Method Collection Time Re ceived Time Location / / Volume Laterality Blood 01/26/2014 10:40 AM BUNCHER MACHINE Adonay Gabriel Jr., M.D. LAB BLOOD ADD-ON Performing Organization Address City/State/ZIP Code Phon e Number POWERCHART (ABNORMAL) CMP (Comprehensive Metabolic Panel) (01/26/2014 10:40 AM BUNCHER MACHINE) Patholo gist Method Time Signature BUN (Blood Urea 14 6 - 20 POWERCHART Nitrogen), S MGDL Creatinine, S 0.7 0.7 - 1.2 POWERCHART MGDL Glucose 80 POWERCHART Potassium, S 4.5 3.5 - 4.8 POWERCHART MMOLL Sodium, S 139 135 - 145 POWERCHART MMOLL Chloride, S 109 (H) 100 - 108 POWERCHART MMOLL CO2 Total 26 22 - 30 POWERCHART MMOLL Calcium, Total, S 8.7 8.5 - POWERCHART 10.5 MGDL Albumin, S 3.3 (L) 3.5 - 5.0 POWERCHART GMDL Alkaline 88 50 - 130 POWERCHART Phosphatase, S UNITL Aspartate 25 8 - 43 POWERCHART Aminotransferase UNITL (AST), S Alanine 30 9 - 52 POWERCHART Amniotransferase, LD UNITL Bilirubin, Total, S 0.2 0.1 - 1.0 POWERCHART MGDL Total Protein, S 6.1 (L) 6.3 - 8.2 POWERCHART MGDL HXeGFR (MDRD) >60 MLMIN POWERCHART eGFR Black/ >60 >=60 POWERCHART [place] [id number] Specimen (Source) Anatomical Collection Method Collection Time Re ceived Time Location / / Volume Laterality Blood 01/26/2014 10:40 AM BUNCHER MACHINE Adonay Gabriel Jr., M.D. LAB BLOOD ADD-ON Performing Organization Address City/State/ZIP Code Phon e Number POWERCHART SARINA (Antinuclear Antibodies) (01/26/2014 10:40 AM BUNCHER MACHINE) athologist Signature Antinuclear Ab 0.2 <=1.0 POWERCHART Screen by IFA, S (Negative) UNITS Comment: Test Performed by: [place] [id number] Travel Rn: Shawn Rodríguez Specimen (Source) Anatomical Collection Method Collection Time Re ceived Time Location / / Volume Laterality Blood 01/26/2014 10:40 AM BUNCHER MACHINE Adonay Gabriel Jr., M.D. LAB BLOOD ADD-ON Performing Organization Address City/State/ZIP Code Phon e Number POWERCHART documented in this encounter Visit Diagnoses Not on filedocumented in this encounter
--- OUTSIDE RECORDS SUMMARY | 2021-10-12 00:44 | XMS_ITS | Encounter Summary ---
:1975 Author Organization [facility] Address [address] [place] [address] Care Team Providers Name Role Phone Unavailable Primary Care Provider Unavailable Encounter Details Date Type Department Care Team Description 03/03/2014 Hospital Encounter HX [facility] Aodnay Alfaro Jr., M.D. [address] [place], [place] [phone] (Wo rk) Social History [...] or relatives? How often do you attend holiness or More than 4 times per year 08/17/2020 sikh services? Do you belong to any clubs or Yes 08/17/2020 organizations such as holiness groups, unions, fraternal or athletic groups, or [...] place to sleep or slept in a longterm (including now)? Sex Assigned at Date Recorded Female 06/10/2017 5:21 PM CDT documented as of this encounter Last Filed Vital Signs Vital Sign Reading Time Taken Comments Blood Pressure 102/66 03/03/2014 1:28 PM SPORTS REPORTER Pulse - - Temperature - - Respiratory Rate - - Oxygen Saturation - - Inhaled Oxygen Concentration - - Weight 58 kg (127 lb 13.9 oz) 03/03/2014 1:28 PM SPORTS REPORTER Height 166 cm (5' 5.35) 03/03/2014 1:28 PM SPORTS REPORTER Body Mass Index 21.05 03/03/2014 1:28 PM SPORTS REPORTER documented in this encounter H&P Notes Adonay Gabriel Jr., M.D. - 03/03/2014 1:23 PM CST [id number] CHIEF COMPLAINT/REASON FOR VISIT Postoperative visit for hysteroscopy with D&C performed on 02/03/2014. Pre-op H&P. HISTORY OF PRESENT ILLNESS Mark is a 38 year old 8, para 5 female who is 4 weeks status post hysteroscopy with D&C who presents to the clinic for postoperative visit. She was originally scheduled for NovaSure endometrial ablation, however she was noted to have probable uterine perforation at the time of her procedure and she did not pass cavity integrity assessment. Mark states that she has had a menstrual period since her procedure, and she states that, although this was somewhat better than her periods previously, it was still quite heavy. She did try taking naproxen with her last period, but this did not seem to significantly help with pain or heavy bleeding. Mark is still smoking approximately 0.5 packs of cigarettes daily, and she is planning to completely quit on 03/05/2014. She states that she has occasional discomfort with her left breast implant. MEDICATIONS vitamin by mouth daily. Anaprox-DS 550 mg by mouth up to 3x daily as needed for pain. Botox. Patient is not currently using this. Celecoxib 200 mg by mouth as directed before and after surgery. Prescribed today. ALLERGIES None. SYSTEMS REVIEW Please see HPI, otherwise negative. PAST MEDICAL/SURGICAL HISTORY PAST MEDICAL HISTORY: Vaginal delivery x5, with most recent on 10/24/2011. SAB x3, two with follow up D&Cs. History of gestational diabetes. Menorrhagia. PAST SURGICAL HISTORY: D&C x3, with most recent on 02/03/2014 for management of menorrhagia. Essure on 11/14/2011 with confirmatory HSG on 01/22/2014. Breast augmentation with saline implants, 12/13/2012. PREVENTIVE SERVICES: Tobacco use: positive. Patient smokes 0.5 packs daily. Pap smear: 12/25/2013. Tetanus: 06/07/2007 Lipids: 06/22/2010. Depression: negative. Asthma: negative. SOCIAL HISTORY Smokes 0.5 packs daily. Has previously been able to quit, and is planning to quit again on 03/05/2014.Drinks occasionally. and sexually active without difficulties. FAMILY HISTORY Mother and father are generally healthy. PHYSICAL EXAMINATION VITAL SIGNS: Weight is 58 kg, blood pressure is 102/66. GENERAL: Patient appears well groomed and well nourished. No acute distress. Oriented times three. HEAD: Normocephalic. ENT: Trachea midline. BREASTS: Bilateral implants. Both appear to be normal. HEART: Regular rate and rhythm without murmurs, [...] Anti-nuclear antibody, mononucleosis screen, and sedimentation rate from 01/26/2014 wereall within normal limits. IMPRESSION/REPORT/PLAN [age] year old 5, para 5 female with continued menorrhagia following hysteroscopy withD&C. PLAN: 1. Postoperative care: Patient is tolerating the postoperative period well. Surgical pathology was negative, and these results were reviewed with patient today. She is potentially still a candidate forNovaSure endometrial ablation, and if not, she would likely be a good candidate for hydrothermal ablation. Risks of this procedure are discussed today. Since periods continue to be poorly managed following D&C, patient would like to proceed with endometrial ablation, and this is scheduled for 03/10/2014. Pre-op exam is done today, and sleep apnea screen is negative. Surgical consent is signed. Patient is healthy and cleared to proceed with surgery. A prescription for Celebrex 200 mg was given, and patient will take this as directed before or after surgery. She knows to be NPO for 6 hours prior toprocedure. 2. Follow up: Patient will present to [facility] on 03/10/2014 for endometrial ablation. She can be reached at . This document serves as a record of services personally performed by Adonay Gabriel MD. It was created on their behalf by Nicole Ryder, a trained medical staff services coordinator. The creation of this record is based on the scribe's personal observations and the provider's statements to them. This document has been ch ecked and approved by the attending provider. Adonay Gabriel M.D./kathleen Electronically Signed By: ADONAY GABRIEL MD On: 03/06/2014 02:42 PM Source: [facility] MHSDOLBEYNONRADSYS Document Id: [id number] TS REPORTER documented in this encounter Nursing Notes Wanda Hernández, L.P.N. - 03/09/2014 1:52 PM CST Prior Authorization denied Pharmacy states when a patient is [place] [employer] they will not allow patient to pay love for any Rx unless it has been denied by a prior authorization. Pharmacy is aware that it has been denied and they state now that they are aware of this patient can now pay love for the medication, patient is aware. Electronically Signed By: WANDA HERNÁNDEZ LPN On: 03/09/2014 01:54 PM Source: [facility] POWERCHART Document Id: [id number] TS REPORTER documented in this encounter Miscellaneous Notes Telephone Encounter - Conversion, Historical Provider Ser - 03/16/2014 7:56 AM CST *Phone Message/Dr. Gabriel Document Contains Addenda Addendum by ADONAY GABRIEL MD on 16 March 2014 09:34:59 SPORTS REPORTER From: ADONAY GABRIEL MD To: Obstetrics/Gynecology Nurse; Sent: 03/16/2014 09:34:59 SPORTS REPORTER Subject: RE: *Phone Message/Dr. Gabriel spoke with her, sounds normal, will come in if gets worse. Addendum by ALMA DAWSON on 16 March 2014 08:00:53 SPORTS REPORTER From: ALMA DAWSON ( Obstetrics/Gynecology Nurse) To: ADONAY GABRIEL MD; Sent: 03/16/2014 08:00:53 SPORTS REPORTER Subject: FW: *Phone Message/Dr. Gabriel From: MINA ANGULO ([facility] [place] Protection Maintainer) To: Obstetrics/Gynecology Nurse; Sent: 03/16/2014 07:56:12 SPORTS REPORTER Subject: *Phone Message/Dr. Gabriel Caller is: ( x ) Patient ( ) Mother ( ) Father ( ) Spouse ( ) Daughter ( ) Son ( ) Pharmacy ( ) Other: Physician: Dr. Gabriel Patient MRN #: Reason for Call: Message: S Patient states that she had an ablation and is still bleeding quite a bit. B A R Please call patient back at [phone] to advise. Advice/Action: Source used: ( ) Verbalizes understanding of instructions ( ) Instructed to call back if symptoms worsen or do not resolve ( ) Refused to see provider ( ) Appointment Scheduled ( ) OK to leave message on voice mail ( ) Patient told to expect return call: ( ) today ( ) tomorrow ( ) next work day ( ) Patient's email ( ) Patient told physician out of office, will call upon return call on ( ) ( ) Patient told physician out of office, routed to other physician ( ) Other ( ) Call back telephone number ( ) Call back cell phone number ( ) Source: [facility] POWERCHART Document Id: [id number] Miscellaneous - Adonay Gabriel Jr., M.D. - 03/03/2014 1:49 PM CST Ambulatory Patient Summary [facility] [address] [place] [id number] Visit Information Name: MARK BLACK [facility] Number: [id number] Current Date: 03/03/2014 13:49:31 Physicians Attending Provider: ADONAY GABRIEL MD Primary Care Provider: PCP, UNASSIGNED - MARK SAENZ has been given the following list of [...] 1 pm of surgery. New Routed to [address] [phone] multivitamin, ( Multivitamins oral tablet) 1 Tablet(s), Oral, once a day naproxen (Anaprox-DS 550 mg oral tablet) 1 Tablet(s), Oral, three times a day as needed for pain Stop Taking the Following Medications: Medication list as of 03-03-14 13:49 Attention: If you have any medications at [...] Electronically Signed By: ADONAY GABRIEL MD Signed On:03-MAR-2014 13:49:25 Your Allergies & Intolerances Substance Reaction Symptoms Category Comments No Known Allergies Drug Your Problem List Problem Status Onset Comments Mother with Single Liveborn Active 06/10/10 x 4 Gestational Diabetes Active 06/09/2011 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 Your Goals/Additional instructions: Source: [facility] POWERCHART Document Id: [id number] IAM Roberts - Adonay Gabriel Jr., M.D. - 03/03/2014 1:49 PM CST Ambulatory Discharge Medication List [address] [id number] Visit Information Name: MARK BLACK [facility] Number: [id number] Visit Date: 03/03/2014 13:49:30 Attending Provider: ADONAY GABRIEL MD Primary Care Provider: PCP, UNASSIGNED - FB MARK BLACK has been given the following [...] 1 pm of surgery. 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 Arc Welder Intake/History Adult Electric Arc Welder Intake/History Entered On: 03/03/2014 13:30 SPORTS REPORTER Performed On: 03/03/2014 13:28 SPORTS REPORTER by ALMA DAWSON Intake Chief Complaint : PO hysteroscopy and D&C 02/03 Systolic Blood Pressure : 102 mmHg Diastolic Blood Pressure : 66 mmHg NIBP Mean : 78 mmHg BP Location : Right upper extremity Blood Pressure Cuff Size : Regular Height : 166 cm(Converted to: 5 ft 5 inch(es), 65 inch(es)) Actual Weight : 58.0 kg(Converted to: 127 lb 14 oz) Dosing Weight Clinic : 58 kg Clinic BSA : 1.64 Body Mass Index : 21.05 kg/m2 ALMA DAWSON - 03/03/2014 13:28 SPORTS REPORTER General Info Languages : Romansh Is Patient Female and 13-50 no hysterectomy : Yes Status : Patient denies Are you ? : No ALMA DAWSON - 03/03/2014 13:28 SPORTS REPORTER Subjective Pain Symptoms : No ALMA DAWSON - 03/03/2014 13:28 SPORTS REPORTER Dependent Habits Tobacco Use/Currently Using : Yes Exposure to Tobacco Smoke : Patient smokes Smoking Status : Current every day smoker ALMA DAWSON - 03/03/2014 13:28 SPORTS REPORTER Tobacco Use Grid Type : Cigarettes Cigarette Use Packs/Day : 0.5 ALMA DAWSON - 03/03/2014 13:28 SPORTS REPORTER ID Screen Travel Within Last 21 Days : No ALMA DAWSON - 03/03/2014 13:28 SPORTS REPORTER Source: [facility] POWERCHART Document Id: [id number] SPORTS REPORTER!30 TS REPORTER documented in this encounter Plan of Treatment Not on filedocumented as of this encounter Visit Diagnoses Not on filedocumented in this encounter
--- OUTSIDE RECORDS SUMMARY | 2021-10-12 00:44 | XMS_ITS | Encounter Summary ---
:1975 Author Organization [facility] Address [address] [place] [address] Care Team Providers Name Role Phone Unavailable Primary Care Provider Unavailable Encounter Details Date Type Department Care Team Description 12/03/2012 Hospital Encounter HX [facility] Steven Peter M.D. [address] [place] [address] (Wo rk) Social History Tobacco [...] or relatives? How often do you attend buddhist or More than 4 times per year 08/17/2020 pentecostal services? Do you belong to any clubs or Yes 08/17/2020 organizations such as buddhist groups, unions, fraternal or athletic groups, or [...] Sign Reading Time Taken Comments Blood Pressure 96/66 12/03/2012 9:47 AM CDT Pulse 60 12/03/2012 9:47 AM CDT Temperature - - Respiratory Rate - - Oxygen Saturation - - Inhaled Oxygen Concentration - - Weight 55.6 kg (122 lb 9.2 oz) 12/03/2012 9:47 AM CDT Height 166.3 cm (5' 5.47) 12/03/2012 9:47 AM CDT Body Mass Index 20.1 12/03/2012 9:47 AM CDT documented in this encounter H&P Notes Steven Escobar M.D. - 12/03/2012 9:39 AM CDT [id number] REQUESTING PHYSICIAN: Dr. Ramírez, plastic surgeon, [facility]. PROPOSED PROCEDURE: Breast augmentation. HISTORY OF PRESENT ILLNESS Leandra is a 36-year-old female who presents today for preanesthesia evaluation for breast augmentation. Leandra states that she has been doing really very well recently. She denies any recent illnesses. She has no chronic ongoing health conditions. CURRENT MEDICATIONS None. ALLERGIES No known drug allergies. SYSTEMS REVIEW GENERAL: Negative for recent fever, weight loss, extreme fatigue. EYES: Negative for double vision, sudden loss of vision. ENT: Negative for sore throat, runny nose, ear pain, hearing loss. HEART: Negative for chest pain, pain in legs relieved with rest, irregular heartbeats. RESPIRATORY: Negative forcough, wheezing, shortness of breath, excessive snoring. GASTROINTESTINAL: Negative for nausea, vomiting, heartburn, abdominal pain, bloating, constipation, diarrhea, blood in stools. GENITOURINARY: Negative for irregular menses, vaginal bleeding after menopause, frequent or painful urination, bloody urine. SKIN: Negative for rash, sore(s), excessive bruising, change of a mole. NEUROLOGICAL: Negativefor headache, persistent weakness or numbness on one side of the body, falling. MUSCULOSKELETAL: Negative for joint pain, muscle weakness, back pain. MENTAL HEALTH: Negative for depression, anxiety, suicidal thoughts. LYMPH: Negative for excessive thirst or urination, cold or heat intolerance, breast mass, swelling in legs, feet or hands. BLOOD: Negative for unusual bruising or bleeding, enlarged lymph nodes. PAST MEDICAL/SURGICAL HISTORY 1. G7, P5, status post x5. 2. D&C x2. 3. Tubal ligation. 4. Tobacco abuse. SOCIAL HISTORY Leandra is . She lives at home with her and children. She currently smokes approximately one-half packs of cigarettes per day. She uses alcohol occasionally. FAMILY HISTORY Patient's mother is alive at the age of 60 and generally healthy. Father is alive at the age of 60 and generally healthy. She denies any known family history of anesthesia complications. No known family history of bleeding or clotting disorders. SURGICAL RISK FACTORS: Cardiovascular: Tobacco abuse. Respiratory: Tobacco abuse. Signs and symptoms of obstructive sleep apnea: None. Postoperative infection risk: None. Recent steroid use: None. VITAL SIGNS TEMPERATURE: 36.7 degrees Centigrade. HEART RATE: 60. BLOOD PRESSURE: 96/66. HEIGHT: 166.3 cm. WEIGHT: 55.6 kg. BMI: 20.1. PHYSICAL EXAMINATION GENERAL: Leandra is comfortable, in no acute distress, well-nourished, well-hydrated. SKIN: No rash or suspicious lesions noted. HEAD: Normocephalic, atraumatic. Mucous membranes are moist. Dentition is good. EYES: EOMI. Pupils are approximately 5 mm, equal, round, and reactive to light. ENT: TMs have normal light reflex and normal landmarks bilaterally. Hearing is grossly normal. No nasal congestion or sinus tenderness. No erythema, exudate, or injection of the posterior pharynx. Neckis supple without lymphadenopathy. THYROID: Normal in size and consistency. No nodules are appreciated. HEART: Regular rate and rhythm. S1, S2. No murmurs, rubs, or gallops. LUNGS: Clear to auscultation bilaterally without wheezes, rales, or rhonchi. Good aeration throughout. ABDOMEN: Soft, nontender, and nondistended. No hepatosplenomegaly or masses appreciated. No guardingor rebound. Bowel sounds are positive and normoactive throughout. EXTREMITIES: Full range of motion of upper and lower extremities bilaterally. No focal limitations or problems. No cyanosis, clubbing, or edema. JOINTS: No joint abnormalities to palpation. GAIT: Normal. NEURO: Cranial nerves II-XII intact. Upper and lower extremity strength is 5/5 bilaterally. DTRs: Biceps, triceps, brachioradialis 2+ bilaterally and symmetric. Patella and Achilles 2+ bilaterally and symmetric. No focal motor or sensory deficits appreciated. IMPRESSION/REPORT/PLAN Generally healthy 36-year-old female presenting for preanesthesia evaluation. Leandra is a suitablecandidate for anesthesia and surgery as scheduled. Her only risk factor is tobacco use. She is currently using an e-cigarette. I did give a prescription for nicotine patch 21 mg apply 1 daily. I did reiterate the importance of smoking cessation both for her surgical risk as well as her overall health.She verbalizes understanding and will continue to attempt to quit. Steven Escobar M.D./amanda Electronically Signed By: STEVEN ESCOBAR MD On: 12/05/2012 07:40 AM Source: [facility] MHSDOLBEYNONRADSYS Document Id: [id number] documented in this encounter Miscellaneous Notes Miscellaneous - Celeste Roth L.P.N. - 12/03/2012 9:47 AM CDT Adult Latin Dancer Intake/History Adult Latin Dancer Intake/History Entered On: 12/03/2012 9:52 CDT Performed On: 12/03/2012 9:47 CDT by CELESTE ROTH Intake Chief Complaint : pre-op DOS 12/13/12 Barker breast augmentation Temperature Oral : 36.7 DegC(Converted to: 98.1 DegF) Peripheral Pulse Rate : 60 /min Systolic Blood Pressure : 96 mmHg Diastolic Blood Pressure : 66 mmHg NIBP Mean : 76 mmHg Height : 166.3 cm(Converted to: 5 ft 5 inch(es), 65.47 inch(es)) Actual Weight : 55.6 kg(Converted to: 122 lb 9 oz) Dosing Weight Clinic : 55.6 kg Clinic BSA : 1.6 Body Mass Index : 20.1 kg/m2 CELESTE ROTH - 12/03/2012 9:47 CDT General Info Information Given By : Patient Languages : Lebanese CELESTE ROTH - 12/03/2012 9:47 CDT Subjective Pain Symptoms : No CELESTE ROTH - 12/03/2012 9:47 CDT Dependent Habits Tobacco Use/Currently Using : Yes Exposure to Tobacco Smoke : Patient smokes Smoking Status : Current every day smoker CELESTE ROTH - 12/03/2012 9:47 CDT Tobacco Use Grid Type : Cigarettes (Comment: 0.5 [CELESTE ROTH - 12/03/2012 9:47 CDT] ) Cigarette Use Packs/Day : 0.5 CELESTE ROTH - 12/03/2012 9:47 CDT [facility] Document Id: [id number] CDT!26 documented in this encounter Plan of Treatment Not on filedocumented as of this encounter Visit Diagnoses Not on filedocumented in this encounter
--- OUTSIDE RECORDS SUMMARY | 2021-10-12 00:44 | XMS_ITS | Encounter Summary ---
:1975 Author Organization [facility] Address [address] [place] [address] Care Team Providers Name Role Phone Unavailable Primary Care Provider Unavailable Encounter Details Date Type Department Care Team Description 12/13/2015 Hospital Encounter HX NO MAPPING Pooja Kohli Jr., M.D. [address] [place], [place] [phone] (Wo rk) Social History [...] or relatives? How often do you attend cheondoism or More than 4 times per year 08/17/2020 yazdanism services? Do you belong to any clubs or Yes 08/17/2020 organizations such as cheondoism groups, unions, fraternal or athletic groups, or [...] Miscellaneous - Conversion, Historical Provider Ser - 12/13/2015 11:59 PM CDT Coding Summary-Paper Based CODING DATE: 12/22/2015 FINAL [facility] STATUS: * Discharged to Home or Self Care PAYOR: Medicaid ADMIT DX: REASON FOR VISIT DX: FINAL DX: PRINCIPAL: Z01.419 Encounter for gynecological examination (general) (routine) without abnormal findings SECONDARY: PROCEDURES DOCTOR NAME DATE NOTE: The code number assigned matches the documented diagnosis and / or procedure in the patient's chart. However, the narrative phrase printed from the coding software may appear abbreviated, or result in slightly different terminology. Coded By: LUIS ANTONIO MORELAND Date Saved: 12/22/2015 09:04 am Source[facility] Document Id: [id number] documented in this encounter Plan of Treatment Not on filedocumented as of this encounter Visit Diagnoses Not on filedocumented in this encounter
--- OUTSIDE RECORDS SUMMARY | 2021-10-12 00:44 | XMS_ITS | Encounter Summary ---
:1975 Author Organization [facility] Address [address] [place] [address] Care Team Providers Name Role Phone Unavailable Primary Care Provider Unavailable Encounter Details Date Type Department Care Team Description 07/03/2011 Hospital Encounter HX [facility] Adonay Alfaro Jr., M.D. [address] [place], [place] [phone] (Wo rk) Social History [...] More than 4 times per year 08/17/2020 [facility]? Do you belong to any clubs [...] Sign Reading Time Taken Comments Blood Pressure 100/52 07/03/2011 9:53 AM CDT Pulse - - Temperature - - Respiratory Rate - - Oxygen Saturation - - Inhaled Oxygen Concentration - - Weight 71.1 kg (156 lb 12 oz) 07/03/2011 9:53 AM CDT Height - - Body Mass Index - - documented in this encounter Miscellaneous Notes Miscellaneous - Adonay Gabriel Jr., M.D. - 07/03/2011 10:20 AM CDT Ambulatory Patient Summary [address] [address] Visit Information Name: MARK BLACK Current Date: 07/03/2011 10:20:09 Physicians Attending Provider: ADONAY GABRIEL MD Primary Care Provider: ADONAY GABRIEL MD Your Medications Here is a list of your medications. It is important to take your medications as directed. Use a pillbox or chart to help remind you to take your medications. Please let your doctor or nurse know if you have problems taking your medications. Medication/Strength Dose Route Frequency Indications/Special Instructions/Comments multivitamin, ( Multivitamins) Attention: If you have any medications at home that are not on this list, DO NOT take them until youcontact your provider for clarification. Your Allergies & Intolerances Substance Reaction Symptoms Category Comments No Known Allergies Drug Your Problem List Problem Status Onset Comments Mother with Single Liveborn Active x 4 Gestational Diabetes Active 06/09/2011 Your Upcoming Appointments Date Time Location Reason Provider No Appointments found Your Goals/Additional instructions: Source: [facility] POWERCHART Document Id: [id number] Miscellaneous - Adonay Gabriel Jr., M.D. - 07/03/2011 10:20 AM CDT Ambulatory Depart Summary [address] [id number] Visit Information Name: MARK BLACK Visit Date: 07/03/2011 10:20:08 Attending Provider: ADONAY GABRIEL MD Primary Care [...] medications. Medication/Strength Dose Route Frequency Indications/Special Instructions/Comments multivitamin, ( Multivitamins) Attention: If you have any medications at home that are not on this list, DO NOT take them until youcontact your provider for clarification. Additional Information: Source: [facility] ScaleGrid Document Id: [id number] Miscellaneous - Alma Salgado RAraceli - 07/03/2011 9:53 AM CDT Adult Gas Technician Intake/History Adult Gas Technician Intake/History Entered On: 07/03/2011 9:54 CDT Performed On: 07/03/2011 9:53 CDT by ALMA DAWSON Intake Chief Complaint : OB visit 29 2/7 weeks Systolic Blood Pressure : 100mmHg Diastolic Blood Pressure : 52mmHg NIBP Mean : 68mmHg BP Location : Left upper extremity Blood Pressure Cuff Size : Regular Actual Weight : 71.1kg(Converted to: 156lb 12oz) Dosing Weight Clinic : 71.10kg ALMA DAWSON - 07/03/2011 9:53 CDT Subjective Pain Symptoms : No ALMA DAWSON - 07/03/2011 9:53 CDT Dependent Habits Tobacco Use/Currently Using : No Exposure to Tobacco Smoke : Patient smokes Smoking Status : Former smoker ALMA DAWSON - 07/03/2011 9:53 CDT Tobacco Use Grid Type : Cigarettes Last Use : 01-21-11 ALMA ADWSON - 07/03/2011 9:53 CDT Allergy Allergies (Active) NKA Estimated Onset Date: Unspecified ; Created By: ALMA DAWSON; Reaction Status: Active ; Category: Drug ; Substance: NKA ; Type: Allergy ; Updated By: ALMA DAWSON; Reviewed Date: 03/17/2011 10:04 PIPE [employer]TER WELDING Source: [facility] ScaleGrid Document Id: [id number] CDT!20 documented in this encounter Plan of Treatment Not on filedocumented as of this encounter Visit Diagnoses Not on filedocumented in this encounter
--- OUTSIDE RECORDS SUMMARY | 2021-10-12 00:44 | XMS_ITS | Encounter Summary ---
:1975 Author Organization [facility] Address [address] [place] [address] Care Team Providers Name Role Phone Unavailable Primary Care Provider Unavailable Encounter Details Date Type Department Care Team Description 12/25/2013 Hospital Encounter HX [facility] Gregg Alfaro Jr., M.D. [address] [place], [place] [phone] (Wo rk) Social History [...] or slept in a usp (including now)? Sex Assigned at Date Recorded Female 06/10/2017 5:21 PM CDT documented as of this encounter Last Filed Vital Signs Vital Sign Reading Time Taken Comments Blood Pressure 104/64 12/25/2013 10:24 AM CDT Pulse 90 12/25/2013 10:24 AM CDT Temperature - - Respiratory Rate - - Oxygen Saturation - - Inhaled Oxygen Concentration - - Weight 57.5 kg (126 lb 12.2 oz) 12/25/2013 10:24 AM CDT Height 166.4 cm (5' 5.51) 12/25/2013 10:24 AM CDT Body Mass Index 20.77 12/25/2013 10:24 AM CDT documented in this encounter H&P Notes Gregg Guerrero Jr., M.D. - 12/25/2013 10:00 AM CDT [id number] CHIEF COMPLAINT/REASON FOR VISIT Annual examination. HISTORY OF PRESENT ILLNESS Leandra is a 37 year old 8, para 5 female with LMP of 12/18/2013 who presents to the clinicfor annual examination. She is status post Essure tubal occlusion with no follow up confirmatory HSG. Her periods are coming every 2-4 week, and these have become increasingly heavy and painful. Periods are 5 days in length with severe cramping for first couple of days. She uses tampons with pads for back up, and she states that she must change these every 2 hours. She does not have to get up at night to change tampons. She denies menopausal symptoms. Leandra states that she is having difficulties with back pain, particularly when she awakens in the morning. She did have breast augmentation surgery approximately 1 year ago, and pain began following this. She also notes some differences in her breast tissue that she would like evaluated today, and she feels as if her implants may be different sizes. She also does have occasional shortness of breath. She is smoking 0.5 packs of cigarettes daily. B owel and bladder function are normal. She denies stress urinary incontinence. MEDICATIONS vitamin 1 tab PO daily. Chantix starter pack 0.5mg-1 mg, 1 tab PO as directed. Prescribed today. Anaprox-DS 550 mg PO t.i.d. PRN pain. Prescribed today. ALLERGIES None. SYSTEMS REVIEW Remarkable for back pain, intermittent shortness of breath, heavy, painful menstrual periods, otherwise negative per systems review sheet. PAST MEDICAL/SURGICAL HISTORY PAST MEDICAL HISTORY: Vaginal delivery x5, with most recent on 10/24/2011. SAB x3, two with follow up D&Cs. History of gestational diabetes. PAST SURGICAL HISTORY: D&C x2. Essure on 11/14/2011. Never had follow up HSG. Breast augmentation with saline implants, 12/13/2012. PREVENTIVE SERVICES: Tobacco use: positive. Patient smokes 0.5 packs daily. Pap smear: 10/25/2011. Repeated today. Tetanus: 06/07/2007 Lipids: 06/22/2010. Depression: negative. Asthma: negative. SOCIAL HISTORY Smokes 0.5 packs daily. Has previously been able to quit. Drinks occasionally. and sexually active without difficulties. FAMILY HISTORY Mother and father are generally healthy. VITAL SIGNS HEIGHT: 166.4 cm. WEIGHT: 57.5 kg. BMI: 20.77 kg/m2. PULSE: 90/min. BLOOD PRESSURE: 104/64. PHYSICAL EXAMINATION GENERAL: Patient appears well groomed and well nourished. No acute distress. Oriented times three. SKIN: Normal without any evidence of rash or lesions. HEAD: Normocephalic. ENT: Trachea midline. LYMPH NODES: Neck is supple. No significant adenopathy. THYROID: Not enlarged. Regular in contour. BREASTS: Bilateral augmentation. No masses. No lymphadenopathy. No nipple discharge. HEART: Regular rate and rhythm without murmurs, rubs or gallops. No evidence of any peripheral vascular disease. LUNGS: Clear to auscultation with good inspiratory effort. ABDOMEN: Soft and nontender. No masses, hepatosplenomegaly or hernias noted. No enlarged groin nodespalpable. PELVIS: Vagina and cervix appear normal without lesions, discharge or rashes. Pap smear is done. Good support. Uterus is anteverted and anteflexed, small, mobile and nontender. Adnexa are without masses or tenderness. RECTUM: Deferred. GENITALIA: External genitalia: Bartholins, urethral, and Skenes glands within normal limits. DIAGNOSTIC CBC, BMP, lipid panel, TSH, FSH, and Estradiol are ordered today. IMPRESSION/REPORT/PLAN [age] year old 8, para 5 female with back pain, intermittent shortness of breath, menorrhagia, and dysmenorrhea. PLAN: 1. Health care maintenance: Routine CBC, BMP, lipid panel, and TSH are ordered today. Pap smear and HPV testing are done today and patient will be contacted with results. 2. Menorrhagia and dysmenorrhea: Patient has increasingly frequent, heavy menstrual periods with severe cramping. FSH and estradiol are ordered today to determine patients menopausal status. Patient iscounseled on possible treatment options, including Anaprox use, OCPs, Mirena IUD, and surgical management with either endometrial ablation or hysterectomy. Patient would need to stop smoking to pursue OCP use, and she would need confirmatory HSG for her Essure in order to be a candidate for endometrial ablation. Patient will try Anaprox, and a prescription for naproxen 550 mg PO t.i.d. PRN is given today. Patient will take this at the start of menstrual periods. She will also start keeping a symptom diary. She will return to the clinic in 6 weeks for followup. 3. Smoking cessation: Patient is counseled on the importance of smoking cessation today. Patient agrees to try Chantix, and a prescription for starter pack is given today. If she experiences uncomfortable side effects, she will discontinue medication and contact the clinic. 4. Back pain: This may be worsened by posture changes following patients breast augmentation. She isencouraged to work on improving her posture, and exercises for this are demonstrated in the clinic today. 5. Intermittent shortness of breath: Heart and lungs are entirely normal by exam today. Patients shortness of breath is likely secondary to her smoking and should improve with cessation. 6. Follow up: Patient will follow up in 6 weeks. She can be reached at . This document serves as a record of services personally performed by Gregg Guerrero MD. It was created on their behalf by Nicole Ryder, a trained bio medical technician. The creation of this record is based on the scribe's personal observations and the provider's statements to them. This document has been ch ecked and approved by the attending provider. Gregg Guerrero M.D./kathleen Electronically Signed By: GREGG GUERRERO MD On: 12/25/2013 02:58 PM Source: [facility] AMISHASDVON Document Id: [id number] documented in this encounter Miscellaneous Notes Telephone Encounter - Conversion, Historical Provider Ser - 01/21/2014 9:53 AM CST *Phone Message/dr guerrero Document Contains Addenda Addendum by HAIDER DAWSON on 21 January 2014 09:58:54 GRAPPLE YARDER OPERATOR Questions answered. From: ISHA MONTOYA ([facility] Document Manager) To: Obstetrics/Gynecology Nurse; Sent: 01/21/2014 09:53:41 GRAPPLE YARDER OPERATOR Subject: *Phone Message/dr guerrero Caller is: ( x ) Patient ( ) Mother ( ) Father ( ) Spouse ( ) Daughter ( ) Son ( ) Pharmacy ( ) Other: Physician: Patient MRN #: Reason for Call: S having procedure tomorrow, has some questions B A R please call [phone] Message: Advice/Action: Source used: ( ) Verbalizes understanding [...] back cell phone number ( ) Source: [facility] EPISCHART Document Id: [id number] Telephone Encounter - Gregg Guerrero Jr., M.D. - 01/05/2014 10:16 AM GRAPPLE YARDER OPERATOR RE: From: GREGG GUERRERO MD To: Obstetrics/Gynecology Nurse; LEANDRA BLACK Sent: 01/05/2014 10:16:01 GRAPPLE YARDER OPERATOR Subject: RE: mendoza, jennifer. From: HAIDER DAWSON ( Obstetrics/Gynecology Nurse) To: GREGG GUERRERO MD; Sent: 01/05/2014 08:03:02 GRAPPLE YARDER OPERATOR Subject: FW: From: LEANDRA BLACK To: [facility] (DATA SCIENCES DIRECTOR) ( Obstetrics/Gynecology Nurse) Sent: 01/04/2014 09:56 p.m. GRAPPLE YARDER OPERATOR Subject: RE: Thank you for your message. It has been successfully sent to the appropriate care team. Hi I finally figured out how to get on this site.. I got all results thanks chilo much Ill schedule my appt. tomorrow for later on this month. Lazara Black From: GREGG GUERRERO MD To: LEANDRA BLACK Sent: 01/01/2014 19:28:30 CDT Leandra, your labs are all fine. You have normal hormones. recheck blood count next month. Let me know you got this. Source: [facility] Document Id: [id number] Alejandra - Gregg Guerrero Jr., M.D. - 01/04/2014 8:48 PM CST From: GREGG GUERRERO MD To: LEANDRA BLACK Sent: 01/04/2014 20:48:38 GRAPPLE YARDER OPERATOR pap was normal Source: [facility] Document Id: [id number] Electronically signed by [employer], [facility] Communication Engineer [id number] at 08/01/2016 1:00 AM CDT Alejandra - Gregg Guerrero Jr., M.D. - 01/01/2014 7:28 PM CDT From: GREGG GUERRERO MD To: LEANDRA BLACK Sent: 01/01/2014 19:28:30 CDT Leandra, your labs are all fine. You have normal hormones. recheck blood count next month. Let me know you got this. Source: [facility] [employer] Document Id: [id number] Electronically signed by Conversion, [facility] Communication Engineer [id number] at 08/01/2016 1:00 AM CDT Telephone Encounter - Conversion, Historical Provider Ser - 01/01/2014 9:48 AM CDT *Phone Message/Dr. Guerrero Document Contains Addenda Addendum by SHOSHANA GARCIA on 01 January 2014 11:15:19 CDT From: SHOSHANA GARCIA ( Obstetrics/Gynecology Nurse) To: GREGG GUERRERO MD; Sent: 01/01/2014 11:15:19 CDT Subject: FW: *Phone Message/Dr. Guerrero Does her blood work all look good? Any changes? From: MINA ANGULO ( [place] Document Manager) To: Obstetrics/Gynecology Nurse; Sent: 01/01/2014 09:48:29 CDT Subject: *Phone Message/Dr. Guerrero Caller is: (x ) Patient ( ) Mother ( ) Father ( ) Spouse ( ) Daughter ( ) Son ( ) Pharmacy ( ) Other: Physician: Dr. Guerrero Patient MRN #: Reason for Call: Message: S Patient is calling for test results. B A R Please call patient back at [phone] with results. Advice/Action: Source used: ( ) Verbalizes understanding [...] back cell phone number ( ) Source: [facility] [employer] Document Id: [id number] Miscellaneous - Gregg Guerrero Jr., M.D. - 12/26/2013 9:37 AM CDT From: GREGG GUERRERO MD To: MINA ANGULO; Sent: 12/26/2013 09:37:55 CDT Leandra's business number is wrong. She does not work there. please remove. Source: [facility] POWERCHART Document Id: [id number] Electronically signed by Yulisa, [facility] Communication Engineer [id number] at 08/01/2016 1:00 AM CDT Miscellaneous - Gregg Guerrero Jr., M.D. - 12/25/2013 11:01 AM CDT Ambulatory Patient Summary [address] [id number] Visit Information Name: LEANDRA BLACK [facility] Number: [id number] Current Date: 12/25/2013 11:01:13 Physicians Attending Provider: GREGG GUERRERO MD Primary Care Provider: GREGG GUERRERO MD LEANDRA BLACK has been given the [...] Take Indications/Special Instructions/Comments/Notes for Patient Medication Changes/Routing multivitamin, ( Multivitamins oral tablet) 1 Tablet(s), Oral, once a day naproxen (Anaprox-DS 550 mg oral tablet) 1 Tablet(s), Oral, three times a day as needed for pain [facility] [address] [place], [place] [id number] varenicline (Chantix Starter Pack 0.5 mg-1 mg oral tablet) See special instructions, Oral, as directed x 28 day(s) 0.5mg daily on Days 1-3, 0.5mg 2xDay on Days 4-7, then 1mg 2xDay (Bill Code 305.1) NewRouted to [place] [address] [facility]E KNIGHT [id number] Stop Taking the Following Medications: Medication list as of 12-25-13 11:01 Attention: If you have any medications at home that are not on this list, DO NOT take them until youcontact your provider for clarification. Give a copy of your medication list to your primary care provider. Update your medication list any time medications or doses are changed and carry your medication list at all times in case of emergency. 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 Your Goals/Additional instructions: Source: [facility] POWERCHART Document Id: [id number] Miscellaneous - Gregg Guerrero Jr., M.D. - 12/25/2013 11:01 AM CDT Ambulatory Discharge Medication List [address] [place] [id number] Visit Information Name: LEANDRA BLACK [facility] Number: [id number] Visit Date: 12/25/2013 11:01:11 Attending Provider: GREGG GUERRERO MD Primary Care Provider: GREGG GUERRERO MD LEANDRA BLACK has been given the following list of medications: Your Medications It is important to take your medications as directed. Use a pill box or chart to help remind you to take your medications. Please let your doctor or nurse know if you have problems taking your medications. Medication/Strength How to Take Indications/Special Instructions/Comments/Notes for Patient Medication Changes/Routing multivitamin, ( Multivitamins oral tablet) 1 Tablet(s), Oral, once a day naproxen (Anaprox-DS 550 mg oral tablet) 1 Tablet(s), Oral, three times a day as needed for pain NewRouted to [address] [id number] varenicline (Chantix Starter Pack 0.5 mg-1 mg oral tablet) See special instructions, Oral, as directed x 28 day(s) 0.5mg daily on Days 1-3, 0.5mg 2xDay on Days 4-7, then 1mg 2xDay (Bill Code 305.1) NewRouted to [address] [id number] Stop Taking the Following Medications: Medication list as of 12-25-13 11:01 Attention: If you have any medications at home that are not on this list, DO NOT take them until youcontact your provider for clarification. Give a copy of your medication list to your primary care provider. Update your medication list any time medications or doses are changed and carry your medication list at all times in case of emergency. Electronically Signed By: GREGG GUERRERO MD Signed On:25-DEC-2013 11:01:08 Additional Information: Source: [facility] POWERCHART Document Id: [id number] Miscellaneous - Haider Salgado R.N. - 12/25/2013 10:28 AM CDT Health Assessment Health Assessment Entered On: 12/25/2013 10:29 CDT Performed On: 12/25/2013 10:28 CDT by HAIDER DAWSON Health Assessment Complete Health Assessment Complete or Modified : Annual Health Assessment Annual Health Assessment Completed : Yes HAIDER DAWSON - 12/25/2013 10:28 CDT Nutrition Nutrition Risk Factors by History Adult : None HAIDER DAWSON - 12/25/2013 10:28 CDT Functional Current Daily Living Assistance : None HAIDER DAWSON - 12/25/2013 10:28 CDT Dependent Habits Tobacco Use/Currently Using : Yes Exposure to Tobacco Smoke : Patient smokes Smoking Status : Current every day smoker HAIDER DAWSON - 12/25/2013 10:28 CDT Tobacco Use Grid Type : Cigarettes Cigarette Use Packs/Day : 0.5 HAIDER DAWSON - 12/25/2013 10:28 CDT Psychosocial Domestic Abuse Concerns : None Jain Preference : CongregationHAIDER [place] - 12/25/2013 10:28 CDT Advance Directive Advanced Directives : No Advance Directive Additional Information : No HAIDER DAWSON - 12/25/2013 10:28 CDT Educ Needs Learning Style Preference Adult Grid Patient : None Family : None HAIDER DAWSON - 12/25/2013 10:28 CDT Source: [facility] Document Id: [id number] CDT!26 Miscellaneous - Haider Salgado, R.N. - 12/25/2013 10:24 AM CDT Adult Collections Curator Intake/History Adult Collections Curator Intake/History Entered On: 12/25/2013 10:27 CDT Performed On: 12/25/2013 10:24 CDT by HAIDER DAWSON Intake Chief Complaint : Annual LMP Date : 12-18-13 Peripheral Pulse Rate : 90 /min Systolic Blood Pressure : 104 mmHg Diastolic Blood Pressure : 64 mmHg NIBP Mean : 77 mmHg BP Location : Left upper extremity Blood Pressure Cuff Size : Regular Height : 166.4 cm(Converted to: 5 ft 6 inch(es), 66 inch(es)) Actual Weight : 57.5 kg(Converted to: 126 lb 12 oz) Dosing Weight Clinic : 57.5 kg Clinic BSA : 1.63 Body Mass Index : 20.77 kg/m2 HAIDER DAWSON - 12/25/2013 10:24 CDT General Info Languages : Azerbaijani Is Patient Female and 13-50 no hysterectomy : Yes Status : Patient denies Are you ? : No EUNICEHAIDER ESPINOSA - 12/25/2013 10:24 CDT Subjective Pain Symptoms : No HAIDER DAWSON - 12/25/2013 10:24 CDT Dependent Habits Tobacco Use/Currently Using : Yes Tobacco Use/Advised to Quit : Yes Exposure to Tobacco Smoke : Patient smokes Smoking Status : Current every day smoker HAIDER DAWSON - 12/25/2013 10:24 CDT Tobacco Use Grid Type : Cigarettes Cigarette Use Packs/Day : 0.5 HAIDER DAWSON - 12/25/2013 10:24 CDT Source: [facility] EPISCHART Document Id: [id number] CDT!31 documented in this encounter Plan of Treatment Not on filedocumented as of this encounter Procedures Procedure Name Priority Date/Time Associated Diagnosis Comme nts LIPID PANEL, S Routine 12/25/2013 11:25 AM Result s for this CDT procedure are i n the results section. AUTOMATED Routine 12/25/2013 11:25 AM Results for this DIFFERENTIAL, B CDT procedure ar e in the results section. ESTRADIOL, S Routine 12/25/2013 11:25 AM Results for this CDT procedure are i n the results section. CBC WITH Routine 12/25/2013 11:25 AM Results for this DIFFERENTIAL, B CDT procedure ar e in the results section. THYROID-STIMULATING Routine 12/25/2013 11:25 AM R esults for this HORMONE-SENSITIVE CDT procedure are in (S-TSH) the results section. FOLLICLE-STIM Routine 12/25/2013 11:25 AM Results for this HORMONE (FSH), S CDT procedure a re in the results section. BASIC METABOLIC Routine 12/25/2013 11:25 AM Resul ts for this PANEL, S/P CDT procedure are i n the results section. THINPREP SCREEN Routine 12/25/2013 10:36 AM Resul ts for this CDT procedure are i n the results section. documented in this encounter Results (ABNORMAL) Automated Differential (12/25/2013 11:25 AM CDT) [facility] gist Method Time Signature Absolute 8.84 (H) 1.70 - POWERCHART Neutrophils 7.00 109L Lymphocytes 3.37 (H) 0.90 - POWERCHART 2.90 X109L Monocytes 0.99 (H) 0.30 - POWERCHART 0.90 X109L Eosinophils 0.13 0.05 - POWERCHART 0.50 X109L Absolute 0.04 0.00 - POWERCHART Basophil 0.30 X109L Specimen Anatomical Collection Method Collection Time Receive d Time (Source) Location / / Volume Laterality Blood 12/25/2013 11:25 12/25/2013 AM CDT 11:25 AM CDT Gregg Guerrero Jr., M.D. LAB BLOOD ADD-ON Performing Organization Address City/State/ZIP Code Phon e Number POWERCHART (ABNORMAL) CBC with Differential (12/25/2013 11:25 AM CDT) Patholo gist Method Time Signature Leukocytes 13.4 (H) 3.4 - 10.5 POWERCHART X109L Erythrocytes 4.54 3.90 - POWERCHART 5.03 [id number] Hemoglobin 13.8 12.0 - POWERCHART 15.5 GDL Hematocrit 42.0 34.9 - POWERCHART 44.5 MCV 92.5 82.0 - POWERCHART 98.0 FL Platelet Count 260 150 - 450 POWERCHART X109L HX RDW 13.1 11.9 - POWERCHART 15.5 HXDifferential? Auto POWERCHART Specimen (Source) Anatomical Collection Method Collection Time Re ceived Time Location / / Volume Laterality Blood 12/25/2013 11:25 AM CDT Gregg Guerrero Jr., M.D. LAB BLOOD ADD-ON Performing Organization Address City/State/ZIP Code Phon e Number POWERCHART FSH (Follicle-Stimulationg Hormone) (12/25/2013 11:25 AM CDT) P athologist Signature Follicle-Stim 3.0 1.8 - 113.6 POWERCHART Hormone (FSH), MIUML S Specimen (Source) Anatomical Collection Method Collection Time Re ceived Time Location / / Volume Laterality Blood 12/25/2013 11:25 AM CDT Gregg Guerrero Jr., M.D. LAB BLOOD ADD-ON Performing Organization Address City/State/ZIP Code Phon e Number POWERCHART Estradiol Level (12/25/2013 11:25 AM CDT) P athologist Signature Estradiol, [place] 183 PGML POWERCHART Spectrometry, S Comment: REFERENCE VALUE------ Premenopausal: 15-350 (E2 levels vary wi slime through the menstrual cycle.) Postmenopausal: <10 Test Performed by: [facility] [place] [address] Senior Reservoir Engineer: Shawn Rodríguez Specimen (Source) Anatomical Collection Method Collection Time Re ceived Time Location / / Volume Laterality Blood 12/25/2013 11:25 AM CDT Gregg Guerrero Jr., M.D. LAB BLOOD NON ADD-ON Performing Organization Address City/State/ZIP Code Phon e Number POWERCHART Lipid Panel (12/25/2013 11:25 AM CDT) Analysis Performed At [facility] logist Time Signature Cholesterol, Total 142 0 - 200 POWERCHART MGDL HX HDL 50.0 40.0 - POWERCHART 60.0 MGDL Triglycerides 99 0 - 150 POWERCHART MGDL Calculated LDL 72 0 - 100 POWERCHART MGDL Specimen (Source) Anatomical Collection Method Collection Time Re ceived Time Location / / Volume Laterality Blood 12/25/2013 11:25 AM CDT Gregg Guerrero Jr., M.D. LAB BLOOD ADD-ON Performing Organization Address City/State/ZIP Code Phon e Number POWERCHART Thyroid-Stimulating Hormone-Sensitive (s-TSH) (12/25/2013 11:25 AM CDT) athologist Signature TSH 1.52 0.30 - 5.00 POWERCHART (Thyrotropin) MIUL Specimen (Source) Anatomical Collection Method Collection Time Re ceived Time Location / / Volume Laterality Blood 12/25/2013 11:25 AM CDT Gregg Guerrero Jr., M.D. LAB BLOOD ADD-ON Performing Organization Address City/State/ZIP Code Phon e Number POWERCHART BMP (Basic Metabolic Panel) (12/25/2013 11:25 AM CDT) athologist Signature BUN (Blood Urea 14 6 - 20 MGDL POWERCHART Nitrogen), S Creatinine, S 0.8 0.7 - 1.2 POWERCHART MGDL Glucose 68 POWERCHART Potassium, S 4.6 3.5 - 4.8 POWERCHART MMOLL Sodium, S 143 135 - 145 POWERCHART MMOLL Chloride, S 105 100 - 108 POWERCHART MMOLL CO2 Total 27 22 - 30 POWERCHART MMOLL Calcium, Total, 9.2 8.5 - 10.5 POWERCHART S MGDL HXeGFR (MDRD) >60 MLMIN POWERCHART eGFR >60 MLMIN POWERCHART Black/ Specimen (Source) Anatomical Collection Method Collection Time Re ceived Time Location / / Volume Laterality Blood 12/25/2013 11:25 AM CDT Gregg Guerrero Jr., M.D. LAB BLOOD ADD-ON Performing Organization Address City/State/ZIP Code Phon e Number POWERCHART Pathology ThinPrep Screen (12/25/2013 10:36 AM CDT) [facility] Method Time Signature [id number] POWERCHART [facility] HXScrnNoInt See Comment POWERCHART [facility] Comment: A. ??ThinPrep Pap Test Screen (Cervical/ Endocervical): Satisfactory for evaluation. Scanty cellularity. Negative for intraepithelial lesion or m alignancy. [facility] See Comment POWERC [facility] Comment: Report electronically signed by RAMSES Luong ([facility]) 01/02/2014 15:30 Interpreted by: RAMSES Cortes ([facility]) [facility] See Comment POWERCHART Comment: A. ??ThinPrep Pap Test Screen (Cervical/ Endocervical): ??Received cloudy specimen in ThinPrep vial. Test Performed by: [address] [address] Senior Reservoir Engineer: Shawn Rodríguez Specimen (Source) Anatomical Collection Method Collection Time Re ceived Time Location / / Volume Laterality Cervix/Endocervix 12/25/2013 10:36 AM CDT Gregg Guerrero Jr., M.D. LAB PAP PATHDX ORDERABLES Performing Organization Address City/State/ZIP Code Phon e Number POWERCHART documented in this encounter Visit Diagnoses Not on filedocumented in this encounter
--- OUTSIDE RECORDS SUMMARY | 2021-10-12 00:44 | XMS_ITS | Encounter Summary ---
:1975 Author Organization [facility] Address [address] [place] [address] Care Team Providers Name Role Phone Unavailable Primary Care Provider Unavailable Encounter Details Date Type Department Care Team Description 11/14/2011 Hospital Encounter HX NO MAPPING Pooja Kohli Jr., M.D. [address] [place], [place] [phone] (Wo rk) Social History [...]
--- OUTSIDE RECORDS SUMMARY | 2021-10-12 00:44 | XMS_ITS | Encounter Summary ---
:1975 Author Organization [facility] Address [address] [place] [address] Care Team Providers Name Role Phone Unavailable Primary Care Provider Unavailable Encounter Details Date Type Department Care Team Description 09/23/2013 Hospital Encounter HX [facility] OWOC DERM Aleida De Santiago M.D. [address] [facility], [facility] [address] [address] (Wo rk) Social History Tobacco Use Types [...] or relatives? How often do you attend baptism or More than 4 times per year 08/17/2020 rastafarian services? Do you belong to any clubs or Yes 08/17/2020 organizations such as baptism groups, unions, fraternal or athletic groups, or [...] Concentration - - Weight - - Height 166 cm (5' 5.35) 09/23/2013 9:20 AM CDT Body Mass Index - - documented in this encounter Progress Notes Luz Maria De Santiago M.D. - 09/23/2013 9:17 AM CDT [id number] CHIEF COMPLAINT/REASON FOR VISIT Cosmetic Botox therapy. HISTORY OF PRESENT ILLNESS This 37-year-old female is here for another Botox injection. She is very happy with her results although she would like to have more to help stop the horizontal lines on her forehead and the squint lines. She has no contraindications to therapy. PHYSICAL EXAMINATION Shows strong musculature across the forehead and squint lines. We decided to use 40 units today and see if she likes that better than the previous 30 units. The Botox was injected in the usual manner with the exception of 2 units over each lateral eyebrow to help stop the lateral eyebrow lines and 1 unit under each eyebrow to help with lifting the eyebrow. There were 4 units placed in each cheek for the squint lines and periorbital areas 1 unit. IMPRESSION/REPORT/PLAN Botox therapy for facial right rhytids. PLAN: Patient will pay $496. Usual post Botox instructions were given. She will follow up in 3-6 months for more botox if desired. Luz Maria De Santiago M.D./janes Electronically Signed By: LUZ MARIA DE SANTIAGO MD On: 10/01/2013 05:21 PM Modified by and Electronically Signed by: LUZ MARIA DE SANTIAGO MD On: 10/01/2013 05:21 PM Source: [facility] MHSDOLBEYNONRADSYS Document Id: [id number] documented in this encounter Miscellaneous Notes Miscellaneous - Stalin Abarca, L.P.N. - 09/23/2013 9:20 AM CDT Adult Manager Mechanical Maintenance Intake/History Adult Manager Mechanical Maintenance Intake/History Entered On: 09/23/2013 9:21 CDT Performed On: 09/23/2013 9:20 CDT by STALIN ABARCA Intake Chief Complaint : Botox Height : 166 cm(Converted to: 5 ft 5 inch(es), 65 inch(es)) STALIN ABARCA - 09/23/2013 9:20 CDT General Info Information Given By : Patient Languages : Peruvian STALIN ABARCA - 09/23/2013 9:20 CDT Subjective Pain Symptoms : No STALIN ABARCA - 09/23/2013 9:20 CDT Dependent Habits Tobacco Use/Currently Using : Yes Exposure to Tobacco Smoke : Patient smokes Smoking Status : Current every day smoker STALIN ABARCA - 09/23/2013 9:20 CDT Tobacco Use Grid Type : Cigarettes Cigarette Use Packs/Day : 0.5 STALIN ABARCA - 09/23/2013 9:20 CDT Source: [employer] Document Id: [id number] CDT!17 documented in this encounter Plan of Treatment Not on filedocumented as of this encounter Visit Diagnoses Not on filedocumented in this encounter
--- OUTSIDE RECORDS SUMMARY | 2021-10-12 00:44 | XMS_ITS | Encounter Summary ---
:1975 Author Organization [facility] Address [address] [place] [address] Care Team Providers Name Role Phone Unavailable Primary Care Provider Unavailable Encounter Details Date Type Department Care Team Description 10/25/2011 Hospital Encounter HX [facility] FBCV Adonay Alfaro Jr., M.D. [address] [place], [place] [phone] (Wo rk) Social History [...] Sign Reading Time Taken Comments Blood Pressure 102/58 10/25/2011 11:16 AM CDT Pulse 72 10/25/2011 11:16 AM CDT Temperature - - Respiratory Rate - - Oxygen Saturation - - Inhaled Oxygen Concentration - - Weight 67.4 kg (148 lb 9.4 oz) 10/25/2011 11:16 AM CDT Height - - Body Mass Index - - documented in this encounter Progress Notes Adonay Gabriel Jr., M.D. - 10/25/2011 10:56 AM CDT [id number] CHIEF COMPLAINT/REASON FOR VISIT check. Also needs to get set up for Essure tubal sterilization and followup on HISTORY OF PRESENT ILLNESS 35 year old 8, para 5, requesting permanent sterilization. She is currently on Micronor control pills but has not taken the last couple days. She used condoms for control but one-time she had intercourse that did not go very well so she is not having intercourse at this time. She is nursing but cutting back on that and have started giving the baby significant amounts of formula. Mood is good, bowel, bladder function fine. She is sure she does not want any future pregnancies. CURRENT MEDICATIONS Start on control pills, continue with vitamins. ALLERGIES None. SYSTEMS REVIEW CUSTOMER ADVISOR SPECIALIST review of systems otherwise negative. PAST MEDICAL/SURGICAL HISTORY Remarkable for normal deliveries last 10/24/2011. She has had 5 total normal deliveries. She has had3 miscarriages with two D&C's. Patient did have elevated blood sugars with was treatedwith diet and did well with that. PREVENTIVE SERVICES: Doesn't smoke. Pap smear 10/25/2011. Tetanus 06/07/2007 Lipids 06/22/2010. Depression and asthma negative. SOCIAL HISTORY Drinks occasionally. Doesn't smoke. , sexually active without problems. FAMILY HISTORY Parents do not have any history of anesthetic complications. VITAL SIGNS WEIGHT: 67.4 kg PULSE 72 BLOOD PRESSURE 102/58. PHYSICAL EXAM HEENT: Grossly normal. THYROID: Not enlarged, airway appears to be adequate. LUNGS: Clear with good inspiratory effort. HEART: Is regular without significant murmur. BREASTS: Are lactational, not further examined. ABDOMEN: Soft, nontender. Right upper quadrant is normal. GENITALIA: External genitalia is normal. She has fair support. Pap smear is done, uterus is midposition, anteverted, mobile, nontender. Adnexa benign. RECTAL EXAM: Deferred. IMPRESSION/REPORT/PLAN Normal CUSTOMER ADVISOR SPECIALIST examination. Good candidate for Essure tubal occlusion. Risk of surgery, bleeding, infection, damage to internal organs, inability to complete the procedure, possible failure, need for backup contraception for 3 months and followup HSG discussed. Patient is tentatively scheduled for 11/13. Continue control pills through 3 months after procedure. Adonay Gabriel M.D./giovanna Electronically Signed By: ADONAY GABRIEL MD On: 10/31/2011 03:37 PM Source: [facility] MHSDOLBEYNONRADSYS Document Id: [id number] documented in this encounter Procedure Notes Alma Salgado RIrisNIris - 10/25/2011 11:46 AM CDT Hemoglobin POC Hemoglobin POC Entered On: 10/25/2011 11:46 CDT Performed On: 10/25/2011 11:46 CDT by ALMA DAWSON Hemoglobin POC Hgb POC : 13.9gm/dL Site : Finger ALMA DAWSON - 10/25/2011 11:46 CDT Source: [facility] POWERCHART Document Id: [id number] documented in this encounter Miscellaneous Notes Miscellaneous - Adonay Gabriel Jr., M.D. - 10/25/2011 9:31 PM CDT Obstructive Sleep Apnea Obstructive Sleep Apnea Entered On: 10/25/2011 21:32 CDT Performed On: 10/25/2011 21:31 CDT by ADONAY GABRIEL MD JACQUI Screening Known Obstructive Sleep Apnea : No Uses Home CPAP/BiPAP : No Risk for Sleep Apnea : No ADONAY GABRIEL MD - 10/25/2011 21:31 CDT JACQUI Assessment Do you have high blood pressure or have you been told to take medication for high blood pressure? : No Frequency of Snoring : Never Frequency of Gasping, Choking, Snorting : Never Neck Circumference (cm) : 32/33 Total Number of Historical Features : 0 ADONAY GABRIEL MD - 10/25/2011 21:31 CDT [facility] Document Id: [id number] Miscellaneous - Alma Salgado RIrisNIris - 10/25/2011 11:16 AM CDT Adult Manufacturing Process Technician Intake/History Adult Manufacturing Process Technician Intake/History Entered On: 10/25/2011 11:19 CDT Performed On: 10/25/2011 11:16 CDT by ALMA DAWSON Intake Chief Complaint : post vag 7-10 Peripheral Pulse Rate : 72/min Systolic Blood Pressure : 102mmHg Diastolic Blood Pressure : 58mmHg NIBP Mean : 73mmHg BP Location : Right upper extremity Blood Pressure Cuff Size : Regular Actual Weight : 67.4kg(Converted to: 148lb 9oz) Dosing Weight Clinic : 67.40kg ALMA DAWSON - 10/25/2011 11:16 CDT Subjective Pain Symptoms : No ALMA DAWSON - 10/25/2011 11:16 CDT Dependent Habits Tobacco Use/Currently Using : No Exposure to Tobacco Smoke : Patient smokes Smoking Status : Former smoker ALMA DAWSON - 10/25/2011 11:16 CDT Tobacco Use Grid Type : Cigarettes Last Use : 01-21-11 ALMA DAWSON - 10/25/2011 11:16 CDT Allergy Allergies (Active) NKA Estimated Onset Date: Unspecified ; Created By: ALMA DAWSON; Reaction Status: Active ; Category: Drug ; Substance: NKA ; Type: Allergy ; Updated By: ALMA DAWSON; Reviewed Date: 03/17/2011 10:04 CINDER CRANE OPERATOR Source: [employer] Document Id: [id number] documented in this encounter Plan of Treatment Not on filedocumented as of this encounter Procedures Procedure Name Priority Date/Time Associated Comments Diagnosis HEMOGLOBIN (HGB), Routine 10/25/2011 11:46 AM Res ults for this POCT, B CDT procedure are i n the results section. THINPREP SCREEN HPV Routine 10/25/2011 11:40 AM R esults for this REFLEX CDT procedure are i n the results section. documented in this encounter Results Hemoglobin (HGB), POCT (10/25/2011 11:46 AM CDT) P athologist Signature Hemoglobin 13.9 GMDL POWERCHART Specimen (Source) Anatomical Collection Method Collection Time Re ceived Time Location / / Volume Laterality 10/25/2011 11:46 AM CDT Historical Provider LAB POCT ORDERABLES - DEVICE Performing Organization Address City/State/[facility] Code Phon e Number POWERCHART Pathology ThinPrep Screen HPV Reflex (10/25/2011 11:40 AM CDT) [facility] gist Method Time Signature Interpretation [id number] POWERCHART HXThPrep Scrn See Comment POWERCHART [facility] Comment: A. ??ThinPrep Pap Test Screen (Cervical/ Endocervical HPV Reflex): Satisfactory for evaluation. Negative for intraepithelial lesion or m alignancy. HXThPrep Scrn Cyto-Strong See Comment [facility] RCHART Comment: Report electronically signed by RAMSES Serrano(ASCP) 10/27/2011 11:28 Interpreted by: RAMSES Serrano(ASCP) HX Spec Desc-Strong See Comment POWERCHART Comment: A. ??ThinPrep Pap Test Screen (Cervical/ Endocervical HPV Reflex): Received cloudy specimen in ThinPrep via l. Test Performed by: [place] [address] Hydraulic Assembler: Garfield waite III, M.D. Specimen (Source) Anatomical Collection Method Collection Time Re ceived Time Location / / Volume Laterality Cervix/Endocervix 10/25/2011 11:40 AM CDT Adonay Gabriel Jr., M.D. LAB PAP PATHDX ORDERABLES Performing Organization Address City/State/ZIP Code Phon e Number POWERCHART documented in this encounter Visit Diagnoses Not on filedocumented in this encounter
--- OUTSIDE RECORDS SUMMARY | 2021-10-12 00:44 | XMS_ITS | Encounter Summary ---
:1975 Author Organization [facility] Address [address] [place] [address] Care Team Providers Name Role Phone Unavailable Primary Care Provider Unavailable Encounter Details Date Type Department Care Team Description 05/24/2011 Hospital Encounter HX NO MAPPING Pratik Fisher M.B .B.S., M.D. [address] [place], [place] [phone] (Wo rk) Social History [...] or slept in a fpc (including now)? Sex Assigned at Date Recorded Female 06/10/2017 5:21 PM CDT documented as of this encounter Last Filed Vital Signs Vital Sign Reading Time Taken Comments Blood Pressure 104/56 05/24/2011 9:51 AM CDT Pulse - - Temperature - - Respiratory Rate - - Oxygen Saturation - - Inhaled Oxygen Concentration - - Weight 65.2 kg (143 lb 11.8 oz) 05/24/2011 9:51 AM CDT Height - - Body Mass Index - - documented in this encounter Consult Notes Pratik Fisher M.B.B.S., M.D. - 05/24/2011 12:00 AM CDT [facility] HISTORY OF PRESENT ILLNESS Thank you very much for asking us to see this 35-year-old 7, para 4 today for an advanced level scan. IMPRESSION/REPORT/PLAN This demonstrated normal anatomy, normal biometry and no soft markers of aneuploidy. The couple understand that we cannot exclude the diagnosis of Down syndrome on the basis of scan alone, but did not wish to proceed with amniocentesis. We talked about the additional risks of advanced maternal age including increased risk of preeclampsia, gestational diabetes, antepartum hemorrhage, delivery and growth restriction. I suggested she have a growth scan at 32-34 weeks, but otherwise treat the as any other. NPD/mgd Signed ANGEL Braga OB-MAJOR GIFTS OFFICER Maternal Medicine Electronically Signed By: PRATIK FISHER MD On: 06/14/2011 09:20 AM Source: [facility] MHSDOLBEYNONRADSYS Document Id: [id number] documented in this encounter Miscellaneous Notes Miscellaneous - Alma Salgado, R.N. - 05/24/2011 9:51 AM CDT Adult Furniture Delivery Driver Intake/History Adult Furniture Delivery Driver Intake/History Entered On: 05/24/2011 9:51 CDT Performed On: 05/24/2011 9:51 CDT by ALMA DAWSON Intake Chief Complaint : Level 2 u/s 23 4/7 weeks Systolic Blood Pressure : 104mmHg Diastolic Blood Pressure : 56mmHg NIBP Mean : 72mmHg BP Location : Right upper extremity Blood Pressure Cuff Size : Regular Actual Weight : 65.2kg(Converted to: 143lb 12oz) Dosing Weight Clinic : 65.20kg ALMA DAWSON - 05/24/2011 9:51 CDT Subjective Pain Symptoms : No ALMA DAWSON - 05/24/2011 9:51 CDT Dependent Habits Tobacco Use/Currently Using : No Exposure to Tobacco Smoke : Patient smokes Smoking Status : Former smoker ALMA DAWSON - 05/24/2011 9:51 CDT Tobacco Use Grid Type : Cigarettes Last Use : 01-21-11 ALMA DAWSON - 05/24/2011 9:51 CDT Allergy Allergies (Active) NKA Estimated Onset Date: Unspecified ; Created By: ALMA DAWSON; Reaction Status: Active ; Category: Drug ; Substance: NKA ; Type: Allergy ; Updated By: ALMA DAWSON; Reviewed Date: 03/17/2011 10:04 SURVEY CAD TECHNICIAN Source: [employer] Document Id: [id number] CDT!20 documented in this encounter Plan of Treatment Not on filedocumented as of this encounter Visit Diagnoses Not on filedocumented in this encounter
--- OUTSIDE RECORDS SUMMARY | 2021-10-12 00:44 | XMS_ITS | Encounter Summary ---
:1975 Author Organization [facility] Address [address] [place] [address] Care Team Providers Name Role Phone Unavailable Primary Care Provider Unavailable Encounter Details Date Type Department Care Team Description 04/02/2013 Hospital Encounter HX [facility] OWOC DERM Aleida De Santiago M.D. [address] [facility], [facility] [address] [address] (Wo rk) Social History Tobacco Use Types [...] Sign Reading Time Taken Comments Blood Pressure 120/60 04/02/2013 9:06 AM COOPER APPRENTICE Pulse - - Temperature - - Respiratory Rate - - Oxygen Saturation - - Inhaled Oxygen Concentration - - Weight - - Height - - Body Mass Index - - documented in this encounter Progress Notes Luz Maria De Santiago M.D. - 04/02/2013 8:53 AM CST [id number] CHIEF COMPLAINT/REASON FOR VISIT Request for Botox, cosmetic. HISTORY OF PRESENT ILLNESS This 37-year-old female is here desiring an injection of Botox for her forehead wrinkles as well as periocular wrinkles. She received this as a present from her for [place], and she is accompanied by her , Hari, and her son, Francisco J. She states she has had a lot of sun exposure over the years. She grew up with a pool in the backyard, and she used tanning beds extensively during high school. She has never had a full skin exam. MEDICATIONS None. ALLERGIES None. SYSTEMS REVIEW Current problems with head and face, eyes, ears, mouth, throat, nose and sinuses, respiratory tract,cardiovascular system, gastrointestinal system, genitourinary system, musculoskeletal system, psychological system, endocrine system, hematopoietic system, nervous system were reviewed. PAST MEDICAL/SURGICAL HISTORY Past problems with head and face, eyes, ears, mouth, throat, nose and sinuses, respiratory tract, cardiovascular system, gastrointestinal system, genitourinary system, musculoskeletal system, psychological system, endocrine system, hematopoietic system, nervous system were reviewed. Past surgical procedures were reviewed. Tubal ligation. 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 She smokes a half a pack a day. She drinks alcohol 2 times a month. FAMILY HISTORY Family history of asthma. Negative for psoriasis, eczema, acne, skin cancer, and hayfever. PHYSICAL EXAMINATION SKIN: Exam of face shows tanned skin. Many telangiectasias. Type III skin. She does have many horizontal wrinkles across the forehead and very strong frown lines and periocular lines. PROCEDURE: The process was discussed, and information provided, including adverse effects, such as drooping eyelids or bruising. LMX was applied for 10 minutes and then Botox 30 units injected in a aileen pattern of the medial forehead, a small amount of the mid eyebrows, and 1 unit under each lateral eyebrow. IMPRESSION/REPORT/PLAN Botox cosmetic injection. PLAN: Patient paid $372 for the 30 units. Care instructions were given. She will follow up in 3 months for a full skin exam and Botox injection. Patient did not desire a depart summary. Luz Maria De Santiago M.D./bam Electronically Signed By: LUZ MARIA DE SANTIAGO MD On: 04/10/2013 04:38 PM Source: [facility] MHSDOLBEYNONRADSYS Document Id: [id number] ER APPRENTICE documented in this encounter Miscellaneous Notes Miscellaneous - Micheline Garcia L.P.N. - 04/02/2013 9:06 AM CST Adult Toe Stapler Intake/History Adult Toe Stapler Intake/History Entered On: 04/02/2013 9:07 COOPER APPRENTICE Performed On: 04/02/2013 9:06 COOPER APPRENTICE by MICHELINE GARCIA Intake Chief Complaint : Botox Systolic Blood Pressure : 120 mmHg Diastolic Blood Pressure : 60 mmHg NIBP Mean : 80 mmHg BP Location : Right upper extremity Blood Pressure Cuff Size : Regular MICHELINE GARCIA - 04/02/2013 9:06 COOPER APPRENTICE General Info Information Given By : Patient Preferred Communication Mode : Verbal, Written Languages : Sao Tomean MICHELINE GARCIA - 04/02/2013 9:06 COOPER APPRENTICE Subjective Pain Symptoms : No MICHELINE GARCIA - 04/02/2013 9:06 COOPER APPRENTICE Dependent Habits Tobacco Use/Currently Using : Yes Exposure to Tobacco Smoke : Patient smokes Smoking Status : Current every day smoker MICHELINE GARCIA - 04/02/2013 9:06 COOPER APPRENTICE Tobacco Use Grid Type : Cigarettes Cigarette Use Packs/Day : 0.5 MICHELINE GARCIA - 04/02/2013 9:06 COOPER APPRENTICE Source: [facility] POWERCHART Document Id: [id number] COOPER APPRENTICE!22 ER APPRENTICE documented in this encounter Plan of Treatment Not on filedocumented as of this encounter Visit Diagnoses Not on filedocumented in this encounter
--- OUTSIDE RECORDS SUMMARY | 2021-10-12 00:44 | XMS_ITS | Encounter Summary ---
:1975 Author Organization [facility] Address [address] [place] [address] Care Team Providers Name Role Phone Unavailable Primary Care Provider Unavailable Encounter Details Date Type Department Care Team Description 12/13/2015 Hospital Encounter HX [facility] FBHB Adonay Reddy Jr., M.D. [address] [place], [place] [phone] (Wo rk) Social History [...] - - Height 164 cm (5' 4.57) 12/13/2015 11:15 AM CDT Body Mass Index - - documented in this encounter Plan of Treatment Not on filedocumented as of this encounter Procedures Procedure Name Priority Date/Time Associated Diagnosis Comme nts BI BREAST SCREENING Routine 12/13/2015 12:19 PM R esults for this BILATERAL CDT procedure are i n the results section. documented in this encounter Results BI Breast Screening Bilateral (12/13/2015 12:19 PM CDT) Anatomical Region Laterality Modality Breast Bilateral Mammography Specimen (Source) Anatomical Collection Method Collection Time Re ceived Time Location / / Volume Laterality 12/13/2015 12:19 PM CDT Addenda Addendum by Provider, Romi Wagner o annette 12/13/2015 12:19 PM CDT RAD^^^OW MA Mammo Screening w ??CADD 12/13/2015 12:19:19 Impressions 12/13/2015 12:58 PM CDT Incomplete. Need additional imaging evaluation. RECOMMENDATIONS: The radiology departmen t will contact the patient and schedule the indicated additional im aging. A separate report will be issued as soon as possible, including final recommendations. BI-RADS ASSESSMENT: CODE: 0-INCOMPLETE N EEDS ADDITIONAL IMAGING EVALUATION Full field digital mammography is used a nd Computer Aided Detection is performed on the digital mammogram im ages. LETTER SENT: L0 - additional imaging req uired, dense breasts Narrative 12/13/2015 12:58 PM CDT EXAM: MA Mammo Screening w/ CADD INDICATION: Screening. COMPARISON: Priors unavailable DENSITY: c. The breast(s) are heterogene ously dense, which may obscure small masses. FINDINGS: Asymmetry in the anterior dept h breast slightly inner position 3.5 cm from the nipple only see n on the implant displaced CC view. Nothing requiring additional imagi ng in the left breast. Bilateral subpectoral breast implants. Procedure Note Hosea Venegas M.D. / Provider, Rod cedillo M.D. - 07/08/2016 EXAM: MA Mammo Screening w/ CADD INDICATION: Screening. COMPARISON: Priors unavailable DENSITY: c. The breast(s) are heterogene ously dense, which may obscure small masses. FINDINGS: Asymmetry in the anterior dept h breast slightly inner position 3.5 cm from the nipple only see n on the implant displaced CC view. Nothing requiring additional imagi ng in the left breast. Bilateral subpectoral breast implants. IMPRESSION: Incomplete. Need additional imaging evaluation. RECOMMENDATIONS: The radiology departmen t will contact the patient and schedule the indicated additional im aging. A separate report will be issued as soon as possible, including final recommendations. BI-RADS ASSESSMENT: CODE: 0-INCOMPLETE N EEDS ADDITIONAL IMAGING EVALUATION Full field digital mammography is used a nd Computer Aided Detection is performed on the digital mammogram im ages. LETTER SENT: L0 - additional imaging req uired, dense breasts Tanja Dunn R.T.(R), R.T.(R)(M) IMG BI PROCEDURES documented in this encounter Visit Diagnoses Not on filedocumented in this encounter
--- OUTSIDE RECORDS SUMMARY | 2021-10-12 00:44 | XMS_ITS | Encounter Summary ---
:1975 Author Organization [facility] Address [address] [place] [address] Care Team Providers Name Role Phone Unavailable Primary Care Provider Unavailable Encounter Details Date Type Department Care Team Description 08/07/2011 Hospital Encounter [facility] Adonay Alfaro Jr., M.D. [address] [place], [place] [phone] (Wo rk) Social History [...] Reading Time Taken Comments Blood Pressure 96/56 08/07/2011 9:51 AM CDT Pulse - - Temperature - - Respiratory Rate - - Oxygen Saturation - - Inhaled Oxygen Concentration - - Weight - - Height - - Body Mass Index - - documented in this encounter Progress Notes Adonay Gabriel Jr., M.D. - 08/07/2011 12:00 AM CDT [id number] CHIEF COMPLAINT/REASON FOR VISIT OB check HISTORY OF PRESENT ILLNESS 35 year old 7, para 4 at 34-1/2 weeks who after she has intercourse starts to feel like she is having bacterial vaginosis again. She has had documented case of that this , responded well to medication. She doesn't have any itching but she does have some discharge and a little bit of odor to it. No consistent contractions. She reports good movement. No other problems. Her heartburn is stable on fnlj-lin-ngjlwrk Zantac. PHYSICAL EXAM Please see OB flow sheet. She does have some vaginal discharge, questionable yeast versus bacterial vaginosis. Wet prep sent. Cervix long, closed. IMPRESSION/REPORT/PLAN Patient stable, will treat for bacterial vaginosis as she has had that previously this and she has the same symptoms. Wet prep is sent. Follow up in 2 weeks. movement counts discussed. TGH/mgd Signed Adonay Gabriel M.D. Obstetrics & Gynecology Electronically Signed By: ADONAY GABRIEL MD On: 08/09/2011 01:29 PM Source: [facility] MHSDOLBEYNONRADSYS Document Id: [id number] documented in this encounter Miscellaneous Notes Miscellaneous - Adonay Gabriel Jr., M.D. - 08/07/2011 10:12 AM CDT Ambulatory [place] [address] Visit Information Name: MARK BLACK Current Date: 08/07/2011 10:12:12 Physicians Attending Provider: ADONAY GABRIEL MD Primary Care Provider: ADONAY GABRIEL MD Your Medications Here is a list of your medications. It is important to take your medications as directed. Use a pillbox or chart to help remind you to take your medications. Please let your doctor or nurse know if you have problems taking your medications. Medication/Strength Dose Route Frequency Indications/Special Instructions/Comments metronidazole (Flagyl 500 mg oral tablet) 0.5 gm Oral every 12 hours multivitamin, ( Multivitamins) Attention: If you have [...] No Appointments found Your Goals/Additional instructions: Source: [facility] [employer] Document Id: [id number] Adonay Chavez Jr., M.D. - 08/07/2011 10:12 AM CDT [place] [address] Visit Information Name: NAMITA BLACKFER SARAH Visit Date: 08/07/2011 10:12:11 Attending Provider: ADONAY GABRIEL MD Primary Care [...] medications. Medication/Strength Dose Route Frequency Indications/Special Instructions/Comments metronidazole (Flagyl 500 mg oral tablet) 0.5 gm Oral every 12 hours multivitamin, ( Multivitamins) Attention: If you have any medications at home that are not on this list, DO NOT take them until youcontact your provider for clarification. Additional Information: Source: [facility] [employer] Document Id: [id number] Alma Mcguire R.N. - 08/07/2011 9:51 AM CDT Adult Diving Judge Intake/History Adult Diving Judge Intake/History Entered On: 08/07/2011 9:52 CDT Performed On: 08/07/2011 9:51 CDT by ALMA DAWSON Intake Chief Complaint : OB visit 34 2/7 weeks Systolic Blood Pressure : 96mmHg Diastolic Blood Pressure : 56mmHg NIBP Mean : 69mmHg BP Location : Right upper extremity Blood Pressure Cuff Size : Regular ALMA DAWSON - 08/07/2011 9:51 CDT Subjective Pain Symptoms : No ALMA DAWSON - 08/07/2011 9:51 CDT Dependent Habits Tobacco Use/Currently Using : No Exposure to Tobacco Smoke : Patient smokes Smoking Status : Former smoker ALMA DAWSON - 08/07/2011 9:51 CDT Tobacco Use Grid Type : Cigarettes Last Use : 01-21-11 ALMA DAWSON - 08/07/2011 9:51 CDT Allergy Allergies (Active) NKA Estimated Onset Date: Unspecified ; Created By: ALMA DAWSON; Reaction Status: Active ; Category: Drug ; Substance: NKA ; Type: Allergy ; Updated By: ALMA DAWSON; Reviewed Date: 03/17/2011 10:04 GULLET SLITTER Source: [facility] POWERCHART Document Id: [id number] documented in this encounter Plan of Treatment Not on filedocumented as of this encounter Procedures Procedure Name Priority Date/Time Associated Comments Diagnosis WET PREP EXAM, Routine 08/07/2011 12:28 PM Result s for this UROGENITAL CDT procedure are i n the results section. documented in this encounter Results Wet Prep Exam, Urogenital (08/07/2011 12:28 PM CDT) P athologist Signature HXWet Prep POWERCHART HXFinal No yeast, POWERCHART Trichomonas , or clue cells seen. Specimen (Source) Anatomical Collection Method Collection Time Re ceived Time Location / / Volume Laterality Vagina 08/07/2011 12:28 PM CDT Adonay G Gabriel Jr., M.D. LAB MICROBIOLOGY - GENERAL O RDERABLES Performing Organization Address City/State/ZIP Code Phon e Number POWERCHART documented in this encounter Visit Diagnoses Not on filedocumented in this encounter
--- OUTSIDE RECORDS SUMMARY | 2021-10-12 00:44 | XMS_ITS | Encounter Summary ---
:1975 Author Organization [facility] Address [address] [place] [address] Care Team Providers Name Role Phone Unavailable Primary Care Provider Unavailable Encounter Details Date Type Department Care Team Description 06/09/2011 Hospital Encounter HX [facility] Adonay Alfaro Jr., M.D. [address] [place], [place] [phone] (Wo rk) Social History [...] or relatives? How often do you attend buddhism or More than 4 times per year 08/17/2020 bahai services? Do you belong to any clubs or Yes 08/17/2020 organizations such as buddhism groups, unions, fraternal or athletic groups, or [...] Sign Reading Time Taken Comments Blood Pressure 104/54 06/09/2011 8:52 AM CDT Pulse - - Temperature - - Respiratory Rate - - Oxygen Saturation - - Inhaled Oxygen Concentration - - Weight 67.3 kg (148 lb 5.9 oz) 06/09/2011 8:52 AM CDT Height - - Body Mass Index - - documented in this encounter Procedure Notes Alma Salgado R.N. - 06/09/2011 9:12 AM CDT Glucose 1 Hr OB POC Glucose 1 Hr OB POC Entered On: 06/09/2011 9:12 CDT Performed On: 06/09/2011 9:12 CDT by ALMA DAWSON Glucose 1 Hr OB POC Glucose 1 Hr OB POC Result : 104mg/dL (Comment: fasting [ALMA DAWSON - 06/09/2011 9:12 CDT] ) Site : [facility] ALMA DAWSON - 06/09/2011 9:12 CDT Source: [employer] Document Id: [id number]!4 Alma Salgado R.N. - 06/09/2011 9:12 AM CDT Hemoglobin POC Hemoglobin POC Entered On: 06/09/2011 9:12 CDT Performed On: 06/09/2011 9:12 CDT by ALMA DAWSON Hemoglobin POC Hgb POC : 10.8gm/dL (LOW) Site : [facility] ALMA DAWSON - 06/09/2011 9:12 CDT Source: [employer] Document Id: [id number]!4 documented in this encounter Miscellaneous Notes Miscellaneous - Adonay Gabriel Jr., M.D. - 06/09/2011 9:09 AM CDT Ambulatory Patient Summary [address] [address] Visit Information Name: MARK BLACK Current Date: 06/09/2011 09:09:19 Physicians Attending Provider: ADONAY GABRIEL MD Primary [...] No Appointments found Your Goals/Additional instructions: Source: [facility] [employer] Document Id: [id number] Adonay Bond Jr., M.D. - 06/09/2011 9:09 AM CDT Ambulatory [place] [address] Visit Information Name: MARK BLACK Visit Date: 06/09/2011 09:09:18 Attending Provider: ADONAY GABRIEL MD Primary Care [...] your provider for clarification. Additional Information: Source: [facility] [employer] Document Id: [id number] Alma Yun R.N. - 06/09/2011 8:52 AM CDT Adult Repair Service Dispatcher Intake/History Adult Repair Service Dispatcher Intake/History Entered On: 06/09/2011 8:53 CDT Performed On: 06/09/2011 8:52 CDT by ALMA DAWSON Intake Chief Complaint : OB visit 25 6/7 weeks Systolic Blood Pressure : 104mmHg Diastolic Blood Pressure : 54mmHg NIBP Mean : 71mmHg Actual Weight : 67.3kg(Converted to: 148lb 6oz) Dosing Weight Clinic : 67.30kg ALMA DAWSON - 06/09/2011 8:52 CDT Subjective Pain Symptoms : No ALMA DAWSON - 06/09/2011 8:52 CDT Dependent Habits Tobacco Use/Currently Using : No Exposure to Tobacco Smoke : Patient smokes Smoking Status : Former smoker ALMA DAWSON - 06/09/2011 8:52 CDT Tobacco Use Grid Type : Cigarettes Last Use : 01-21-11 ALMA DAWSON - 06/09/2011 8:52 CDT Allergy Allergies (Active) NKA Estimated Onset Date: Unspecified ; Created By: ALMA DAWSON; Reaction Status: Active ; Category: Drug ; Substance: NKA ; Type: Allergy ; Updated By: ALMA DAWSON; Reviewed Date: 03/17/2011 10:04 ELECTRONIC NEWS GATHERING EDITOR Source: [employer] Document Id: [id number] documented in this encounter Plan of Treatment Not on filedocumented as of this encounter Procedures Procedure Name Priority Date/Time Associated Comments Diagnosis HEMOGLOBIN (HGB), Routine 06/09/2011 9:12 AM Resu lts for this POCT, B CDT procedure are i n the results section. HX GLUCOSE 1 HR OB Routine 06/09/2011 9:12 AM Res ults for this POC RESULT CDT procedure are i n the results section. documented in this encounter Results Hemoglobin (HGB), POCT (06/09/2011 9:12 AM CDT) P athologist Signature Hemoglobin 10.8 GMDL POWERCHART Specimen (Source) Anatomical Collection Method Collection Time Re ceived Time Location / / Volume Laterality 06/09/2011 9:12 AM CDT Historical Provider LAB POCT ORDERABLES - DEVICE Performing Organization Address City/State/ZIP Code Phon e Number POWERCHART HX GLUCOSE 1 HR OB POC RESULT (06/09/2011 9:12 AM CDT) P athologist Signature HX Glucose 1 Hr 104 MGDL POWERCHART Ob Specimen (Source) Anatomical Collection Method Collection Time Re ceived Time Location / / Volume Laterality 06/09/2011 9:12 AM CDT Narrative POWERCHART - 06/09/2011 9:12 AM CDT {\rtf1\ansi\yefbrrr2363\deff0\ncyzxio5206{\fonttbl{\f0\fnil\fcharset0 MS Shell Dlg;}} \viewkind4\uc1\pard\f0\fs20 fasting \par } Historical Provider LAB HISTORICAL ORDERS Performing Organization Address City/State/ZIP Code Phon e Number POWERCHART documented in this encounter Visit Diagnoses Not on filedocumented in this encounter
--- OUTSIDE RECORDS SUMMARY | 2021-10-12 00:44 | XMS_ITS | Encounter Summary ---
:1975 Author Organization [facility] Address [address] [place] [address] Care Team Providers Name Role Phone Unavailable Primary Care Provider Unavailable Encounter Details Date Type Department Care Team Description 02/03/2014 Hospital Encounter HX NO MAPPING Pooja Kohli Jr., M.D. [address] [place], [place] [phone] (Wo rk) Social History [...] Associated Diagnosis Comme nts SURGICAL PATHOLOGY Routine 02/03/2014 12:00 AM Re sults for this FILM PROJECTOR OPERATOR procedure are i n the results section. documented in this encounter Results Pathology Surgical Pathology (02/03/2014 12:00 AM FILM PROJECTOR OPERATOR) Specimen (Source) Anatomical Location Collection Method / Collectio n Time Received Time / Laterality Volume 02/03/2014 Narrative [facility] - 02/14/20 14 3:16 PM FILM PROJECTOR OPERATOR PATIENT IMAGES Choose the Image button to view related documents. Historical Provider LAB SURG PATH ORDERABLES Performing Organization Address City/State/ZIP Code Phon e Number [facility] documented in this encounter Visit Diagnoses Not on filedocumented in this encounter
--- OUTSIDE RECORDS SUMMARY | 2021-10-12 00:44 | XMS_ITS | Encounter Summary ---
:1975 Author Organization [facility] Address [address] [place] [address] Care Team Providers Name Role Phone Unavailable Primary Care Provider Unavailable Encounter Details Date Type Department Care Team Description 08/21/2011 Hospital Encounter [facility]X [facility] Adonay Alfaro Jr., M.D. [address] [place], [place] [phone] (Wo rk) Social History [...] or relatives? How often do you attend mu-ism or More than 4 times per year 08/17/2020 shinto services? Do you belong to any clubs or Yes 08/17/2020 organizations such as mu-ism groups, unions, fraternal or athletic groups, or [...] Reading Time Taken Comments Blood Pressure 100/52 08/21/2011 10:49 AM CDT Pulse - - Temperature - - Respiratory Rate - - Oxygen Saturation - - Inhaled Oxygen Concentration - - Weight 73.9 kg (162 lb 14.7 oz) 08/21/2011 10:49 AM CDT Height - - Body Mass Index - - documented in this encounter Miscellaneous Notes Miscellaneous - Adonay Gabriel Jr., M.D. - 08/21/2011 11:03 AM CDT Ambulatory Depart Summary [address] [address] Visit Information Name: MARK BLACK Visit Date: 08/21/2011 11:03:11 Attending Provider: ADONAY GABRIEL MD Primary Care [...] your provider for clarification. Additional Information: Source: [facility] POWERCHART Document Id: [id number] Miscellaneous - Adonay Gabriel Jr., M.D. - 08/21/2011 11:03 AM CDT Ambulatory Patient Summary [address] [address] Visit Information Name: NAMITA BLACKFER SARAH Current Date: 08/21/2011 11:03:12 Physicians Attending Provider: ADONAY GABRIEL MD Primary [...] No Appointments found Your Goals/Additional instructions: Source: [facility] [employer] Document Id: [id number] Miscellaneous - Alma Salgado RAraceli - 08/21/2011 10:49 AM CDT Adult Medicaid Biller Intake/History Adult Medicaid Biller Intake/History Entered On: 08/21/2011 10:51 CDT Performed On: 08/21/2011 10:49 CDT by ALMA DAWSON Intake Chief Complaint : OB visit 36 2/7 weeks Systolic Blood Pressure : 100mmHg Diastolic Blood Pressure : 52mmHg NIBP Mean : 68mmHg BP Location : Right upper extremity Blood Pressure Cuff Size : Regular Actual Weight : 73.9kg(Converted to: 162lb 15oz) Dosing Weight Clinic : 73.90kg ALMA DAWSON - 08/21/2011 10:49 CDT Subjective Pain Symptoms : No ALMA DAWSON - 08/21/2011 10:49 CDT Dependent Habits Tobacco Use/Currently Using : No Exposure to Tobacco Smoke : Patient smokes Smoking Status : Unknown if ever smoke ALMA DAWSON - 08/21/2011 10:49 CDT Tobacco Use Grid Type : Cigarettes Last Use : 01-21-11 ALMA DAWSON - 08/21/2011 10:49 CDT Allergy Allergies (Active) NKA Estimated Onset Date: Unspecified ; Created By: ALMA DAWSON; Reaction Status: Active ; Category: Drug ; Substance: NKA ; Type: Allergy ; Updated By: ALMA DAWSON; Reviewed Date: 03/17/2011 10:04 INVASIVE MANAGER Source: [facility] [employer] Document Id: [id number] documented in this encounter Plan of Treatment Not on filedocumented as of this encounter Procedures Procedure Name Priority Date/Time Associated Diagnosis Comme nts GRP B STREP (S. Routine 08/21/2011 11:02 AM Resul ts for this AGALACTIAE) CULTURE CDT procedur e are in the results section. documented in this encounter Results Grp B Strep (S. Agalactiae) Culture (08/21/2011 11:02 AM CDT) [facility] gist Method Time Signature Grp B Strep POWERCHART (S. agalactiae) Culture HXFinal See POWERCHART scanned/paper report. Test performed at [facility]. Specimen (Source) Anatomical Collection Method Collection Time Re ceived Time Location / / Volume Laterality Vaginal/Rectum 08/21/2011 11:02 AM CDT Adonay Gabriel Jr., M.D. LAB MICROBIOLOGY - GENERAL O RDERABLES Performing Organization Address City/State/ZIP Code Phon e Number POWERCHART documented in this encounter Visit Diagnoses Not on filedocumented in this encounter
--- OUTSIDE RECORDS SUMMARY | 2021-10-12 00:44 | XMS_ITS | Encounter Summary ---
:1975 Author Organization [facility] Address [address] [place] [address] Care Team Providers Name Role Phone Unavailable Primary Care Provider Unavailable Encounter Details Date Type Department Care Team Description 09/12/2011 Hospital Encounter HX NO MAPPING Pooja Kohli Jr., M.D. [address] [place], [place] [phone] (Wo rk) Social History [...] More than 4 times per year 08/17/2020 evangelical services? Do you belong to any clubs [...]
--- OUTSIDE RECORDS SUMMARY | 2021-10-12 00:44 | XMS_ITS | Encounter Summary ---
:1975 Author Organization [facility] Address [address] [place] [address] Care Team Providers Name Role Phone Unavailable Primary Care Provider Unavailable Encounter Details Date Type Department Care Team Description 01/22/2014 Hospital Encounter HX NO MAPPING Pooja Kohli Jr., M.D. [address] [place], [place] [phone] (Wo rk) Social History [...] More than 4 times per year 08/17/2020 advent services? Do you belong to any clubs [...]
--- OUTSIDE RECORDS SUMMARY | 2021-10-12 00:44 | XMS_ITS | Encounter Summary ---
:1975 Author Organization [facility] Address [address] [place] [address] Care Team Providers Name Role Phone Unavailable Primary Care Provider Unavailable Encounter Details Date Type Department Care Team Description 09/04/2011 Hospital Encounter [facility]X [facility] Adonay Alfaro Jr., M.D. [address] [place], [place] [phone] (Wo rk) Social History [...] Sign Reading Time Taken Comments Blood Pressure 112/58 09/04/2011 8:58 AM CDT Pulse - - Temperature - - Respiratory Rate - - Oxygen Saturation - - Inhaled Oxygen Concentration - - Weight 75.2 kg (165 lb 12.6 oz) 09/04/2011 8:58 AM CDT Height - - Body Mass Index - - documented in this encounter Progress Notes Adonay Gabriel Jr., M.D. - 09/04/2011 12:00 AM CDT [id number] CHIEF COMPLAINT/REASON FOR VISIT OB check HISTORY OF PRESENT ILLNESS 35 year old 7, para 4 who is becoming increasingly uncomfortable. Her cervix was just about 2 cm dilated, 50% effaced in the past. She is having irregular contractions. She is having consistent groin pain on the right side which is fairly sharp, sometimes it is pretty significant but she is still caring on her normal day-to-day activities. Patient had previous ultrasound which showed 34th percentile growth with an amniotic fluid index of 10 that was done 08/27. Informal ultrasound done today shows amniotic fluid index of over 10 with 2 pockets in excess of 4 cm and size appears to be consistent with about 37 weeks. Rest of objective please see OB flow sheet. IMPRESSION/REPORT/PLAN Patient stable at 38-1/2 weeks. Cervix really has not changed much. Will follow up for delivery at 39 weeks earlier for labor or other associated problems. I believe ultrasound today done informally does show normal amount of fluid and acceptable growth even though it has only been a little over a week from previous ultrasound. Adonay Gabriel M.D./giovanna Electronically Signed By: ADONAY GABRIEL MD On: 09/05/2011 01:43 PM Source: [facility] MHSDOLBEYNONRADSYS Document Id: [id number] documented in this encounter Miscellaneous Notes Miscellaneous - Alma Salgado RIrisNIris - 09/04/2011 8:58 AM CDT Adult Value Engineer Intake/History Adult Value Engineer Intake/History Entered On: 09/04/2011 8:58 CDT Performed On: 09/04/2011 8:58 CDT by ALMA DAWSON Intake Chief Complaint : OB visit 38 2/7 weeks Systolic Blood Pressure : 112mmHg Diastolic Blood Pressure : 58mmHg NIBP Mean : 76mmHg BP Location : Left upper extremity Blood Pressure Cuff Size : Regular Actual Weight : 75.2kg(Converted to: 165lb 13oz) Dosing Weight Clinic : 75.20kg ALMA DAWSON - 09/04/2011 8:58 CDT Subjective Pain Symptoms : No ALMA DAWSON - 09/04/2011 8:58 CDT Dependent Habits Tobacco Use/Currently Using : No Exposure to Tobacco Smoke : Patient smokes Smoking Status : Former smoker ALMA DAWSON - 09/04/2011 8:58 CDT Tobacco Use Grid Type : Cigarettes Last Use : 01-21-11 ALMA DAWSON - 09/04/2011 8:58 CDT Allergy Allergies (Active) NKA Estimated Onset Date: Unspecified ; Created By: ALMA DAWSON; Reaction Status: Active ; Category: Drug ; Substance: NKA ; Type: Allergy ; Updated By: ALMA DAWSON; Reviewed Date: 03/17/2011 10:04 MANAGER BENEFIT Source: [facility] POWERCHART Document Id: [id number] documented in this encounter Plan of Treatment Not on filedocumented as of this encounter Visit Diagnoses Not on filedocumented in this encounter
--- OUTSIDE RECORDS SUMMARY | 2021-10-12 00:44 | XMS_ITS | Encounter Summary ---
:1975 Author Organization [facility] Address [address] [place] [address] Care Team Providers Name Role Phone Unavailable Primary Care Provider Unavailable Encounter Details Date Type Department Care Team Description 12/13/2015 Hospital Encounter HX [facility] Gregg Alfaro Jr., M.D. [address] [place], [place] [phone] (Wo rk) Social History [...] or relatives? How often do you attend confucianism or More than 4 times per year 08/17/2020 cheondoism services? Do you belong to any clubs or Yes 08/17/2020 organizations such as confucianism groups, unions, fraternal or athletic groups, or [...] Sign Reading Time Taken Comments Blood Pressure 110/76 12/13/2015 9:29 AM CDT Pulse 76 12/13/2015 9:29 AM CDT Temperature - - Respiratory Rate 14 12/13/2015 9:29 AM CDT Oxygen Saturation - - Inhaled Oxygen Concentration - - Weight 57.7 kg (127 lb 5.1 oz) 12/13/2015 9:29 AM CDT Height 164.5 cm (5' 4.76) 12/13/2015 9:29 AM CDT Body Mass Index 21.34 12/13/2015 9:29 AM CDT documented in this encounter H&P Notes Gregg Gabriel Jr., M.D. - 12/13/2015 9:24 AM CDT [id number] CHIEF COMPLAINT/REASON FOR VISIT Annual examination. HISTORY OF PRESENT ILLNESS Leandra is a 39-year-old 8, para 5 female status post Essure tubal occlusion 01/2014 and endometrial ablation in 03/2014 with LMP of 12/06/2015 who presents today for her annual examination. Following ablation, she continued to have light monthly spotting, but this has become irregular and heavier, not enough to use a pad but enough to require a panty liner. There is associated cramping similar to full-blown menstrual cramping. The patient has some pain with intercourse and bleeding afterwards. She experiences some urinary leakage typically when her bladder is full, but this does not limither daily activities. There has been some vaginal discharge that occurs randomly. She denies a new se xual partner, but states that she is concerned about STD. Nargis weight reportedly fluctuates a lot, and she is currently up five pounds from her baseline.She has also been more fatigued than usual. In regards to her tobacco use, the patient had been successful quitting with nicotine patches, but unfortunately has resumed smoking up to half a pack per day at this point. In regards to her breast augmentation performed in 2012, Leandra notes that one implant sits differently than her other implant. She also expresses concern about these being popped during mammogram asshe is due for one. MEDICATIONS RepHresh vaginal gel, apply topically every 3 days. ALLERGIES No known drug allergies. SYSTEMS REVIEW Please see HPI for pertinent positives, otherwise rest of ROS negative. PAST MEDICAL/SURGICAL HISTORY PAST MEDICAL HISTORY: 1. Vaginal delivery x5, with most recent on 10/24/2011. 2. SAB x3, two with follow up D&Cs. 3. History of gestational diabetes. 4. Menorrhagia. PAST SURGICAL HISTORY: 1. D&C x3, with most recent on 02/03/2014 for management of menorrhagia. 2. Essure on 11/14/2011 with confirmatory HSG on 01/22/2014. 3. Breast augmentation with saline implants, 12/13/2012. 4. NovaSure endometrial ablation with hysteroscopy 03/10/2014. PREVENTIVE SERVICES: Tobacco use: Positive. Pap smear: 12/25/2013. Tetanus: 06/07/2007. Lipids: 12/25/2013. Depression: Negative. Asthma: Negative. SOCIAL HISTORY She smokes up to half a pack per day, previously quit with nicotine patches. Drinks occasionally. and sexually active without difficulties. She tries to walk regularly. FAMILY HISTORY Mother and father are generally healthy. VITAL SIGNS HEIGHT: 164.5 cm. WEIGHT: 57.75 kg. BMI: 21.34 kg/m2. PULSE: 76 /min. RESP RATE: 14 /min. SYSTOLIC: 110 mmHg. DIASTOLIC: 76 mmHg. PHYSICAL EXAMINATION GENERAL: Patient appears well groomed and well nourished. No acute distress. Oriented times three. SKIN: Normal without any evidence of rashes or lesions. HEAD: Normocephalic. ENT: Trachea midline. LYMPH NODES: Neck is supple. No significant adenopathy. THYROID: Not enlarged. Regular in contour. BREASTS: Breast implants are noted; I am unable to appreciate any abnormalities. There are no masses, no lymphadenopathy and no nipple discharge. Please note that Raheem Pollack LPN was present as manager of community relations for breast exam. HEART: Regular rate and rhythm without murmurs, rubs or gallops. No evidence of any peripheral vascular disease. LUNGS: Clear to auscultation with good inspiratory effort. ABDOMEN: Soft and nontender. No masses, hepatosplenomegaly or hernias noted. No enlarged groin nodespalpable. PELVIS: Vagina and cervix appear normal without lesions, discharge or rashes. Pap smear is done. Good uterine support. Uterus is mid-positioned and slightly anteverted, small, mobile and nontender. Adnexa are without masses or tenderness. Please note that Raheem Pollack LPN was present as manager of community relations for pelvic exam. Please note that certified court/medical interpreter, Prachi Thompson, was present as manager of community relations for pelvic exam. RECTUM: Deferred. GENITALIA: External genitalia, Bartholin's, urethral, and Muscoy's glands within normal limits. DIAGNOSTIC Pap smear with HPV screen and vaginitis panel were done today with results pending. Fasting lipid panel, fasting CMP, TSH, vitamin D panel, LCR labs were done today with results pending. IMPRESSION/REPORT/PLAN 39-year-old 8, para 5 female amenorrheic status post Essure tubal occlusion and endometrial ablation with irregular monthly spotting. PLAN: 1. Health care maintenance: Pap smear with HPV screen was done today with results pending. Routine labs of fasting lipid panel, fasting CMP, TSH, vitamin D panel, LCR, and vaginitis panel labs were done with results pending. Order is placed for routine mammogram. Patient will be notified of all results. Immunizations are reviewed and up to date. I discussed the importance of regular exercise including strength training and healthy lifestyle choices including no tobacco use. 2. Contraception: Patient is status post Essure tubal occlusion. 3. Irregular spotting: Patient will keep a daily menstrual symptom diary for the next 6 weeks, tracking spotting, daily weight, and mood changes. She will send me her results at which time further recommendations will be made. 4. Tobacco abuse: Patient is counseled on the importance of smoking cessation today, and had previously done well with nicotine patches. She has agreed to work on smoking cessation, and will notify me if she requires further assistance with this. 5. The patient was informed about the Patient Portal, and is encouraged to sign up for this. 6. Follow up: Patient will return in one year for annual exam. She will contact the clinic with any OPS MANAGER related concerns. Patient may be reached at . This document serves as a record of services personally performed by Gregg Gabriel MD. It was created on their behalf by Prachi Thompson, a trained certified court/medical interpreter. The creation of this record is based on the scribe's personal observations and the provider's statements to them. This document has been check ed and approved by the attending provider. Gregg Gabriel M.D./sydnee Electronically Signed By: GREGG GABRIEL MD On: 12/14/2015 05:41 AM Source: [facility] MHSDOLBEYNONRADSYS Document Id: [id number] documented in this encounter Miscellaneous Notes Miscellaneous - Gregg Gabriel Jr., M.D. - 2015 1:29 PM CDT From: GREGG GABRIEL MD To: LEANDRA BLACK Sent: 2015 13:29:50 CDT Lazara, normal pap. Source: [facility] Visys Document Id: [id number] Electronically signed by Yulisa [facility] Dishwasher Preparer [id number] at 07/30/2016 9:15 AM CDT Telephone Encounter - Nicole Boudreaux L.P.N. - 12/16/2015 10:37 AM CDT FW: No subject Document Contains Addenda Addendum by GREGG GABRIEL MD on December 16, 2015 11:31:41 CDT From: GREGG GABRIEL MD To: Obstetrics/Gynecology Nurse; LEANDRA BLACK Sent: 12/16/2015 11:31:41 CDT Subject: RE: No subject All of the labs are excellent. Your vitamin D is good, I assume that is the bone one you are thinking of. Nothing to do lab nugent yet. Infection tests were negative. From: NICOLE BOUDREAUX LPN ( Obstetrics/Gynecology Nurse) To: GREGG GABRIEL MD; Sent: 12/16/2015 10:37:13 CDT Subject: FW: No subject From: LEANDRA BLACK To: [facility] (OPS MANAGER) ( Obstetrics/Gynecology Nurse) Sent: 12/16/2015 10:30 a.m. CDT Subject: RE: No subject Thank you for your message. It has been successfully sent to the appropriate care team. Do you know when my other labs will be on here? They said 2 days;) I seen I was high on a bone disease one just wondering about that one also Addendum by GREGG GABRIEL MD on December 15, 2015 09:32:54 CDT From: GREGG GABRIEL MD To: Obstetrics/Gynecology Nurse; LEANDRA BLACK Sent: 12/15/2015 09:32:54 CDT Subject: RE: No subject This is common, usually just new views and follow up if needed. Do not get too worried at this point, it happens often. From: NICOLE BOUDREAUX LPN ( Obstetrics/Gynecology Nurse) To: GREGG GABRIEL MD; Sent: 12/15/2015 09:19:43 CDT Subject: FW: No subject From: LEANDRA BLACK To: [facility] (OPS MANAGER) ( Obstetrics/Gynecology Nurse) Sent: 12/15/2015 08:42 a.m. CDT Subject: RE: No subject Thank you for your message. It has been successfully sent to the appropriate care team. Austin Castorena.. Im just wondering if you could tell me what they found on my mammogram that I need togo back on Sunday to get another one and possibly an ultrasound?.. thanks so much From: GREGG GABRIEL MD To: LEANDRA BLACK Sent: 12/14/2015 05:28:54 CDT labs so far are ok, waiting on a few. Source: [facility] POWERCHART Document Id: [id number] Electronically signed by Yulisa, [facility] Dishwasher Preparer [id number] at 07/30/2016 9:15 AM CDT Telephone Encounter - Nicole Boudreaux, L.P.N. - 12/15/2015 9:19 AM CDT FW: No subject Document Contains Addenda Addendum by GREGG GABRIEL MD on December 15, 2015 09:32:54 CDT From: GREGG GABRIEL MD To: Obstetrics/Gynecology Nurse; LEANDRA BLACK Sent: 12/15/2015 09:32:54 CDT Subject: RE: No subject This is common, usually just new views and follow up if needed. Do not get too worried at this point, it happens often. From: NICOLE BOUDREAUX LPN ( Obstetrics/Gynecology Nurse) To: GREGG GABRIEL MD; Sent: 12/15/2015 09:19:43 CDT Subject: FW: No subject From: LEANDRA BLACK To: [facility] (OPS MANAGER) ( Obstetrics/Gynecology Nurse) Sent: 12/15/2015 08:42 a.m. CDT Subject: RE: No subject Thank you for your message. It has been successfully sent to the appropriate care team. Hi .. Im just wondering if you could tell me what they found on my mammogram that I need togo back on Sunday to get another one and possibly an ultrasound?.. thanks so much From: GREGG GABRIEL MD To: LEANDRA BLACK Sent: 12/14/2015 05:28:54 CDT labs so far are ok, waiting on a few. Source: [facility] POWERCHART Document Id: [id number] Electronically signed by [facility]isa [facility] Dishwasher Preparer [id number] at 07/30/2016 9:15 AM CDT Miscellaneous - Gregg Gabriel Jr., M.D. - 12/14/2015 5:28 AM CDT From: GREGG GABRIEL MD To: LEANDRA BLACK Sent: 12/14/2015 05:28:54 CDT labs so far are ok, waiting on a few. Source: [facility] Visys Document Id: [id number] Electronically signed by Yulisa [facility] Dishwasher Preparer [id number] at 07/30/2016 9:15 AM CDT Miscellaneous - Raheem Batista L.P.NIris - 12/13/2015 10:51 AM CDT Finish Repairer Documentation Finish Repairer Documentation Entered On: 12/13/2015 10:51 CDT Performed On: 12/13/2015 10:51 CDT by RAHEEM BATISTA LPN Finish Repairer Documentation Exam/Procedure Performed : pelvic CD Finish Repairer Present : Yes Present in Room During Exam/Procedure : Alone RAHEEM BATISTA LPN - 12/13/2015 10:51 CDT Source: [facility] POWERCHART Document Id: [id number] CDT!5 Miscellaneous - Gregg Gabriel Jr., M.D. - 12/13/2015 9:50 AM CDT Ambulatory Patient Summary [address] [id number] Visit Information Name: LEANDRA BLACK [facility] Number: [id number] Current Date: 12/13/2015 09:50:10 Physicians Attending Provider: GREGG GABRIEL MD Primary Care Provider: LIS WARD MD LEANDRA BLACK has been given the [...] Take Indications/Special Instructions/Comments/Notes for Patient Medication Changes/Routing emollients, topical (RepHresh vaginal gel) 1 sascha, Topical, every 3 days Stop Taking the Following Medications: Medication list as of 12-13-15 09:50 Attention: If you have any medications at home that are not on this list, DO NOT take them until youcontact your provider for clarification. Give a copy of your medication list to your primary care provider. Update your medication list any time medications or doses are changed and carry your medication list at all times in case of emergency. 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 Go to [email or web address] and click on Create Your Account. Then, follow the directions to complete the online form. Youll be asked for your [facility] number which you can find at the top of this document. Your Goals/Additional instructions: Source: [facility] POWERCHART Document Id: [id number] Miscellaneous - Gregg Gabriel Jr., M.D. - 12/13/2015 9:50 AM CDT Ambulatory Discharge Medication List [address] [id number] Visit Information Name: LEANDRA BLACK [facility] Number: [id number] Current Date: 12/13/2015 09:50:09 Attending Provider: GREGG GABRIEL MD Primary Care Provider: LIS WARD MD LEANDRA BLACK has been given the following list of medications: Your Medications It is important to take your medications as directed. Use a pill box or chart to help remind you to take your medications. Please let your doctor or nurse know if you have problems taking your medications. Medication/Strength How to Take Indications/Special Instructions/Comments/Notes for Patient Medication Changes/Routing emollients, topical (RepHresh vaginal gel) 1 sascha, Topical, every 3 days Stop Taking the Following Medications: Medication list as of 12-13-15 09:50 Attention: If you have any medications at home that are not on this list, DO NOT take them until youcontact your provider for clarification. Give a copy of your medication list to your primary care provider. Update your medication list any time medications or doses are changed and carry your medication list at all times in case of emergency. Electronically Signed By: GREGG GABRIEL MD Signed On:13-DEC-2015 09:50:06 Additional Information: Source: [facility] POWERCHART Document Id: [id number] Miscellaneous - Raheem Batista, L.P.N. - 12/13/2015 9:29 AM CDT Adult Hand Meat Salter Intake/History Adult Hand Meat Salter Intake/History Entered On: 12/13/2015 9:31 CDT Performed On: 12/13/2015 9:29 CDT by RAHEEM BATISTA LPN Intake Chief Complaint : annual, discharge, fatigue, spotting LMP Date : 12/06/15 Peripheral Pulse Rate : 76 /min Respiratory Rate : 14 /min Heart Rhythm : Regular Systolic Blood Pressure : 110 mmHg Diastolic Blood Pressure : 76 mmHg NIBP Mean : 87 mmHg BP Location : Left upper extremity Blood Pressure Cuff Size : Regular Height : 164.5 cm(Converted to: 5 ft 5 inch(es), 65 inch(es)) Actual Weight : 57.75 kg(Converted to: 127 lb 5 oz) Weight Source : Standing scale Dosing Weight Clinic : 57.75 kg Clinic BSA : 1.62 Body Mass Index : 21.34 kg/m2 RAHEEM BATISTA Sathya PEDIATRIC NEUROLOGIST - 12/13/2015 9:29 CDT General Info Information Given By : Patient Languages : Wolof Is Patient Female and 13-50 no hysterectomy : Yes Status : Patient denies Are you ? : No RAHEEM BATISTA EVERT - 12/13/2015 9:29 CDT Subjective Pain Symptoms : No RAHEEM BATISTA Sathya LOYD - 12/13/2015 9:29 CDT Dependent Habits Exposure to Tobacco Smoke : Patient smokes Smoking Status : Current every day smoker Tobacco 2A : Yes Tobacco Use/Currently Using : Yes Tobacco Use/Last 30 Days : Yes Tobacco Use/Last 12 months : Yes Type : Cigarettes: Less than 20 per day Tobacco Use/Advised to Quit : Yes RAHEEM BATISTA Sathya LOYD - 12/13/2015 9:29 CDT Source: [facility] Visys Document Id: [id number] CDT!35 Miscellaneous - Gregg Gabriel Jr., M.D. - 12/10/2015 2:38 PM CDT From: GREGG GABRIEL MD To: LEANDRA BLACK Sent: 12/10/2015 14:38:58 CDT Lazara, can you come in at 9 or 930 instead of 11 Sunday? I have a conflict. [facility] Document Id: [id number] Electronically signed by Yulisa [facility] Dishwasher Preparer [id number] at 07/30/2016 9:15 AM CDT documented in this encounter Plan of Treatment Not on filedocumented as of this encounter Procedures Procedure Name Priority Date/Time Associated Comments Diagnosis VAGINITIS BATTERY, DNA Routine 12/13/2015 10:47 R esults for this (GENITAL) AM CDT procedure are i n the results section. CHLAMYDIA/GONORRHOEAE Routine 12/13/2015 10:46 Re sults for this AMPLIFIED RNA AM CDT procedure are in the results section. CHLAMYDIA TRACHOMATIS Routine 12/13/2015 10:46 Re sults for this AMPLIFIED RNA AM CDT procedure are in the results section. LIPID PANEL, S Routine 12/13/2015 10:25 Results f or this AM CDT procedure are i n the results section. 25-HYDROXYVITAMIN D2 Routine 12/13/2015 10:25 Res ults for this AND D3, S AM CDT procedure are i n the results section. THYROID-STIMULATING Routine 12/13/2015 10:25 Resu lts for this HORMONE-SENSITIVE AM CDT procedure are in (S-TSH) the results section. COMPREHENSIVE Routine 12/13/2015 10:25 Results fo r this METABOLIC PANEL, S/P AM CDT procedu re are in the results section. PATHOLOGY FARROWING WORKER CYTOLOGY Routine 12/13/2015 12:00 R esults for this AM CDT procedure are i n the results section. documented in this encounter Results VAGINITIS BATTERY, DNA (GENITAL) (12/13/2015 10:47 AM CDT) Component Value Ref Test Analysis Performed At [facility] Range Method Time Signature HXVaginitis POWERCHART Battery, DNA (Genital) HXFinal Trichomonas POWERCHART vaginalis DNA negative HXFinal Gardnerella POWERCHART vaginalis DNA negative HXFinal Merle species POWERCHART DNA negative HXFinal Reference: POWERCHART Negative Specimen (Source) Anatomical Collection Method Collection Time Re ceived Time Location / / Volume Laterality Vagina 12/13/2015 10:47 AM CDT Gregg Gabriel Jr., M.D. LAB HISTORICAL ORDERS Performing Organization Address City/[facility] Code Phon e Number POWERCHART Chlamydia / Gonorrhoeae Amplified RNA (12/13/2015 10:46 AM CDT) Component Value Ref Test Analysis Performed At [facility] [employer] Range Method Time Signature HX GC by Nucleic POWERCHART Acid Amplification HXFinal Negative for POWERCHART Neisseria gonorrhea by RNA amplification . HXFinal Reference: POWERCHART Negative HXFinal If you POWERCHART submitted a female urine sample, please note it is a Laboratory Developed Test. Specimen (Source) Anatomical Collection Method Collection Time Re ceived Time Location / / Volume Laterality Cervix/Endocervix 12/13/2015 10:46 AM CDT Gregg Gabriel Jr., M.D. LAB MICROBIOLOGY - GENERAL O RDERABLES Performing Organization Address City/State/ZIP Code Phon e Number POWERCHART Chlamydia Trachomatis Amplified RNA (12/13/2015 10:46 AM CDT) Component Value Ref Test Analysis Performed At Patholo gist Range Method Time Signature HXChlamydia by POWERCHART Nucleic Acid Amplification HXFinal Negative for POWERCHART Chlamydia trachomatis by RNA amplification. HXFinal Reference: POWERCHART Negative HXFinal If you POWERCHART submitted a female urine sample, please note it is a Laboratory Developed Test. Specimen (Source) Anatomical Collection Method Collection Time Re ceived Time Location / / Volume Laterality Cervix/Endocervix 12/13/2015 10:46 AM CDT Gregg Gabriel Jr., M.D. LAB MICROBIOLOGY - GENERAL O RDERABLES Performing Organization Address City/State/ZIP Code Phon e Number POWERCHART (ABNORMAL) Lipid Panel (12/13/2015 10:25 AM CDT) P athologist Signature Calculated LDL 78 <=129 MGDL POWERCHART Comment: 2014 National Lipid Association recommen dations for LDL-C in adults ages 18 and up: Desirable <100 mg/dL Above desirable 100-129 mg/dL Borderline high 130-159 mg/dL High 160-189 mg/dL Very High 190 mg/dL 2014 National Lipid Association recommen dations for LDL-C in children ages 2 to 17. Acceptable <110 mg/dL Borderline High 110-129mg/dL High 130 mg/dL LDL-C >190mg/dL: The markedly elevated LDL level is suggestive of a genetic condition such as familial hypercholesterolemia(FH) or familial defective apolipoprotein B-100 (FDB). Molecular genetic t esting for FH and FDB is available throu [facility]: FH/ADH Genetic Reflex Goodrich el (test ADHP). Acquired (non-genetic) causes of markedly increased LDL cholesterol include cholestatic liver disease due to the presence of LpX. If a genetic form of hypercholesterolemia is suspected, family studies including biochemical testing fo r lipids (total cholesterol,triglycerides, LDL cholesterol and HDL cholesterol) are recommended. ??Please contact the laboratory at or the on-line test catalog at [employer] for information about how to order these meme ts or to speak with a genetic counselor. Further interpretation would require clinical information. Total Cholesterol/HDL Ratio 2.98 PO WERCHART Cholesterol, Total 140 <=199 MGDL POWERCHART Comment: 2014 National Lipid Association recommen dations for Total Cholesterol in adults ages 18 and up: Desirable <200 mg/dL Borderline high 200-239 mg/dL High 240 mg/dL 2014 National Lipid Association recommen dations for Total Cholesterol in children ages 2 to 17. Acceptable <170 mg/dL Borderline High 170-199 mg/dL High 200 mg/dL HX HDL 47 (L) >=50 MGDL POWERCHART Comment: 2013 National Lipid Association recommen dations for HDL-C in adults ages 18 and up: Low <40 mg/dL (Men) Low <50 mg/dL (Women) 2014 National Lipid Association recommen dations for HDL-C in children ages 2 to 17. Low <40 mg/dL Borderline Low 40-45 mg/dL Acceptable >45 mg/dL Triglycerides 73 <=149 MGDL POWERCHART Comment: 2013 National Lipid Association recommen dations for Triglycerides in adults ages 18 and up: Normal <150 mg/dL Borderline High 150-199 mg/dL High 200-499 mg/dL Very High 500 mg/dL 2014 National Lipid Association recommen dations for Triglycerides in children ages 2 to 9. Acceptable <75 mg/dL Borderline High 75-99 mg/dL High 100 mg/dL 2014 National Lipid Association recommen dations for Triglycerides in children ages 10 to 17. Acceptable <90 mg/dL Borderline High 90-129 mg/dL High 130 mg/dL Trigs >400mg/dL: Triglycerides >400 mg/ dL. Calculated LDL cholesterol is not valid. Non-HDL cholesterol may be used for risk assessment when triglycerides are >400mg/dL. HXLDL/HDL 2 POWERCHART Specimen (Source) Anatomical Collection Method Collection Time Re ceived Time Location / / Volume Laterality Blood 12/13/2015 10:25 AM CDT Gregg Gabriel Jr., M.D. LAB BLOOD ADD-ON Performing Organization Address City/State/ZIP Code Phon e Number POWERCHART Thyroid-Stimulating Hormone-Sensitive (s-TSH) (12/13/2015 10:25 AM CDT) P athologist Signature TSH 1.47 0.27 - 4.20 POWERCHART (Thyrotropin) MIUL Comment: Biotin has been identified by the odalis banegas as a potential interfering substance. Higher concentrations of biotin may be found in multivitamins, hair/nail supplements, and workout supplements. If the result does not match clinical observat ions, repeat testing after patient refrains from the use of supplements for at least 12 hours. Specimen (Source) Anatomical Collection Method Collection Time Re ceived Time Location / / Volume Laterality Blood 12/13/2015 10:25 AM CDT Gregg Gabriel Jr., M.D. LAB BLOOD ADD-ON Performing Organization Address City/State/ZIP Code Phon e Number POWERCHART CMP (Comprehensive Metabolic Panel) (12/13/2015 10:25 AM CDT) Patholo gist Method Time Signature Alanine 18 7 - 45 POWERCHART Amniotransferase, LD UNITL Albumin, S 4.3 3.2 - 5.2 POWERCHART GDL Alkaline 73 37 - 98 POWERCHART Phosphatase, S UNITL Aspartate 22 8 - 43 POWERCHART Aminotransferase UNITL (AST), S Sodium, S 139 135 - 145 POWERCHART MMOLL Potassium, S 5.0 3.6 - 5.2 POWERCHART MMOLL Chloride, S 104 98 - 107 POWERCHART MMOLL CO2 Total 26 22 - 29 POWERCHART MMOLL Glucose, Fasting, S 72 70 - 99 POWERCHART MGDL BUN (Blood Urea 15 6 - 21 POWERCHART Nitrogen), S MGDL Creatinine, S 0.77 0.60 - POWERCHART 1.10 MGDL Calcium, Total, S 9.1 8.0 - POWERCHART 10.3 MGDL Anion Gap 10 7 - 15 POWERCHART MMOLL HXeGFR (MDRD) >60 >=60 POWERCHART [id number] 2 eGFR Black/ >60 >=60 POWERCHART Greek [id number] 2 Bilirubin, Total, S 0.3 <=1.2 POWERCHART MGDL Total Protein, S 6.7 6.3 - 7.9 POWERCHART GDL Specimen (Source) Anatomical Collection Method Collection Time Re ceived Time Location / / Volume Laterality Blood 12/13/2015 10:25 AM CDT Gregg Gabriel Jr., M.D. LAB BLOOD ADD-ON Performing Organization Address City/State/ZIP Code Phon e Number POWERCHART 25-Hydroxyvitamin D2 and D3 (12/13/2015 10:25 AM CDT) P athologist Signature HX25 HYDROXY D2 <4.0 NGML POWERCHART 25-Hydroxy D3 53 NGML POWERCHART Vitamin D, S 53 NGML POWERCHART Comment: Interpretation: 51-80 ng/mL (increased r isk of hypercalciuria) REFERENCE VALUE------ 25-HYDROXY D TOTAL (D2+D3) Optimum level s in the healthy population are 20-50, patients with bone disease may benefit from higher levels within this r bia. ADDITIONAL INFORMATIO N This test was developed and its performa nce characteristics determined by [facility] in a manner co nsistent with CLIA requirements. This test has not been osmar ared or approved by the U.S. Food and Drug Administration. Test Performed by: [facility] [place] [address] Curriculum Supervisor: Zackary Gallardo II, M.D., Ph.D. Specimen (Source) Anatomical Collection Method Collection Time Re ceived Time Location / / Volume Laterality Blood 12/13/2015 10:25 AM CDT Gregg Gabriel Jr., M.D. LAB BLOOD ADD-ON Performing Organization Address City/[facility]/ZIP Code Phon e Number POWERCHART Pathology FARROWING WORKER Cytology (12/13/2015 12:00 AM CDT) Specimen (Source) Anatomical Location Collection Method / Collectio n Time Received Time / Laterality Volume 12/13/2015 Narrative [facility] - 12/21/2015 9:53 AM CDT [facility] in [address] [address] [place], [place] ??[address] Patient Name: LEANDRA BLACK Patient ID #: [id number] Collected: 12/13/2015 Address: City/State/Zip: [address] [place] [address] ??[phone] Receive d: Reported: 12/14/2015 12/21/2015 Soc. Sec. #: ?/Age/Sex 1975 (Age: 39) ??F Physician(s): ROSSY GABRILE MD Copy [place]: [place] [facility] [id number] [facility], ??[place] ??[address] CYTOPATHOLOGY FARROWING WORKER REPORT FINAL CYTOLOGIC DIAGNOSIS Pap Smear - ThinPrep with HPV: NEGATIVE FOR INTRAEPITHELIAL LESION OR MALIGNANCY ENDOCERVICAL CELLS/COMPONENT PRESENT. SATISFACTORY SPECIMEN FOR EVALUATION. Electronically Signed Out By pernellw/12/21/[address](ASCP) The Pap test is a screening procedure an d, as such, is subject to both false positive and false negative results as evidenced by published data. ??It is not a diagnostic test and results should be inter preted in the context of the patient's h istory and other clinical findings. ??Obtaining per iodic Pap tests may help to minimize the consequences of any false negatives that may occur. Procedures/Addenda: HUMAN PAPILLOMA VIRUS ADDENDUM ? Terrence e Ordered: ? 12/14/2015 ? Status: ??Signed Out Date Complete: ? 12/21/2015 ? By : ??PERNELL Maharajzmike CT(ASCP) Date Reported: ? 12/21/2015 INTERPRETATION: HPV with Genotyping, PCR, ThinPrep HPV High Risk Type 16, PCR ? NEGATIVE HPV High Risk Type 18, PCR ? NEGATIVE HPV other High Risk types, PCR ?NEGATIVE The following Other High Risk HPV types were not detected: 31, 33, 35, 39, 45, 51, 52, 56, 58, 59, 66, and 68. Testing performed at: [address] [address] Family Medicine Physician Assistant: Zackary Gallardo II, MD SPECIMEN(S) RECEIVED: Pap Smear - ThinPrep with HPV CLINICAL HISTORY: Date of Last Menstrual Period: 12/06/2015 Hormonal History: No hormonal therapy Other Clinical Conditions: 16/18 HPV TYPING REQUESTED Gregg Gabriel Jr., M.D. LAB PAP COPATH ORDERABLES Performing Organization Address City/State/ZIP Code Phon e Number [facility] documented in this encounter Visit Diagnoses Not on filedocumented in this encounter
--- OUTSIDE RECORDS SUMMARY | 2021-10-12 00:44 | XMS_ITS | Encounter Summary ---
:1975 [facility] Address [address] [place] [address] Care Team Providers Name Role Phone Unavailable Primary Care Provider Unavailable Encounter Details Date Type Department Care Team Description 12/13/2015 Hospital Encounter HX NO MAPPING Pooja Kohli Jr., M.D. [address] [place], [place] [phone] (Wo rk) Social History [...]
--- OUTSIDE RECORDS SUMMARY | 2021-10-12 00:44 | XMS_ITS | Encounter Summary ---
:1975 Author Organization [facility] Address [address] [place] [address] Care Team Providers Name Role Phone Unavailable Primary Care Provider Unavailable Encounter Details Date Type Department Care Team Description 07/26/2014 Hospital Encounter [facility]X [facility] Mark Ivan, P.A. [address] [place] [address] [place] [address] (Wo rk) Social History Tobacco Use Types [...] Sign Reading Time Taken Comments Blood Pressure 94/56 07/26/2014 11:45 AM CDT Pulse 68 07/26/2014 11:45 AM CDT Temperature - - Respiratory Rate - - Oxygen Saturation - - Inhaled Oxygen Concentration - - Weight 57.7 kg (127 lb 3.3 oz) 07/26/2014 11:45 AM CDT Height 166 cm (5' 5.35) 07/26/2014 11:16 AM CDT Body Mass Index 20.94 07/26/2014 11:16 AM CDT documented in this encounter Progress Notes Mark Santacruz - 07/26/2014 11:14 AM CDT [id number] CHIEF COMPLAINT/REASON FOR VISIT Vaginal odor and discharge. HISTORY OF PRESENT ILLNESS Mark is a 38-year-old female, who [facility] today for evaluation of vaginal odor and discharge. She states that she has had yeast infections in the past, and recently felt that she had possibly another yeast infection, as she had had some white vaginal discharge. She did call herOB/DIE FINISHER FORGING provider who had submitted a prescription for Diflucan 150-mg tablet, and she took the first tablet on Sunday. She repeated a second dose on Sunday. She has since then been noticing a lot of vaginal odor. She does not get any true periods, because she had an endometrial ablation in March. However, she does get some random spotting. She has been having a little bit of menstrual cramping the last couple days and wonders if she could be getting a period. When she wiped this morning, she noticed a little bit of orangish, almost bloody vaginal discharge, which concerned her. Between the appearance of her discharge and the fact that she continues to have this odor, she was concerned about possible vaginal infection and is here today for further evaluation. She denies any symptoms of a urinarytract infection. She denies specifically any dysuria, urgency, frequency, or hematuria. There have been no fevers or chills. No new partners. She states that she is in a monogamous relationship with her current partner of 9 years. MEDICATIONS Reviewed on 07/26/2014. ALLERGIES No known allergies. VITAL SIGNS Weight 57.7 kg, temp 36.9, pulse 60 per minute, blood pressure 94/56. PHYSICAL EXAMINATION GENERAL: Alert, well developed, well nourished, in no acute distress. SKIN: Intact without suspicious rash or lesion. HEART: Regular rate and rhythm. S1, S2, without murmur. LUNGS: Clear to auscultation bilaterally. ABDOMEN: Soft, nontender, nondistended. No palpable mass or organomegaly. PELVIS: Normal external female genitalia. Cervix is visualized, normal appearing, and not inflamed. She does have some slightly discolored vaginal discharge present in the vaginal vault with a little bit of scant menstrual bleeding. DIAGNOSTICS Wet prep - negative for yeast, Trichomonas, and clue cells. IMPRESSION/REPORT/PLAN Vaginal odor and discharge. PLAN: She does have some scant vaginal bleeding noted on exam. She does not know what her true cycleis, because she did have an endometrial ablation in March. However, she does continue to have a little bit of light spotting periodically. Wet prep today is negative. However, consistent clinically, this would be consistent with a bacterial vaginosis, and we did discuss treating her for that with metronidazole which she is agreeable to. We did discuss intravaginal versus oral metronidazole, and shewould prefer oral metronidazole. Plan to treat her with metronidazole 500 mg 2 times daily for 7 days. We discussed that she should not use any alcohol during this period. She tells me she does have a followup scheduled with her WEB MARKETING ANALYST physician on 08/04/2014, and can certainly follow up with him should her symptoms persist or she noticed any other concerning symptoms. She is comfortable with this plan. All questions are answered. Mark Santacruz P.A.-C/janes Electronically Signed By: MARK SANTACRUZ PA-C On: 09/14/2014 11:55 AM Source: [facility] MHSDOLBEYNONRADSYS Document Id: [id number] documented in this encounter Miscellaneous Notes Miscellaneous - Mark Santacruz - 07/26/2014 12:31 PM CDT Ambulatory Patient Summary [facility] [address] [place], [place] [phone] Visit Information Name: MARK BLACK [facility] Number: [id number] Current Date: 07/26/2014 12:31:04 Physicians Attending Provider: MARK SANTACRUZ PA-C Primary Care Provider: ADONAY GABRIEL MD MARK [...] Take Indications/Special Instructions/Comments/Notes for Patient Medication Changes/Routing *fluconazole (Diflucan 150 mg oral tablet) 1 Tablet(s), Oral, every 72 hours metroNIDAZOLE (metroNIDAZOLE 500 mg oral tablet) 1 Tablet(s), Oral, two times a day x 7 day(s) do not drink alcohol may take with food to minimize abdominal discomfort Routed to [address] [id number] * You have let us know that you are not taking this medication as listed. Please talk with your primary care provider or the health care provider who prescribed the medication as soon as possible. Stop Taking the Following Medications: Medication list as of 07-26-14 12:31 Attention: If you have any medications at home that are not on this list, DO NOT take them until youcontact your provider for clarification. Give a copy of your medication list to your primary care provider. Update your medication list any time medications or doses are changed and carry your medication list at all times in case of emergency. 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 Your Goals/Additional instructions: Source: [facility] POWERCHART Document Id: [id number] Mark Paulino - 07/26/2014 12:31 PM CDT Ambulatory Discharge Medication List [facility] [address] [place] [phone] Visit Information Name: BLACK MARK LYNN [facility] Number: [id number] Visit Date: 07/26/2014 12:31:03 Attending Provider: MARK SANTACRUZ PA-C Primary Care Provider: ADONAY GABRIEL MD BLACK MARK SARAH has been given the following list of medications: Your Medications It is important to take your medications as directed. Use a pill box or chart to help remind you to take your medications. Please let your doctor or nurse know if you have problems taking your medications. Medication/Strength How to Take Indications/Special Instructions/Comments/Notes for Patient Medication Changes/Routing *fluconazole (Diflucan 150 mg oral tablet) 1 Tablet(s), Oral, every 72 hours metroNIDAZOLE (metroNIDAZOLE 500 mg oral tablet) 1 Tablet(s), Oral, two times a day x 7 day(s) do not drink alcohol may take with food to minimize abdominal discomfort Routed to [address] [id number] * You have let us know that you are not taking this medication as listed. Please talk with your primary care provider or the health care provider who prescribed the medication as soon as possible. Stop Taking the Following Medications: Medication list as of 07-26-14 12:31 Attention: If you have any medications at home that are not on this list, DO NOT take them until youcontact your provider for clarification. Give a copy of your medication list to your primary care provider. Update your medication list any time medications or doses are changed and carry your medication list at all times in case of emergency. Electronically Signed By: Signed On: Additional Information: Source: [facility] POWERCHART Document Id: [id number] Miscellaneous - Ben Be R.N. - 07/26/2014 11:45 AM CDT Adult Administration Assistant Intake/History Adult Administration Assistant Intake/History Entered On: 07/26/2014 11:48 CDT Performed On: 07/26/2014 11:45 CDT by BEN BE Intake Chief Complaint : Throught she had a yeast infection a few days ago, given Diflucan but no improvment. Wiped this morning with some orange-harsh discharge. Temperature Oral : 36.8 DegC(Converted to: 98.2 DegF) Peripheral Pulse Rate : 68 /min Heart Rhythm : Regular Systolic Blood Pressure : 94 mmHg Diastolic Blood Pressure : 56 mmHg NIBP Mean : 69 mmHg BP Location : Right upper extremity Blood Pressure Cuff Size : Regular Actual Weight : 57.7 kg(Converted to: 127 lb 3 oz) Dosing Weight Clinic : 57.7 kg BEN BE - 07/26/2014 11:45 CDT General Info Information Given By : Patient Preferred Communication Mode : Verbal Languages : Latvian Is Patient Female and 13-50 no hysterectomy : Yes Status : Patient denies Are you ? : No BEN BE - 07/26/2014 11:45 CDT Subjective Pain Symptoms : No Genitourinary Symptoms : Vaginal discharge BEN BE - 07/26/2014 11:45 CDT Dependent Habits Tobacco Use/Currently Using : Yes Exposure to Tobacco Smoke : Patient smokes Smoking Status : Current every day smoker BEN BE - 07/26/2014 11:45 CDT Tobacco Use Grid Type : Cigarettes Cigarette Use Packs/Day : 0.5 BEN BE - 07/26/2014 11:45 CDT ID Screen Travel Within Last 21 Days : No Contact with someone with Ebola : No BEN BE - 07/26/2014 11:45 CDT Source: [employer] Document Id: [id number] documented in this encounter Plan of Treatment Not on filedocumented as of this encounter Procedures Procedure Name Priority Date/Time Associated Comments Diagnosis WET PREP EXAM, Routine 07/26/2014 12:14 PM Result s for this UROGENITAL CDT procedure are i n the results section. documented in this encounter Results Wet Prep Exam, Urogenital (07/26/2014 12:14 PM CDT) P athologist Signature HXWet Prep POWERCHART HXFinal No yeast, POWERCHART Trichomonas , clue cells, or sperm seen. Specimen (Source) Anatomical Collection Method Collection Time Re ceived Time Location / / Volume Laterality Vagina 07/26/2014 12:14 PM CDT Mark Correa LAB MICROBIOLOGY - GENERAL O RDERABLES Performing Organization Address City/State/ZIP Code Phon e Number POWERCHART documented in this encounter Visit Diagnoses Not on filedocumented in this encounter
--- OUTSIDE RECORDS SUMMARY | 2021-10-12 00:44 | XMS_ITS | Encounter Summary ---
:1975 Author Organization [facility] Address [address] [place] [address] Care Team Providers Name Role Phone Unavailable Primary Care Provider Unavailable Encounter Details Date Type Department Care Team Description 08/28/2011 Hospital Encounter HX [facility] Adonay Alfaro Jr., M.D. [address] [place], [place] [phone] (Wo rk) Social History [...] or relatives? How often do you attend advent or More than 4 times per year 08/17/2020 scientology services? Do you belong to any clubs or Yes 08/17/2020 organizations such as advent groups, unions, fraternal or athletic groups, or [...] Sign Reading Time Taken Comments Blood Pressure 94/74 08/28/2011 11:33 AM CDT Pulse - - Temperature - - Respiratory Rate - - Oxygen Saturation - - Inhaled Oxygen Concentration - - Weight 74.3 kg (163 lb 12.8 oz) 08/28/2011 11:33 AM CDT Height - - Body Mass Index - - documented in this encounter Miscellaneous Notes Miscellaneous - Adonay Gabriel Jr., M.D. - 08/28/2011 11:58 AM CDT Ambulatory Depart Summary [address] [address] Visit Information Name: BLACKMARK BISHOP Visit Date: 08/28/2011 11:58:11 Attending Provider: ADONAY GABRIEL MD Primary Care [...] your provider for clarification. Additional Information: Source: [facility] POWERCHART Document Id: [id number] Miscellaneous - Adonay Gabriel Jr., M.D. - 08/28/2011 11:58 AM CDT Ambulatory Patient Summary [address] [address] Visit Information Name: MARK BLACK Current Date: 08/28/2011 11:58:12 Physicians Attending Provider: ADONAY GABRIEL MD Primary [...] No Appointments found Your Goals/Additional instructions: Source: [facility] [place] Document Id: [id number] Miscellaneous - Conversion, Historical Provider Ser - 08/28/2011 11:33 AM CDT Adult Cycle Counter Intake/History Adult Cycle Counter Intake/History Entered On: 08/28/2011 11:34 CDT Performed On: 08/28/2011 11:33 CDT by MICHEL ARENAS Intake Chief Complaint : ob visit LMP Date : 12-09-10 Systolic Blood Pressure : 94mmHg Diastolic Blood Pressure : 74mmHg NIBP Mean : 81mmHg BP Location : Left upper extremity Actual Weight : 74.3kg(Converted to: 163lb 13oz) Dosing Weight Clinic : 74.30kg MICHEL ARENAS - 08/28/2011 11:33 CDT Subjective Pain Symptoms : No MICHEL ARENAS - 08/28/2011 11:33 CDT Dependent Habits Tobacco Use/Currently Using : No Tobacco Use/Last 12 months : Yes Exposure to Tobacco Smoke : Patient smokes Smoking Status : Former smoker MICHEL ARENAS - 08/28/2011 11:33 CDT Tobacco Use Grid Type : Cigarettes Last Use : 01-21-11 MICHEL ARENAS - 08/28/2011 11:33 CDT Allergy Allergies (Active) NKA Estimated Onset Date: Unspecified ; Created By: HAIDER DAWSON; Reaction Status: Active ; Category: Drug ; Substance: NKA ; Type: Allergy ; Updated By: HAIDER DAWSON; Reviewed Date: 03/17/2011 10:04 PHP DEVELOPER Source: [facility] [place] Document Id: [id number] documented in this encounter Plan of Treatment Not on filedocumented as of this encounter Visit Diagnoses Not on filedocumented in this encounter
--- OUTSIDE RECORDS SUMMARY | 2021-10-12 00:44 | XMS_ITS | Encounter Summary ---
:1975 Author Organization [facility] Address [address] [place] [address] Care Team Providers Name Role Phone Unavailable Primary Care Provider Unavailable Encounter Details Date Type Department Care Team Description 01/22/2014 - Hospital Encounter HX [facility] Adonay Kohli 12/02/2014 Romi oCsby [address] [place] [address] (Wo rk) Social History Tobacco [...] or relatives? How often do you attend mandaeism or More than 4 times per year 08/17/2020 rastafarian services? Do you belong to any clubs or Yes 08/17/2020 organizations such as mandaeism groups, unions, fraternal or athletic groups, or [...] or slept in a assisted (including now)? Sex Assigned at Date Recorded Female 06/10/2017 5:21 PM CDT documented as of this encounter Plan of Treatment Not on filedocumented as of this encounter Procedures Procedure Name Priority Date/Time Associated Diagnosis Comme nts AUTOMATED Routine 01/22/2014 10:54 AM Results for this DIFFERENTIAL, B DIGITAL PRINTER OPERATOR procedure ar e in the results section. CBC WITH Routine 01/22/2014 10:54 AM Results for this DIFFERENTIAL, B DIGITAL PRINTER OPERATOR procedure ar e in the results section. documented in this encounter Results (ABNORMAL) Automated Differential (01/22/2014 10:54 AM DIGITAL PRINTER OPERATOR) [facility] [employer] Method Time Signature Absolute 13.47 (H) 1.70 - POWERCHART Neutrophils 7.00 109L Lymphocytes 2.64 0.90 - POWERCHART 2.90 X109L Monocytes 1.16 (H) 0.30 - POWERCHART 0.90 X109L Eosinophils 0.04 (L) 0.05 - POWERCHART 0.50 X109L Absolute 0.03 0.00 - POWERCHART Basophil 0.30 X109L Specimen Anatomical Collection Method Collection Time Receive d Time (Source) Location / / Volume Laterality Blood 01/22/2014 10:54 01/22/2014 AM DIGITAL PRINTER OPERATOR 10:54 AM DIGITAL PRINTER OPERATOR Adonay Kohli Jr., M.D. LAB BLOOD ADD-ON Performing Organization Address City/[facility] Phon e Number POWERCHART (ABNORMAL) CBC with Differential (01/22/2014 10:54 AM DIGITAL PRINTER OPERATOR) [facility] gist Method Time Signature Leukocytes 17.3 (H) 3.4 - 10.5 POWERCHART X109L Erythrocytes 4.40 3.90 - POWERCHART 5.03 [id number] Hemoglobin 13.3 12.0 - POWERCHART 15.5 GDL Hematocrit 39.9 34.9 - POWERCHART 44.5 MCV 90.7 82.0 - POWERCHART 98.0 FL Platelet Count 230 150 - 450 POWERCHART X109L HX RDW 12.7 11.9 - POWERCHART 15.5 HXDifferential? Auto POWERCHART Specimen (Source) Anatomical Collection Method Collection Time Re ceived Time Location / / Volume Laterality Blood 01/22/2014 10:54 AM DIGITAL PRINTER OPERATOR Adonay Kohli Jr., M.D. LAB BLOOD ADD-ON Performing Organization Address City/State/[facility] Code Phon e Number POWERCHART documented in this encounter Visit Diagnoses Not on filedocumented in this encounter
--- OUTSIDE RECORDS SUMMARY | 2021-10-12 00:44 | XMS_ITS | Encounter Summary ---
:1975 Author Organization [facility] Address [address] [place] [address] Care Team Providers Name Role Phone Unavailable Primary Care Provider Unavailable Encounter Details Date Type Department Care Team Description 08/04/2014 Hospital Encounter [facility]X [facility] Gregg Alfaro Jr., M.D. [address] [place], [place] [phone] (Wo rk) Social History [...] or relatives? How often do you attend sikhism or More than 4 times per year 08/17/2020 episcopalian services? Do you belong to any clubs or Yes 08/17/2020 organizations such as sikhism groups, unions, fraternal or athletic groups, or [...] Sign Reading Time Taken Comments Blood Pressure 100/60 08/04/2014 8:57 AM CDT Pulse - - Temperature - - Respiratory Rate - - Oxygen Saturation - - Inhaled Oxygen Concentration - - Weight 57.7 kg (127 lb 3.3 oz) 08/04/2014 8:57 AM CDT Height 166 cm (5' 5.35) 08/04/2014 8:57 AM CDT Body Mass Index 20.94 08/04/2014 8:57 AM CDT documented in this encounter Progress Notes Gregg Gabriel Jr., M.D. - 08/04/2014 8:44 AM CDT [id number] CHIEF COMPLAINT/REASON FOR VISIT Recheck left breast. Patient to also follow up on bacterial vaginosis. HISTORY OF PRESENT ILLNESS Patient had been in in June with mass area in her left breast, a small ridge of tissue was defined but nothing other than that. She notes that this area has resolved and she is having no further problems with it. The patient also was seen with a diagnosis of bacterial vaginosis on 07/26. She was prescribed medication but did not take it as she was worried about the pills and had some parties to go to and did not want to get sick. She continues to have symptoms of some mild vaginal odor. No itching.No other complications or problems. She is not sure whether she is having regular periods or not butis having minimal bleeding post endometrial ablation. MEDICATIONS She occasionally uses Botox by Dr. Mandy De Santiago. Topical clindamycin. Suppository Cleocin Ovule 100 mg at bedtime x3, prescribed today. Nicoderm patch extended-release prescribed today. RepHresh vaginal gel every 3 days 8 g with a refill given to use after the antibiotic suppositories. ALLERGIES None. PAST MEDICAL/SURGICAL HISTORY Unchanged. SOCIAL HISTORY Continues to smoke 1/2 pack per day. Extensive discussion with the patient regarding smoking cessation today. PHYSICAL EXAMINATION VITAL SIGNS: Weight 57.7 kg. Blood pressure is 100/60. BREASTS: Bilaterally without any significant masses. The previous area of concern on the left side appears to have completely resolved. This may represent a slightly dilated vein as she has a similar area on the right side in a similar location noted at exam today. No adenopathy or nipple discharge. Implants appear to be in place satisfactorily. PELVIC: Vaginal examination shows some minimal whitish discharge consistent with mild bacterial vaginosis. No significant erythema. No cervicitis. No external irritation. IMPRESSION/REPORT/PLAN Patient with 2 issues. 1. Probable mild bacterial vaginosis. Prescription for Cleocin ovules and RepHresh given with instructions on this. 2. Breast mass appears to have resolved. 3. Smoking cessation. I discussed options with the patient. She has had prescription for Chantix in the past but was worried about taking it so a prescription for Nicoderm patch 21 mg to use during theday given. She will do that for 2 weeks and then contact us. She is advised not to smoke while usingthe Nicoderm patch. The patient will contact us through online services in approximately 3 weeks. Gregg Gabriel M.D./janes Electronically Signed By: GREGG GABRIEL MD On: 08/04/2014 11:50 AM Source: [facility] MHSDOLBEYNONRADSYS Document Id: [id number] documented in this encounter Nursing Notes Bijal Hernández L.P.N. - 08/20/2014 11:00 AM CDT Prior Authorization request Cleocin Document Contains Addenda Addendum by BIJAL HERNÁNDEZ LPN on 20 August 2014 14:23 CDT Prior authorization came back and stated it was not the correct [facility] Dressmaker Garment Fitter. This nurse called the pharmacy christal they stated patient picked up the vaginal cream. Call placed to Patientasking if she still wanted to pursue the Cleocin Supp, patient stated No that she was fine now. Modified by and Electronically Signed by: BIJAL HERNÁNDEZ LPN On: 08/20/2014 02:23 PM Prior Authorization Request for Cleocin Supp completed through Cover My Meds. Time spent on form 30 minutes. Electronically Signed By: BIJAL HERNÁNDEZ LPN On: 08/20/2014 11:01 AM Source: [facility] POWERCHART Document Id: [id number] documented in this encounter Miscellaneous Notes Telephone Encounter - Conversion, Historical Provider Ser - 11/13/2014 9:43 AM CDT *Phone Message/Dr. Gabriel Document Contains Addenda Addendum by GREGG GABRIEL MD on 13 November 2014 10:32:38 CDT From: GREGG GABRIEL MD To: Obstetrics/Gynecology Nurse; Sent: 11/13/2014 10:32:38 CDT Subject: RE: *Phone Message/Dr. Gabriel spoke with her, prescription sent, will come in if recurs. It is actually bacterial. Addendum by SHOSHANA GARCIA LPN on 13 November 2014 09:44:38 CDT From: SHOSHANA GARCIA LPN ( Obstetrics/Gynecology Nurse) To: GREGG GABRIEL MD; Sent: 11/13/2014 09:44:38 CDT Subject: FW: *Phone Message/Dr. Gabriel From: MINA ANGULO ( [employer] Division Lieutenant) To: Obstetrics/Gynecology Nurse; Sent: 11/13/2014 09:43:29 CDT Subject: *Phone Message/Dr. Gabriel Caller is: ( x ) Patient ( ) Mother ( ) Father ( ) Spouse ( ) Daughter ( ) Son ( ) Pharmacy ( ) Other: Physician: Dr. Gabriel Patient MRN #: Reason for Call: Message: S Patient is wondering if Dr. Gabriel would call in an RX for a medication that she had before for yeast infection. B A R Please call patient back at [phone] to advise. Advice/Action: Source used: ( ) [...] back cell phone number ( ) Source: [facility] Yext Document Id: [id number] Miscellaneous - Gregg Gabriel Jr., M.D. - 08/25/2014 3:40 PM CDT From: GREGG GABRIEL MD To: LEANDRA BLACK Sent: 08/25/2014 15:40:41 CDT How is the smoking cessation going? Source: [facility] Yext Document Id: [id number] Electronically signed by Conversion, [facility] Business Continuity Consultant [id number] at 07/31/2016 2:37 PM CDT Telephone Encounter - Conversion, Historical Provider Ser - 08/06/2014 8:08 AM CDT *Phone Message/Dr. Gabriel From: MINA ANGULO ( [employer] Lieutenant) To: Obstetrics/Gynecology Nurse; Sent: 08/06/2014 08:08:19 CDT Subject: *Phone Message/Dr. Gabriel Caller is: ( x ) Patient ( ) Mother ( ) Father ( ) Spouse ( ) Daughter ( ) Son ( ) Pharmacy ( ) Other: Physician: Dr. Gabriel Patient MRN #: Reason for Call: Message: S Patient states that the prescription that Dr. Gabriel sent for her on Sunday is not covered on her insurance. The pharmacy sent a request to try something else, but they have not heard back yet. B A R Please call patient back at [phone] to advise. Advice/Action: Source used: ( ) [...] back cell phone number ( ) Source: [facility] Yext Document Id: [id number] Miscelldavid - Haider Salgado R.N. - 08/04/2014 9:28 AM CDT Reminder Msg From: HAIDER DAWSON ( Obstetrics/Gynecology Nurse) To: GREGG GABRIEL MD; Sent: 08/04/2014 09:28:47 CDT Show up: 08/25/2014 09:28:00 CDT Subject: Reminder Msg Due Date/Time: 09/01/2014 09:28:00 CDT Please Remember to: Call patient to see how she is doing with smoking cessation. [phone] PATIENT: ( ) Call Patient ( ) Ask Patient to ( ) ( ) Call Relative ( ) Schedule Patient ( ) ( ) Call for Recreational Resort Manager ( ) Follow up on Results ( ) Other: PROVIDER: ( ) Call Physician ( ) Call Pharmacist ( ) Call Lab ( ) Other: Special Instructions: Comments: Source: [facility] Yext Document Id: [id number] Electronically signed by [facility], [facility] Business Continuity Consultant [id number] at 07/31/2016 2:37 PM CDT Alejandra - Gregg Gabriel Jr., M.D. - 08/04/2014 9:26 AM CDT Ambulatory Patient Summary [facility] [address] [place] [id number] Visit Information Name: LEANDRA BLACK [facility] Number: [id number] Current Date: 08/04/2014 09:26:19 Physicians Attending Provider: GREGG GABRIEL MD Primary Care Provider: SHARA NICOLE PA-C LEANDRA BLACK has been given the following [...] Take Indications/Special Instructions/Comments/Notes for Patient Medication Changes/Routing clindamycin topical (Cleocin Ovules 100 mg vaginal suppository) 1 suppository(ies), Vaginal, once a day (at bedtime) New Routed to [address] [id number] emollients, topical (RepHresh vaginal gel) 1 sascha, Topical, every 3 days New Routed to [address] [id number] nicotine (Nicoderm 21 mg/24 hr transdermal film, extended release) 1 patch(es), Topical, once a day x 14 day(s) New Routed to [address] [id number] Stop Taking the Following Medications: Medication list as of 08-04-14 09:26 Attention: If you have any medications at [...] Electronically Signed By: GREGG GABRIEL MD Signed On:04-AUG-2014 09:26:15 Your Allergies & Intolerances Substance Reaction Symptoms Category Comments No Known Allergies Drug Your Problem List Problem Status Onset Comments Mother with Single Liveborn Active 06/10/10 x 4 Gestational Diabetes Active 06/09/2011 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 Your Goals/Additional instructions: Source: [facility] POWERCHART Document Id: [id number] Miscellaneous - Gregg Gabriel Jr., M.D. - 08/04/2014 9:26 AM CDT Ambulatory Discharge Medication List [address] [id number] Visit Information Name: LEANDRA BLACK [facility] Number: [id number] Visit Date: 08/04/2014 09:26:18 Attending Provider: GREGG GABRIEL MD Primary Care Provider: SHARA NICOLE PA-C LEANDRA BLACK has been given the following list of medications: Your Medications It is important to take your medications as directed. Use a pill box or chart to help remind you to take your medications. Please let your doctor or nurse know if you have problems taking your medications. Medication/Strength How to Take Indications/Special Instructions/Comments/Notes for Patient Medication Changes/Routing clindamycin topical (Cleocin Ovules 100 mg vaginal suppository) 1 suppository(ies), Vaginal, once a day (at bedtime) New Routed to [address] [id number] emollients, topical (RepHresh vaginal gel) 1 sascha, Topical, every 3 days New Routed to [address] [id number] nicotine (Nicoderm 21 mg/24 hr transdermal film, extended release) 1 patch(es), Topical, once a day x 14 day(s) New Routed to [address] [id number] Stop Taking the Following Medications: Medication list as of 08-04-14 09:26 Attention: If you have any medications at [...] Electronically Signed By: GREGG GABRIEL MD Signed On:04-AUG-2014 09:26:15 Additional Information: Source: [facility] BetyahCHART Document Id: [id number] Miscellaneous - Haider Salgado RAraceli - 08/04/2014 8:57 AM CDT Adult Stave Block Roller Intake/History Adult Stave Block Roller Intake/History Entered On: 08/04/2014 8:59 CDT Performed On: 08/04/2014 8:57 CDT by HAIDER DAWSON Intake Chief Complaint : recheck breast Systolic Blood Pressure : 100 mmHg Diastolic Blood Pressure : 60 mmHg NIBP Mean : 73 mmHg BP Location : Right upper extremity Blood Pressure Cuff Size : Regular Height : 166 cm(Converted to: 5 ft 5 inch(es), 65 inch(es)) Actual Weight : 57.7 kg(Converted to: 127 lb 3 oz) Dosing Weight Clinic : 57.7 kg Clinic BSA : 1.63 Body Mass Index : 20.94 kg/m2 HAIDER DAWSON - 08/04/2014 8:57 CDT General Info Languages : Indonesian Is Patient Female and 13-50 no hysterectomy : Yes Status : Patient denies Are you ? : No HAIDER DAWSON - 08/04/2014 8:57 CDT Subjective Pain Symptoms : No HAIDER DAWSON - 08/04/2014 8:57 CDT Dependent Habits Tobacco Use/Currently Using : Yes Exposure to Tobacco Smoke : Patient smokes Smoking Status : Current every day smoker HAIDER DAWSON - 08/04/2014 8:57 CDT Tobacco Use Grid Type : Cigarettes Cigarette Use Packs/Day : 0.5 HAIDER DAWSON - 08/04/2014 8:57 CDT ID Screen Travel Within Last 21 Days : No Contact with someone with Ebola : No HAIDER DAWSON - 08/04/2014 8:57 CDT Source: [facility] Yext Document Id: [id number] CDT!31 documented in this encounter Plan of Treatment Not on filedocumented as of this encounter Visit Diagnoses Not on filedocumented in this encounter
--- OUTSIDE RECORDS SUMMARY | 2021-10-12 00:44 | XMS_ITS | Encounter Summary ---
:1975 Author Organization [facility] Address [address] [place] [address] Care Team Providers Name Role Phone Unavailable Primary Care Provider Unavailable Encounter Details Date Type Department Care Team Description 06/25/2014 Hospital Encounter HX [facility] Adonay Alfaro Jr., M.D. [address] [place], [place] [phone] (Wo rk) Social History [...] or relatives? How often do you attend jain or More than 4 times per year 08/17/2020 pentecostalism services? Do you belong to any clubs or Yes 08/17/2020 organizations such as jain groups, unions, fraternal or athletic groups, or [...] Sign Reading Time Taken Comments Blood Pressure 110/60 06/25/2014 2:27 PM CDT Pulse 69 06/25/2014 2:27 PM CDT Temperature - - Respiratory Rate - - Oxygen Saturation - - Inhaled Oxygen Concentration - - Weight 58.1 kg (128 lb 1.4 oz) 06/25/2014 2:27 PM CDT Height 166 cm (5' 5.35) 06/25/2014 2:27 PM CDT Body Mass Index 21.08 06/25/2014 2:27 PM CDT documented in this encounter Progress Notes Adonay Gabriel Jr., M.D. - 06/25/2014 2:02 PM CDT [id number] CHIEF COMPLAINT/REASON FOR VISIT Left breast lump HISTORY OF PRESENT ILLNESS Mark is a 38 year old 8, para 5 female who presents to the clinic for a left breast lump. She has history of fibrocystic changes in her breast tissue; however she believes that this lump isnew. She did have breast augmentation in 2012. She is status post endometrial ablation in March, and she states that she continues to have intermittent spotting, but overall, her menstrual bleeding is significantly improved with this. She continues to smoke, but she states that she would be interested in quitting in the future. MEDICATIONS Botox. ALLERGIES None. SYSTEMS REVIEW Please see HPI, [...] Has previously been able to quit, and she would like to quit again. Drinks occasionally. and sexually active without difficulties. PHYSICAL EXAMINATION VITAL SIGNS: Weight is 58.1 kg, pulse is 69/min, blood pressure is 110/60. GENERAL: Patient appears well groomed and well nourished. No acute distress. Oriented times three. BREASTS: Bilateral augmentation. Left breast with ridge just medial to the nipple margin from 10 to 11 oclock that is small and mobile with no defined mass. Right breast with no prominent palpated masses. IMPRESSION/REPORT/PLAN Examination remarkable for left breast tissue changes. PLAN: 1. Left breast tissue changes: Exam today is remarkable for a single ridge just medial to the left nipple margin from 10 to 11 oclock that is small and mobile with no defined mass. Patient reports thatthis became more prominent around the time when she would have had her regular menstrual period, however it has improved and decreased in size. She will continue with expectant monitoring of the area, and she will return to the clinic in 6 weeks for recheck. If ridge of tissue is still significant at that time, we would plan to proceed with left breast ultrasound for further evaluation. 2. Smoking cessation: Patient is encouraged to work on this. I will follow up with her regarding herprogress at her next visit to the clinic. 3. Follow up: Patient will return to the clinic in 6 weeks for recheck. She can be reached at . This document serves as a record of services personally performed by Adonay Gabriel MD. It was created on their behalf by Nicole Ryder, a trained hospitalist medical director. The creation of this record is based on the scribe's personal observations and the provider's statements to them. This document has been ch ecked and approved by the attending provider. Adonay Gabriel M.D./kathleen Electronically Signed By: ADONAY GABRIEL MD On: 06/25/2014 04:02 PM Source: [facility] MHSDOLBEYNONRADSYS Document Id: [id number] documented in this encounter Miscellaneous Notes Miscellaneous - Adonay Gabriel Jr., M.D. - 06/25/2014 2:48 PM CDT Ambulatory Patient Summary [address] [id number] Visit Information Name: MATTEO MARK SMITH [facility] Number: [id number] Current Date: 06/25/2014 14:48:05 Physicians Attending Provider: ADONAY GABRIEL MD Primary [...] Take Indications/Special Instructions/Comments/Notes for Patient Medication Changes/Routing No Medications found Stop Taking the Following Medications: Medication list as of 06-25-14 14:48 Attention: If you have any medications at [...] Electronically Signed By: ADONAY GABRIEL MD Signed On:25-JUN-2014 14:48:01 Your Allergies & Intolerances Substance Reaction Symptoms Category Comments No Known Allergies Drug Your Problem List Problem Status Onset Comments Mother with Single Liveborn Active 06/10/10 x 4 Gestational Diabetes Active 06/09/2011 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 Your Goals/Additional instructions: Source: [facility] POWERCHART Document Id: [id number] Miscellaneous - Adonay Gabriel Jr., M.D. - 06/25/2014 2:48 PM CDT Ambulatory Discharge Medication List [address] [id number] Visit Information Name: MARK BLACK [facility] Number: [id number] Visit Date: 06/25/2014 14:48:04 Attending Provider: ADONAY GABRIEL MD Primary Care [...] Take Indications/Special Instructions/Comments/Notes for Patient Medication Changes/Routing No Medications found Stop Taking the Following Medications: Medication list as of 06-25-14 14:48 Attention: If you have any medications at [...] Electronically Signed By: ADONAY GABRIEL MD Signed On:25-JUN-2014 14:48:01 Additional Information: Source: [facility] POWERCHART Document Id: [id number] Miscellaneous - Alma Salgado RIrisNIris - 06/25/2014 2:27 PM CDT Adult Automobile Accessories Installer Intake/History 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 Automobile Accessories Installer Intake/History Entered On: 06/25/2014 14:29 CDT Performed On: 06/25/2014 14:27 CDT by ALMA DAWSON Intake Chief Complaint : breast lump Peripheral Pulse Rate : 69 /min Systolic Blood Pressure : 110 mmHg Diastolic Blood Pressure : 60 mmHg NIBP Mean : 77 mmHg Blood Pressure Cuff Size : Regular Height : 166 cm(Converted to: 5 ft 5 inch(es), 65 inch(es)) Actual Weight : 58.1 kg(Converted to: 128 lb 1 oz) Dosing Weight Clinic : 58.1 kg Clinic BSA : 1.64 Body Mass Index : 21.08 kg/m2 ALMA DAWSON - 06/25/2014 14:27 CDT General Info Languages : Frisian Is Patient Female and 13-50 no hysterectomy : Yes Status : Patient denies Are you ? : No ALMA DAWSON - 06/25/2014 14:27 CDT Subjective Pain Symptoms : No ALMA DAWSON - 06/25/2014 14:27 CDT Dependent Habits Tobacco Use/Currently Using : Yes Exposure to Tobacco Smoke : Patient smokes Smoking Status : Current every day smoker ALMA DAWSON - 06/25/2014 14:27 CDT Tobacco Use Grid Type : Cigarettes Cigarette Use Packs/Day : 0.5 ALMA DAWSON - 06/25/2014 14:27 CDT ID Screen Travel Within Last 21 Days : No Contact with someone with Ebola : No ALMA DAWSON - 06/25/2014 14:27 CDT Source: [facility] Document Id: [id number] CDT!31 documented in this encounter Plan of Treatment Not on filedocumented as of this encounter Visit Diagnoses Not on filedocumented in this encounter
--- OUTSIDE RECORDS SUMMARY | 2021-10-12 00:44 | XMS_ITS | Encounter Summary ---
:1975 [facility] Address [address] [place] [address] Care Team Providers Name Role Phone Unavailable Primary Care Provider Unavailable Encounter Details Date Type Department Care Team Description 06/24/2013 Hospital Encounter HX [facility] DERM Aleida De Santiago M.D. [address] [facility], [facility] [address] [address] (Wo rk) Social History Tobacco Use Types [...] Sign Reading Time Taken Comments Blood Pressure 104/62 06/24/2013 9:36 AM CDT Pulse - - Temperature - - Respiratory Rate - - Oxygen Saturation - - Inhaled Oxygen Concentration - - Weight 58.4 kg (128 lb 12 oz) 06/24/2013 9:36 AM CDT Height - - Body Mass Index 21.12 12/03/2012 9:47 AM CDT documented in this encounter Progress Notes Luz Maria De Santiago M.D. - 06/24/2013 9:17 AM CDT [id number] CHIEF COMPLAINT/REASON FOR VISIT Full skin exam and Botox. HISTORY OF PRESENT ILLNESS This 37-year-old female is here for a full skin exam, after we had noticed she had a lot of photodamage at her last visit on April 02. She states that she has recently been vacationing in [place], soshe is a little darker than usual. She did use sunscreen on her face. She uses [employer] Regenerist moisturizer. MEDICATIONS None. ALLERGIES None. SYSTEMS REVIEW Current [...] were reviewed. Past surgical procedures were reviewed. She has had a tubal ligation. 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 HOBBIES AND LEISURE ACTIVITIES: She enjoys playing at the pool. SMOKING: She smokes. ALCOHOL: Drinks alcohol one time a month. FAMILY HISTORY Negative for psoriasis, eczema, acne and hayfever. Family history of skin cancer and asthma. VITAL SIGNS BLOOD PRESSURE: 104/62. WEIGHT: 58.4 kg. TEMPERATURE: 36.5 C. PHYSICAL EXAMINATION GENERAL: Alert and oriented x3 in no acute distress. Pleasant demeanor. Well groomed. Near ideal weight. SKIN: Skin of face, neck, back, chest, abdomen, arms, legs, hands, feet, and buttocks shows gomez skinwith evidence of photodamage, lentigines and telangiectasias. On her right lower eyelid there is a scaly pink papule that was treated with liquid nitrogen with a cotton tip applicator. She has a 2 mm darkly pigmented macule on the left tip of the nose which she says has been there for along time and has not changed. She also has a nevus at the base of her right third finger, 2 mm, which she says has been there for along time. There are scattered benign-appearing nevi which were examined under dermoscopy. DIGITS: Fingers, toes, and nails are within normal limits. HEAD: Lips and teeth within normal limits. Hair of scalp and face within normal limits. EYES: Eyes and eyelids normal. THYROID: No thyromegaly. PERIPHERAL VESSELS: Peripheral vascular system intact. After her full skin exam Botox cosmetic was injected, 30 units across the forehead in the usual manner. The patient tolerated this well. IMPRESSION/REPORT/PLAN 1. Full skin examination. 2. Actinic keratosis, left cheek, treated with liquid nitrogen. 3. Chronic photodamage with telangiectasias and lentigines. We talked about sunscreen and protectiveclothing. 4. Benign nevi. 5. Botox cosmetic injection. PLAN: She will followup in 3 months for further Botox therapy and 1 year for full skin exam. Luz Maria De Santiago M.D./janes Electronically Signed By: LUZ MARIA DE SANTIAGO MD On: 07/08/2013 06:54 AM Source: [facility] MHSDOLBEYNONRADSYS Document Id: [id number] documented in this encounter Miscellaneous Notes Miscellaneous - Jared Wylie, C.M.A. - 06/24/2013 9:36 AM CDT Adult Fifth Hand Intake/History Adult Fifth Hand Intake/History Entered On: 06/24/2013 9:38 CDT Performed On: 06/24/2013 9:36 CDT by JARED WYLIE Intake Chief Complaint : fse and botox Temperature Oral : 36.5 DegC(Converted to: 97.7 DegF) Systolic Blood Pressure : 104 mmHg Diastolic Blood Pressure : 62 mmHg NIBP Mean : 76 mmHg BP Location : Right upper extremity Blood Pressure Cuff Size : Regular Actual Weight : 58.4 kg(Converted to: 128 lb 12 oz) Weight Source : Standing scale Dosing Weight Clinic : 58.4 kg JARED WYLIE - 06/24/2013 9:36 CDT General Info Information Given By : Patient Languages : Zambian JARED WYLIE - 06/24/2013 9:36 CDT Subjective Pain Symptoms : No JARED WYLIE - 06/24/2013 9:36 CDT Dependent Habits Tobacco Use/Currently Using : Yes Exposure to Tobacco Smoke : Patient smokes Smoking Status : Current every day smoker JARED WYLIE - 06/24/2013 9:36 CDT Tobacco Use Grid Type : Cigarettes Cigarette Use Packs/Day : 0.5 JARED WYLIE - 06/24/2013 9:36 CDT Source: [employer] Document Id: [id number] CDT!25 documented in this encounter Plan of Treatment Not on filedocumented as of this encounter Visit Diagnoses Not on filedocumented in this encounter
--- OUTSIDE RECORDS SUMMARY | 2021-10-12 00:45 | XMS_ITS | Encounter Summary ---
:1975 Author Organization [facility] Address [address] [place] [address] Care Team Providers Name Role Phone Unavailable Primary Care Provider Unavailable Encounter Details Date Type Department Care Team Description 12/16/2008 Hospital Encounter HX [facility] FAMILYPRA Steven Peter M.D. [address] [place] [address] (Wo rk) Social History Tobacco [...]
--- OUTSIDE RECORDS SUMMARY | 2021-10-12 00:45 | XMS_ITS | Encounter Summary ---
:1975 Author Organization [facility] Address [address] [place] [address] Care Team Providers Name Role Phone Unavailable Primary Care Provider Unavailable Encounter Details Date Type Department Care Team Description 02/02/2002 Hospital Encounter HX [facility] URGENTCAR Haylee Novoa M.D. [address] [place] [address] (Wo rk) Social History Tobacco [...] or relatives? How often do you attend tenriism or More than 4 times per year 08/17/2020 mosque services? Do you belong to any clubs or Yes 08/17/2020 organizations such as tenriism groups, unions, fraternal or athletic groups, or [...] place to sleep or slept in a skilled nursing (including now)? Sex Assigned at Date Recorded Female 06/10/2017 5:21 PM CDT documented as of this encounter Plan of Treatment Not on filedocumented as of this encounter Visit Diagnoses Not on filedocumented in this encounter
--- OUTSIDE RECORDS SUMMARY | 2021-10-12 00:45 | XMS_ITS | Encounter Summary ---
:1975 Author Organization [facility] Address [address] [place] [address] Care Team Providers Name Role Phone Unavailable Primary Care Provider Unavailable Encounter Details Date Type Department Care Team Description 03/17/2011 Hospital Encounter HX [facility]BCV Gita Muller M .D. Social History Tobacco Use Types Packs/Day Years [...] More than 4 times per year 08/17/2020 adventist services? Do you belong to any clubs [...] Sign Reading Time Taken Comments Blood Pressure 100/56 03/17/2011 10:05 AM NEUROPSYCHOLOGY SERVICE DIRECTOR Pulse - - Temperature - - Respiratory Rate - - Oxygen Saturation - - Inhaled Oxygen Concentration - - Weight 59.9 kg (132 lb 0.9 oz) 03/17/2011 10:05 AM NEUROPSYCHOLOGY SERVICE DIRECTOR Height - - Body Mass Index - - documented in this encounter Progress Notes Gita Lopez M.D. - 03/17/2011 12:00 AM CST [id number] CHIEF COMPLAINT/ REASON FOR VISIT OB ultrasound. HISTORY OF PRESENT ILLNESS This patient is a 35-year-old G7, P 4-0-3-4 patient with LMP 12/21/2010 and EDC 09/27/2011 at 12-2/7 weeks who presents for OB ultrasound for nuchal translucency. Patient is doing well. She has no complaints. She saw Dr. Kohli today. Please see his note for details. PHYSICAL EXAM Please see Dr. Kohli's note for details. PROCEDURE An obstetrical ultrasound is performed revealing a single intrauterine gestation at 13-6/7 weeks. Placenta is located anteriorly. Amniotic fluid level is normal. Gender is not seen. position is breech. Lateral ventricle and atrium are seen and appear normal. Stomach, bladder seen and appear normal. Right and left upper and lower extremities including hands and feet are seen and appear normal. Cardiac activity seen. heart rate is measured at 140 beats per minute. No gross anomalies visualized. Limited survey is performed due to early gestational age. Unable to measure nuchal translucency due to size. measurements are obtained with average ultrasound age of 13-6/7 weeks. Based on today's ultrasound her EDC will be 09/16/2011 IMPRESSION/REPORT/PLAN 1. Intrauterine at 13-6/7 weeks. Positive cardiac activity. 2. Advanced maternal age. Plan 1. Reviewed OB ultrasound results with patient. I recommend changing EDC to 09/16/2011 by today's ultrasound. I will have the patient discuss this further with Dr. Kohli her primary OB provider 2. Routine OB precautions reviewed with the patient. JTS/mgd Signed Gita Lopez M.D. Obstetrics & Gynecology Electronically Signed By: GITA LOPEZ MD On: 03/22/2011 07:55 AM Source: [facility] MHSDOLBEYNFRANCIESYMateus Document Id: [id number] OPSYCHOLOGY SERVICE DIRECTOR documented in this encounter Procedure Notes Benoit Woods L.P.N. - 03/17/2011 10:16 AM CST Urine Dipstick Urine Dipstick Entered On: 03/17/2011 10:16 NEUROPSYCHOLOGY SERVICE DIRECTOR Performed On: 03/17/2011 10:16 NEUROPSYCHOLOGY SERVICE DIRECTOR by BENOIT WOODS LPN Urine Dipstick UA Color POC : Yellow UA Appear POC : Clear UA Leuk POC : Negative UA Nitrite POC : Negative UA Urobilinogen POC : 0.2 mg/dl UA Protein POC : Negative UA pH POC : 6.0 UA Blood POC : Trace Intact UA Spec Grav POC : 1.025 UA Ketones POC : Negative UA Bili POC : Negative UA Glucose POC : Negative BENOIT WOODS LPN - 03/17/2011 10:16 NEUROPSYCHOLOGY SERVICE DIRECTOR Source: [facility] [employer] Document Id: [id number] NEUROPSYCHOLOGY SERVICE DIRECTOR!14 OPSYCHOLOGY SERVICE DIRECTOR documented in this encounter Miscellaneous Notes Miscellaneous - Benoit Woods L.P.N. - 03/17/2011 10:05 AM CST Adult Vision Care Associate Intake/History Adult Vision Care Associate Intake/History Entered On: 03/17/2011 10:07 NEUROPSYCHOLOGY SERVICE DIRECTOR Performed On: 03/17/2011 10:05 NEUROPSYCHOLOGY SERVICE DIRECTOR by BENOIT WOODS LPN Intake Chief Complaint : OB US at 12 2/7 weeks LMP Date : 12/21/2010 Systolic Blood Pressure : 100mmHg Diastolic Blood Pressure : 56mmHg NIBP Mean : 71mmHg BP Location : Right upper extremity Blood Pressure Cuff Size : Regular Actual Weight : 59.9kg(Converted to: 132lb 1oz) Dosing Weight Clinic : 59.90kg BENOIT WOODS LPN - 03/17/2011 10:05 NEUROPSYCHOLOGY SERVICE DIRECTOR Subjective Pain Symptoms : No BENOIT WOODS LPN - 03/17/2011 10:05 NEUROPSYCHOLOGY SERVICE DIRECTOR Dependent Habits Tobacco Use/Currently Using : No Exposure to Tobacco Smoke : Patient smokes Smoking Status : Former smoker BENOIT WOODS LPN - 03/17/2011 10:05 NEUROPSYCHOLOGY SERVICE DIRECTOR Tobacco Use Grid Type : Cigarettes Last Use : 01-21-11 BENOIT WOODS LPN - 03/17/2011 10:05 NEUROPSYCHOLOGY SERVICE DIRECTOR Allergy Allergies (Active) NKA Estimated Onset Date: Unspecified ; Created By: HAIDER DAWSON; Reaction Status: Active ; Category: Drug ; Substance: NKA ; Type: Allergy ; Updated By: HAIDER DAWSON; Reviewed Date: 03/17/2011 10:04 NEUROPSYCHOLOGY SERVICE DIRECTOR [facility] Document Id: [id number] NEUROPSYCHOLOGY SERVICE DIRECTOR!21 OPSYCHOLOGY SERVICE DIRECTOR documented in this encounter Plan of Treatment Not on filedocumented as of this encounter Procedures Procedure Name Priority Date/Time Associated Diagnosis Comme nts HX UA NITRITE POC Routine 03/17/2011 10:16 AM Res ults for this NEUROPSYCHOLOGY SERVICE DIRECTOR procedure are i n the results section. HX UA GLUCOSE POC Routine 03/17/2011 10:16 AM Res ults for this NEUROPSYCHOLOGY SERVICE DIRECTOR procedure are i n the results section. HX UA APPEAR POC Routine 03/17/2011 10:16 AM Resu lts for this NEUROPSYCHOLOGY SERVICE DIRECTOR procedure are i n the results section. DIPSTICK, POCT, U Routine 03/17/2011 10:16 AM Res ults for this (DIPC1) NEUROPSYCHOLOGY SERVICE DIRECTOR procedure are i n the results section. DIPSTICK, POCT, U Routine 03/17/2011 10:16 AM Res ults for this (DIPC1) NEUROPSYCHOLOGY SERVICE DIRECTOR procedure are i n the results section. DIPSTICK, POCT, U Routine 03/17/2011 10:16 AM Res ults for this (DIPC1) NEUROPSYCHOLOGY SERVICE DIRECTOR procedure are i n the results section. DIPSTICK, POCT, U Routine 03/17/2011 10:16 AM Res ults for this (DIPC1) NEUROPSYCHOLOGY SERVICE DIRECTOR procedure are i n the results section. DIPSTICK, POCT, U Routine 03/17/2011 10:16 AM Res ults for this (DIPC1) NEUROPSYCHOLOGY SERVICE DIRECTOR procedure are i n the results section. DIPSTICK, POCT, U Routine 03/17/2011 10:16 AM Res ults for this (DIPC1) NEUROPSYCHOLOGY SERVICE DIRECTOR procedure are i n the results section. DIPSTICK, POCT, U Routine 03/17/2011 10:16 AM Res ults for this (DIPC1) NEUROPSYCHOLOGY SERVICE DIRECTOR procedure are i n the results section. DIPSTICK, POCT, U Routine 03/17/2011 10:16 AM Res ults for this (DIPC1) NEUROPSYCHOLOGY SERVICE DIRECTOR procedure are i n the results section. POCT KETONE, URINE Routine 03/17/2011 10:16 AM Re sults for this NEUROPSYCHOLOGY SERVICE DIRECTOR procedure are i n the results section. documented in this encounter Results HX UA GLUCOSE POC (03/17/2011 10:16 AM NEUROPSYCHOLOGY SERVICE DIRECTOR) P athologist Signature Glucose, POCT, Negative POWERCHART U Specimen (Source) Anatomical Collection Method Collection Time Re ceived Time Location / / Volume Laterality 03/17/2011 10:16 AM NEUROPSYCHOLOGY SERVICE DIRECTOR Historical Provider LAB HISTORICAL ORDERS Performing Organization Address City/State/ZIP Code Phon e Number POWERCHART Dipstick, POCT, Urine (lab) (03/17/2011 10:16 AM NEUROPSYCHOLOGY SERVICE DIRECTOR) P athologist Signature Bilirubin, Negative POWERCHART POCT, U Specimen (Source) Anatomical Collection Method Collection Time Re ceived Time Location / / Volume Laterality 03/17/2011 10:16 AM NEUROPSYCHOLOGY SERVICE DIRECTOR Historical Provider LAB POCT ORDERABLES - DEVICE Performing Organization Address [facility]/ZIP Code Phon e Number POWERCHART Ketone, Urine, POCT (03/17/2011 10:16 AM NEUROPSYCHOLOGY SERVICE DIRECTOR) P athologist Signature Ketone, POCT, Negative POWERCHART U Specimen (Source) Anatomical Collection Method Collection Time Re ceived Time Location / / Volume Laterality 03/17/2011 10:16 AM NEUROPSYCHOLOGY SERVICE DIRECTOR Historical Provider LAB POCT ORDERABLES-MANUAL Performing Organization Address City/[facility]/ZIP Code Phon e Number POWERCHART Dipstick, POCT, Urine (lab) (03/17/2011 10:16 AM NEUROPSYCHOLOGY SERVICE DIRECTOR) P athologist Signature Specific 1.025 POWERCHART [place], POCT, U Specimen (Source) Anatomical Collection Method Collection Time Re ceived Time Location / / Volume Laterality 03/17/2011 10:16 AM NEUROPSYCHOLOGY SERVICE DIRECTOR Historical Provider LAB POCT ORDERABLES - DEVICE Performing Organization Address City/[facility]/ZIP Code Phon e Number POWERCHART Dipstick, POCT, Urine (lab) (03/17/2011 10:16 AM NEUROPSYCHOLOGY SERVICE DIRECTOR) Patholo gist Method Time Signature Blood, POCT, U Trace POWERCHART Intact Specimen (Source) Anatomical Collection Method Collection Time Re ceived Time Location / / Volume Laterality 03/17/2011 10:16 AM NEUROPSYCHOLOGY SERVICE DIRECTOR Historical Provider LAB POCT ORDERABLES - DEVICE Performing Organization Address City/State/ZIP Code Phon e Number POWERCHART Dipstick, POCT, Urine (lab) (03/17/2011 10:16 AM NEUROPSYCHOLOGY SERVICE DIRECTOR) P athologist Signature pH, POCT, Urine 6.0 POWERCHART Specimen (Source) Anatomical Collection Method Collection Time Re ceived Time Location / / Volume Laterality 03/17/2011 10:16 AM NEUROPSYCHOLOGY SERVICE DIRECTOR Historical Provider LAB POCT ORDERABLES - DEVICE Performing Organization Address City/State/ZIP Code Phon e Number POWERCHART Dipstick, POCT, Urine (lab) (03/17/2011 10:16 AM NEUROPSYCHOLOGY SERVICE DIRECTOR) P athologist Signature Protein, POCT, Negative POWERCHART U Specimen (Source) Anatomical Collection Method Collection Time Re ceived Time Location / / Volume Laterality 03/17/2011 10:16 AM NEUROPSYCHOLOGY SERVICE DIRECTOR Historical Provider LAB POCT ORDERABLES - DEVICE Performing Organization Address [facility] Phon e Number POWERCHART Dipstick, POCT, Urine (lab) (03/17/2011 10:16 AM NEUROPSYCHOLOGY SERVICE DIRECTOR) Analysis Performed At Patho logist Time Signature Urobilinogen, 0.2 mg/dl POWERCHART POCT, Urine Specimen (Source) Anatomical Collection Method Collection Time Re ceived Time Location / / Volume Laterality 03/17/2011 10:16 AM NEUROPSYCHOLOGY SERVICE DIRECTOR Historical Provider LAB POCT ORDERABLES - DEVICE Performing Organization Address [facility]/ZIP [facility] Phon e Number POWERCHART HX UA NITRITE POC (03/17/2011 10:16 AM NEUROPSYCHOLOGY SERVICE DIRECTOR) P athologist Signature Nitrites, Negative POWERCHART POCT, U Specimen (Source) Anatomical Collection Method Collection Time Re ceived Time Location / / Volume Laterality 03/17/2011 10:16 AM NEUROPSYCHOLOGY SERVICE DIRECTOR Historical Provider LAB HISTORICAL ORDERS Performing Organization Address City/[facility]/ZIP Code Phon e Number POWERCHART Dipstick, POCT, Urine (lab) (03/17/2011 10:16 AM NEUROPSYCHOLOGY SERVICE DIRECTOR) P athologist Signature Leukocytes, Negative POWERCHART POCT, U Specimen (Source) Anatomical Collection Method Collection Time Re ceived Time Location / / Volume Laterality 03/17/2011 10:16 AM NEUROPSYCHOLOGY SERVICE DIRECTOR Historical Provider LAB POCT ORDERABLES - DEVICE Performing Organization Address City/State/ZIP Code Phon e Number POWERCHART HX UA APPEAR POC (03/17/2011 10:16 AM NEUROPSYCHOLOGY SERVICE DIRECTOR) P athologist Signature Appearance Clear POWERCHART Specimen (Source) Anatomical Collection Method Collection Time Re ceived Time Location / / Volume Laterality 03/17/2011 10:16 AM NEUROPSYCHOLOGY SERVICE DIRECTOR Historical Provider LAB HISTORICAL ORDERS Performing Organization Address City/[facility]/ZIP [facility] Phon e Number POWERCHART Dipstick, POCT, Urine (lab) (03/17/2011 10:16 AM NEUROPSYCHOLOGY SERVICE DIRECTOR) P athologist Signature Color Yellow POWERCHART Specimen (Source) Anatomical Collection Method Collection Time Re ceived Time Location / / Volume Laterality 03/17/2011 10:16 AM NEUROPSYCHOLOGY SERVICE DIRECTOR Historical Provider LAB POCT ORDERABLES - DEVICE Performing Organization Address [facility]/ZIP [facility] Phon e Number POWERCHART documented in this encounter Visit Diagnoses Not on filedocumented in this encounter
--- OUTSIDE RECORDS SUMMARY | 2021-10-12 00:45 | XMS_ITS | Encounter Summary ---
:1975 Author Organization [facility] Address [address] [place] [address] Care Team Providers Name Role Phone Unavailable Primary Care Provider Unavailable Encounter Details Date Type Department Care Team Description 06/27/2010 Hospital Encounter HX [facility]BCV Adonay Alfaro Jr., M.D. [address] [place], [place] [address] (Wo rk) Social History [...] documented as of this encounter Progress Notes Adonay Gabriel Jr., M.D. - 06/27/2010 12:00 AM CDT [id number] IMPRESSION/REPORT/PLAN Patient doing well. Advised on taking vitamins and fish oil. Follow up when or annually. CHIEF COMPLAINT/REASON FOR VISIT Suture removal from moles. HISTORY OF PRESENT ILLNESS Patient is doing well. She did have a light period after the IUD removal, otherwise feels fine. She is working on smoking cessation. She is considering a future . VITAL SIGNS DATE/TIME 06/27/10 WEIGHT 58.7 kg SYSTOLIC 108 DIASTOLIC 58 PHYSICAL EXAM AREA EXAM TEXT SKIN Incisions healing fine. Sutures removed, Steri-strips applied. TGH/mgd Signed Adonay Gabriel M.D. Obstetrics & Gynecology Electronically Signed By: ADONAY GABRIEL MD On: 06/29/2010 11:10 Source: [facility] MHSDOLBEYNONRADSYS Document Id: [id number] documented in this encounter Plan of Treatment Not on filedocumented as of this encounter Visit Diagnoses Not on filedocumented in this encounter
--- OUTSIDE RECORDS SUMMARY | 2021-10-12 00:45 | XMS_ITS | Encounter Summary ---
:1975 Author Organization [facility] Address [address] [place] [address] Care Team Providers Name Role Phone Unavailable Primary Care Provider Unavailable Encounter Details Date Type Department Care Team Description 06/08/2010 Hospital Encounter [facility]X [facility] Adonay Alfaro Jr., M.D. [address] [place], [place] [phone] (Wo rk) Social History [...] or relatives? How often do you attend anabaptism or More than 4 times per year 08/17/2020 baptism services? Do you belong to any clubs or Yes 08/17/2020 organizations such as anabaptism groups, unions, fraternal or athletic groups, or [...] PM CDT documented as of this encounter H&P Notes Adonay Gabriel Jr., M.D. - 06/08/2010 12:00 AM CDT [id number] IMPRESSION/REPORT/PLAN Normal examination with some lower back pain, possible mild sciatic component. She does have posture, so we have discussed that. Discussed some stretching and core strengthening. She will return in 2 weeks for mole removal, also to see Dr. Steve. At that time will check CBC, glucose, and lipids. She is due for this. Wet prep is sent today due to the discharge. IUD strings were present today. She is advised on smoking cessation and is working on that. CHIEF COMPLAINT/REASON FOR VISIT Annual examination. HISTORY OF PRESENT ILLNESS Patient also complains of lower back pain, which she has had for the last 2-4 weeks. Occasionally will have a little pain radiated down her left leg, but her back pain tends to be more on the right side. She is status post 4 vaginal deliveries. No urinary symptoms. No bowel movement problems. No pain with intercourse. Some occasional increased vaginal discharge with a slight malodorous component to that and had some random bleeding since the IUD in. That has been relatively quiet. She did have an episode of some heavy bleeding after intercourse about a month ago. 34-year-old, 6, para 4-0-2-4 CURRENT MEDICATIONS Post-visit Medication Reconciliation Mirena IUD ALLERGIES None SYSTEMS REVIEW Remarkable for the abdominal pain, lower back for the last month. Otherwise negative per review of systems sheet. PAST MEDICAL/SURGICAL HISTORY She is status post 4 normal deliveries. Last baby 04/23/07 vaginal delivery 6 pound 2 ounce male. Other chronic medical problems: None Past Surgical History: None PREVENTIVE SERVICES Pap smear: 06/08/10 Tetanus: 06/07/07 Depression and asthma are negative SOCIAL HISTORY Smokes 1/2 pack per day. Had quit smoking, but then started up again as she was gaining weight. She has a new quit date of 08/03/10. She does not want any medications for this since she thinks she can do it. She is starting some regular exercise. Drinks occasionally. Single partner for several years. Sexually active without problems. FAMILY HISTORY Parents are both 57 years old. Mother has had breast biopsy, but no cancer. Father's health in general is okay. VITAL SIGNS DATE/TIME 06/08/10 HEIGHT 163.2 cm WEIGHT 58.8 kg RESP RATE 15 / min PULSE 75 SYSTOLIC 108 DIASTOLIC 58 PHYSICAL EXAM AREA EXAM TEXT GENERAL Patient appears well groomed and well nourished. No acute distress. Oriented times three. SKIN She has 2 moles which she says have changed somewhat. One is on her lower stomach and one lower back. She would like these removed. HEAD Normocephalic. ENT Trachea midline. LYMPH NODES Neck is supple. No significant adenopathy. THYROID Thyroid is not enlarged and regular in contour. BREASTS There are no masses, no lymphadenopathy and no nipple discharge. HEART Regular rate and rhythm without murmurs, rubs or gallops. No evidence of any peripheral vascular disease. LUNGS Clear to auscultation with good inspiratory effort. ABDOMEN Soft and nontender. No masses, hepatosplenomegaly or hernias noted. No enlarged groin nodes palpable. PELVIS Vagina and cervix appear normal without lesions, discharge or rashes. Pap smear is done. Uterus is anteverted slightly anteflexed, small, mobile and nontender. Adnexa are without masses or tenderness. RECTUM Deferred. GENITALIA External genitalia, Bartholin's, urethral, and [place]'s glands within normal limits. TGH/mgd Signed Adonay Gabriel M.D. Obstetrics & Gynecology Electronically Signed By: ADONAY GABRIEL MD On: 06/13/2010 08:44 Source: [facility] MHSDOLBEYNONRADSYS Document Id: [id number] documented in this encounter Procedure Notes Alma Salgado RAraceli - 06/08/2010 3:50 PM CDT Urine Dipstick Urine Dipstick Entered On: 06/08/2010 15:50 CDT Performed On: 06/08/2010 15:50 CDT by ALMA DAWSON Urine Dipstick UA Leuk POC: Negative UA Nitrite POC: Negative UA Urobilinogen POC: 0.2 mg/dl UA Protein POC: Negative UA pH POC: 5.5 UA Blood POC: Negativ UA Spec Grav POC: 1.030 UA Ketones POC: Negative UA Bili POC: Negative UA Glucose POC: Negative ALMA DAWSON - 06/08/2010 15:50 CDT Source: [facility] POWERCHART Document Id: [id number] CDT!12 documented in this encounter Miscellaneous Notes Miscellaneous - Adonay Gabriel Jr., M.D. - 06/08/2010 6:36 PM CDT Ambulatory [place] [address] Visit Information Name: MARK BLACK Current Date: 06/08/2010 18:36:43 Primary Care Provider: ADONAY GABRIEL MD Your Medications Here is a list of your medications. It is important to take your medications as directed. Use a pillbox or chart to help remind you to take your medications. Please let your doctor or nurse know if you have problems taking your medications. Medication/Strength Dose Route Frequency Indications/Special Instructions/Comments levonorgestrel (Mirena 52 mg intrauteral device) Your Allergies & Intolerances Substance Reaction Symptoms Category Comments NKA Drug Your Problem List Problem Status Onset Comments No Problems found Your Recommendations We want to make sure you get the tests, immunizations, and guidance you need to stay healthy. Here is a customized list of recommendations, based on information we have in your medical record. Your doctor may have additional recommendations for you, based on your personal medical history and risk factors. You can help us by calling us to make an appointment when you are due for your tests. Additional information regarding recommendations: Test/Treatment Last Done Next Due Additional Information Lipid Panel every 5 years Age 20-75 06/08/2010 Checks blood for good (HDL) and bad (LDL) cholesterol. Know your numbers, they are one indicator of your risk for heart attack and stroke. Vaccine: Tetanus every 10 years 06/07/2007 06/04/2017 Immunization to help prevent you from getting the serious disease Tetanus (Lockjaw). Your Upcoming Appointments Date Time Location Reason Provider 06/22/2010 09:00 [facility] HYDROLOGIC ENGINEER mole removal Adonay Gabriel MD 06/22/2010 11:30 [facility] PM&R back pain Sudheer Steve MD Your Goals/Additional instructions: Source: [facility] POWERCHART Document Id: [id number] Miscellaneous - Adonay Gabriel Jr., M.D. - 06/08/2010 6:36 PM CDT Ambulatory Depart Summary [address] [address] Visit Information Name: MARK BLACK Current Date: 06/08/2010 18:36:41 Primary Care Provider: ADONAY GABRIEL MD MARK BLACK has been given the following list of medications: Your Medications It is important to take your medications as directed. Use a pill box or chart to help remind you to take your medications. Please let your doctor or nurse know if you have problems taking your medications. Medication/Strength Dose Route Frequency Indications/Special Instructions/Comments levonorgestrel (Mirena 52 mg intrauteral device) Additional Information: Yes - Current list of reconciled medications is provided and explained to the patient and/or family, guardian/caregiver. Source: [facility] POWERCHART Document Id: [id number] Miscellaneous - Alma Salgado, R.N. - 06/08/2010 3:38 PM CDT Adult Keysmith Intake/History Adult Keysmith Intake/History Entered On: 06/08/2010 15:42 CDT Performed On: 06/08/2010 15:38 CDT by ALMA DAWSON Intake Chief Complaint: annual LMP Date: N/A Peripheral Pulse Rate: 75/min Respiratory Rate: 15/min Systolic Blood Pressure: 108mmHg Diastolic Blood Pressure: 58mmHg NIBP Mean: 75mmHg BP Location: Left upper extremity Height: 163.20cm(Converted to: 5ft 4in, 64.25in) Actual Weight: 58.800kg(Converted to: 129lb 10oz) Dosing Weight Clinic: 58.80kg Clinic BSA: 1.63 Body Mass Index: 22.08kg/m2 ALMA DAWSON - 06/08/2010 15:38 CDT Subjective Pain Symptoms: Yes ALMA DAWSON - 06/08/2010 15:38 CDT Pain Pain Assessment Grid Pain 1 Pain 2 Pain 3 Location: Lower back Neck Shoulder Laterality: Bilateral Left Left ALMA DAWSON - 06/08/2010 15:38 CDT ALMA DAWSON - 06/08/2010 15:38 CDT ALMA DAWSON - 06/08/2010 15:38 CDT Dependent Habits Tobacco Use/Currently Using: Yes ALMA DAWSON - 06/08/2010 15:38 CDT Tobacco Use Grid Type: Cigarettes Cigarette Use Packs/Day: 0.5 ALMA DAWSON - 06/08/2010 15:38 CDT Allergies Allergies (Active) NKA Estimated Onset Date: Unspecified ; Created By: ALMA DAWSON; Reaction Status: Active ; Category: Drug ; Substance: NKA ; Type: Allergy ; Updated By: ALMA DAWSON; Reviewed Date: 09/27/2009 9:54 CDT Source: [facility] [employer] Document Id: [id number] CDT!34 documented in this encounter Plan of Treatment Not on filedocumented as of this encounter Procedures Procedure Name Priority Date/Time Associated Diagnosis Comme nts THINPREP SCREEN HPV Routine 06/08/2010 4:27 PM Re sults for this REFLEX CDT procedure are i n the results section. documented in this encounter Results ThinPrep Screen HPV Reflex (06/08/2010 4:27 PM CDT) [facility] Method Time Signature Interpretation [id number] POWERCHART HXThPrep Scrn See Comment POWERCHART [facility] Comment: A. ??ThinPrep Pap Test Screen (Cervical/ Endocervical HPV Reflex): Satisfactory for evaluation. Negative for intraepithelial lesion or m alignancy. Screened at [facility]ology Analys[facility] s Office [address] [place] [id number] HXThPrep Scrn [facility] See Comment TAMICA RCHART Comment: Report electronically signed by RAMSES Haas(ASCP) 06/14/2010 11:51 Interpreted by: Luly Nicholson, [place](ASCP) HX Spec [facility] See Comment POWERCHART Comment: A. ??ThinPrep Pap Test Screen (Cervical/ Endocervical HPV Reflex): Received cloudy specimen in ThinPrep via l. Test Performed by: [facility] Dpt of Lab Med and Pathology [address] [place], [place] [id number] Midwife: Garfield waite III, M.D. Specimen (Source) Anatomical Collection Method Collection Time Re ceived Time Location / / Volume Laterality Cervix/Endocervix 06/08/2010 4:27 PM CDT Adonay Gabriel Jr., M.D. LAB PAP PATHDX ORDERABLES Performing Organization Address City/State/ZIP Code Phon e Number POWERCHART documented in this encounter Visit Diagnoses Not on filedocumented in this encounter
--- OUTSIDE RECORDS SUMMARY | 2021-10-12 00:45 | XMS_ITS | Encounter Summary ---
:1975 Author Organization [facility] Address [address] [place] [address] Care Team Providers Name Role Phone Unavailable Primary Care Provider Unavailable Encounter Details Date Type Department Care Team Description 07/25/2010 Hospital Encounter HX [facility] Ami Garcia CNM Social History Tobacco Use Types Packs/Day Years [...] More than 4 times per year 08/17/2020 scientologist services? Do you belong to any clubs [...] documented as of this encounter Progress Notes Ami Manitlla CNM - 07/25/2010 12:00 AM CDT [id number] IMPRESSION/REPORT/PLAN Positive test. Plan: She is going to return in [address] Gabriel and have a new OB visit and ultrasound just to confirm dates and viability. In the meantime, I did go over warning signs and when to call. LCR was sent to lab today and she will get her OB labs done when she comes back in 2 weeks. Urine test was positive today. It was weakly positive. CHIEF COMPLAINT/REASON FOR VISIT She is here for confirmation. HISTORY OF PRESENT ILLNESS She is a 34-year-old, 6, para 4 with an LMP of 06/23/2010. She states that she had a positive test on Sunday at home and wanted to maker sure that it was positive today. She states that she had an IUD removed in June of 2010 that was removed June 21, but she started a period on the and had 3 days of what she believes was normal bleeding, but then did not have a period again for the month of July. She is concerned because she had a twin with her last baby and miscarried one of pregnancies and so wanted to confirm . CURRENT MEDICATIONS Post-visit Medication Reconciliation vitamins 1 daily ALLERGIES No known drug allergies. PAST MEDICAL/SURGICAL HISTORY PREVENTIVE SERVICES Tobacco use: No Last Pap smear was June of 2010 Chlamydia screening will be updated today Tetanus, per electronic medical record PHYSICAL EXAM AREA EXAM TEXT GENERAL Refer the assessment form. ADMINISTRATIVE BILLING Margin Code Total Time 15 minutes Counseling All in counseling Time PEB/mgd Signed Roxane Mantilla C.N.M. Obstetrical/Gynecological Services Electronically Signed By: AMI MANTILLA CNM On: 07/29/2010 08:52 AM Source: [facility] MHSDOLBEYNONRADSYS Document Id: [id number] documented in this encounter Procedure Notes Conversion, Historical Provider Ser - 07/25/2010 10:26 AM CDT Urine Test Urine Test Entered On: 07/25/2010 10:27 CDT Performed On: 07/25/2010 10:26 CDT by MICHEL ARENAS Urine HCG U beta hCG Ql POC: Positive MICHEL ARENAS - 07/25/2010 10:26 CDT Source: [facility] POWERCHART Document Id: [id number] CDT!3 documented in this encounter Miscellaneous Notes Miscellaneous - Ami Mantilla CNM - 07/26/2010 4:09 PM CDT Results Notification Document Contains Addenda Addendum by MICHEL ARENAS on 27 Jul 2010 07:50:06 CDT Noted in OB chart From: AMI MANTILLA CNM To: MICHEL ARENAS Sent: 07/26/2010 16:09:35 CDT ! Show up: 07/26/2010 16:09:00 CDT Subject: Results Notification Actions: Note to Nurse Due Date/Time: 07/26/2010 16:09:00 CDT Source: [facility] POWERCHART Document Id: [id number] Electronically signed by Yulisa, [facility] [employer] [id number] at 08/06/2016 7:00 PM CDT Miscellaneous - Ami Mantilla CNM - 07/25/2010 11:17 AM CDT Ambulatory [place] [address] Visit Information Name: MATTEO MARK SMITH Current Date: 07/25/2010 11:17:03 Primary Care Provider: ADONAY GABRIEL MD Your Medications Here is a list of your medications. It is important to take your medications as directed. Use a pillbox or chart to help remind you to take your medications. Please let your doctor or nurse know if you have problems taking your medications. Medication/Strength Dose Route Frequency Indications/Special Instructions/Comments multivitamin, ( Multivitamins) Your Allergies & Intolerances Substance Reaction Symptoms Category Comments NKA Drug Your Problem List Problem Status Onset Comments Mother with Single Liveborn Active x 4 Your Recommendations We want to make sure [...] Test/Treatment Last Done Next Due Additional Information Screening Pap Smear every 3 years Women 21-65 06/08/2010 06/07/2013 Checks for signs of cancer of the cervix. Lipid Panel every 5 years Age 20-75 06/22/2010 06/21/2015 Checks blood for good (HDL) and bad (LDL) cholesterol. Know your numbers, they are one indicator of your risk for heart attack and stroke. Vaccine: Tetanus every 10 years 06/07/2007 06/04/2017 Immunization to help prevent you from getting the serious disease Tetanus (Lockjaw). Your Upcoming Appointments Date Time Location Reason Provider 08/03/2010 16:00 [facility] PM&R rc Sudheer Steve MD 08/08/2010 13:30 [facility] FAMILY SUPPORT SPECIALIST new ob visit and u/s with Dr. Seun Gabriel MD, Adonay Magallanes Your Goals/Additional instructions: Source: [facility] POWERCHART Document Id: [id number] Electronically signed by Conversion, [facility] [employer] [id number] at 08/06/2016 7:00 PM CDT Miscellaneous - Ami Mantilla CNM - 07/25/2010 11:17 AM CDT [place] [address] Visit Information Name: MARK BLACK Current Date: 07/25/2010 11:17:02 Primary Care Provider: ADONAY GABRIEL MD MARK [...] Route Frequency Indications/Special Instructions/Comments multivitamin, ( Multivitamins) Additional Information: Yes - Current list of reconciled medications is provided and explained to the patient and/or family, guardian/caregiver. Source: [facility] [employer] Document Id: [id number] Electronically signed by Yulisa [facility] [employer] [id number] at 08/06/2016 7:00 PM CDT Miscellaneous - Conversion, Historical Provider Ser - 07/25/2010 10:06 AM CDT Adult Log Tumbler Intake/History Adult Log Tumbler Intake/History Entered On: 07/25/2010 10:07 CDT Performed On: 07/25/2010 10:06 CDT by MICHEL ARENAS Intake Chief Complaint: ob visit LMP Date: 06/23/10 Systolic Blood Pressure: 92mmHg Diastolic Blood Pressure: 62mmHg NIBP Mean: 72mmHg BP Location: Right upper extremity Actual Weight: 58.200kg(Converted to: 128lb 5oz) Dosing Weight Clinic: 58.20kg MICHEL ARENAS - 07/25/2010 10:06 CDT Subjective Pain Symptoms: No MICHEL ARENAS - 07/25/2010 10:06 CDT Dependent Habits Tobacco Use/Currently Using: Yes Tobacco Use/Advised to Quit: Yes Exposure to Tobacco Smoke: Patient smokes MICHEL ARENAS - 07/25/2010 10:06 CDT Tobacco Use Grid Type: Cigarettes Cigarette Use Packs/Day: 0.5 MICHEL ARENAS - 07/25/2010 10:06 CDT Alcohol Use: No MICHEL ARENAS - 07/25/2010 10:06 CDT Allergy Allergies (Active) NKA Estimated Onset Date: Unspecified ; Created By: HAIDER DAWSON; Reaction Status: Active ; Category: Drug ; Substance: NKA ; Type: Allergy ; Updated By: HAIDER DAWSON; Reviewed Date: 07/25/2010 10:06 CDT Source: [facility] [employer] Document Id: [id number] CDT!21 documented in this encounter Plan of Treatment Not on filedocumented as of this encounter Visit Diagnoses Not on filedocumented in this encounter
--- OUTSIDE RECORDS SUMMARY | 2021-10-12 00:45 | XMS_ITS | Encounter Summary ---
:1975 Author Organization [facility] Address [address] [place] [address] Care Team Providers Name Role Phone Unavailable Primary Care Provider Unavailable Encounter Details Date Type Department Care Team Description 06/22/2010 Hospital Encounter [facility]X [facility] Adonay Alfaro Jr., M.D. [address] [place], [place] [phone] (Wo rk) Social History [...] or relatives? How often do you attend mandaen or More than 4 times per year 08/17/2020 jew services? Do you belong to any clubs or Yes 08/17/2020 organizations such as mandaen groups, unions, fraternal or athletic groups, or [...] Progress Notes Adonay Gabriel Jr., M.D. - 06/22/2010 12:00 AM CDT [id number] IMPRESSION/REPORT/PLAN Patient advised to keep these areas clean and dry for 1 day and will return in 5 days for suture removal. CHIEF COMPLAINT/REASON FOR VISIT Patient in for 2 things. One is mole removal, 1 right hip and 1 left hip. The other is IUD removal. HISTORY OF PRESENT ILLNESS Patient is doing well. No other problems or complaints. No change from annual examination. She does want to try for another . She understands risk of advanced maternal age, vitamin supplementation with folic acid, Alna 3 free fatty acids, smoking cessation necessity. CURRENT MEDICATIONS Post-visit Medication Reconciliation Updated, no changes. ALLERGIES None PAST MEDICAL/SURGICAL HISTORY PREVENTIVE SERVICES Tobacco: Still smokes, but is cutting back. She thinks she will be able to quit in the next month. She does not want any medication to help with that. VITAL SIGNS DATE/TIME 06/22/10 WEIGHT 59 kg SYSTOLIC 108 DIASTOLIC 68 PHYSICAL EXAM AREA EXAM TEXT GENERAL SKIN Right and left hip moles identified, cleaned with Betadine, anesthetized with 1% lidocaine with epinephrine with bicarb, removed sharply, 2 sutures placed of 4-0 nylon in both of these and dressed with Steri-strip. [facility]/mgamber Signed Adonay Gabriel M.D. Obstetrics & Gynecology Electronically Signed By: ADONAY GABRIEL MD On: 06/27/2010 05:32 Source: [facility] Document Id: [id number] Adonay Gabriel Jr., M.D. - 06/22/2010 12:00 AM CDT [id number] IMPRESSION/REPORT/PLAN IUD strings identified easily, grasped and removed without difficulty. Patient tolerates this well. CHIEF COMPLAINT/REASON FOR VISIT IUD removal HISTORY OF PRESENT ILLNESS Patient wants her IUD out. She is going to start taking vitamins. She knows to try and have 1 period before she attempts . [facility]/mgd Signed Adonay Gabriel M.D. Obstetrics & Gynecology Electronically Signed By: ADONAY GABRIEL MD On: 06/27/2010 05:32 Source: [facility] Document Id: [id number] documented in this encounter Miscellaneous Notes Miscellaneous - Alma Salgado, R.N. - 06/22/2010 8:56 AM CDT Adult Sales Audit Clerk Intake/History Adult Sales Audit Clerk Intake/History Entered On: 06/22/2010 8:57 CDT Performed On: 06/22/2010 8:56 CDT by ALMA DAWSON Intake Chief Complaint: mole removal and labs Systolic Blood Pressure: 108mmHg Diastolic Blood Pressure: 68mmHg NIBP Mean: 81mmHg BP Location: Right upper extremity Actual Weight: 59.000kg(Converted to: 130lb 1oz) Dosing Weight Clinic: 59.00kg ALMA DAWSON - 06/22/2010 8:56 CDT Subjective Pain Symptoms: No ALMA DAWSON - 06/22/2010 8:56 CDT Dependent Habits Tobacco Use/Currently Using: Yes ALMA DAWSON - 06/22/2010 8:56 CDT Tobacco Use Grid Type: Cigarettes Cigarette Use Packs/Day: 0.5 ALMA DAWSON - 06/22/2010 8:56 CDT Allergies Allergies (Active) NKA Estimated Onset Date: Unspecified ; Created By: ALMA DAWSON; Reaction Status: Active ; Category: Drug ; Substance: NKA ; Type: Allergy ; Updated By: ALMA DAWSON; Reviewed Date: 06/08/2010 15:43 CDT Source: [facility] Document Id: [id number] CDT!17 documented in this encounter Plan of Treatment Not on filedocumented as of this encounter Procedures Procedure Name Priority Date/Time Associated Diagnosis Comme nts SURGICAL PATHOLOGY Routine 06/22/2010 10:16 AM Re sults for this CDT procedure are i n the results section. documented in this encounter Results Pathology Surgical Pathology, [facility] (06/22/2010 10:16 AM CDT) Patholo gist Method Time Signature HXSurg IV [id number] POWERCHART [facility] HXSurg IV See Comment POWERCHART [facility] Comment: RESULT: Adonay Gabriel M.D. HXSurg IV [facility] See Comment POWERCHA RT Comment: [facility] [address] [place] [address] SLIDE DISPOSITION: HXSurg IV [facility] See Comment POWER CHART Comment: [id number] A. ??Received in formalin properly label ed with the patient's name and as right hip mole is a 0.5 x 0.5 x 0.3 cm skin shave with an eccentri c 0.4 x 0.3 gmoez brown lesion. ??The specimen is bisected and e ntirely submitted in cassette A1. B. ??Received in formalin properly label ed patient's name and medical record number as [id number] as left hip mole is a 0.8 x 0.3 x 0.3 cm skin shave with an eccentric 0.4 x 0. 3 cm gomez-brown lesion. ??The specimen is trisected and entirely submi tted in cassette B1. Part A: ??Right ??hip mole 1 Right ??hip mole Part B: ??Left hip mole 1 Left hip mole [facility] POWER CHART Comment: A. ??Skin, right ??hip, biopsy: ??Compou nd nevus with congenital features. B. ??Skin, left hip, biopsy: ??Dermal ne vus. HXSurg IV [facility] See Comment POWER CHART Comment: RESULT: 06/27/2010 12:12 Interpreted by: Harley Rodriguez M.D. Report electronically signed by Harley Rodriguez M.D. Transcribed by: [email or web address] 06/27/2010 07:47:52 Test Performed by: [facility] D[facility] Lab Med and Pathology [address] [place] [address] Creative Assistant: Garfield waite III, M.D. Specimen (Source) Anatomical Collection Method Collection Time Re ceived Time Location / / Volume Laterality Tissue 06/22/2010 10:16 AM CDT Adonay Gabriel Jr., M.D. LAB SURG PATH ORDERABLES Performing Organization Address City/State/ZIP Code Phon e Number POWERCHART documented in this encounter Visit Diagnoses Not on filedocumented in this encounter
--- OUTSIDE RECORDS SUMMARY | 2021-10-12 00:45 | XMS_ITS | Encounter Summary ---
:1975 Author Organization [facility] Address [address] [place] [address] Care Team Providers Name Role Phone Unavailable Primary Care Provider Unavailable Encounter Details Date Type Department Care Team Description 08/03/2004 Hospital Encounter HX [facility] Steven Peter M.D. [address] [place] [phone] (Wo rk) Social History Tobacco [...] More than 4 times per year 08/17/2020 protestant services? Do you belong to any clubs [...]
--- OUTSIDE RECORDS SUMMARY | 2021-10-12 00:45 | XMS_ITS | Encounter Summary ---
:1975 Author Organization [facility] Address [address] [place] [address] Care Team Providers Name Role Phone Unavailable Primary Care Provider Unavailable Encounter Details Date Type Department Care Team Description 02/02/2011 Hospital Encounter [facility] Adonay Alfaro Jr., M.D. [address] [place], [place] [phone] (Wo rk) Social History [...] Progress Notes Adonay Gabriel Jr., M.D. - 02/02/2011 12:00 AM CST [id number] CHIEF COMPLAINT/REASON FOR VISIT OB check HISTORY OF PRESENT ILLNESS 35 year old seven para 4, recent previous miscarriage who is doing well. Last menstrual period around 12/21. She does have some nausea took Zofran it didn't really help a lot but she has only taken one dose of that. Current medications, past medical, surgical, social history, review of systems family history please see OB flow sheet. No changes noted. Blood type is O+. PHYSICAL EXAM Informal ultrasound confirms a 6-week to 7-week positive pole and heartbeat normal fluid and yolk-sac noted. IMPRESSION/REPORT/PLAN Is early . First OB done. Early warnings, diet, activity given. Will treat her with Unisom and vitamin B6 as well as Zofran if needed for nausea. Follow up in 2 weeks, formal ultrasound and examination at that time. Laboratory evaluation done today including labs, CBC, vitamin D, HIV, TSH. [facility]d Signed Adonay Gabriel M.D. Obstetrics & Gynecology Electronically Signed By: ADONAY GABRIEL MD On: 02/03/2011 05:21 PM Source: [facility] MHSDOLBEYNONRADSYS Document Id: [id number] PRODUCTION SUPERVISOR documented in this encounter Procedure Notes Alma Salgado, R.N. - 02/02/2011 11:19 AM CST Urine Test Urine Test Entered On: 02/02/2011 11:19 NEWS PRODUCTION SUPERVISOR Performed On: 02/02/2011 11:19 NEWS PRODUCTION SUPERVISOR by ALMA DAWSON Urine HCG U beta hCG Ql POC : Positive Internal Positive QC : Pass Internal Negative QC : Pass ALMA DAWSON - 02/02/2011 11:19 NEWS PRODUCTION SUPERVISOR Source: [facility] POWER[facility]ART Document Id: [id number] NEWS PRODUCTION SUPERVISOR!5 PRODUCTION SUPERVISOR documented in this encounter Plan of Treatment Not on filedocumented as of this encounter Procedures Procedure Name Priority Date/Time Associated Diagnosis Comme nts ABO GROUPING, B Routine 02/02/2011 11:22 AM Resul ts for this NEWS PRODUCTION SUPERVISOR procedure are i n the results section. ANTIBODY SCREEN, B Routine 02/02/2011 11:22 AM Re sults for this NEWS PRODUCTION SUPERVISOR procedure are i n the results section. documented in this encounter Results Antibody Screen (02/02/2011 11:22 AM NEWS PRODUCTION SUPERVISOR) P athologist Signature Antibody Negative POWERCHART Screen Specimen (Source) Anatomical Collection Method Collection Time Re ceived Time Location / / Volume Laterality 02/02/2011 11:22 AM NEWS PRODUCTION SUPERVISOR Adonay Gabriel Jr., M.D. LAB BLOOD BANK TEST ORDERABL ES Performing Organization Address City/[facility] Phon e Number POWERCHART Grouping and Rh-Lundberg FLIP, see #[id number] (02/02/2011 11:22 AM NEWS PRODUCTION SUPERVISOR) Patholo gist Method Time Signature HX Grouping O Positive POWERCHART and Rh Specimen (Source) Anatomical Collection Method Collection Time Re ceived Time Location / / Volume Laterality 02/02/2011 11:22 AM NEWS PRODUCTION SUPERVISOR Adonay Gabriel Jr., M.D. LAB BLOOD BANK TEST ORDERABL ES Performing Organization Address City/[facility] Code Phon e Number POWERCHART documented in this encounter Visit Diagnoses Not on filedocumented in this encounter
--- OUTSIDE RECORDS SUMMARY | 2021-10-12 00:45 | XMS_ITS | Encounter Summary ---
:1975 Author Organization [facility] Address [address] [place] [address] Care Team Providers Name Role Phone Unavailable Primary Care Provider Unavailable Encounter Details Date Type Department Care Team Description 06/27/2010 Hospital Encounter HX [facility] Hiram Delgado M.D. [address] [place] [address], [address] [place], [place] [phone] (Wo rk) Social History Tobacco Use Types [...] Name Priority Date/Time Associated Diagnosis Comme nts DX LUMBAR SPINE 2-3 Routine 06/27/2010 9:40 AM Kathryn lamar for this VIEWS CDT procedure are i n the results section. documented in this encounter Results DX Lumbar Spine 2-3 Views (06/27/2010 9:40 AM CDT) Anatomical Region Laterality Modality Lumbar Spine N/A Radiographic Imaging Specimen (Source) Anatomical Collection Method Collection Time Re ceived Time Location / / Volume Laterality 06/27/2010 9:40 AM CDT Addenda Addendum by ProviderKristy M.D. o n 06/27/2010 9:40 AM CDT RAD^^^OW XR Lumbar Spine 2 or 3 views 06/27/2010 09:40:00 Impressions 06/27/2010 10:13 AM CDT Negative lumbosacral spine. Narrative 06/27/2010 10:13 AM CDT HISTORY: Low back pain. ?? COMPARISON: None. ?? FINDINGS: There are 5 lumbar type verteb corey which are normal in height and alignment without evidence of fractu re or destructive lesions. Disc spaces are preserved without degene rative change. Sacroiliac joints are unremarkable. ?? Procedure Note Dayton Haas Jr., M.D. / Kristy Amaya M.D. - 07/26/2016 HISTORY: Low back pain. COMPARISON: None. FINDINGS: There are 5 lumbar type verteb corey which are normal in height and alignment without evidence of fractu re or destructive lesions. Disc spaces are preserved without degene rative change. Sacroiliac joints are unremarkable. IMPRESSION: Negative lumbosacral spine. Sejal Farmer(Abimael), Darian(Abimael)(M) IMG DIAGNOSTIC IMAGING PROCEDURES documented in this encounter Visit Diagnoses Not on filedocumented in this encounter
--- OUTSIDE RECORDS SUMMARY | 2021-10-12 00:45 | XMS_ITS | Encounter Summary ---
:1975 Author Organization [facility] Address [address] [place] [address] Care Team Providers Name Role Phone Unavailable Primary Care Provider Unavailable Encounter Details Date Type Department Care Team Description 03/17/2011 Hospital Encounter [facility] Adonay Alfaro Jr., M.D. [address] [place], [place] [phone] (Wo rk) Social History [...] More than 4 times per year 08/17/2020 restoration services? Do you belong to any clubs [...] Progress Notes Adonay Gabriel Jr., M.D. - 03/17/2011 12:00 AM CST [id number] CHIEF COMPLAINT/ REASON FOR VISIT OB check HISTORY OF PRESENT ILLNESS 35 year old 7, para 4, generally doing well. Had a little bit of bleeding when she wiped 5 days ago. Nothing else with that. Has had a slight increase in vaginal discharge. No other complaints. Urinalysis was negative today. Urine culture has been sent. She had a nuchal fold translucency ultrasound which was normal although the baby was a little bit big for formal measurement so questionable dates were discussed. PHYSICAL EXAM Please see OB flow sheet. Examination is normal. She has a small amount of vaginal discharge which is slightly frothy. Wet prep of this is sent. Otherwise cervix appears to be normal. IMPRESSION/REPORT/PLAN Patient stable. Generally doing better. Will send wet prep and urine culture. Follow up in 4 weeks. She will have a level II ultrasound done in May. She will be probably about 20 weeks to 21 at that time. Patient is comfortable this as she would not terminate the based on results of this test. [facility]/mgd Signed Adonay Gabriel M.D. Obstetrics & Gynecology Electronically Signed By: ADONAY GABRIEL MD On: 03/20/2011 12:47 PM Source: [facility] MHSDOLBEYNONRADSYS Document Id: [id number] T PROTECTION DETECTIVE documented in this encounter Plan of Treatment Not on filedocumented as of this encounter Procedures Procedure Name Priority Date/Time Associated Comments Diagnosis BACTERIAL CULTURE, Routine 03/17/2011 12:15 PM Re sults for this AEROBIC, URINE ASSET PROTECTION DETECTIVE procedure are in the results section. WET PREP EXAM, Routine 03/17/2011 12:13 PM Result s for this UROGENITAL ASSET PROTECTION DETECTIVE procedure are i n the results section. documented in this encounter Results Bacterial Culture, Aerobic, Urine (03/17/2011 12:15 PM ASSET PROTECTION DETECTIVE) [facility] gist Method Time Signature Bacterial POWERCHART Culture, Aerobic, Urine HXFinal See POWERCHART scanned/paper report. Test performed at [facility]. Specimen (Source) Anatomical Collection Method Collection Time Re ceived Time Location / / Volume Laterality Urine, Clean 03/17/2011 12:15 Catch PM ASSET PROTECTION DETECTIVE Adonay Gabriel Jr., M.D. LAB MICROBIOLOGY - GENERAL O RDERABLES Performing Organization Address City/[facility] Code Phon e Number POWERCHART (ABNORMAL) Wet Prep Exam, Urogenital (03/17/2011 12:13 PM ASSET PROTECTION DETECTIVE) [facility] Signature HXWet Prep (POSITIVE) POWERCHART HXFinal Trichomonas: POWERCHART Negative HXFinal Clue Cells: POWERCHART Positive HXFinal Yeast: POWERCHART Negative Specimen (Source) Anatomical Collection Method Collection Time Re ceived Time Location / / Volume Laterality Vagina 03/17/2011 12:13 PM ASSET PROTECTION DETECTIVE Adonay Gabriel Jr., M.D. LAB MICROBIOLOGY - GENERAL O GRISELDA Performing Organization Address City/[facility] Phon e Number POWERCHART documented in this encounter Visit Diagnoses Not on filedocumented in this encounter
--- OUTSIDE RECORDS SUMMARY | 2021-10-12 00:45 | XMS_ITS | Encounter Summary ---
:1975 Author Organization [facility] Address [address] [place] [address] Care Team Providers Name Role Phone Unavailable Primary Care Provider Unavailable Encounter Details Date Type Department Care Team Description 09/23/2006 Hospital Encounter [facility]X [facility] Prema Dominguez M.D. [address] [place], [place] [address] (Wo rk) Social History Tobacco Use Types [...] More than 4 times per year 08/17/2020 mu-ism services? Do you belong to any clubs [...]
--- OUTSIDE RECORDS SUMMARY | 2021-10-12 00:45 | XMS_ITS | Encounter Summary ---
:1975 Author Organization [facility] Address [address] [place] [address] Care Team Providers Name Role Phone Unavailable Primary Care Provider Unavailable Encounter Details Date Type Department Care Team Description 10/24/2010 Hospital Encounter [facility]X [facility] Adonay Alfaro Jr., M.D. [address] [place], [place] [phone] (Wo rk) Social History [...] Progress Notes Adonay Gabriel Jr., M.D. - 10/24/2010 12:00 AM CDT [id number] CHIEF COMPLAINT/REASON FOR VISIT Patient in for recheck on miscarriage. HISTORY OF PRESENT ILLNESS She had a D&C on 09/09/10. She had minimal bleeding and pain after that. She has had what she thinks was a normal period on 10/06, but only bled for about 1 day, but did require using of tampons. She is feeling fine. She is anxious to try to achieve another . She is taking vitamins. PAST MEDICAL/SURGICAL HISTORY No changes. PREVENTIVE SERVICES She is up to date on her preventative services. She is smoking 6 cigarettes a day, but is going to quit again and has quit in the past. VITAL SIGNS DATE/TIME 10/24/10 WEIGHT 59.7 kg SYSTOLIC 104 DIASTOLIC 66 PHYSICAL EXAM AREA EXAM TEXT GENITALIA Uterus is anteverted, small, mobile and nontender. Adnexa benign. IMPRESSION/REPORT/PLAN Normal examination post miscarriage. Plan: Follow up when . It would be good if she quit smoking and had another normal period before trying to achieve . LABS Urine test is negative. [facility]/mgd Signed Adonay Gabriel M.D. Obstetrics & Gynecology Electronically Signed By: ADONAY GABRIEL MD On: 10/28/2010 02:55 PM Source: [facility] MHSDOLBEYNONRADSYS Document Id: [id number] documented in this encounter Procedure Notes Alma Salgado R.N. - 10/24/2010 1:41 PM CDT Urine Test Urine Test Entered On: 10/24/2010 13:41 CDT Performed On: 10/24/2010 13:41 CDT by ALMA DAWSON Urine HCG U beta hCG Ql POC: Negative Internal Positive QC: Pass Internal Negative QC: Pass ALMA DAWSON - 10/24/2010 13:41 CDT Source: [facility] POWERCHART Document Id: [id number] CDT!5 documented in this encounter Miscellaneous Notes Miscellaneous - Alma Salgado R.N. - 10/24/2010 10:26 AM CDT Adult Android Architect Intake/History Adult Android Architect Intake/History Entered On: 10/24/2010 10:28 CDT Performed On: 10/24/2010 10:26 CDT by ALMA DAWSON Intake Chief Complaint: recheck LMP Date: 10-06-10 Systolic Blood Pressure: 104mmHg Diastolic Blood Pressure: 66mmHg NIBP Mean: 79mmHg BP Location: Right upper extremity Actual Weight: 59.700kg(Converted to: 131lb 10oz) Dosing Weight Clinic: 59.70kg ALMA DAWSON - 10/24/2010 10:26 CDT Subjective Pain Symptoms: No ALMA DAWSON - 10/24/2010 10:26 CDT Dependent Habits Tobacco Use/Currently Using: Yes Tobacco Use/Advised to Quit: Yes Exposure to Tobacco Smoke: Patient smokes AMLA DAWSON - 10/24/2010 10:26 CDT Tobacco Use Grid Type: Cigarettes Other Tobacco Frequency: 6 cigs per day ALMA DAWSON - 10/24/2010 10:26 CDT Allergy Allergies (Active) NKA Estimated Onset Date: Unspecified ; Created By: ALMA DAWSON; Reaction Status: Active ; Category: Drug ; Substance: NKA ; Type: Allergy ; Updated By: ALMA DAWSON; Reviewed Date: 07/25/2010 10:06 CDT Source: [facility] POWERCHART Document Id: [id number] CDT!20 documented in this encounter Plan of Treatment Not on filedocumented as of this encounter Visit Diagnoses Not on filedocumented in this encounter
--- OUTSIDE RECORDS SUMMARY | 2021-10-12 00:45 | XMS_ITS | Encounter Summary ---
:1975 Author Organization [facility] Address [address] [place] [address] Care Team Providers Name Role Phone Unavailable Primary Care Provider Unavailable Encounter Details Date Type Department Care Team Description 08/08/2010 Hospital Encounter [facility]X [facility] Adonay Alfaro Jr., M.D. [address] [place], [place] [phone] (Wo rk) Social History [...] or relatives? How often do you attend samaritan or More than 4 times per year 08/17/2020 adventism services? Do you belong to any clubs or Yes 08/17/2020 organizations such as samaritan groups, unions, fraternal or athletic groups, or [...] Progress Notes Adonay Gabriel Jr., M.D. - 08/08/2010 12:00 AM CDT [id number] IMPRESSION/REPORT/PLAN Advanced maternal age. Declines amniocentesis and chronic villus sampling. Would like nuchal fold translucency screening possibly and a level II ultrasound. Early warnings, diet and activity discussed. Follow up in 4 weeks. TSH, CBC, panel, HIV done today. Ultrasound is consistent with dates. Please see that separate report for details. CHIEF COMPLAINT/REASON FOR VISIT Patient in for OB check, advanced maternal age. HISTORY OF PRESENT ILLNESS Patient is a 34-year-old, 6, para 4, with 2 previous miscarriages with last period of around 06/23. She recently had an IUD removed. She has been feeling fine. Early June she had a complete normal annual examination. We have discussed advanced maternal age with her. She does not want any testing other than possibly nuchal fold translucency screening. For rest of subjective, objective, please see OB flow sheet. Other than advanced maternal age no problems. Patient wants sterilization after delivery. PHYSICAL EXAM AREA EXAM TEXT GENERAL Please see OB flow sheet. TGH/mgd Signed Adonay Gabriel M.D. Obstetrics & Gynecology Electronically Signed By: ADONAY GABRIEL MD On: 08/10/2010 04:08 PM Source: [facility] MHSDOLBEYNONRADSYS Document Id: [id number] documented in this encounter Miscellaneous Notes Miscellaneous - Adonay Gabriel Jr., M.D. - 08/31/2010 12:08 PM CDT School or Work Excuse School or Work Excuse Entered On: 08/31/2010 12:09 CDT Performed On: 08/31/2010 12:08 CDT by ADONAY GABRIEL MD School or Work Excuse Date Patient Seen: 08/31/2010 CDT Date of Return to School/Work Without Restrictions: 08/10/2010 CDT Comment: hyperemesis ADONAY GABRIEL MD - 08/31/2010 12:08 CDT Source: [facility] POWERCHART Document Id: [id number] CDT!5 Miscellaneous - Adonay Gabriel Jr., M.D. - 08/08/2010 2:29 PM CDT Ambulatory Patient Summary [address] [address] Visit Information Name: MARK BLACK Current Date: 08/08/2010 14:29:05 Primary Care Provider: ADONAY GABRIEL MD Your [...] Mother with Single Liveborn Active x 4 Elderly Multigravida Active lmp 06-23-2010 Your Recommendations We want to make sure [...] Upcoming Appointments Date Time Location Reason Provider 09/08/2010 08:50 [facility] CUSTODIAL MANAGER ob Adonay Gabriel MD Your Goals/Additional instructions: Source: [facility] POWERCHART Document Id: [id number] Electronically signed by Yulisa, [facility] Service Operations Manager [id number] at 08/06/2016 9:29 PM CDT Miscellaneous - Adonay Gabriel Jr., M.D. - 08/08/2010 2:29 PM CDT Ambulatory Depart Summary [address] [address] Visit Information Name: MARK BLACK Current Date: 08/08/2010 14:29:05 Primary Care Provider: ADONAY GABRIEL MD ANDREY BLACKNIRAJ SMITH has been given the following list of [...] to the patient and/or family, guardian/caregiver. Source: [facility] POWERCHART Document Id: [id number] Electronically signed by [facility] Service Operations Manager [id number] at 08/06/2016 9:29 PM CDT Miscellaneous - Alma Salgado RAraceli - 08/08/2010 1:26 PM CDT Adult Associate Professor Of Psychology Intake/History Adult Associate Professor Of Psychology Intake/History Entered On: 08/08/2010 13:27 CDT Performed On: 08/08/2010 13:26 CDT by ALMA DAWSON Intake Chief Complaint: OB visit 6 4/7 weeks Systolic Blood Pressure: 112mmHg Diastolic Blood Pressure: 56mmHg NIBP Mean: 75mmHg BP Location: Right upper extremity Actual Weight: 58.300kg(Converted to: 128lb 8oz) Dosing Weight Clinic: 58.30kg ALMA DAWSON - 08/08/2010 13:26 CDT Subjective Pain Symptoms: No ALMA DAWSON - 08/08/2010 13:26 CDT Dependent Habits Tobacco Use/Currently Using: Yes Tobacco Use/Advised to Quit: Yes Exposure to Tobacco Smoke: Patient smokes ALMA DAWSON - 08/08/2010 13:26 CDT Tobacco Use Grid Type: Cigarettes Other Tobacco Frequency: 3 cigs per day ALMA DAWSON - 08/08/2010 13:26 CDT Allergy Allergies (Active) NKA Estimated Onset Date: Unspecified ; Created By: ALMA DAWSON; Reaction Status: Active ; Category: Drug ; Substance: NKA ; Type: Allergy ; Updated By: ALMA DAWSON; Reviewed Date: 07/25/2010 10:06 CDT Source: [facility] POWERCHART Document Id: [id number] CDT!19 documented in this encounter Plan of Treatment Not on filedocumented as of this encounter Procedures Procedure Name Priority Date/Time Associated Diagnosis Comme nts ABO GROUPING, B Routine 08/08/2010 2:10 PM Result s for this CDT procedure are i n the results section. ANTIBODY SCREEN, B Routine 08/08/2010 2:10 PM Res ults for this CDT procedure are i n the results section. documented in this encounter Results Antibody Screen (08/08/2010 2:10 PM CDT) P athologist Signature Antibody Negative POWERCHART Screen Comment: -- REFERENCE VALUE -- Negative If positive, antibody identification will be performed. Specimen (Source) Anatomical Collection Method Collection Time Re ceived Time Location / / Volume Laterality 08/08/2010 2:10 PM CDT Adonay Gabriel Jr., M.D. LAB BLOOD BANK TEST ORDERABL ES Performing Organization Address City/[facility] Code Phon e Number POWERCHART Grouping and Rh-[place]berg FLIP, see #[id number] (08/08/2010 2:10 PM CDT) P athologist Signature HX Grouping and O POS POWERCHART Rh Specimen (Source) Anatomical Collection Method Collection Time Re ceived Time Location / / Volume Laterality 08/08/2010 2:10 PM CDT Adonay Gabriel Jr., M.D. LAB BLOOD BANK TEST ORDERABL ES Performing Organization Address City/[facility] Code Phon e Number POWERCHART documented in this encounter Visit Diagnoses Not on filedocumented in this encounter
--- OUTSIDE RECORDS SUMMARY | 2021-10-12 00:45 | XMS_ITS | Encounter Summary ---
:1975 Author Organization [facility] Address [address] [place] [address] Care Team Providers Name Role Phone Unavailable Primary Care Provider Unavailable Encounter Details Date Type Department Care Team Description 09/08/2010 Hospital Encounter HX [facility] Adonay Alfaro Jr., M.D. [address] [place], [place] [phone] (Wo rk) Social History [...] Progress Notes Adonay Gabriel Jr., M.D. - 09/08/2010 12:00 AM CDT [id number] IMPRESSION/REPORT/PLAN The patient is comfortable with this diagnosis and is scheduled for a D & C tomorrow. The risks of surgery, bleeding, infection and damage to uterus discussed with the patient. She seems to understand and accept. She is saddened by this, but seems to be accepting. She is prepared for surgery. She knows to be NPO and needs to have at least one normal period before she would attempt a again. H & P filled out for the hospital, please see that for details. She has a follow up appointment in three weeks. Prescriptions for Methergine and Anaprox are sent to the pharmacy. CHIEF COMPLAINT/REASON FOR VISIT OB check HISTORY OF PRESENT ILLNESS Madeline comes in for an OB check. We were unable to hear heart tones, therefore an ultrasound is done and demise is confirmed. The baby is 8 weeks size. No heartbeat and no fluid. Dopplers done which are negative and color flow shows no heart beat. PHYSICAL EXAM AREA EXAM TEXT GENERAL H & P filled out for hospital, please see that for details. TG/sks Signed Adonay Gabriel M.D. Obstetrics & Gynecology Electronically Signed By: ADONAY GABRIEL MD On: 09/12/2010 06:24 PM Source: [facility] MHSDOLBEYNONRADSYS Document Id: [id number] documented in this encounter Miscellaneous Notes Miscellaneous - Alma Salgado, R.N. - 09/08/2010 8:54 AM CDT Adult Communication Electronic Technician Intake/History Adult Communication Electronic Technician Intake/History Entered On: 09/08/2010 8:55 CDT Performed On: 09/08/2010 8:54 CDT by ALMA DAWSON Intake Chief Complaint: OB visit 11 weeks Systolic Blood Pressure: 100mmHg Diastolic Blood Pressure: 54mmHg NIBP Mean: 69mmHg BP Location: Left upper extremity Actual Weight: 60.100kg(Converted to: 132lb 8oz) Dosing Weight Clinic: 60.10kg ALMA DAWSON - 09/08/2010 8:54 CDT Subjective Pain Symptoms: No ALMA DAWSON - 09/08/2010 8:54 CDT Dependent Habits Tobacco Use/Currently Using: No Tobacco Use/Last 12 months: Yes ALMA DAWSON - 09/08/2010 8:54 CDT Tobacco Use Grid Type: Cigarettes Last Use: 1 month ALMA DAWSON - 09/08/2010 8:54 CDT Allergy Allergies (Active) NKA Estimated Onset Date: Unspecified ; Created By: ALMA DAWSON; Reaction Status: Active ; Category: Drug ; Substance: NKA ; Type: Allergy ; Updated By: ALMA DAWSON; Reviewed Date: 07/25/2010 10:06 CDT Source: [facility] Seesmic Document Id: [id number] CDT!18 documented in this encounter Plan of Treatment Not on filedocumented as of this encounter Visit Diagnoses Not on filedocumented in this encounter
--- OUTSIDE RECORDS SUMMARY | 2021-10-12 00:45 | XMS_ITS | Encounter Summary ---
:1975 Author Organization [facility] Address [address] [place] [address] Care Team Providers Name Role Phone Unavailable Primary Care Provider Unavailable Encounter Details Date Type Department Care Team Description 06/22/2010 Hospital Encounter HX [facility]TR Hiram Steve M.D. [address] [place] [address], [address] [place], [place] [phone] (Wo rk) Social History Tobacco Use Types [...] documented as of this encounter Consult Notes Andria Steve M.D. - 06/22/2010 12:00 AM CDT [id number] CHIEF COMPLAINT/REASON FOR VISIT Referral is by Dr. Gabriel. Low back pain and left shoulder pain. HISTORY OF PRESENT ILLNESS Ms. Black is a pleasant 34-year-old right-handed female who reports that she had the onset of left shoulder pain approximately 2 months ago without inciting events trauma. She describes this as an achy, throbbing discomfort that is located in the top of the left shoulder and can radiate into the anterolateral shoulder. She rates this pain that is worse as a 9/10 and at its best as a 3/10. She denies any pain radiating distal to the anterolateral shoulder. When the pain first began, she was also having some pain in the left trapezius and left side of her neck but that has resolved. She describes this pain as being worse when she does any activity such as reaching onto the side with abduction, lifting, or a thing that very much exacerbates her pain is when she crosses hands in front of her to lift her shirt off. She also has pain at night when lying on her left side. She has never had pain like this previously. She has been using Advil for the past couple of months. She has not found to be overly helpful. She recently switched to Aleve which again has not made much difference in her symptoms. She did use ice one time which did not find to be overly helpful. She also describes right sided low back pain. This also began approximately 2 to 3 months ago without inciting events or trauma. She initially thought she may have a urinary tract infection with a kidney infection. She saw Dr. Gabriel and was evaluated for this and there is no evidence of any urinary tract infection. This pain has been gradually improving over the past few weeks but it is still present. She describes discomfort that is located the right side of her low back. The pain is worse with any standing or walking which she has to do a lot of at work. Also if she sits than 30 minutes this can increase the pain. She does describe an occasional discomfort in the posterior aspect of the left calf and occasionally into the posterior left thigh. This only occurs when she is supine. She does not describe this as a pain but more of a straining sensation. It typically when it does occur will last for approximately 30 minutes and then resolve. She has not noted any swelling, warmth or erythema in the calf. Otherwise she denies any radiating pain in to the lower extremities. She denies any paresthesias or weakness in the lower extremities. She denies any changes in bowel or bladder habits, fevers or chills, or recent unintentional weight loss. PAST MEDICAL/SURGICAL HISTORY Noncontributory CURRENT MEDICATIONS Aleve as needed for pain. ALLERGIES No known medication allergies. SOCIAL HISTORY The patient lives in [place]. She smokes one-pack per day of cigarettes. 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 PHYSICAL EXAM GENERAL: Pleasant 34-year-old female in no acute distress. NEURO: Oriented to person, place and time. Appropriate mood and affect. Gait reveals normal yoel and stride. Toe and heel walking are normal. EXTREMITIES: Strength: All major muscle groups of the bilateral upper and lower extremities have normal and symmetric muscle strength, bulk and tone. Reflexes: Bilateral upper and lower extremity muscle stretch reflexes are physiologic and symmetric. Plantar responses downgoing bilaterally. Sensation: Normal light touch sensation through upper and lower extremities. SLR: Straight leg raise is negative for radicular pain or paresthesias bilaterally. MUSCULOSKELETAL: SPINE: Normal pain free range of motion cervical spine. Negative Spurling's bilaterally. Preserved lumbar range of motion. She does have pain at the end range of extension on the right side of her low back. Palpation there is tenderness to palpation over the right lower lumbar paraspinals and mild tenderness to palpation over the region of the right sacroiliac joint. JOINT RANGE OF MOTION: She has very tight hip flexors and hip external rotators bilaterally with mildly decrease of internal range of motion which is not painful. Negative Stinchfield's bilaterally. Shoulder forward elevation is to 180 degrees on the right and to 160 degrees in the left, abduction is 180 degrees bilaterally with pain in the mid arc on the left. Internal rotation is to T5 bilaterally, external rotation is to 85 degrees bilaterally. She has pain with testing of her supraspinatus but normal strength with testing of both supraspinatus and external rotators on the left. Negative Neer's, positive Castro, mildly positive Speed's, mildly positive scarf and [place]'s causes pain in both first and second position. She is tender in the region of the AC joint on the left. There is mild discomfort in the anterior subacromial space on the left. IMPRESSION/REPORT/PLAN 1. Left shoulder pain with positive impingement signs on examination today. 2. Low back pain. Ms. Black has a normal neurologic examination today. Her symptoms are not overly suspicious for a radiculopathy or myelopathy. I am not entirely sure how to explain the abnormal sensation she can occasionally experience in the left posterior thigh and leg although this is very intermittent and seems to be improving. She does have positive impingement signs today on the left and likely has a component of left shoulder impingement syndrome which is contributing to her symptoms although she is describing much of her pain in the top of the left shoulder and is tender in the region of the AC joint. She has not had any injury to the shoulder that she can recall. PLAN 1. With the length of time both of these areas of discomfort have persisted for Ms. Noel, we are going to proceed with x-rays of the left shoulder as well as the lumbar spine. I am going to have her involved in physical therapy in [place]. With respect to her low back pain, we are going to especially address her very tight hip flexors and hip external rotators and the rationale for this was explained to Ms. Black. I would also like to institute a dynamic lumbar stabilization program. For her shoulder we are going to work on a scapular stabilizer program and address her posture with stretching of her pectorals. We will progress to a rotator cuff strengthening program once her pain and range of motion normalizes. 2. I am going to place Ms. 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 3. I will plan on seeing her back in 6 weeks to assess her progress or sooner if she notes any worsening or worrisome symptoms which we went over in detail today. She voiced agreement and understanding with this plan. ISAEL/jhon Signed Andria Steve M.D. Physical Medicine & Rehabilitation CC: Adonay Gabriel M.D. Obstetrics & Gynecology [address] [place] [address] Electronically Signed By: ANDRIA STEVE MD On: 07/07/2010 08:39 Modified by and Electronically Signed by: ANDRIA STEVE MD On: 07/07/2010 08:39 am Source: [facility] MHSDOLBEYNONRADSYS Document Id: [id number] documented in this encounter Miscellaneous Notes Miscellaneous - Andria Steve M.D. - 06/22/2010 1:02 PM CDT Ambulatory Patient Summary [address] [address] Visit Information Name: MARK BLACK Current Date: 06/22/2010 13:02:19 Primary Care Provider: ADONAY GABRIEL MD Your Medications Here is a list of your medications. It is important to take your medications as directed. Use a pillbox or chart to help remind you to take your medications. Please let your doctor or nurse know if you have problems taking your medications. Medication/Strength Dose Route Frequency Indications/Special Instructions/Comments No Medications found Your Allergies & Intolerances Substance Reaction Symptoms [...] Upcoming Appointments Date Time Location Reason Provider 06/27/2010 09:[address] SPECIALIST sutures Adonay Gabriel MD 06/27/2010 10:30 [facility] Xray low back pain 06/27/2010 10:30 [facility] Xray shoulder pain 08/03/2010 16:00 [facility] PM&R rc Andria Steve MD Your Goals/Additional instructions: Source: [facility] Document Id: [id number] Andria Chambers M.D. - 06/22/2010 1:02 PM CDT Ambulatory Depart Summary [address] [address] Visit Information Name: MARK BLACK Current Date: 06/22/2010 13:02:19 Primary Care Provider: ADONAY GABRIEL MD MARK BLACK has been given the following list of medications: Your Medications It is important to take your medications as directed. Use a pill box or chart to help remind you to take your medications. Please let your doctor or nurse know if you have problems taking your medications. Medication/Strength Dose Route Frequency Indications/Special Instructions/Comments No Medications found Additional Information: Source: [facility] Document Id: [id number] Andria Chambers M.D. - 06/22/2010 12:33 PM CDT Return to Work Status Return to Work Status Entered On: 06/22/2010 12:34 CDT Performed On: 06/22/2010 12:33 CDT by ANDRIA STEVE MD Return to Work Status Employer: [employer] Work Status: Other: No lifting/carrying or pushing/pulling greater than 20 pounds and no overhead work. Restricted Work Start Date: 06/22/2010 CDT Restricted Work Stop Date: 08/07/2010 CDT Follow Up Appointment Needed: Yes Follow Up Physician Name: ANDRIA Kevin MD - 06/22/2010 12:33 CDT Source: [facility] Document Id: [id number] CDT!8 documented in this encounter Plan of Treatment Not on filedocumented as of this encounter Visit Diagnoses Not on filedocumented in this encounter
--- OUTSIDE RECORDS SUMMARY | 2021-10-12 00:45 | XMS_ITS | Encounter Summary ---
:1975 Author Organization [facility] Address [address] [place] [address] Care Team Providers Name Role Phone Unavailable Primary Care Provider Unavailable Encounter Details Date Type Department Care Team Description 12/12/2008 Hospital Encounter [facility]X [facility] Stuart Marquez M.D. [address] [place] [phone] (Wo rk) Social History Tobacco Use Types [...] or relatives? How often do you attend religious or More than 4 times per year 08/17/2020 mormonism services? Do you belong to any clubs or Yes 08/17/2020 organizations such as religious groups, unions, fraternal or athletic groups, or [...]
--- OUTSIDE RECORDS SUMMARY | 2021-10-12 00:45 | XMS_ITS | Encounter Summary ---
:1975 Author Organization [facility] Address [address] [place] [address] Care Team Providers Name Role Phone Unavailable Primary Care Provider Unavailable Encounter Details Date Type Department Care Team Description 12/11/2008 Hospital Encounter [facility]X [facility] Ashwini Silva, TAHMINA, R.N. [address] [place] [address] (Wo rk) Social History Tobacco Use Types [...]
--- OUTSIDE RECORDS SUMMARY | 2021-10-12 00:45 | XMS_ITS | Encounter Summary ---
:1975 Author Organization [facility] Address [address] [place] [address] Care Team Providers Name Role Phone Unavailable Primary Care Provider Unavailable Encounter Details Date Type Department Care Team Description 05/12/2011 Hospital Encounter HX [facility] Adonay Alfaro Jr., M.D. [address] [place], [place] [phone] (Wo rk) Social History [...] or relatives? How often do you attend religion or More than 4 times per year 08/17/2020 uatsdin services? Do you belong to any clubs or Yes 08/17/2020 organizations such as religion groups, unions, fraternal or athletic groups, or [...] Sign Reading Time Taken Comments Blood Pressure 94/52 05/12/2011 9:51 AM RESIST COATER DEVELOPER Pulse - - Temperature - - Respiratory Rate - - Oxygen Saturation - - Inhaled Oxygen Concentration - - Weight 64.2 kg (141 lb 8.6 oz) 05/12/2011 9:51 AM RESIST COATER DEVELOPER Height - - Body Mass Index - - documented in this encounter Miscellaneous Notes Miscellaneous - Alma Salgado, RIrisN. - 05/12/2011 9:51 AM CST Adult Regional Clinical Director Intake/History Adult Regional Clinical Director Intake/History Entered On: 05/12/2011 9:52 RESIST COATER DEVELOPER Performed On: 05/12/2011 9:51 RESIST COATER DEVELOPER by ALMA DAWSON Intake Chief Complaint : OB visit 21 5/7 weeks Systolic Blood Pressure : 94mmHg Diastolic Blood Pressure : 52mmHg NIBP Mean : 66mmHg BP Location : Left upper extremity Blood Pressure Cuff Size : Regular Actual Weight : 64.2kg(Converted to: 141lb 9oz) Dosing Weight Clinic : 64.20kg ALMA DAWSON - 05/12/2011 9:51 RESIST COATER DEVELOPER Subjective Pain Symptoms : No ALMA DAWSON - 05/12/2011 9:51 RESIST COATER DEVELOPER Dependent Habits Tobacco Use/Currently Using : No Exposure to Tobacco Smoke : Patient smokes Smoking Status : Former smoker ALMA DAWSON - 05/12/2011 9:51 RESIST COATER DEVELOPER Tobacco Use Grid Type : Cigarettes Last Use : 01-21-11 ALMA DAWSON - 05/12/2011 9:51 RESIST COATER DEVELOPER Allergy Allergies (Active) NKA Estimated Onset Date: Unspecified ; Created By: ALMA DAWSON; Reaction Status: Active ; Category: Drug ; Substance: NKA ; Type: Allergy ; Updated By: ALMA DAWSON; Reviewed Date: 03/17/2011 10:04 RESIST COATER DEVELOPER Source: [facility] POWERCHART Document Id: [id number] RESIST COATER DEVELOPER![address] ST COATER DEVELOPER documented in this encounter Plan of Treatment Not on filedocumented as of this encounter Visit Diagnoses Not on filedocumented in this encounter
--- OUTSIDE RECORDS SUMMARY | 2021-10-12 00:45 | XMS_ITS | Encounter Summary ---
:1975 [address] [facility] Address [address] [place] [address] Care Team Providers Name Role Phone Unavailable Primary Care Provider Unavailable Encounter Details Date Type Department Care Team Description 02/17/2011 Hospital Encounter HX [facility] Adonay Alfaro Jr., M.D. [address] [place], [place] [phone] (Wo rk) Social History [...] Progress Notes Adonay Gabriel Jr., M.D. - 02/17/2011 12:00 AM CST [id number] CHIEF COMPLAINT/REASON FOR VISIT Patient in for OB check HISTORY OF PRESENT ILLNESS 35-year-old 7, para 4 previous recent miscarriage in for OB check to confirm viability. PHYSICAL EXAM Ultrasound is done confirms viability and is about a week ahead of dates. Patient does complain of some hyperemesis. Paula gives her a headache. She is going to try Unisom and vitamin B6. Rest of objective please see OB flow sheet IMPRESSION/REPORT/PLAN Patient stable with some hyperemesis but tolerating fluids okay and appears to be getting somewhat better symptomatically with that. Hyperemesis risk given as far as things to follow up with. She will return in 4 weeks if she is improving. Otherwise come in as needed. She declines invasive testing, would like probably nuchal fold translucency and that is scheduled for next visit. TGH/mgd Signed Adonay Gabriel M.D. Obstetrics & Gynecology Electronically Signed By: ADONAY GABRIEL MD On: 02/21/2011 11:40 AM Source: [facility] MHSDOLBEYNONRADSYS Document Id: [id number] ICE AND REPAIR SUPERVISOR documented in this encounter Miscellaneous Notes Miscellaneous - Alma Salgado, R.N. - 02/17/2011 9:57 AM CST Adult Motorcycle Technician Intake/History Adult Motorcycle Technician Intake/History Entered On: 02/17/2011 9:59 SERVICE AND REPAIR SUPERVISOR Performed On: 02/17/2011 9:57 SERVICE AND REPAIR SUPERVISOR by ALMA DAWSON Intake Chief Complaint : OB visit 8 2/7 weeks Systolic Blood Pressure : 94mmHg Diastolic Blood Pressure : 54mmHg NIBP Mean : 67mmHg BP Location : Left upper extremity Blood Pressure Cuff Size : Regular Actual Weight : 57.1kg(Converted to: 125lb 14oz) Dosing Weight Clinic : 57.10kg ALMA DAWSON - 02/17/2011 9:57 SERVICE AND REPAIR SUPERVISOR Subjective Pain Symptoms : No ALMA DAWSON - 02/17/2011 9:57 SERVICE AND REPAIR SUPERVISOR Dependent Habits Tobacco Use/Currently Using : No Tobacco Use/Last 12 months : Yes Smoking Status : Former smoker ALMA DAWSON - 02/17/2011 9:57 SERVICE AND REPAIR SUPERVISOR Tobacco Use Grid Type : Cigarettes Last Use : 01-21-11 ALMA DAWSON - 02/17/2011 9:57 SERVICE AND REPAIR SUPERVISOR Allergy Allergies (Active) NKA Estimated Onset Date: Unspecified ; Created By: ALMA DAWSON; Reaction Status: Active ; Category: Drug ; Substance: NKA ; Type: Allergy ; Updated By: ALMA DAWSON; Reviewed Date: 07/25/2010 10:06 CDT [facility] Document Id: [id number] SERVICE AND REPAIR SUPERVISOR!20 ICE AND REPAIR SUPERVISOR documented in this encounter Plan of Treatment Not on filedocumented as of this encounter Visit Diagnoses Not on filedocumented in this encounter
--- OUTSIDE RECORDS SUMMARY | 2021-10-12 00:45 | XMS_ITS | Encounter Summary ---
:1975 Author Organization [facility] Address [address] [place] [address] Care Team Providers Name Role Phone Unavailable Primary Care Provider Unavailable Encounter Details Date Type Department Care Team Description 09/24/2006 Hospital Encounter HX [facility] Prema Dominguez M.D. [address] [place], [place] [address] (Wo rk) Social History [...]
--- OUTSIDE RECORDS SUMMARY | 2021-10-12 00:45 | XMS_ITS | Encounter Summary ---
:1975 Author [facility] Address [address] [place] [address] Care Team Providers Name Role Phone Unavailable Primary Care Provider Unavailable Encounter Details Date Type Department Care Team Description 04/14/2011 Hospital Encounter HX [facility] Adonay Alfaro Jr., M.D. [address] [place], [place] [phone] (Wo rk) Social History [...] Sign Reading Time Taken Comments Blood Pressure 92/52 04/14/2011 9:59 AM BLAST FURNACE CHECKER Pulse - - Temperature - - Respiratory Rate - - Oxygen Saturation - - Inhaled Oxygen Concentration - - Weight 62 kg (136 lb 11 oz) 04/14/2011 9:59 AM BLAST FURNACE CHECKER Height - - Body Mass Index - - documented in this encounter Miscellaneous Notes Miscellaneous - Alma Salgado, R.N. - 04/14/2011 9:59 AM CST Adult Bottom Liquor Attendant Intake/History Adult Bottom Liquor Attendant Intake/History Entered On: 04/14/2011 10:01 BLAST FURNACE CHECKER Performed On: 04/14/2011 9:59 BLAST FURNACE CHECKER by ALMA DAWSON Intake Chief Complaint : OB visit 18 weeks Systolic Blood Pressure : 92mmHg Diastolic Blood Pressure : 52mmHg NIBP Mean : 65mmHg BP Location : Left upper extremity Blood Pressure Cuff Size : Regular Actual Weight : 62.0kg(Converted to: 136lb 11oz) Dosing Weight Clinic : 62.00kg ALMA DAWSON - 04/14/2011 9:59 BLAST FURNACE CHECKER Subjective Pain Symptoms : No ALMA DAWSON - 04/14/2011 9:59 BLAST FURNACE CHECKER Dependent Habits Tobacco Use/Currently Using : No Exposure to Tobacco Smoke : Patient smokes Smoking Status : Former smoker ALMA DAWSON - 04/14/2011 9:59 BLAST FURNACE CHECKER Tobacco Use Grid Type : Cigarettes Last Use : 01-21-11 ALMA DAWSON - 04/14/2011 9:59 BLAST FURNACE CHECKER Allergy Allergies (Active) NKA Estimated Onset Date: Unspecified ; Created By: ALMA DAWSON; Reaction Status: Active ; Category: Drug ; Substance: NKA ; Type: Allergy ; Updated By: ALMA DAWSON; Reviewed Date: 03/17/2011 10:04 BLAST FURNACE CHECKER Source: [facility] POWERCHART Document Id: [id number] BLAST FURNACE CHECKER!20 T FURNACE CHECKER documented in this encounter Plan of Treatment Not on filedocumented as of this encounter Visit Diagnoses Not on filedocumented in this encounter
--- OUTSIDE RECORDS SUMMARY | 2021-10-12 00:45 | XMS_ITS | Encounter Summary ---
:1975 Author Organization [facility] Address [address] [place] [address] Care Team Providers Name Role Phone Unavailable Primary Care Provider Unavailable Encounter Details Date Type Department Care Team Description 05/14/2005 Hospital Encounter [facility]X [facility] Roney Cordon M.D. [address] [place], [place] [address] (Wo rk) Social History [...]
--- OUTSIDE RECORDS SUMMARY | 2021-10-12 00:45 | XMS_ITS | Encounter Summary ---
:1975 Author Organization [facility] Address [address] [place] [address] Care Team Providers Name Role Phone Unavailable Primary Care Provider Unavailable Encounter Details Date Type Department Care Team Description 06/27/2010 Hospital Encounter HX [facility] Hiram Delgado M.D. [address] [place] [address], [address] [place], [place] [phone] (Wo rk) Social History Tobacco Use Types [...] Priority Date/Time Associated Diagnosis Comme nts DX SHOULDER LEFT 2+ Routine 06/27/2010 9:40 AM Re sults for this VIEWS CDT procedure are i n the results section. documented in this encounter Results DX Shoulder Left 2+ Views (06/27/2010 9:40 AM CDT) Anatomical Region Laterality Modality Upper Extremity, Shoulder Left Radiographic I maging Specimen (Source) Anatomical Collection Method Collection Time Re ceived Time Location / / Volume Laterality 06/27/2010 9:40 AM CDT Addenda Addendum by ProviderKristy M.D. o n 06/27/2010 9:40 AM CDT RAD^^^OW XR Shoulder Left 2 or more views 06/27/2010 09:40:00 Impressions 06/27/2010 10:05 AM CDT Negative. Narrative 06/27/2010 10:05 AM CDT HISTORY: Left shoulder pain, no reported injury. ?? FINDINGS: There is no x-ray evidence of an acute displaced fracture, dislocation, or significant incidental l ytic/blastic osseous lesion. Joint spaces are preserved. No focal sof t tissue abnormality is evident on x-ray. ?? Procedure Note Bradley Rosado M.D. / Provider, Merrick caro M.D. - 07/26/2016 HISTORY: Left shoulder pain, no reported injury. FINDINGS: There is no x-ray evidence of an acute displaced fracture, dislocation, or significant incidental l ytic/blastic osseous lesion. Joint spaces are preserved. No focal sof t tissue abnormality is evident on x-ray. IMPRESSION: Negative. Sejal Farmer(R), RKari(R)(M) IMG DIAGNOSTIC IMAGING PROCEDURES documented in this encounter Visit Diagnoses Not on filedocumented in this encounter
== END 2021-10-05 07:01 | disposition home or self-care (01) ==
LOC: MRI 07:00
PROVIDERS: Visit Provider Orthopaedic Surgery
DX: M25.562 Pain in left knee (principal); S83.282A Other tear of lateral meniscus, current injury, left knee, initial encounter; M25.462 Effusion, left knee; M25.561 Pain in right knee; S83.281A Other tear of lateral meniscus, current injury, right knee, initial encounter
CPT/HCPCS: 73721

== ENCOUNTER 2021-11-29 06:44 | Day surgery (SDC) | payer OTHER, SELFPAY ==
[2021-11-29] VITALS (14 sets, daily range): BP systolic 92–125; BP diastolic 67–91; PULSE 46–83; RESP 20; TEMP 36.2–36.7; O2SAT 98–100; BMI 26.2
[2021-11-29] MEDS: LACTATED RINGERS 1000 ML 1,000 ML 100 ML IV (07:25)
[2021-11-29] MEDS: SODIUM CHLORIDE 0.9 % (FLUSH) 10 ML SYRINGE IVF (07:25)
[2021-11-29] MEDS: CEFAZOLIN 2 GM INJ IVP (08:46)
[2021-11-29] MEDS: BUPIVACAINE 0.25% 30 ML INJECTION ×2 (09:46)
--- NOTE | 2021-11-29 10:07 | PM.ORPRC ---
Procedure Note Date of procedure: 11/29/21 Procedure: SURGEON: Sesar Palumbo MD RECOATING MACHINE OPERATOR: CARLYN Ayala PREOPERATIVE DIAGNOSIS: Bilateral knee lateral meniscus tear POSTOPERATIVE DIAGNOSIS: Bilateral knee lateral meniscus tear NAME OF OPERATION: Bilateral knee arthroscopic partial lateral meniscectomy ANESTHESIA: Spinal ESTIMATED BLOOD LOSS: 0 mL COMPLICATIONS: None SPECIMENS: None DRAINS: None PREOPERATIVE ANTIBIOTICS: Ancef 2 gram INDICATIONS: The patient is a 45-year-old female with a history of bilateral knee lateral pain. MRI scan is consistent with a lateral meniscus tear. Despite appropriate nonoperative management, including activity modification, antiinflammatories, [id number] pain medication, bracing, physical therapy, and injections they continue to have pain and disability. Operative intervention was offered. The risks, benefits and expected outcomes were discussed in detail. These included but were not limited to: Infection, bleeding, injury to blood vessel or nerve, venous thromboembolism. All questions were answered to their satisfaction. PROCEDURE: Spinal anesthesia was administered. The patient was placed supine on the operating room table. The both lower extremities were prepped and draped in the usual sterile fashion. Attention was turned to the right knee. The limb was exsanguinated with the Hardeep bandage. The pneumatic tourniquet was inflated to 300 mmHg. A standard anterolateral portal was established. The arthroscope was introduced. The working portal was established anteromedially. Diagnostic arthroscopy was performed with findings as follows: The suprapatellar pouch is normal. Articular surface on the patella is normal. Articular surface on the trochlea is normal. The medial gutter is normal. The medial compartment shows normal articular cartilage on the medial femoral condyle and medial tibial plateau. The medial meniscus is normal. The notch shows the ACL to be intact. The lateral compartment shows normal articular cartilage on the lateral femoral condyle and lateral tibial plateau. The lateral meniscus has a complex degenerative tear of the anterior horn, into the midbody and posterior horn. This primarily consists of an unstable flap anteriorly and undersurface horizontal cleavage tearing of the midbody and posterior horn. The lateral gutter is normal. The anterior horn of the lateral meniscus was debrided with the shaver. The undersurface of the midbody and posterior horn were debrided with the basket and contoured with the shaver through both portals, taken to a stable base. Arthroscopic instruments were removed, the portal sites were Steri-Stripped closed, the knee was infiltrated with 30 mL of 0.25% Marcaine without epinephrine. A dry dressing was applied, the tourniquet was released. Attention then turned to the left knee. The limb was exsanguinated. The pneumatic tourniquet was inflated to 300 mmHg. A standard anterolateral portal was placed. The working portal was established anteromedially. Diagnostic arthroscopy was performed with findings as follows: The suprapatellar pouch is normal. Articular surface on the patella and trochlea are normal. The medial gutter is normal. The medial compartment shows normal articular cartilage on the medial femoral condyle and medial tibial plateau. Medial meniscus is normal. The notch shows the ACL to be intact. The lateral compartment shows normal articular cartilage on the lateral femoral condyle and lateral tibial plateau. The lateral meniscus has a nearly identical complex degenerative tear. This consists of an unstable flap anteriorly. The only difference was an apparent parameniscal cyst off the anterior horn. There was undersurface horizontal cleavage tearing of the midbody into the posterior horn. The lateral meniscus was debrided with the shaver over the anterior horn debriding the unstable flap. The basket and shaver were used to contour the undersurface of the midbody and posterior horn to a stable base. Anterior parameniscal cyst was resected with the shaver. Arthroscopic instruments removed. The portal sites were Steri-Strip closed. The knee was infiltrated with 30 mL of 0.25% Marcaine, without epinephrine. A dry dressing was applied, the tourniquet was released. Sponge and needle counts were correct x2. The patient tolerated the procedure well. There were no apparent complications. They were carefully transferred to the hospital bed and taken to the postanesthesia care unit in satisfactory condition. PLAN: The patient will be discharged to home. They may weightbear as tolerates. Range of motion will be unrestricted. They will follow up in the office next week for a wound check.
--- NOTE | 2021-11-29 10:15 | W.ANESCHARGE ---
Anesthesia Charges Start Date/Time Anesthesia Start Date: 11/29/21 Anesthesia Start Time: 08:39 Stop Date/Time Anesthesia Stop Date: 11/29/21 Anesthesia Stop Time: 10:13 Summary Emergency: No
--- NOTE | 2021-11-29 10:19 | W.ANESCHARGE ---
Anesthesia Charges Start Date/Time Anesthesia Start Date: 11/29/21 Anesthesia Start Time: 08:39 Stop Date/Time Anesthesia Stop Date: 11/29/21 Anesthesia Stop Time: 10:13 Summary Emergency: No
--- NOTE | 2021-11-29 11:04 | PC.NURSE ---
complaining of eye pain, right eye. nothing visable, tried warm cloth, tried saline
--- NOTE | 2021-11-29 12:15 | SUR.PHASEII ---
informed mda about eye pain. eye ointment ordered. pt advised to follow up with eye clinic, if symptoms do not resolve
== END 2021-11-29 12:15 | disposition home or self-care (01) ==
PROVIDERS: Visit Provider Orthopaedic Surgery
PROC: 0SJC4ZZ Inspection of Right Knee Joint, Percutaneous Endoscopic Approach (ICD-10-PCS; CPT 29870; principal; 2021-11-29 08:15)
DX: M23.252 Derangement of posterior horn of lateral meniscus due to old tear or injury, left knee (principal); M23.251 Derangement of posterior horn of lateral meniscus due to old tear or injury, right knee; M23.242 Derangement of anterior horn of lateral meniscus due to old tear or injury, left knee; M23.241 Derangement of anterior horn of lateral meniscus due to old tear or injury, right knee
CPT/HCPCS: 29881; 01400; 97161; A9270; J0690; J1100; J2250; J2400; J2405; J2704; J3010; J3490; J7120